=== PATIENT | male | born 1935 | race Caucasian/White ===

== ENCOUNTER → 2016-11-20 | Outpatient (CLI) | payer MEDICARE, BC ==
[2016-11-20 12:11] LABS: ALT 60 U/L (21-72); AST 45 U/L (17-59)
== END | disposition home or self-care (01) ==
LOC: LABWHC1 11:16
PROVIDERS: ATTEND Podiatrist
DX: M10.9 Gout, unspecified (principal)
CPT/HCPCS: 36415; 84450; 84460

== ENCOUNTER → 2017-01-03 | Outpatient (CLI) | payer MEDICARE, BC ==
[2017-01-03 14:43] LABS: ALT 46 U/L (21-72); AST 34 U/L (17-59); Blood Urea Nitrogen 26 mg/dL (9-20); Non-African American GFR(MDRD) >60 (>60 ml/min/1.73 sqM); Uric Acid 3.2 mg/dL (3.5-8.5)
== END | disposition home or self-care (01) ==
LOC: LABWHC1 13:54
PROVIDERS: ATTEND Podiatrist
DX: M10.9 Gout, unspecified (principal)
CPT/HCPCS: 36415; 82565; 84450; 84460; 84520; 84550

== ENCOUNTER → 2017-01-09 | Outpatient (CLI) | payer MEDICARE, BC ==
--- NOTE | 2017-01-09 19:39 | CONS ---
DATE OF CONSULTATION: 01/09/2017 An 81-year-old gentleman, has been evaluated in the sleep center for possible obstructive sleep apnea-hypopnea syndrome. HISTORY OF PRESENT ILLNESS/SLEEP-WAKE EVALUATION: Patient usually goes to bed around 2 a.m. and then he sleeps until around 5:30 or 6:00 a.m. He does have problems with falling asleep, although no TV in the bedroom. He sleeps on back position. According to his , he has loud snoring and witnessed episodes of stopped breathing during sleep. He wakes up from sleep up to 3 times with nocturia. He worries about his sleep, has problems with the memory during the day. [place] Sleepiness Scale is 9. PAST MEDICAL HISTORY: Positive for atrial fibrillation hypertension and gout. PAST SURGICAL HISTORY: Status post defibrillator insertion, status post surgery on artery of the right leg stent insertion. MEDICATIONS: Pacerone, Atorvastatin, warfarin, spironolactone, losartan, allopurinol. SOCIAL HISTORY: Positive for smoking for about 30 pack-years; quit about 35 years ago. Alcohol consumption is occasional. REVIEW OF SYSTEMS: Awakenings from sleep. FAMILY HISTORY: Hypertension, angina, heart problems, arthritis, snoring, pneumonia, cancer in the family. PHYSICAL EXAMINATION: 81-year-old gentleman without distress. VITAL SIGNS: BP 136/78, HR 68, RR 16. Height 59-1/2 inches. Weight 199 pounds. BMI 29.91. Temperature 97.5. Oxygen saturation 92%. HEENT: Normal positon of soft palate. NECK: Supple. No JVD. Thyroid is not palpable. HEART: S1, S2 irregularly irregular 1+ bilateral ankle edema. LUNGS: Clear to percussion and to auscultation. Good air exchange. No wheezing or rhonchi. ABDOMEN: Soft and nontender. Bowel sounds are present. No organomegaly appreciated. EXTREMITIES: No clubbing or cyanosis. HOMICIDE SQUAD CAPTAIN: Awake, alert, and oriented x3. Cranial nerves 2 to 7 intact. There is no fasciculation or atrophy noted. No focal deficits observed. IMPRESSION: 1. Snoring, witnessed episodes of stopped breathing during sleep, low oropharyngeal air space, multiple awakenings from sleep with nocturia, obstructive sleep apnea-hypopnea syndrome. 2. Atrial fibrillation. 3. Hypertension. 4. Gout. 5. Status post defibrillator insertion. 6. Status post stent insertion to the artery of right leg. PLAN: 1. Polysomnography for evaluation of patient's breathing during sleep. 2. CPAP/BiPAP titration if sleep study confirms obstructive sleep apnea-hypopnea syndrome. 3. Preferable position during sleep on the side. 4. No driving if patient feels any sleepiness. Patient is aware of civil and criminal liability for unsafe driving. 5. I will see patient for follow-up visit to explain results of the testing and following plan. Thank you very much for referring this patient for consultation. Sincerely, Celso Buckner MD, PhD, FAASM. Diplomat of [employer] Board of [employer] Medicine, Sleep Medicine Board by [employer] Board of Medical Specialities [employer] Board of Internal Medicine Steel Molder of [facility] [place]
== END | disposition home or self-care (01) ==
LOC: SLEEP 15:29
PROVIDERS: ATTEND Internal Medicine Clinical Cardiac Electrophysiology
DX: G47.33 Obstructive sleep apnea (adult) (pediatric) (principal); I10 Essential (primary) hypertension; I48.91 Unspecified atrial fibrillation; R35.1 Nocturia; M10.9 Gout, unspecified; F17.200 Nicotine dependence, unspecified, uncomplicated; Z95.0 Presence of cardiac pacemaker; Z79.01 Long term (current) use of anticoagulants; Z95.5 Presence of coronary angioplasty implant and graft; Z79.899 Other long term (current) drug therapy
CPT/HCPCS: 99211

== ENCOUNTER → 2017-04-10 | Outpatient (CLI) | payer MEDICARE, BC ==
--- NOTE | 2017-04-10 16:58 | PN ---
DATE OF SERVICE: 04/10/2017 This patient is an 81-year-old gentleman who has been followed in the sleep center for treatment of obstructive sleep apnea-hypopnea syndrome in severe range. Patient recently had a diagnostic sleep study and CPAP titration. I discussed the results of his sleep study with the patient in detail. He is on treatment with CPAP at the pressure 14 cm of water. He is able to use the equipment every night without significant problems. He brought his CPAP unit with him. I checked his machine; usage is 30 out of 30 nights for more than 4 hours. Leak from the mask is 24 L/minute. Apnea-hypopnea index is 18.6; related to central events. 6.6. CPAP pressure is 14. [place] Sleepiness Scale today is 5. MEDICATIONS: 1. ( ) 2. Atorvastatin. 3. Warfarin. 4. Spironolactone. 5. Losartan. 6. Allopurinol. PHYSICAL EXAMINATION: Patient in no distress. VITAL SIGNS: BP 146/74, HR 50, RR 16. Weight 203. Temperature 98.1. Oxygen saturation at room air 94%. HEENT: PERRLA, EOMI. Evaluation of oropharynx showed tongue protrudes midline; low position of soft palate. Patient is able to breathe through his nose. NECK: Supple. No JVD. Thyroid is not palpable. LUNGS: Clear to percussion and to auscultation. Good air exchange. No wheezing or rhonchi. HEART: Regular heart tones. ABDOMEN: Obese. EXTREMITIES: One plus ankle edema. SURGEON CHIEF: Awake, alert, and oriented x3. Cranial nerves 2 to 7 intact. There is no fasciculation or atrophy noted. No focal deficits observed. IMPRESSION: 1. Extremely severe obstructive sleep apnea-hypopnea syndrome; apnea-hypopnea index 49.8 with oxygen desaturation to 71.1%, improved on CPAP at 14 cm of water. Patient demonstrated 100% compliance with treatment, benefiting from treatment. 2. Leak from the mask is acceptable at 24 L/minute, but sometimes it goes to the eye area. 3. Hypertension. 4. History of atrial fibrillation. 5. Gout. 6. Status post defibrillator insertion. 7. Status post stent insertion to the artery of right leg. PLAN: 1. Continue treatment with CPAP every night for the whole night. 2. I will change regimen to auto set mode with the minimal pressure of 4 and maximum pressure of 20 following standard. 3. We will change mask to Onidna View full-face mask at the present time. 4. Patient will continue to use equipment every night. 5. Sleep hygiene with regular time in bed for at least 8 hours. 6. No driving if feeling any sleepiness. 7. I will see the patient for follow-up visit in 2 months. Thank you very much for allowing me to participate in the management of your patient. Sincerely, Celso Buckner MD, PhD, FAASM. Diplomat of [place] Board of Sleep Medicine, Sleep Medicine Board by [employer], [place] Board of Internal Medicine
== END | disposition home or self-care (01) ==
LOC: SLEEP 13:24
PROVIDERS: ATTEND Internal Medicine
DX: G47.33 Obstructive sleep apnea (adult) (pediatric) (principal); I10 Essential (primary) hypertension; M10.9 Gout, unspecified; Z79.899 Other long term (current) drug therapy; Z79.01 Long term (current) use of anticoagulants; Z95.5 Presence of coronary angioplasty implant and graft; Z95.810 Presence of automatic (implantable) cardiac defibrillator

== ENCOUNTER → 2017-07-14 | Outpatient (CLI) | payer MEDICARE, BC ==
[2017-07-14 09:23] LABS: ALT 31 U/L (21-72); AST 26 U/L (17-59); Blood Urea Nitrogen 33 mg/dL (9-20); Non-African American GFR(MDRD) 59 (>60 ml/min/1.73 sqM); Uric Acid 6.7 mg/dL (3.5-8.5)
== END | disposition home or self-care (01) ==
LOC: LABWHC1 07:59
PROVIDERS: ATTEND Podiatrist
DX: M10.9 Gout, unspecified (principal)
CPT/HCPCS: 36415; 82565; 84450; 84460; 84520; 84550

== ENCOUNTER → 2017-07-31 | Outpatient (CLI) | payer MEDICARE, BC ==
--- NOTE | 2017-07-31 21:57 | PN ---
PROGRESS NOTE DATE OF SERVICE: 07/31/2017 This patient is an 82-year-old gentleman who has been followed in the sleep center for treatment of obstructive sleep apnea-hypopnea syndrome. The patient continues to use his CPAP equipment every night. During the previous visit, because apnea-hypopnea index on the machine was 18.6, I changed the pressure in the machine from 14 cm of water to automatic regimen from 4 to 20 cm of water. Today the patient came for follow-up visit. He brought his CPAP machine. I checked the CPAP machine. He is using the equipment 25 out of 30 nights for more than 4 hours. Average usage 5.7 hours. Pressure in the machine is 15.2 cm of water most of the time, but leak is 50 L/minute. Apnea-hypopnea index reading from the machine for the last month is 21.5 with total apnea index 19.9 and central apnea index 4.5. [place] Sleepiness Scale today is 8. MEDICATIONS: 1. Losartan. 2. Amlodipine. 3. Allopurinol. 4. Spironolactone. 5. Atorvastatin. 6. Coumadin. PHYSICAL EXAM: This is a pleasant 82-year-old gentleman without distress. VITAL SIGNS: BP 111/60, HR 58, RR 16, height 5 feet 9 inches, weight 198, BMI 29.2, temperature 98.1, oxygen saturation at room air 93%. HEENT: PERRLA, EOMI. Evaluation of oropharynx showed tongue protrudes midline; moderately low position of soft palate. No restriction of nasal breathing. NECK: Supple. No JVD. Thyroid is not palpable. LUNGS: Clear to percussion and to auscultation. Good air exchange. No wheezing or rhonchi. HEART: S1, S2 irregularly irregular. ABDOMEN: Obese. EXTREMITIES: One plus ankle edema. CURB MACHINE OPERATOR: Awake, alert and oriented x3. Cranial nerves 2 to 7 intact. There is no fasciculation or atrophy noted. No focal deficits observed. IMPRESSION: 1. Severe obstructive sleep apnea-hypopnea syndrome; apnea-hypopnea index during diagnostic sleep study 49.8 with oxygen desaturation to 71%. The patient demonstrated good compliance with treatment, benefitting from treatment, but he still has some abnormalities of respiration while using his CPAP. Significant leak was documented. 2. Hypertension. 3. Atrial fibrillation. 4. Gout. 5. Status post defibrillator insertion. Status post stent insertion to the artery of right leg. PLAN: 1. We will try to try to use nasal pillow mask with chin strap. 2. Patient should continue to use equipment every night for the whole night. 3. Sleep hygiene with regular time in bed for at least 8 hours. 4. No driving if feeling any sleepiness. 5. Follow-up visit in 2 months. Thank you very much for allowing me to participate in the management of your patient. Sincerely, Celso Buckner MD, PhD, FAASM Diplomat of [employer] Specialties [employer] Board of Internal Medicine Contact Lens Lathe Operator of [facility] [place] MMODL / IJN: [id number] /
== END | disposition home or self-care (01) ==
LOC: SLEEP 14:31
PROVIDERS: ATTEND Internal Medicine
DX: G47.33 Obstructive sleep apnea (adult) (pediatric) (principal); I10 Essential (primary) hypertension; I48.91 Unspecified atrial fibrillation; M10.9 Gout, unspecified; Z79.01 Long term (current) use of anticoagulants; Z79.899 Other long term (current) drug therapy

== ENCOUNTER → 2017-11-24 | Outpatient (CLI) | payer MEDICARE, BC ==
--- NOTE | 2017-11-24 11:29 | XR ---
EXAMINATION TYPE: XR chest 2V DATE OF EXAM: 11/24/2017 COMPARISON: Prior chest x-ray 09/08/2017 HISTORY: Lumbar pneumonia TECHNIQUE: Frontal and lateral views of the chest are obtained. FINDINGS: Heart remains enlarged, intracardiac defibrillator lead is present in the right ventricle. No airspace disease, pneumothorax, or pleural effusion evident. Pulmonary vascularity and cuauhtemoc are w ithin normal limits. There is some improvement in aeration. The aorta is dense. IMPRESSION: Improvement in patient's airspace disease. Cardiomegaly.
== END | disposition home or self-care (01) ==
LOC: RADXRMAIN 10:06
PROVIDERS: ATTEND Family Medicine
DX: J18.1 Lobar pneumonia, unspecified organism (principal); I51.7 Cardiomegaly
CPT/HCPCS: 71046

== ENCOUNTER → 2017-12-08 | Outpatient (CLI) | payer MEDICARE, BC ==
[2017-12-08 11:49] LABS: Calcium 9.9 mg/dL (8.4-10.2); Potassium 5.3 mmol/L (3.5-5.1)
== END | disposition home or self-care (01) ==
LOC: LABWHC1 10:58
PROVIDERS: ATTEND Nurse Practitioner Adult Health
DX: I10 Essential (primary) hypertension (principal); R06.02 Shortness of breath
CPT/HCPCS: 36415; 80048; 83880

== ENCOUNTER → 2018-01-01 | Outpatient (CLI) | payer MEDICARE, BC ==
--- NOTE | 2018-01-01 12:09 | PN ---
PROGRESS NOTE FOLLOW-UP VISIT DATE OF SERVICE: 01/01/2018 An 82-year-old gentleman has been followed in the sleep center for treatment of obstructive sleep apnea-hypopnea syndrome. The patient continued to use his equipment, but during the previous visit significant leak was documented and we changed mask to nasal pillows. Presently, patient started to use his Evans FX nasal pillow mask, but sometimes he still opens his mouth while using his CPAP. I checked CPAP unit. It is an automatic regimen. The pressure ranged between 4 and 20. Usage 25/30 nights for more than 4 hours, which is acceptable range. Average pressure is 10.9 cm of water. Ramp is an automatic regimen. Apnea-hypopnea index in high range 20.7 and central apneas 5.3. Leak is again very significant 46 L/minute. [place] Sleepiness Scale today is 6. MEDICATIONS: Amlodipine, losartan, allopurinol, spironolactone, atorvastatin, Coumadin. PHYSICAL EXAM: During physical exam, patient in no distress. VITAL SIGNS: BP 103/63, HR 52, RR 16, height 5 feet 9 inches, weight 197.6, temp 97.6. Oxygen saturation room air 91%-92%. HEENT: PERRLA, EOMI. Oropharynx moderately low position of soft palate. NECK: Supple, no JVD. Thyroid is not palpable. LUNGS: Clear to percussion and to auscultation. Good air exchange. No wheezing or rhonchi. HEART: S1, S2, irregularly irregular. ABDOMEN: Soft and nontender. Bowel sounds are present. No organomegaly appreciated. EXTREMITIES: No clubbing or cyanosis. CHANNEL MARKETING COORDINATOR: Awake, alert, and oriented X3. Cranial nerves 2 to 7 intact. There is no fasciculation or atrophy. noted. No focal deficits observed IMPRESSION: 1. Obstructive sleep apnea-hypopnea syndrome with some central apneas. Patient being demonstrated good compliance with treatment, but has significant leak and still has abnormalities of respiration by reading from the machine. 2. Hypertension. 3. Atrial fibrillation. 4. Gout. 5. Status post defibrillator insertion. 6. Status post stent insertion to the right leg artery. PLAN: 1. Continue to use CPAP equipment every night. 2. The patient will be use chin strap every night. 3. Sleep hygiene with regular time in bed for at least 7-1/2 hours. 4. No driving if feeling any sleepiness. 5. Follow-up visit in one month. Thank you very much for allowing me to participate in management of your patient. Sincerely, Celso Buckner MD, PhD, FAASM Diplomat of [place] Board of Medical Specialties [place] Board of Internal Medicine Data Support Analyst of [facility] [place] MMSILVESTRE / BASHIR: [id number] /
== END | disposition home or self-care (01) ==
LOC: SLEEP 10:14
PROVIDERS: ATTEND Internal Medicine
DX: G47.33 Obstructive sleep apnea (adult) (pediatric) (principal); Z99.89 Dependence on other enabling machines and devices; I10 Essential (primary) hypertension; I48.91 Unspecified atrial fibrillation; Z79.01 Long term (current) use of anticoagulants; M10.9 Gout, unspecified; Z95.810 Presence of automatic (implantable) cardiac defibrillator; Z95.5 Presence of coronary angioplasty implant and graft; Z79.899 Other long term (current) drug therapy

== ENCOUNTER → 2018-03-19 | Outpatient (CLI) | payer MEDICARE, BC ==
--- NOTE | 2018-03-19 16:40 | PN ---
PROGRESS NOTE DATE OF SERVICE: 03/19/2018 This patient is 82-year-old gentleman who has been followed in the sleep center for treatment of obstructive sleep apnea-hypopnea syndrome. The patient continues to use his CPAP equipment every night. At present he is using a nasal pillow mask. He has problems with the usage of chinstrap because the chinstrap has a tendency to move from his chin up to his mouth. I checked the patient's CPAP unit. It is on automatic regimen. The pressure ranges between 4 and 20 cm of water. Most of the time, pressure is 11.3 cm of water, which is not extremely high, but reading from the machine showed a significant leak of around 41 L/minute. Apnea-hypopnea index reading for the last month is in high range of 31.3; for the last night it is 23.1. Again, patient demonstrated great compliance at /30 nights more than 4 hours. Average usage is 5.6 hours. I checked the patient's nasal pillow mask. The mask fits well. There is no leak from the mask, so most probably the leak indicated on the machine is from opening his mouth. MEDICATIONS: 1. Atorvastatin. 2. Warfarin. 3. Spironolactone. 4. Losartan. 5. Allopurinol. 6. Pacerone. PHYSICAL EXAMINATION: GENERAL: A pleasant gentleman in no distress. VITAL SIGNS: BP 99/50, HR 54, RR 16, height 5 feet 9 inches, weight 196, BMI 28.9, temperature 98.1, oxygen saturation at room air 94%. HEENT: PERRLA, EOMI. Evaluation of oropharynx showed tongue protrudes midline; moderately low position of soft palate. Short distance between soft palate and posterior pharyngeal wall. NECK: Supple. No JVD. Thyroid is not palpable. LUNGS: Clear to percussion and to auscultation. Good air exchange. No wheezing or rhonchi. HEART: Tone sounds with slight irregularities. ABDOMEN: Obese. Soft and nontender. Bowel sounds are present. No organomegaly appreciated. EXTREMITIES : No clubbing or cyanosis. FEATHEREDGE MACHINE OPERATOR: Awake, alert, and oriented X3. Cranial nerves 2 to 7 intact. There is no fasciculation or atrophy. noted. No focal deficits observed. IMPRESSION: 1. Obstructive sleep apnea-hypopnea syndrome. Patient demonstrated great compliance with treatment, benefitting from treatment, but he still at present has a leak and high apnea-hypopnea index. 2. History of atrial fibrillation. 3. Hypertension. 4. Gout. 5. Status post defibrillator insertion. 6. Status post stent insertion to the right leg artery. PLAN: 1. Patient will continue to use CPAP equipment every night for the whole night on the same regimen. 2. He will use chinstrap every night to be sure that there is no leak from the equipment. 3. We may get the patient a different style of chinstrap. 4. No driving if feeling any sleepiness. 5. Follow-up visit in one month. Thank you very much for allowing me to participate in the management of your patient. Sincerely, Celso Buckner MD, PhD, FAASM Diplomat of [employer] Board of Medical Specialties Iranian Board of Internal Medicine Contact Clerk of [facility] [place] MMODL / BASHIR: [id number] /
== END | disposition home or self-care (01) ==
LOC: SLEEP 15:32
PROVIDERS: ATTEND Internal Medicine
DX: G47.33 Obstructive sleep apnea (adult) (pediatric) (principal); I48.91 Unspecified atrial fibrillation; I10 Essential (primary) hypertension; M10.9 Gout, unspecified; Z95.810 Presence of automatic (implantable) cardiac defibrillator; Z95.820 Peripheral vascular angioplasty status with implants and grafts; Z99.89 Dependence on other enabling machines and devices; Z79.899 Other long term (current) drug therapy

== ENCOUNTER → 2018-05-28 | Outpatient (CLI) | payer MEDICARE, BC ==
--- NOTE | 2018-05-28 18:48 | PN ---
PROGRESS NOTE DATE OF SERVICE: 05/28/2018. An 83-year-old gentleman has been followed in sleep center for treatment of obstructive and central sleep apnea-hypopnea syndrome. The patient continued to use his CPAP equipment every night for the whole night without significant problems. During previous visit, apnea-hypopnea index was 31.3. I changed the pressure to 11 cm of water and patient was recommended to use chin strap. He is using chinstrap now with a nasal pillow mask. I checked his CPAP unit. Usage is 30/30 nights for more than 4 hours every 6.1 hours. The patient still has significant leak at 38 L/minute. Apnea-hypopnea index improved to 21.3 per hour, but still above normal. Central apneas 9.8. CPAP pressure is 11 cm of water. MEDICATIONS: 1. Warfarin. 2. Atorvastatin. 3. Spironolactone. 4. Losartan. 5. Allopurinol. 6. Pacerone. PHYSICAL EXAMINATION: GENERAL Patient in no distress. VITAL SIGNS BP 107/59, HR 51, RR 18, height 69, weight 195.8, BMI 28.7, temperature 97.2, oxygen saturation at room air 91%. HEENT PERRLA, EOMI, evaluation of oropharynx showed tongue protrudes midline, moderately low position of soft palate, short distance between soft palate and posterior pharyngeal wall. Neck Supple, no JVD. Thyroid is not palpable. LUNGS Clear to percussion and to auscultation. Good air exchange. No wheezing or rhonchi. HEART HEART: S1, S2 with some irregularities. ABDOMEN Soft and nontender. Bowel sounds are present. No organomegaly appreciated. EXTREMITIES No clubbing or cyanosis. BRUSH TRIMMING MACHINE SETTER Awake, alert, and oriented X3. Cranial nerves 2 to 7 intact. There is no fasciculation or atrophy. noted. No focal deficits observed. IMPRESSION: 1. Obstructive and central sleep apnea-hypopnea syndrome. The patient demonstrated good compliance with the treatment, but still has a significant leak while using a chin strap with a nasal pillow mask. 2. History of atrial fibrillation. 3. Hypertension. 4. Gout. 5. Status post defibrillator insertion. 6. Status post stent insertion to the right leg artery. PLAN: 1. I increased pressure in CPAP unit to 14 cm of water. 2. Patient was fitted with Ondina View full face mask. 3. Patient will continue to use his CPAP equipment every night for the whole night. 4. Sleep hygiene with regular time in bed for at least 8 hours. 5. No driving if feeling any sleepiness. 6. Followup visit in 2 to 3 months. Thank you very much for allowing me to participate in management of your patient. Sincerely, Celso Buckner MD, PhD, FAASM Diplomat of [employer] Board [employer] Medical Specialties [employer] Board of Internal Medicine Miller Helper Distillery of [facility] [place] MMODL / KAITLINN: [id number] /
== END | disposition home or self-care (01) ==
LOC: SLEEP 16:38
PROVIDERS: ATTEND Internal Medicine
DX: G47.33 Obstructive sleep apnea (adult) (pediatric) (principal); I10 Essential (primary) hypertension; M10.9 Gout, unspecified; Z86.79 Personal history of other diseases of the circulatory system; Z95.810 Presence of automatic (implantable) cardiac defibrillator; Z95.5 Presence of coronary angioplasty implant and graft; Z79.01 Long term (current) use of anticoagulants; Z79.899 Other long term (current) drug therapy

== ENCOUNTER → 2018-08-13 | Outpatient (CLI) | payer MEDICARE, BC ==
[2018-08-13 15:58] LABS: HCT 42.9 % (39.0-53.0); HGB 13.8 gm/dL (13.0-17.5); MCH 32.2 pg (25.0-35.0); MCHC 32.1 g/dL (31.0-37.0); MCV 100.1 fL (80.0-100.0); Mean Platelet Volume 6.5; Platelet Count 180 k/uL (150-450); RBC 4.29 m/uL (4.30-5.90); RDW 13.4 % (11.5-15.5); WBC 4.6 k/uL (3.8-10.6)
[2018-08-13 16:10] LABS: Albumin 4.2 g/dL (3.5-5.0); Calcium 9.9 mg/dL (8.4-10.2); Potassium 5.2 mmol/L (3.5-5.1); Total Bilirubin 1.1 mg/dL (0.2-1.3); Total Protein 7.5 g/dL (6.3-8.2)
[2018-08-13 16:26] LABS: T4, Free (Free Thyroxine) 1.04 ng/dL (0.78-2.19)
== END | disposition home or self-care (01) ==
LOC: LABWHC1 15:03
PROVIDERS: ATTEND Internal Medicine Cardiovascular Disease
DX: I50.9 Heart failure, unspecified (principal)
CPT/HCPCS: 36415; 80053; 84439; 84443; 85027

== ENCOUNTER → 2018-08-27 | Outpatient (CLI) | payer MEDICARE, BC ==
--- NOTE | 2018-08-27 19:08 | SFUN ---
SLEEP CENTER FOLLOW UP NOTE DATE OF SERVICE: 08/27/2018. HISTORY: An 83-year-old gentleman has been followed in Sleep Center for treatment of obstructive and central sleep apnea-hypopnea syndrome. The patient continued to use his CPAP equipment every night. Last time I changed his CPAP unit to automatic regimen because he still continued to have some central apneas and his apnea-hypopnea index during previous visit was 21.3, and central apnea index was 9.8. That was on CPAP pressure of 11. I changed it to the range of CPAP pressure of 4 to 20 to see what happens with the increasing pressure because a significant amount of abnormal events obviously related to obstructive apneas, not only centrals. The patient continued to use his CPAP equipment. His mask was changed to Ondina View and with this mask he feels better, sleeps longer with this mask than before. I checked his CPAP unit. Usage is 21/30 for more than 30 nights for more than 4 hours. Average usage 4.9 hours, average pressure is 16.4 cm of water. Leak is 36 L/minute, which is borderline for full-face mask. Apnea-hypopnea index 21.1 with a central index of 3.8. [place] Sleepiness Scale is 7. MEDICATIONS: 1. Warfarin. 2. Atorvastatin. 3. Spironolactone. 4. Losartan. 5. Allopurinol. 6. . PHYSICAL EXAMINATION: GENERAL A pleasant patient without any distress. VITAL SIGNS: BP 139/63, HR 49, RR 16, height and 5 foot 9, weight 200.6, body mass index 29.5, oxygen saturation room air 94%. HEENT: PERRLA, EOMI, evaluation of oropharynx showed tongue protrudes midline. Moderately low position of soft palate. NECK: Supple, no JVD. Thyroid is not palpable. LUNGS: Clear to percussion and to auscultation. Good air exchange. No wheezing or rhonchi. HEART: S1, S2 irregular. ABDOMEN: Soft and nontender. Bowel sounds are present. No organomegaly appreciated. EXTREMITIES: No clubbing or cyanosis. JEWELRY BENCH MOLDER: Awake, alert, and oriented X3. Cranial nerves 2 to 7 intact. There is no fasciculation or atrophy. noted. No focal deficits observed. IMPRESSION: 1. Obstructive and central sleep apnea-hypopnea syndrome. The patient demonstrated good compliance with treatment benefitting from treatment, but still has abnormalities of respiration on CPAP. 2. History of atrial fibrillation. 3. Hypertension. 4. Gout. 5. Status post defibrillator insertion. 6. Status post stent insertion to the right leg artery. PLAN: 1. We will repeat CPAP, possibly BiPAP titration, for correction of patient breathing during the sleep. 2. Watching weight. 3. Sleep hygiene with regular time in bed for at least 7-1/2 to 8 hours. 4. No driving if feeling sleepiness. Thank you very much for allowing me to participate in management of your patient. MMODL / IJN: [id number] /
== END ==
LOC: SLEEP 15:18
PROVIDERS: ATTEND Internal Medicine
DX: G47.33 Obstructive sleep apnea (adult) (pediatric) (principal); I10 Essential (primary) hypertension; M10.9 Gout, unspecified; Z95.5 Presence of coronary angioplasty implant and graft; I48.91 Unspecified atrial fibrillation; Z79.899 Other long term (current) drug therapy; Z79.01 Long term (current) use of anticoagulants

== ENCOUNTER → 2020-10-02 | Outpatient (CLI) | payer MEDICARE, BC ==
[2020-10-02 15:55] LABS: African American GFR (CKD) 63.5 (60.0-200.0); Albumin 4.1 g/dL (3.80-4.90); Albumin/Globulin Ratio 1.64 (1.60-3.17); Anion Gap 7.6 mmol/L (4.00-12.00); BUN/Creat Ratio 24.17 Ratio (12.00-20.00); Calcium 9.7 mg/dL (8.7-10.3); Carbon Dioxide 27.4 mmol/L (21.6-31.8); Chol/HDL Ratio 2.8; Globulin 2.5 g/dL (1.6-3.3); LDL Cholesterol,Calculated 61.4 mg/dL (0.0-131.0); Non-African American GFR(CKD) 54.8 (60.0-200.0); Potassium 4.8 mmol/L (3.5-5.5); Total Protein 6.6 g/dL (6.2-8.2); VLDL Calculation 19.6 mg/dL (5.00-40.00)
== END | disposition home or self-care (01) ==
LOC: LABWHC1 08:27
PROVIDERS: ATTEND Physician Assistant
DX: E78.5 Hyperlipidemia, unspecified (principal); I42.9 Cardiomyopathy, unspecified; I48.91 Unspecified atrial fibrillation
CPT/HCPCS: 36415; 80053; 80061; 84443

== ENCOUNTER 2020-10-30 06:07 | Day surgery (SDC) | payer MEDICARE, BC ==
[2020-10-26 11:41] VITALS: BMI 25.5
[~2020-10-30 06:07] MED LIST: ALPRAZolam 0.25 MG TAB PO PRN; SODIUM CHLORIDE 0.9% 1,000 ML in EMPTY BAG 1 BAG IV ONE; ZOLPIDEM 5 MG TAB PO PRN
[2020-10-30 06:58] LABS: Basophils % (A) 0 %; Eosinophils # (A) 0.2 k/uL (0-0.7); Eosinophils % (A) 5 %; HCT 43.5 % (39.0-53.0); HGB 13.9 gm/dL (13.0-17.5); Lymphocytes # (A) 0.9 k/uL (1.0-4.8); Lymphocytes % (A) 19 %; MCH 31.2 pg (25.0-35.0); MCHC 31.8 g/dL (31.0-37.0); MCV 98.1 fL (80.0-100.0); Mean Platelet Volume 7.6; Monocytes # (A) 0.4 k/uL (0-1.0); Monocytes % (A) 8 %; Neutrophils # (A) 3.2 k/uL (1.3-7.7); Neutrophils % (A) 65 %; Platelet Count 180 k/uL (150-450); RBC 4.44 m/uL (4.30-5.90); RDW 13.5 % (11.5-15.5); WBC 4.8 k/uL (3.8-10.6)
[2020-10-30 06:59] VITALS: TEMP 98.3
[2020-10-30] MEDS ORDERED: ASPIRIN 325 MG TAB PO PRN (07:00)
[2020-10-30 07:04] LABS: INR 1.7 (<1.2)
[2020-10-30 07:09] LABS: Calcium 9.6 mg/dL (8.4-10.2); Potassium 4.2 mmol/L (3.5-5.1)
[2020-10-30] MEDS ORDERED: LIDOCAINE 1% INJ 10MG/ML (20 ML MDV) SQ ONE (07:46)
[2020-10-30] MEDS ORDERED: IOPAMIDOL-250 100ML BTL INTRAARTER ONE (08:03)
[2020-10-30] MEDS ORDERED: SODIUM CHLORIDE 0.9% 1,000 ML IV SCH (08:15)
--- NOTE | 2020-10-30 09:06 | IR ---
EXAMINATION TYPE: IR angio abdominal w runoff DATE OF EXAM: 10/30/2020 COMPARISON: NONE HISTORY: Fluoroscopy time. Fluoroscopy was provided to the referring clinician.
--- NOTE | 2020-10-30 11:26 | AN ---
ANGIOGRAPHY REPORT DATE OF SERVICE: 10/30/2020 PERFORMING PHYSICIAN: Joseph Trinidad MD. PROCEDURE PERFORMED: 1. An abdominal aortogram. 2. Bilateral lower extremities runoff. INDICATION: This is an 85-year-old gentleman who is in good physical and mental shape who sees Dr. Swanson in the office as an outpatient with history of peripheral arterial disease and prior angioplasty of the right iliac, was experiencing bilateral lower extremities intermittent claudication and underwent an arterial duplex study and that revealed increased peak systolic velocity across the right iliac artery. Because of that, he was brought today to undergo an angiogram. APPROACH: Right common femoral artery. COMPLICATION: None. LEVEL OF SEDATION: Moderate with sedation length of 18 minutes. PROCEDURE DESCRIPTION: After obtaining an informed consent, the patient was brought to the cardiac laborer gold leaf. The right common femoral artery was cannulated using micropuncture technique and a micropuncture wire passed easily, then I placed a 5-Citizen Of [place] sheath at the right common femoral artery. An abdominal aortogram and bilateral lower extremities runoff were performed using 5- Citizen Of [place] pigtail catheter which was initially placed at the level of the renal arteries, then it was pulled into above the bifurcation of the aorta to right and left common iliac artery. The procedure was completed without any complication. SELECTIVE PERIPHERAL ANGIOGRAM: 1. The aorta appeared to be calcified with mild disease only. 2. Common iliac arteries: The right common iliac artery and left common iliac arteries appeared to have mild disease only. 3. Internal iliac arteries: Both are patent. 4. External iliac artery: The right external iliac artery appeared to have a tight lesion in the range of 80%-90% above the stented segment and the left external iliac artery appeared to have mild disease only. 5. Common femoral arteries: Both appeared to be angiographically normal. 6. Profunda: Both are patent. 7. SFA; The right SFA appeared to have a lesion in the range of 70% and the left SFA appeared to be angiographically normal. Distally, the left SFA appeared to have mild disease only. 8. Popliteal: Both appear to have mild disease only. 9. Below the knee: There are 2 vessel runoff below the knee with peroneal and posterior tibial. CONCLUSION: 1. 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 2. Severe disease involving the right SFA. POSTPROCEDURE MANAGEMENT: INSPECTOR WATER POLLUTION CONTROL of the right iliac and right SFA. MMODL / IJN: [id number] /
[2020-10-30 12:58] VITALS: PULSE 54
[2020-10-30 14:32] VITALS: BP 142/67; RESP 16
== END 2020-10-30 15:00 | disposition home or self-care (01) ==
LOC: CATHCVL 06:07
PROVIDERS: ATTEND Internal Medicine Interventional Cardiology
DX: I73.9 Peripheral vascular disease, unspecified (principal); I70.0 Atherosclerosis of aorta; I10 Essential (primary) hypertension; I48.21 Permanent atrial fibrillation; D86.9 Sarcoidosis, unspecified; I70.8 Atherosclerosis of other arteries; E78.2 Mixed hyperlipidemia; Z95.820 Peripheral vascular angioplasty status with implants and grafts; Z72.0 Tobacco use; Z79.01 Long term (current) use of anticoagulants; Z79.899 Other long term (current) drug therapy; Z79.82 Long term (current) use of aspirin; Z88.6 Allergy status to analgesic agent; Z88.5 Allergy status to narcotic agent; Z86.79 Personal history of other diseases of the circulatory system
CPT/HCPCS: 36200; 75625; 75716; 80048; 85025; 85610; C1769 ×4; C1894; J2001; Q9966

== ENCOUNTER 2021-02-28 18:01 | Emergency (ER) | payer MEDICARE, BC ==
[2021-02-28 18:09] VITALS: BP 155/61; PULSE 63; RESP 20; TEMP 97.8
--- NOTE | 2021-02-28 18:10 | ED ---
General Adult HPI - General Source: patient, family, RN notes reviewed Mode of arrival: ambulatory Limitations: no limitations <Paulie Mendez - Last Filed: 02/28/21 18:08> <Tasha Chow - Last Filed: 02/28/21 20:47> - General Chief complaint: Fall Stated complaint: trip & fall Time Seen by Provider: 02/28/21 18:03 - History of Present Illness Initial comments: This 85-year-old male presents emergency Department with chief complaint of trip and fall. Patient states he tripped and fell yesterday he did strike his head on the sidewalk. Patient did not pass out. Patient does take Coumadin. Patient states he saw his PCP today who gave him an order for CT of his brain. Patient went of mild neck discomfort. Patient states he has soreness to his left knee and hands but states he was wearing gloves. Patient has no chest pain or shortness of breath. (Paulie Mendez) - Related Data Home Medications Medication Instructions Recorded Confirmed Atorvastatin [Lipitor] 10 mg PO HS 01/13/16 10/30/20 Amiodarone HCl [Pacerone] 100 mg PO DAILY 10/26/20 10/30/20 Aspirin [Adult Low Dose Aspirin EC] 81 mg PO DAILY 10/26/20 10/30/20 Furosemide [Lasix] 20 mg PO DAILY 10/26/20 10/30/20 Losartan Potassium [Cozaar] 100 mg PO DAILY 10/26/20 10/30/20 Spironolactone [Aldactone] 25 mg PO DAILY 10/30/20 10/30/20 Previous Rx's Medication Instructions Recorded Magnesium Chloride [Slow-Mag] 64 mg PO DAILY@1200 #30 tablet.er 01/24/16 Cyclobenzaprine [Flexeril] 5 mg PO BID #15 tablet 02/28/21 Allergies Allergy/AdvReac Type Severity Reaction Status Date / Time propoxyphene napsylate Allergy Hallucinati Verified 02/28/21 18:09 [From Priscila] ons adhesive tape AdvReac Rash/Hives Verified 02/28/21 18:09 morphine AdvReac Hallucinati Verified 02/28/21 18:09 ons Review of Systems ROS Other: All systems not noted in ROS Statement are negative. <Paulie Mendez - Last Filed: 02/28/21 18:08> ROS Other: All systems not noted in ROS Statement are negative. <Tasha Chow - Last Filed: 02/28/21 20:47> ROS Statement: Those systems with pertinent positive or pertinent negative responses have been documented in the HPI. Past Medical History Past Medical History: Atrial Fibrillation, Cancer, Chest Pain / Angina, Heart Failure, Hyperlipidemia, Hypertension, Osteoarthritis (OA), Pneumonia, Sleep Apnea/CPAP/BIPAP, Vascular Disorder Additional Past Medical History / Comment(s): HX OF HEART MURMUR, HX OF COLON CA, GOUT, V-TACH, , P.A.D. History of Any Multi-Drug Resistant Organisms: None Reported Past Surgical History: Bowel Resection, Cardiac Ablation, Heart Catheterization, Hernia Repair, Orthopedic Surgery Additional Past Surgical History / Comment(s): HAD BOWEL RESECTION R/T COLON CA, HAD COLOSTOMY NOW REVERSED. HAD SX ON TENDON IN FINGER . STATES LUNG DRAINED OF FLUID.stent rt external iliac artery(per report) Past Anesthesia/Blood Transfusion Reactions: No Reported Reaction Smoking Status: Former smoker - Past Family History Mother Family Medical History: No Reported History <Paulie Mendez M - Last Filed: 02/28/21 18:08> General Exam Limitations: no limitations General appearance: alert, in no apparent distress <Paulie Mendez M - Last Filed: 02/28/21 18:08> <Tasha Chow - Last Filed: 02/28/21 20:47> - General Exam Comments Initial Comments: GENERAL: Patient is well-developed and well-nourished. Patient is nontoxic and in no acute distress. HEAD: Atraumatic, normocephalic. There are no hematomas, no signs of basal skull fracture. EYES: Pupils equal round and reactive to light, extraocular movements intact, sclera anicteric, conjunctiva are normal. Eyelids were unremarkable. ENT: TMs normal, nares patent, oropharynx clear without exudates. Moist mucous membranes. NECK: He should has pain with palpation along the cervical paraspinals, no midline tenderness. He does have decreased active range of motion secondary to pain and stiffness. supple without lymphadenopathy or JVD. LUNGS: Unlabored respirations. Breath sounds clear to auscultation bilaterally and equal. No wheezes rales or rhonchi. HEART: Regular rate and rhythm without murmurs, rubs or gallops. ABDOMEN: Soft, nontender, normoactive bowel sounds. No guarding, no rebound. No masses appreciated. : Deferred MUSCULOSKELETAL: Normal extremities with adequate strength and normal range of motion, no pitting or edema. No clubbing or cyanosis. NEUROLOGICAL: Patient is alert and oriented x 3. Motor and sensory are also intact. Cranial nerves II through XII grossly intact. Symmetrical smile. Normal speech, normal gait. PSYCH: Normal mood, normal affect. SKIN: Warm, Dry, normal turgor, no rashes. She has mild bruising and a mild abrasion noted to the left anterior knee, is Full range of motion. (Tasha Chow) Course Vital Signs 02/28/21 18:05 Temperature 97.8 F Pulse Rate 63 Respiratory 20 Rate Blood Pressure 155/61 O2 Sat by Pulse 92 L Oximetry Medical Decision Making <Tasha Chow - Last Filed: 02/28/21 20:47> - Medical Decision Making Patient is an 85-year-old male presenting after a trip and fall yesterday at approximate 4 PM. Patient denies any loss of consciousness, he does take Cou madin. He was seen by his primary care today and he wanted to get a CT of his head however the daughter brought him into the ER for evaluation. CT of the brain and C-spine today showed no acute abnormalities, no acute fractures. Patient's begins complaint is stiffness of his neck. I will give him a low-dose of a muscle relaxer to try over the next few days. Also recommended heat and/or ice to the area. Patient and patient's daughter are in agreement with this plan of care. She was stable for discharge. He can follow up with his PCP. Return parameters were discussed with them and they verbalized understanding. Case discussed with Dr. Barroso. (Tasha Chow) Disposition <Paulie Mendez - Last Filed: 02/28/21 18:08> Is patient prescribed a controlled substance at d/c from ED?: No Time of Disposition: 20:47 <Tasha Chow - Last Filed: 02/28/21 20:47> Clinical Impression: Fall, Cervical strain, acute Disposition: HOME SELF-CARE Condition: Stable Instructions (If sedation given, give patient instructions): Cervical Strain (ED) Additional Instructions: Please return to the Emergency Department if symptoms worsen or any other concerns. May apply ice and/or heat to the area, gentle range of motion. May use muscle relaxer, be cautious, as it may may you sleepy. Follow-up with your primary care physician. Prescriptions: Cyclobenzaprine [Flexeril] 5 mg PO BID #15 tablet Referrals: Ian España DO [Primary Care Provider] - 1-2 days
--- NOTE | 2021-02-28 18:45 | CT ---
EXAMINATION TYPE: CT brain nnamdi wo con DATE OF EXAM: 02/28/2021 COMPARISON: CT brain 01/04/2014 HISTORY: Fall, head and neck pain. CT DLP: 1571.7 mGycm Automated exposure control for dose reduction was used. There is cerebral cortical atrophy. There is no mass effect nor midline shift. There is no sign of in tracranial hemorrhage. There is mild hypodensity in the periventricular white matter. The calvarium i s intact. Skull base is intact. Cervical vertebra have normal alignment. There is disc space narrowing at C5-6 and C6-7 with spurring of the endplates. Facet joints are intact. There is mild hypertrophic facet arthropathy. IMPRESSION: Spondylotic changes in the lower cervical spine. No fracture. Cerebral atrophy and chronic small vessel ischemia. No acute intracranial abnormality. Brain unchange d compared to old exam.
[2021-02-28] MEDS ORDERED: CYCLOBENZAPRINE 5 MG TAB PO STA (20:54)
== END 2021-02-28 21:27 | disposition home or self-care (01) ==
LOC: EC 18:01
DX: S16.1XXA Strain of muscle, fascia and tendon at neck level, initial encounter (principal); I11.0 Hypertensive heart disease with heart failure; I50.9 Heart failure, unspecified; I48.91 Unspecified atrial fibrillation; G47.30 Sleep apnea, unspecified; E78.5 Hyperlipidemia, unspecified; Z79.82 Long term (current) use of aspirin; Z79.01 Long term (current) use of anticoagulants; Z79.899 Other long term (current) drug therapy; Z87.891 Personal history of nicotine dependence; Z85.038 Personal history of other malignant neoplasm of large intestine; Z88.5 Allergy status to narcotic agent; Z88.8 Allergy status to other drugs, medicaments and biological substances; Z99.89 Dependence on other enabling machines and devices; W01.198A Fall on same level from slipping, tripping and stumbling with subsequent striking against other object, initial encounter; Y92.480 Sidewalk as the place of occurrence of the external cause
CPT/HCPCS: 70450; 72125; 99283

== ENCOUNTER → 2021-05-14 | Outpatient (CLI) | payer MEDICARE, BC ==
[2021-05-15 01:54] LABS: African American GFR (CKD) 78.6 (60.0-200.0); C Reactive Protein 0.7 mg/dL (0.0-0.8); Non-African American GFR(CKD) 67.8 (60.0-200.0); Uric Acid 7.7 mg/dL (3.7-8.7)
== END | disposition home or self-care (01) ==
LOC: LABWHC1 15:27
PROVIDERS: ATTEND Podiatrist
DX: M10.9 Gout, unspecified (principal)
CPT/HCPCS: 36415; 82565; 84450; 84460; 84520; 84550; 85652; 86140

== ENCOUNTER → 2021-07-06 | Outpatient (CLI) | payer MEDICARE, BC ==
[2021-07-06 19:25] LABS: African American GFR (CKD) 63.1 (60.0-200.0); Non-African American GFR(CKD) 54.4 (60.0-200.0); Uric Acid 8.6 mg/dL (3.7-8.7)
== END | disposition home or self-care (01) ==
LOC: LABWHC1 11:00
PROVIDERS: ATTEND Podiatrist
DX: M10.9 Gout, unspecified (principal)
CPT/HCPCS: 36415; 82565; 84450; 84460; 84520; 84550

== ENCOUNTER → 2021-07-26 | Outpatient (CLI) | payer MEDICARE, BC ==
[2021-07-27 04:33] LABS: African American GFR (CKD) 63.1 (60.0-200.0); Non-African American GFR(CKD) 54.4 (60.0-200.0); Uric Acid 5.5 mg/dL (3.7-8.7)
== END | disposition home or self-care (01) ==
LOC: LABWHC1 11:00
PROVIDERS: ATTEND Podiatrist
DX: M10.9 Gout, unspecified (principal)
CPT/HCPCS: 36415; 82565; 84450; 84460; 84520; 84550

== ENCOUNTER → 2021-08-23 | Outpatient (CLI) | payer MEDICARE, BC ==
[2021-08-25 20:13] LABS: African American GFR (CKD) 57.8 (60.0-200.0); Anion Gap 20.2 mmol/L (4.00-12.00); BUN/Creat Ratio 25.97 Ratio (12.00-20.00); Blood Urea Nitrogen 33.5 mg/dL (9.0-27.0); Calcium 9.7 mg/dL (8.7-10.3); Carbon Dioxide 16.4 mmol/L (21.6-31.8); Chol/HDL Ratio 2.6 Ratio; HDL Cholesterol 44.2 mg/dL (40.00-60.00); LDL Cholesterol,Calculated 50.6 mg/dL (0.0-131.0); Non-African American GFR(CKD) 49.9 (60.0-200.0); Potassium 4.9 mmol/L (3.5-5.5); VLDL Calculation 20.2 mg/dL (5.00-40.00)
== END | disposition home or self-care (01) ==
LOC: LABWHC1 07:24
PROVIDERS: ATTEND Nurse Practitioner Adult Health
DX: I10 Essential (primary) hypertension (principal); I48.91 Unspecified atrial fibrillation
CPT/HCPCS: 36415; 80048; 80061; 84443

== ENCOUNTER → 2021-10-20 | Outpatient (CLI) | payer MEDICARE, BC ==
[2021-10-20 11:59] LABS: African American GFR (CKD) 89.3 (60.0-200.0); Blood Urea Nitrogen 22.8 mg/dL (9.0-27.0); Non-African American GFR(CKD) 77.1 (60.0-200.0); Uric Acid 6.8 mg/dL (3.7-8.7)
== END | disposition home or self-care (01) ==
LOC: LABWHC1 08:05
PROVIDERS: ATTEND Podiatrist
DX: M10.9 Gout, unspecified (principal)
CPT/HCPCS: 36415; 82565; 84450; 84460; 84520; 84550

== ENCOUNTER → 2022-01-23 | Outpatient (CLI) | payer MEDICARE, BC ==
[2022-01-23 14:51] LABS: African American GFR (CKD) 63.1 (60.0-200.0); Blood Urea Nitrogen 23.8 mg/dL (9.0-27.0); Non-African American GFR(CKD) 54.4 (60.0-200.0); Uric Acid 7.4 mg/dL (3.7-8.7)
== END | disposition home or self-care (01) ==
LOC: LABWHC1 07:34
PROVIDERS: ATTEND Podiatrist
DX: M10.9 Gout, unspecified (principal)
CPT/HCPCS: 36415; 82565; 84450; 84460; 84520; 84550

== ENCOUNTER → 2022-04-23 | Outpatient (CLI) | payer MEDICARE, BC ==
[2022-04-23 18:36] LABS: African American GFR (CKD) 69.6 (60.0-200.0); Uric Acid 4.9 mg/dL (3.7-8.7)
== END | disposition home or self-care (01) ==
LOC: LABWHC1 10:10
PROVIDERS: ATTEND Podiatrist
DX: M10.9 Gout, unspecified (principal)
CPT/HCPCS: 36415; 82565; 84450; 84460; 84520; 84550

== ENCOUNTER 2022-09-28 21:29 | Emergency (ER) | payer MEDICARE, BC ==
[2022-09-28 21:34] VITALS: RESP 18; TEMP 97.3
[2022-09-28 21:52] LABS: Basophils % (A) 0 %; Eosinophils # (A) 0.1 k/uL (0-0.7); Eosinophils % (A) 2 %; HCT 43.5 % (39.0-53.0); HGB 14.5 gm/dL (13.0-17.5); Lymphocytes # (A) 0.7 k/uL (1.0-4.8); Lymphocytes % (A) 11 %; MCH 32.6 pg (25.0-35.0); MCHC 33.3 g/dL (31.0-37.0); MCV 97.9 fL (80.0-100.0); Mean Platelet Volume 7.7; Monocytes # (A) 0.4 k/uL (0-1.0); Monocytes % (A) 6 %; Neutrophils # (A) 4.8 k/uL (1.3-7.7); Neutrophils % (A) 79 %; Platelet Count 183 k/uL (150-450); RBC 4.45 m/uL (4.30-5.90); RDW 13.3 % (11.5-15.5); WBC 6.1 k/uL (3.8-10.6)
[2022-09-28] MEDS ORDERED: KETOROLAC 15 MG/ML 1 ML VIAL IVP STA (22:10)
[2022-09-28 22:17] LABS: Potassium 4.5 mmol/L (3.5-5.1)
[2022-09-28 22:20] LABS: ALT 18 U/L (4-49); AST 29 U/L (17-59); African American GFR (CKD) 76 (>60 ml/min/1.73 sqM); Albumin 4.3 g/dL (3.5-5.0); Alkaline Phosphatase 134 U/L (38-126); Amylase 51 U/L (30-110); Anion Gap 7 mmol/L; Blood Urea Nitrogen 29 mg/dL (9-20); C Reactive Protein <0.5 mg/dL (<1.0); Calcium 9.7 mg/dL (8.4-10.2); Carbon Dioxide 27 mmol/L (22-30); Chloride 107 mmol/L (98-107); Glucose 106 mg/dL (74-99); Lipase 125 U/L (23-300); Non-African American GFR(CKD) 65 (>60 ml/min/1.73 sqM); Sodium 141 mmol/L (137-145); Total Bilirubin 0.9 mg/dL (0.2-1.3); Total Protein 7.2 g/dL (6.3-8.2)
[2022-09-28 23:59] LABS: Appearance,Urine Clear (Clear); Bilirubin,Urine 1+ (Negative); Blood,Urine Negative (Negative); Color,Urine Yellow; Glucose,Urine (UA) Negative (Negative); Hyaline Casts,Urine 4 /lpf (0-2); Ketones,Urine Trace (Negative); Leukocyte Esterase,Urine Trace (Negative); Mucus,Urine Moderate /hpf; Nitrite,Urine Negative (Negative); PH, Urine 5.5 (5.0-8.0); Protein,Urine 1+ (Negative); RBC,Urine 2 /hpf (0-5); Specific Gravity,Urine 1.037 (1.001-1.035); Squamous Epithelial Cell,Urine 1 /hpf (0-4); WBC,Urine 1 /hpf (0-5)
--- NOTE | 2022-09-29 00:20 | ED ---
Abdominal Pain HPI - General Chief Complaint: Abdominal Pain Stated Complaint: Right kidney pain Time Seen by Provider: 09/28/22 21:37 Source: patient Mode of arrival: ambulatory Limitations: no limitations - History of Present Illness Initial Comments: This patient is an 87-year-old man who presents with low back pain going on for nearly 2 weeks. He indicates the bilateral low back, approximately level KHADRA to L5. Patient denied having any injury. He states that it is a little worse with moving around. Some days it limits his movement. He has not noted fever or chills. No change in urination or bowel movements. There is no abdominal component of the pain. No radiation to the legs. No weakness of the legs. No saddle anesthesia. The pain does not radiate to the groin or testicles Complaint: other Onset/Timin -: week(s) Radiation: none Migration to: no migration Severity: moderate Quality: aching Consistency: intermittent Improves With: nothing Worsens With: movement Associated Symptoms: denies other symptoms - Related Data Home Medications Medication Instructions Recorded Confirmed Atorvastatin [Lipitor] 10 mg PO HS 01/13/16 10/30/20 Amiodarone HCl [Pacerone] 100 mg PO DAILY 10/26/20 10/30/20 Aspirin [Adult Low Dose Aspirin EC] 81 mg PO DAILY 10/26/20 10/30/20 Furosemide [Lasix] 20 mg PO DAILY 10/26/20 10/30/20 Losartan Potassium [Cozaar] 100 mg PO DAILY 10/26/20 10/30/20 Spironolactone [Aldactone] 25 mg PO DAILY 10/30/20 10/30/20 Previous Rx's Medication Instructions Recorded Magnesium Chloride [Slow-Mag] 64 mg PO DAILY@1200 #30 tablet.er 01/24/16 Cyclobenzaprine [Flexeril] 5 mg PO BID #15 tablet 02/28/21 Ketorolac [Toradol] 10 mg PO Q6HR #15 tab 09/29/22 methocarbamoL [Robaxin-750] 750 mg PO QID #15 tab 09/29/22 Allergies Allergy/AdvReac Type Severity Reaction Status Date / Time propoxyphene napsylate Allergy Hallucinati Verified 09/28/22 21:31 [From Edmar-Bear] ons adhesive tape AdvReac Rash/Hives Verified 09/28/22 21:31 morphine AdvReac Hallucinati Verified 09/28/22 21:31 ons Review of Systems ROS Statement: Those systems with pertinent positive or pertinent negative responses have been documented in the HPI. ROS Other: All systems not noted in ROS Statement are negative. Constitutional: Denies: fever, chills, weakness Respiratory: Denies: cough, dyspnea Cardiovascular: Denies: chest pain, edema Gastrointestinal: Denies: abdominal pain, nausea, vomiting, diarrhea, constipation Genitourinary: Denies: dysuria, hematuria, testicular pain, testicular mass Musculoskeletal: Reports: as per HPI, back pain Skin: Denies: rash Neurological: Denies: weakness, numbness Past Medical History Past Medical History: Atrial Fibrillation, Cancer, Chest Pain / Angina, Heart Failure, Hyperlipidemia, Hypertension, Osteoarthritis (OA), Pneumonia, Sleep Apnea/CPAP/BIPAP, Vascular Disorder Additional Past Medical History / Comment(s): HX OF HEART MURMUR, HX OF COLON CA, GOUT, V-TACH, , P.A.D. History of Any Multi-Drug Resistant Organisms: None Reported Past Surgical History: Bowel Resection, Cardiac Ablation, Heart Catheterization, Hernia Repair, Orthopedic Surgery Additional Past Surgical History / Comment(s): HAD BOWEL RESECTION R/T COLON CA, HAD COLOSTOMY NOW REVERSED. HAD SX ON TENDON IN FINGER . STATES LUNG DRAINED OF FLUID.stent rt external iliac artery(per report), skin cancer removal Past Anesthesia/Blood Transfusion Reactions: No Reported Reaction Past Psychological History: No Psychological Hx Reported Smoking Status: Former smoker Past Alcohol Use History: None Reported Past Drug Use History: None Reported - Past Family History Mother Family Medical History: No Reported History General Exam Limitations: no limitations General appearance: alert, in no apparent distress Neck exam: Present: normal inspection, full ROM. Absent: tenderness Respiratory exam: Present: normal lung sounds bilaterally. Absent: respiratory distress, wheezes, rales, rhonchi, stridor Cardiovascular Exam: Present: regular rate, normal rhythm, normal heart sounds. Absent: systolic murmur, diastolic murmur, rubs, gallop GI/Abdominal exam: Present: soft. Absent: distended, tenderness, guarding, rebound, rigid, mass, pulsatile mass, hernia Extremities exam: Present: normal inspection, full ROM, normal capillary refill. Absent: pedal edema, calf tenderness Back exam: Present: normal inspection, paraspinal tenderness (Right-sided). Absent: CVA tenderness (R), CVA tenderness (L), muscle spasm, vertebral tenderness, rash noted Neurological exam: Present: alert, reflexes normal. Absent: motor sensory deficit Skin exam: Present: warm, dry, intact, normal color. Absent: rash Course Vital Signs 09/28/22 09/28/22 09/29/22 21:31 22:48 00:36 Temperature 97.3 F L Pulse Rate 62 54 L 58 L Respiratory 18 18 18 Rate Blood Pressure 199/88 155/78 142/87 O2 Sat by Pulse 93 L 92 L 93 L Oximetry Medical Decision Making - Medical Decision Making This patient is an 87-year-old man presenting with bilateral low back pain which is slightly worse on the right. The physical exam shows tenderness of the paraspinal muscles on the right. There is no bony tenderness or deformity. There is normal alignment. There are no neurologic signs to the legs. Patient has had improvement with medication here. Will have patient follow-up to have further evaluation and ensure that the symptoms do resolve. They will follow for consultation with the back specialist if there is no improvement or if there is any worsening. Discussed return parameters. - Lab Data Result diagrams: 09/28/22 21:48 09/28/22 21:48 Lab Results 09/28/22 09/28/22 09/28/22 Range/Units 21:48 21:48 21:48 WBC 6.1 (3.8-10.6) k/uL RBC 4.45 (4.30-5.90) m/uL Hgb 14.5 (13.0-17.5) gm/dL Hct 43.5 (39.0-53.0) % MCV 97.9 (80.0-100.0) fL MCH 32.6 (25.0-35.0) pg MCHC 33.3 (31.0-37.0) g/dL RDW 13.3 (11.5-15.5) % Plt Count 183 (150-450) k/uL MPV 7.7 Neutrophils % 79 % Lymphocytes % 11 % Monocytes % 6 % Eosinophils % 2 % Basophils % 0 % Neutrophils # 4.8 (1.3-7.7) k/uL Lymphocytes # 0.7 L (1.0-4.8) k/uL Monocytes # 0.4 (0-1.0) k/uL Eosinophils # 0.1 (0-0.7) k/uL Basophils # 0.0 (0-0.2) k/uL Sodium 141 (137-145) mmol/L Potassium 4.5 (3.5-5.1) mmol/L Chloride 107 (98-107) mmol/L Carbon Dioxide 27 (22-30) mmol/L Anion Gap 7 mmol/L BUN 29 H (9-20) mg/dL Creatinine 1.03 (0.66-1.25) mg/dL Est GFR (CKD-EPI)AfAm 76 (>60 ml/min/1.73 sqM) Est GFR (CKD-EPI)NonAf 65 (>60 ml/min/1.73 sqM) Glucose 106 H (74-99) mg/dL Plasma Lactic Acid Ed 1.1 (0.7-2.0) mmol/L Calcium 9.7 (8.4-10.2) mg/dL Total Bilirubin 0.9 (0.2-1.3) mg/dL AST 29 (17-59) U/L ALT 18 (4-49) U/L Alkaline Phosphatase 134 H (38-126) U/L C-Reactive Protein <0.5 (<1.0) mg/dL Total Protein 7.2 (6.3-8.2) g/dL Albumin 4.3 (3.5-5.0) g/dL Amylase 51 (30-110) U/L Lipase 125 (23-300) U/L Urine Color Urine Appearance (Clear) Urine pH (5.0-8.0) Ur Specific [place] (1.001-1.035) Urine Protein (Negative) Urine Glucose (UA) (Negative) Urine Ketones (Negative) Urine Blood (Negative) Urine Nitrite (Negative) Urine Bilirubin (Negative) Urine Urobilinogen (<2.0) mg/dL Ur Leukocyte Esterase (Negative) Urine RBC (0-5) /hpf Urine WBC (0-5) /hpf Ur Squamous Epith Cells (0-4) /hpf Hyaline Casts (0-2) /lpf Urine Mucus (None) /hpf 09/28/22 Range/Units 22:48 WBC (3.8-10.6) k/uL RBC (4.30-5.90) m/uL Hgb (13.0-17.5) gm/dL Hct (39.0-53.0) % MCV (80.0-100.0) fL MCH (25.0-35.0) pg MCHC (31.0-37.0) g/dL RDW (11.5-15.5) % Plt Count (150-450) k/uL MPV Neutrophils % % Lymphocytes % % Monocytes % % Eosinophils % % Basophils % % Neutrophils # (1.3-7.7) k/uL Lymphocytes # (1.0-4.8) k/uL Monocytes # (0-1.0) k/uL Eosinophils # (0-0.7) k/uL Basophils # (0-0.2) k/uL Sodium (137-145) mmol/L Potassium (3.5-5.1) mmol/L Chloride (98-107) mmol/L Carbon Dioxide (22-30) mmol/L Anion Gap mmol/L BUN (9-20) mg/dL Creatinine (0.66-1.25) mg/dL Est GFR (CKD-EPI)AfAm (>60 ml/min/1.73 sqM) Est GFR (CKD-EPI)NonAf (>60 ml/min/1.73 sqM) Glucose (74-99) mg/dL Plasma Lactic Acid Ed (0.7-2.0) mmol/L Calcium (8.4-10.2) mg/dL Total Bilirubin (0.2-1.3) mg/dL AST (17-59) U/L ALT (4-49) U/L Alkaline Phosphatase (38-126) U/L C-Reactive Protein (<1.0) mg/dL Total Protein (6.3-8.2) g/dL Albumin (3.5-5.0) g/dL Amylase (30-110) U/L Lipase (23-300) U/L Urine Color Yellow Urine Appearance Clear (Clear) Urine pH 5.5 (5.0-8.0) Ur Specific [place] 1.037 H (1.001-1.035) Urine Protein 1+ H (Negative) Urine Glucose (UA) Negative (Negative) Urine Ketones Trace H (Negative) Urine Blood Negative (Negative) Urine Nitrite Negative (Negative) Urine Bilirubin 1+ H (Negative) Urine Urobilinogen 3.0 (<2.0) mg/dL Ur Leukocyte Esterase Trace H (Negative) Urine RBC 2 (0-5) /hpf Urine WBC 1 (0-5) /hpf Ur Squamous Epith Cells 1 (0-4) /hpf Hyaline Casts 4 H (0-2) /lpf Urine Mucus Moderate H (None) /hpf Disposition Clinical Impression: Back pain Disposition: HOME SELF-CARE Condition: Good Prescriptions: methocarbamoL [Robaxin-750] 750 mg PO QID #15 tab Ketorolac [Toradol] 10 mg PO Q6HR #15 tab Is patient prescribed a controlled substance at d/c from ED?: No Referrals: Ian España DO [Primary Care Provider] - 1-2 days
[2022-09-29 00:37] VITALS: BP 142/87; PULSE 58
== END 2022-09-29 00:46 | disposition home or self-care (01) ==
LOC: EC 21:29
DX: M54.50 Low back pain, unspecified (principal); I48.91 Unspecified atrial fibrillation; I11.0 Hypertensive heart disease with heart failure; M19.90 Unspecified osteoarthritis, unspecified site; I50.9 Heart failure, unspecified; E78.5 Hyperlipidemia, unspecified; Z87.891 Personal history of nicotine dependence; Z91.048 Other nonmedicinal substance allergy status; Z88.8 Allergy status to other drugs, medicaments and biological substances; Z79.82 Long term (current) use of aspirin; Z79.899 Other long term (current) drug therapy
CPT/HCPCS: 36415; 80053; 82150; 83605; 83690; 85025; 86140; 81001; 99284; 96374; 96375; J3360; J1885

== ENCOUNTER → 2022-09-30 | Outpatient (CLI) | payer MEDICARE, BC ==
--- NOTE | 2022-09-30 13:40 | XR ---
EXAM TYPE: LUMBAR SPINE X RAY SERIES COMPARISON: NONE HISTORY: Back TECHNIQUE: 3 views are submitted. FINDINGS: Alignment is anatomic. The pedicles are intact. The transverse processes are intact. There is mult ilevel hypertrophic and degenerative change of the spine. There is multilevel facet arthropathy. Vasc ular calcifications are noted. Diffuse osteopenia. IMPRESSION: 1. Multilevel degenerative disc disease and facet arthropathy. Suspect multilevel foraminal encroachm ent.
== END | disposition home or self-care (01) ==
LOC: RADXRMAIN 12:41
PROVIDERS: ATTEND Family Medicine
DX: M51.36 Other intervertebral disc degeneration, lumbar region (principal); M47.816 Spondylosis without myelopathy or radiculopathy, lumbar region
CPT/HCPCS: 72100

== ENCOUNTER → 2022-10-11 | Outpatient (CLI) | payer MEDICARE, BC ==
--- NOTE | 2022-10-13 22:48 | XR ---
EXAMINATION TYPE: XR chest 2V DATE OF EXAM: 10/11/2022 COMPARISON: Chest x-ray 2018 HISTORY: Cough. TECHNIQUE: Frontal and lateral views of the chest are obtained. FINDINGS: There is persistent cardiomegaly with single lead pacemaker. Chronic change aortic knob. New central vascular congestion. New small to tiny right pleural effusion. Suspicion for new 1.5 cm r ight upper lung pulmonary nodule projecting over the anterior second rib. Osseous structures are inta ct. IMPRESSION: Correlate for CHF exacerbation. Possible new right upper lobe pulmonary nodule. CT follo w-up advised.
== END | disposition home or self-care (01) ==
LOC: RADXRMAIN 15:45
PROVIDERS: ATTEND Nurse Practitioner Family
DX: R05.9 Cough, unspecified (principal)
CPT/HCPCS: 71046

== ENCOUNTER 2022-11-09 08:30 | Emergency (ER) | payer MEDICARE, BC ==
[2022-11-09 08:37] VITALS: RESP 18; TEMP 98.3
[2022-11-09] MEDS ORDERED: KETOROLAC 15 MG/ML 1 ML VIAL IVP STA (08:47)
[2022-11-09] MEDS ORDERED: HYDROmorphone 1 MG/ML 1 ML SYRINGE IVP STA (08:47)
--- NOTE | 2022-11-09 08:51 | ED ---
General Adult HPI - General Chief complaint: Back Pain/Injury Stated complaint: back spasms Time Seen by Provider: 11/09/22 08:30 Source: patient, EMS, RN notes reviewed Mode of arrival: EMS Limitations: no limitations - History of Present Illness Initial comments: Patient is a pleasant 87-year-old male presenting to the emergency department with concerns for lower back pain. Onset of symptoms was around a month ago. Patient did see a chiropractor once. Symptoms have somewhat worsened. Discomfort is greatly increased with movement and is not quite as bad with rest. No incontinence or retention of bowel or bladder products. No history of chronic back pain. No weakness. Patient did see his regular doctor and did have x-rays done. Discomfort is lower back. - Related Data Home Medications Medication Instructions Recorded Confirmed Atorvastatin [Lipitor] 10 mg PO HS 01/13/16 10/30/20 Amiodarone HCl [Pacerone] 100 mg PO DAILY 10/26/20 10/30/20 Aspirin [Adult Low Dose Aspirin EC] 81 mg PO DAILY 10/26/20 10/30/20 Furosemide [Lasix] 20 mg PO DAILY 10/26/20 10/30/20 Losartan Potassium [Cozaar] 100 mg PO DAILY 10/26/20 10/30/20 Spironolactone [Aldactone] 25 mg PO DAILY 10/30/20 10/30/20 Previous Rx's Medication Instructions Recorded Magnesium Chloride [Slow-Mag] 64 mg PO DAILY@1200 #30 tablet.er 01/24/16 Cyclobenzaprine [Flexeril] 5 mg PO BID #15 tablet 02/28/21 Ketorolac [Toradol] 10 mg PO Q6HR #15 tab 09/29/22 methocarbamoL [Robaxin-750] 750 mg PO QID #15 tab 09/29/22 methylPREDNISolone Dose Pack 4 mg PO DIRECTED #21 tab 11/09/22 [Medrol Dose Pack] Allergies Allergy/AdvReac Type Severity Reaction Status Date / Time propoxyphene napsylate Allergy Hallucinati Verified 09/28/22 21:31 [From Priscila] ons adhesive tape AdvReac Rash/Hives Verified 09/28/22 21:31 morphine AdvReac Hallucinati Verified 09/28/22 21:31 ons Review of Systems ROS Statement: Those systems with pertinent positive or pertinent negative responses have been documented in the HPI. ROS Other: All systems not noted in ROS Statement are negative. Constitutional: Denies: fever Eyes: Denies: eye pain ENT: Denies: ear pain Respiratory: Denies: cough Cardiovascular: Denies: chest pain Endocrine: Denies: fatigue Gastrointestinal: Denies: abdominal pain Genitourinary: Denies: dysuria Musculoskeletal: Reports: as per HPI, back pain (Lumbar region) Skin: Denies: rash Neurological: Denies: weakness Past Medical History Past Medical History: Atrial Fibrillation, Cancer, Chest Pain / Angina, Heart Failure, Hyperlipidemia, Hypertension, Osteoarthritis (OA), Pneumonia, Sleep Apnea/CPAP/BIPAP, Vascular Disorder Additional Past Medical History / Comment(s): HX OF HEART MURMUR, HX OF COLON CA, GOUT, V-TACH, , P.A.D. History of Any Multi-Drug Resistant Organisms: None Reported Past Surgical History: Bowel Resection, Cardiac Ablation, Heart Catheterization, Hernia Repair, Orthopedic Surgery Additional Past Surgical History / Comment(s): HAD BOWEL RESECTION R/T COLON CA, HAD COLOSTOMY NOW REVERSED. HAD SX ON TENDON IN FINGER . STATES LUNG DRAINED OF FLUID.stent rt external iliac artery(per report), skin cancer removal Past Anesthesia/Blood Transfusion Reactions: No Reported Reaction Past Psychological History: No Psychological Hx Reported Smoking Status: Former smoker Past Alcohol Use History: None Reported Past Drug Use History: None Reported - Past Family History Mother Family Medical History: No Reported History General Exam Limitations: no limitations General appearance: alert Head exam: Present: atraumatic Eye exam: Present: normal appearance Neck exam: Present: normal inspection Respiratory exam: Present: normal lung sounds bilaterally Cardiovascular Exam: Present: regular rate, normal rhythm Expanded Peripheral pulses: 2+: Posterior Tibialis (R), Posterior Tibialis (L), Dorsalis Pedis (R), Dorsalis Pedis (L) GI/Abdominal exam: Present: soft. Absent: tenderness, pulsatile mass Extremities exam: Present: normal inspection Back exam: Present: normal inspection. Absent: tenderness Neurological exam: Present: alert. Absent: motor sensory deficit Expanded Sensory exam: Lower Extremity Light Touch: Normal Motor strength exam: RUE: 5, LUE: 5, RLE: 5, LLE: 5 Psychiatric exam: Present: normal affect, normal mood Skin exam: Present: normal color Course Vital Signs 11/09/22 11/09/22 11/09/22 08:32 09:42 10:26 Temperature 98.3 F Pulse Rate 65 61 55 L Respiratory 18 18 18 Rate Blood Pressure 180/99 151/95 152/82 O2 Sat by Pulse 95 96 95 Oximetry Medical Decision Making - Medical Decision Making Patient reevaluated and is feeling much better. Patient family updated on need for follow-up. They're both comfortable with discharge. Disposition Clinical Impression: Low back pain Disposition: HOME SELF-CARE Condition: Stable Instructions (If sedation given, give patient instructions): Acute Low Back Pain (ED) Additional Instructions: Prescription sent to pharmacy. Please do follow-up with primary care physician in the next day or 2 for recheck. Return for weakness, loss of control of bowel or bladder, uncontrolled pain, fever, worsening symptoms or other concerns. Prescriptions: methylPREDNISolone Dose Pack [Medrol Dose Pack] 4 mg PO DIRECTED #21 tab Is patient prescribed a controlled substance at d/c from ED?: No Referrals: Ian España DO [Primary Care Provider] - 1-2 days Time of Disposition: 10:30
[2022-11-09 10:27] VITALS: BP 152/82; PULSE 55
[2022-11-09] MEDS ORDERED: ACET/COD 300 MG/30 MG STARTER PACK 6 TAB BTL PO STA (10:30)
== END 2022-11-09 10:56 | disposition home or self-care (01) ==
LOC: EC 08:30
DX: M54.50 Low back pain, unspecified (principal); I11.0 Hypertensive heart disease with heart failure; I50.9 Heart failure, unspecified; I48.91 Unspecified atrial fibrillation; E78.5 Hyperlipidemia, unspecified; G47.30 Sleep apnea, unspecified; Z87.891 Personal history of nicotine dependence; Z88.5 Allergy status to narcotic agent; Z91.048 Other nonmedicinal substance allergy status; Z79.899 Other long term (current) drug therapy; Z79.82 Long term (current) use of aspirin
CPT/HCPCS: 99284; 96374; 96375; J1170; J1885

== ENCOUNTER → 2022-11-13 | Outpatient (CLI) | payer MEDICARE, BC ==
[2022-11-13 10:43] VITALS: BP 148/65; PULSE 81; RESP 16; TEMP 97.6
--- NOTE | 2022-11-13 11:12 | P.PAINCN ---
History of Present Illness - Reason for Consult Consult date: 11/13/22 - History of Present Illness This is a 87 years old male with a 4 weeks history of low back pain, patient was seen at the emergency room at [facility], and currently patient on Tylenol 3 when necessary and Medrol Dosepak, and Robaxin 750 3 times a day when necessary, and he reported that the current medication helping him to control his pain but he has difficulty ambulating, and he feels lower extremity weakness, he was accompanied by his daughter, and she is reported that a few weeks ago he was totally independent and he was able to ambulate freely without any difficulty, he denies any fever or night sweats he denies any change in the bowel movements or urination Past Medical History Past Medical History: Atrial Fibrillation, Cancer, Chest Pain / Angina, Heart Failure, Hyperlipidemia, Hypertension, Osteoarthritis (OA), Pneumonia, Sleep Apnea/CPAP/BIPAP, Vascular Disorder Additional Past Medical History / Comment(s): HX OF HEART MURMUR, HX OF COLON CA, GOUT, V-TACH, , P.A.D. History of Any Multi-Drug Resistant Organisms: None Reported Past Surgical History: Bowel Resection, Cardiac Ablation, Heart Catheterization, Hernia Repair, Orthopedic Surgery Additional Past Surgical History / Comment(s): HAD BOWEL RESECTION R/T COLON CA, HAD COLOSTOMY NOW REVERSED. HAD SX ON TENDON IN FINGER . STATES LUNG DRAINED OF FLUID.stent rt external iliac artery(per report), skin cancer removal Past Anesthesia/Blood Transfusion Reactions: No Reported Reaction Smoking Status: Former smoker - Past Family History Mother Family Medical History: No Reported History Medications and Allergies Home Medications Medication Instructions Recorded Confirmed Type Atorvastatin [Lipitor] 10 mg PO HS 01/13/16 11/13/22 History Magnesium Chloride [Slow-Mag] 64 mg PO DAILY@1200 #30 tablet.er 01/24/16 11/13/22 Rx Amiodarone HCl [Pacerone] 100 mg PO DAILY 10/26/20 11/13/22 History Aspirin [Adult Low Dose Aspirin EC] 81 mg PO DAILY 10/26/20 11/13/22 History Furosemide [Lasix] 20 mg PO DAILY 10/26/20 11/13/22 History Losartan Potassium [Cozaar] 100 mg PO DAILY 10/26/20 11/13/22 History Spironolactone [Aldactone] 25 mg PO DAILY 10/30/20 11/13/22 History Cyclobenzaprine [Flexeril] 5 mg PO BID #15 tablet 02/28/21 11/13/22 Rx Ketorolac [Toradol] 10 mg PO Q6HR #15 tab 09/29/22 11/13/22 Rx methocarbamoL [Robaxin-750] 750 mg PO QID #15 tab 09/29/22 11/13/22 Rx methylPREDNISolone Dose Pack 4 mg PO DIRECTED #21 tab 11/09/22 11/13/22 Rx [Medrol Dose Pack] Acetaminophen-Codeine 300-30mg 1 - 2 tab PO Q4-6H PRN 11/13/22 11/13/22 History [Tylenol w/codeine #3] Warfarin [Coumadin] 2.5 mg PO DAILY 11/13/22 11/13/22 History Allergies Allergy/AdvReac Type Severity Reaction Status Date / Time propoxyphene napsylate Allergy Hallucinati Verified 11/13/22 10:36 [From Priscila] ons adhesive tape AdvReac Rash/Hives Verified 11/13/22 10:36 morphine AdvReac Hallucinati Verified 11/13/22 10:36 ons Physical Exam Vitals: Vital Signs Temp Pulse Resp BP Pulse Ox 11/13/22 10:36 97.6 F 81 16 148/65 96 Intake and Output 11/12/22 11/13/22 11/13/22 22:59 06:59 14:59 Other: Weight 84.822 kg Physical Examinations : -Constitutiona : Cooperative , not in acute distress . -HEENT : nech : supple , no Lymphadenopathy , normal thyroid size . : eyes : no ptosis , no icterus, no photophobia . - neurologic : Cranial nerve II to XII intact , no focal neurological deffecit . -psychatric : alert , oriented X 3 , appropriate affect , intact judgment and insight . -Lymphatic : no Lymphadenopathy . - musculoskeltal : Lumber spine moter stegnth lower extremities ,thigh and legs 5/5 Right side , 5/5 Left side deep tendon reflexes : normal Knee Jerk , normal ankle Jerk lumber facet Loading Test = negative bilaterally Range of motion of the lumbar spine Flexion 30 degrees, extension 10 degrees strait leg raising test = negative bilaterally Fabere test= negative bilaterally no tenderness over the Sacroiliac joint on the Right , and Left sides Results Comments: X-ray of the lumbar spine=lumbar degenerative disc disease and lumbar spondylosis Assessment and Plan Plan: Assessment and plan=1- lumbar degenerative disc disease. 2- lumbar spondylosis with facet arthropathy. Pain is well controlled with the current me dication Tylenol 3, PRN, Patients ,and his daughter report that the main problem is in the ability to ambulate freely, patient feels and balance when he tried to ambulate, patient had full motor strength in his lower extremity, had no motor or sensory deficit, I recommend to refer patient to neurologist for evaluation darning his balance problem, I recommended to continue the pain medication Tylenol 3, and currently ,there is no need for interventional pain management Time with Patient: Greater than 30 PQRS Measure Charge Sheet Mode of Arrival: Wheelchair - Pain Location Lower Back Non-Pharmacological Interventions: Chiropractic Treatment, Heat, Inactivity, Position/Reposition Pharmacological Interventions: PRN Medication PQRS Narrative: Smoking Status Former smoker Blood Pressure 148/65 Pain Intensity [Lower Back] 8 Scale Used Numeric (1 - 10) Hx Alcohol Use (MH) No Home Medications: Ambulatory Orders Atorvastatin [Lipitor] 10 mg PO HS 01/13/16 Magnesium Chloride [Slow-Mag] 64 mg PO DAILY@1200 #30 tablet.er 01/24/16 Amiodarone HCl [Pacerone] 100 mg PO DAILY 10/26/20 Aspirin [Adult Low Dose Aspirin EC] 81 mg PO DAILY 10/26/20 Furosemide [Lasix] 20 mg PO DAILY 10/26/20 Losartan Potassium [Cozaar] 100 mg PO DAILY 10/26/20 Spironolactone [Aldactone] 25 mg PO DAILY 10/30/20 Cyclobenzaprine [Flexeril] 5 mg PO BID #15 tablet 02/28/21 Ketorolac [Toradol] 10 mg PO Q6HR #15 tab 09/29/22 methocarbamoL [Robaxin-750] 750 mg PO QID #15 tab 09/29/22 methylPREDNISolone Dose Pack [Medrol Dose Pack] 4 mg PO DIRECTED #21 tab 11/09/22 Acetaminophen-Codeine 300-30mg [Tylenol w/codeine #3] 1 - 2 tab PO Q4-6H PRN 11/13/22 Warfarin [Coumadin] 2.5 mg PO DAILY 11/13/22
== END ==
LOC: PNWHC3 08:03
PROVIDERS: ATTEND Specialist
DX: M47.816 Spondylosis without myelopathy or radiculopathy, lumbar region (principal); M51.36 Other intervertebral disc degeneration, lumbar region; I48.91 Unspecified atrial fibrillation; I11.0 Hypertensive heart disease with heart failure; I50.9 Heart failure, unspecified; E78.5 Hyperlipidemia, unspecified; M19.90 Unspecified osteoarthritis, unspecified site; I73.9 Peripheral vascular disease, unspecified; Z79.82 Long term (current) use of aspirin; Z79.01 Long term (current) use of anticoagulants; Z91.048 Other nonmedicinal substance allergy status; Z88.5 Allergy status to narcotic agent; Z87.891 Personal history of nicotine dependence
CPT/HCPCS: 99211

== ENCOUNTER 2022-11-16 08:10 | Inpatient (IN) | payer MEDICARE, BC ==
[2022-11-16 09:42] LABS: Basophils % (A) 1 %; Eosinophils # (A) 0.1 k/uL (0-0.7); Eosinophils % (A) 1 %; HCT 40.4 % (39.0-53.0); Lymphocytes # (A) 0.4 k/uL (1.0-4.8); Lymphocytes % (A) 5 %; MCHC 34.5 g/dL (31.0-37.0); MCV 95.6 fL (80.0-100.0); Mean Platelet Volume 7.3; Monocytes # (A) 0.4 k/uL (0-1.0); Monocytes % (A) 6 %; Neutrophils # (A) 6.8 k/uL (1.3-7.7); Neutrophils % (A) 87 %; Platelet Count 239 k/uL (150-450); RBC 4.23 m/uL (4.30-5.90); RDW 12.9 % (11.5-15.5); WBC 7.8 k/uL (3.8-10.6)
--- NOTE | 2022-11-16 09:56 | XR ---
EXAMINATION TYPE: XR chest 2V DATE OF EXAM: 11/16/2022 9:42 AM COMPARISON: Chest radiographs from TECHNIQUE: XR chest 2V Frontal and lateral views of the chest. CLINICAL INDICATION:Male, 87 years old with history of Weakness; FINDINGS: Lungs/Pleura: No evidence of focal consolidation or pneumothorax. Blunting of the costophrenic angles is present. Pulmonary vascularity: Pulmonary vascular congestion. Heart/mediastinum: Cardiomediastinal silhouette is enlarged and stable. Single-lead cardiac conductio n device overlying the left hemithorax with lead projecting over the right ventricle. Musculoskeletal: No acute osseous pathology. IMPRESSION: Cardiomegaly, pulmonary vascular congestion and bilateral pleural effusions. Correlate with BNP for c ongestive heart failure.
[2022-11-16 10:01] LABS: ALT 19 U/L (4-49); AST 34 U/L (17-59); African American GFR (CKD) >90 (>60 ml/min/1.73 sqM); Albumin 3.1 g/dL (3.5-5.0); Alkaline Phosphatase 82 U/L (38-126); Anion Gap 4 mmol/L; Blood Urea Nitrogen 19 mg/dL (9-20); Calcium 8.5 mg/dL (8.4-10.2); Carbon Dioxide 32 mmol/L (22-30); Chloride 98 mmol/L (98-107); Glucose 125 mg/dL (74-99); Magnesium 1.9 mg/dL (1.6-2.3); Non-African American GFR(CKD) 85 (>60 ml/min/1.73 sqM); Potassium 4.4 mmol/L (3.5-5.1); Sodium 134 mmol/L (137-145); Total Bilirubin 1.5 mg/dL (0.2-1.3); Total Protein 5.6 g/dL (6.3-8.2)
[2022-11-16 10:16] LABS: Prothrombin Time 85.7 sec (9.0-12.0)
[2022-11-16 10:19] LABS: INR 8.5 (<1.2)
--- NOTE | 2022-11-16 12:42 | CT ---
EXAMINATION TYPE: CT ChestAbdPelvis w con CT DLP: 1014.5 mGycm, Automated exposure control for dose reduction was used. DATE OF EXAM: 11/16/2022 12:03 PM COMPARISON: CT lumbar spine same day. CLINICAL INDICATION:Male, 87 years old with history of lung mass, constipation, lung mass found on eddi mbar study, constipation Technique: Multiple axial images of the chest, abdomen, and pelvis were obtained. Two-dimensional cor onal and sagittal reconstructions were obtained. Contrast used:100 mL of Isovue 300 with IV Contrast, Oral contrast used: without Oral Contrast Findings: CHEST: LUNGS/ PLEURA: Scattered pulmonary nodules are seen throughout the lungs consistent metastatic diseas e the largest in the right upper lobe measuring 1.6 cm anteriorly, in the right lower lobe measuring 3.9 cm, left upper lobe measuring 2.1 cm and left lower lobe measuring 2.3 cm. There is bilateral ple ural effusions with associated atelectasis. AIRWAY: Patent and unremarkable. HEART: Heart is mildly enlarged for size with coronary artery atherosclerosis. Cardiac conduction pk ds seen in the left ventricle. MEDIASTINUM: Diffuse adenopathy throughout the mediastinum r. Example includes right low paratracheal lymph node measuring up to 2.5 cm with another more inferiorly measuring up to 3.5 cm which narrows the superior vena cava. Additional left AP window lymph node measuring up to 2.4 cm. Left pulmonary hilum lymphadenopathy measuring up to 2.5 cm in short axis and right hilar adenopathy measuring up to 3.0 cm. Subcarinal lymph node measuring up to 3.3 x 5.0 cm. VASCULATURE: No aortic aneurysm. Slitlike appearance of the superior vena cava secondary to mediasti nal lymphadenopathy. No evidence of pulmonary embolism. MUSCULOSKELETAL: There is a T10 compression deformity with underlying lucent lesion likely representi ng metastatic disease measuring up to 18.4 x 17.7 mm. There is at least 25% height loss posteriorly. The fracture lines extend into the pedicles bilaterally. Additional lucent lesion in T7 measuring 4 m m. SOFT TISSUES/LYMPH NODES: Bilateral gynecomastia changes. Supraclavicular lymph nodes on the right wh ich are suspicious measuring up to 9 mm. LOWER NECK: No significant findings. ABDOMEN: ABDOMEN LIVER: Unremarkable GALLBLADDER AND BILE DUCTS: Unremarkable. PANCREAS: Unremarkable. SPLEEN: Unremarkable. ADRENAL GLANDS: Unremarkable. KIDNEYS AND URETERS: No evidence of hydronephrosis or renal calculus. The ureters are unremarkable. PELVIS BLADDER: Unremarkable REPRODUCTIVE: Unremarkable. ABDOMEN & PELVIS STOMACH AND BOWEL: No evidence of bowel obstruction. Large stool burden throughout the colon. PERITONEUM: No evidence of pneumoperitoneum or free fluid. VASCULATURE: No evidence of aortic aneurysm. MUSCULOSKELETAL: No acute osseous abnormalities L1 vertebral body lucent lesion measuring 7 mm. LYMPH NODES: No gross evidence for lymphadenopathy. SOFT TISSUE/ABDOMINAL WALL: Bilateral inguinal hernias containing some fluid and fat. IMPRESSION: 1. Diffuse pulmonary nodules and mediastinal lymphadenopathy concerning for primary lung malignancy with metastatic disease. 2. 3. Pathologic fracture of T10 vertebral body with extension into the bilateral pedicles. Neurosu rgery consultation recommended. There is approximately 25% height loss. No significant retropulsion. Additional lucent lesion within the T7 and L1 vertebral bodies which could also represent metastatic foci. 3. Slitlike appearance of the superior vena cava secondary to large mediastinal lymphadenopathy conc erning for future SVC syndrome. 4. No evidence for lymphadenopathy or mass within the abdomen or pelvis. 5. No evidence of pulmonary embolism. 6. Cardiomegaly with bilateral pleural effusions and pulmonary vascular congestion concerning for co ngestive heart failure.
--- NOTE | 2022-11-16 13:19 | ED ---
Weakness HPI - General Chief complaint: Weakness Stated complaint: Coughing up blood, constipation Time Seen by Provider: 11/16/22 08:15 Source: patient Mode of arrival: ambulatory Limitations: no limitations - History of Present Illness Initial comments: 87-year-old male with past medical history of melanoma, colon cancer, A. fib on Coumadin who presents to the emergency department with worsening pain in his low back and weakness in his extremities. Patient presented to the emergency department on [facility] for back pain. He was placed on narcotic pain medications which did alleviate his pain. He followed up with a chiropractor. Chiropractor thought that the patient need further imaging of his back. His primary care doctor sent him in today for a CT of his lumbar spine. Study was performed in the outpatient setting however the patient's daughters were so concerned about him because he couldn't stand on his own 2 feet. He states that his legs Giving out on him. He also reports 2 sensory changes with decreased sensation in his bilateral lower extremities. Patient has been constipated with lack of bowel movement for 2 weeks. He has progressively become more short of breath. Does have a history of congestive heart failure however only takes Lasix when needed. He has not been on any Lasix recently. He denies any chest pain. No fevers, chills or cough. He also states that he has had some hesitancy with urination. No falls. No other alleviating, precipitating or modifying factors - Related Data Home Medications Medication Instructions Recorded Confirmed Atorvastatin [Lipitor] 10 mg PO HS 01/13/16 11/16/22 Amiodarone HCl [Pacerone] 100 mg PO DAILY 10/26/20 11/16/22 Aspirin [Adult Low Dose Aspirin EC] 81 mg PO DAILY 10/26/20 11/16/22 Furosemide [Lasix] 20 mg PO DAILY 10/26/20 11/16/22 Losartan Potassium [Cozaar] 100 mg PO HS 10/26/20 11/16/22 Acetaminophen-Codeine 300-30mg 1 tab PO Q6H PRN 11/13/22 11/16/22 [Tylenol w/codeine #3] Warfarin [Coumadin] 1.25 mg PO [id number]@199911/13/22 11/16/22 Magnesium Chloride [Slow-Mag] 64 mg PO HS 11/16/22 11/16/22 Vit C/E/Zn/Coppr/Lutein/Zeaxan 1 tab PO HS 11/16/22 11/16/22 [Preservision Areds 2 Chew Tab] Warfarin [Coumadin] 2.5 mg PO TH@199911/16/22 11/16/22 allopurinoL 300 mg PO HS 11/16/22 11/16/22 Previous Rx's Medication Instructions Recorded Apixaban [Eliquis] 2.5 mg PO BID #60 tab 11/19/22 Allergies Allergy/AdvReac Type Severity Reaction Status Date / Time propoxyphene napsylate Allergy Hallucinati Verified 11/16/22 11:12 [From Priscila] ons adhesive tape AdvReac Rash/Hives Verified 11/16/22 11:12 morphine AdvReac Hallucinati Verified 11/16/22 11:12 ons Review of Systems ROS Statement: Those systems with pertinent positive or pertinent negative responses have been documented in the HPI. ROS Other: All systems not noted in ROS Statement are negative. Past Medical History Past Medical History: Atrial Fibrillation, Cancer, Chest Pain / Angina, Heart Failure, Hyperlipidemia, Hypertension, Osteoarthritis (OA), Pneumonia, Sleep Apnea/CPAP/BIPAP, Vascular Disorder Additional Past Medical History / Comment(s): HX OF HEART MURMUR, HX OF COLON CA, GOUT, V-TACH, , P.A.D. History of Any Multi-Drug Resistant Organisms: None Reported Past Surgical History: Bowel Resection, Cardiac Ablation, Heart Catheterization, Hernia Repair, Orthopedic Surgery Additional Past Surgical History / Comment(s): HAD BOWEL RESECTION R/T COLON CA, HAD COLOSTOMY NOW REVERSED. HAD SX ON TENDON IN FINGER . STATES LUNG DRAINED OF FLUID.stent rt external iliac artery(per report), skin cancer removal Past Anesthesia/Blood Transfusion Reactions: No Reported Reaction Past Psychological History: No Psychological Hx Reported Smoking Status: Former smoker Past Alcohol Use History: None Reported Past Drug Use History: None Reported - Past Family History Mother Family Medical History: No Reported History General Exam Limitations: no limitations General appearance: alert, in no apparent distress Head exam: Present: atraumatic, normocephalic, normal inspection Eye exam: Present: normal appearance, PERRL, EOMI. Absent: scleral icterus, conjunctival injection, periorbital swelling ENT exam: Present: normal exam, mucous membranes dry Neck exam: Present: normal inspection. Absent: tenderness, meningismus, lymphadenopathy Respiratory exam: Present: rales. Absent: respiratory distress, wheezes, rhonchi, stridor Cardiovascular Exam: Present: normal rhythm, irregular rhythm, normal heart sounds. Absent: systolic murmur, diastolic murmur, rubs, gallop, clicks GI/Abdominal exam: Present: soft, normal bowel sounds. Absent: distended, tenderness, guarding, rebound, rigid Extremities exam: Present: full ROM, normal capillary refill, other (4/5 strength bilateral lower extremities. decreased sensation over both bilateral lower extremities). Absent: tenderness, pedal edema, joint swelling, calf tenderness Back exam: Present: normal inspection Neurological exam: Present: alert, oriented X3, CN II-XII intact Psychiatric exam: Present: normal affect, normal mood Skin exam: Present: warm, dry, intact, normal color. Absent: rash Course Vital Signs 11/16/22 11/16/22 11/16/22 08:12 08:15 09:00 Temperature 98.4 F 98.5 F Pulse Rate 65 63 Respiratory 22 22 18 Rate Blood Pressure 156/73 156/73 O2 Sat by Pulse 91 L 97 Oximetry 11/16/22 11/16/22 11/16/22 10:00 12:00 14:00 Temperature Pulse Rate 59 L 61 57 L Respiratory 17 16 12 Rate Blood Pressure 139/76 137/64 142/74 O2 Sat by Pulse 97 97 94 L Oximetry 11/16/22 15:00 Temperature Pulse Rate 52 L Respiratory 18 Rate Blood Pressure 164/74 O2 Sat by Pulse 95 Oximetry - Reevaluation(s) Reevaluation #1: Spoke with family regarding new cancer diagnosis. Family will discuss treatment options at this time. 11/16/22 13:18 EKG Findings - EKG Comments: EKG Findings:: EKG demonstrates A. fib with a rate of 64. QRS 124. QTC of 422. No acute ST segment elevations or depressions. EKG interpreted by myself Medical Decision Making - Medical Decision Making Upon arrival patient is placed into room 3. A thorough history and physical exam was performed. IV access was established laboratory studies were conducted . I did review the patient's outpatient CT of his lumbar spine. It does demonstrate multiple lung nodules concerning for carcinoma. Patient placed on continuous pulse ox and cardiac monitoring. Additionally placed on oxygen for comfort. Labs are conducted which demonstrated a markedly elevated INR of 8.5. Patient not actively bleeding at this time so we will hold his Coumadin. Covid and influenza are not detected. Due to the nodules seen on the patient's outpatient CT I did recommend full CAT scan of the patient's chest abdomen and pelvis. CT is performed with significant findings. Demonstrates diffuse pulmonary nodules and mediastinal lymphadenopathy concerning for primary lung ma lignancy with metastatic disease. Pathologic fracture of T10 vertebral body with extension into the bilateral pedicles. Approximately 25% height loss. No significant retropulsion. Additional lucent lesion within T7 and L1 vertebral bodies. 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 I did discuss these results with the patient. I discussed the poor prognosis of the findings. Patient understood. States that he would not want spinal surgery. Patient may not even consider radiation if offered. I did discuss the case with Scarlet Dodge. States that Dr. Mckeon's and would be available for consultation. Informed them that the patient really doesn't want to the aggressively treated. I did offer transfer to the patient's however patient states that he does not want any aggressive care. He is agreeable to biopsy and hearing treatment options. Because the patient would prefer not aggressive treatment he will be admitted for facility. Spoke with Dr. andrade who agreed to admit the patient. I will place oncology, radiation oncology, cardiology, pulmonology on consult. Patient remained in stable condition awaiting a bed on the floor - Lab Data Result diagrams: 11/20/22 09:08 11/20/22 09:08 Lab Results 11/16/22 11/16/22 11/16/22 Range/Units 09:25 09:25 09:25 WBC 7.8 (3.8-10.6) k/uL RBC 4.23 L (4.30-5.90) m/uL Hgb 14.0 (13.0-17.5) gm/dL Hct 40.4 (39.0-53.0) % MCV 95.6 (80.0-100.0) fL MCH 33.0 (25.0-35.0) pg MCHC 34.5 (31.0-37.0) g/dL RDW 12.9 (11.5-15.5) % Plt Count 239 (150-450) k/uL MPV 7.3 Neutrophils % 87 % Lymphocytes % 5 % Monocytes % 6 % Eosinophils % 1 % Basophils % 1 % Neutrophils # 6.8 (1.3-7.7) k/uL Lymphocytes # 0.4 L (1.0-4.8) k/uL Monocytes # 0.4 (0-1.0) k/uL Eosinophils # 0.1 (0-0.7) k/uL Basophils # 0.0 (0-0.2) k/uL PT 85.7 H (9.0-12.0) sec INR 8.5 H* (<1.2) APTT 64.0 H (22.0-30.0) sec Sodium 134 L (137-145) mmol/L Potassium 4.4 (3.5-5.1) mmol/L Chloride 98 (98-107) mmol/L Carbon Dioxide 32 H (22-30) mmol/L Anion Gap 4 mmol/L BUN 19 (9-20) mg/dL Creatinine 0.71 (0.66-1.25) mg/dL Est GFR (CKD-EPI)AfAm >90 (>60 ml/min/1.73 sqM) Est GFR (CKD-EPI)NonAf 85 (>60 ml/min/1.73 sqM) Glucose 125 H (74-99) mg/dL Plasma Lactic Acid Ed (0.7-2.0) mmol/L Calcium 8.5 (8.4-10.2) mg/dL Magnesium 1.9 (1.6-2.3) mg/dL Total Bilirubin 1.5 H (0.2-1.3) mg/dL AST 34 (17-59) U/L ALT 19 (4-49) U/L Alkaline Phosphatase 82 (38-126) U/L Troponin I (0.000-0.034) ng/mL NT-Pro-B Natriuret Pep pg/mL Total Protein 5.6 L (6.3-8.2) g/dL Albumin 3.1 L (3.5-5.0) g/dL TSH 2.850 (0.465-4.680) mIU/L Coronavirus (PCR) (Not Detectd) Influenza Type A RNA (Not Detectd) Influenza Type B (PCR) (Not Detectd) 11/16/22 11/16/22 11/16/22 Range/Units 09:25 09:25 09:25 WBC (3.8-10.6) k/uL RBC (4.30-5.90) m/uL Hgb (13.0-17.5) gm/dL Hct (39.0-53.0) % MCV (80.0-100.0) fL MCH (25.0-35.0) pg MCHC (31.0-37.0) g/dL RDW (11.5-15.5) % Plt Count (150-450) k/uL MPV Neutrophils % % Lymphocytes % % Monocytes % % Eosinophils % % Basophils % % Neutrophils # (1.3-7.7) k/uL Lymphocytes # (1.0-4.8) k/uL Monocytes # (0-1.0) k/uL Eosinophils # (0-0.7) k/uL Basophils # (0-0.2) k/uL PT (9.0-12.0) sec INR (<1.2) APTT (22.0-30.0) sec Sodium (137-145) mmol/L Potassium (3.5-5.1) mmol/L Chloride (98-107) mmol/L Carbon Dioxide (22-30) mmol/L Anion Gap mmol/L BUN (9-20) mg/dL Creatinine (0.66-1.25) mg/dL Est GFR (CKD-EPI)AfAm (>60 ml/min/1.73 sqM) Est GFR (CKD-EPI)NonAf (>60 ml/min/1.73 sqM) Glucose (74-99) mg/dL Plasma Lactic Acid Ed 1.5 (0.7-2.0) mmol/L Calcium (8.4-10.2) mg/dL Magnesium (1.6-2.3) mg/dL Total Bilirubin (0.2-1.3) mg/dL AST (17-59) U/L ALT (4-49) U/L Alkaline Phosphatase (38-126) U/L Troponin I 0.048 H* (0.000-0.034) ng/mL NT-Pro-B Natriuret Pep 2150 pg/mL Total Protein (6.3-8.2) g/dL Albumin (3.5-5.0) g/dL TSH (0.465-4.680) mIU/L Coronavirus (PCR) (Not Detectd) Influenza Type A RNA (Not Detectd) Influenza Type B (PCR) (Not Detectd) 11/16/22 11/16/22 Range/Units 09:25 09:25 WBC (3.8-10.6) k/uL RBC (4.30-5.90) m/uL Hgb (13.0-17.5) gm/dL Hct (39.0-53.0) % MCV (80.0-100.0) fL MCH (25.0-35.0) pg MCHC (31.0-37.0) g/dL RDW (11.5-15.5) % Plt Count (150-450) k/uL MPV Neutrophils % % Lymphocytes % % Monocytes % % Eosinophils % % Basophils % % Neutrophils # (1.3-7.7) k/uL Lymphocytes # (1.0-4.8) k/uL Monocytes # (0-1.0) k/uL Eosinophils # (0-0.7) k/uL Basophils # (0-0.2) k/uL PT (9.0-12.0) sec INR (<1.2) APTT (22.0-30.0) sec Sodium (137-145) mmol/L Potassium (3.5-5.1) mmol/L Chloride (98-107) mmol/L Carbon Dioxide (22-30) mmol/L Anion Gap mmol/L BUN (9-20) mg/dL Creatinine (0.66-1.25) mg/dL Est GFR (CKD-EPI)AfAm (>60 ml/min/1.73 sqM) Est GFR (CKD-EPI)NonAf (>60 ml/min/1.73 sqM) Glucose (74-99) mg/dL Plasma Lactic Acid Ed (0.7-2.0) mmol/L Calcium (8.4-10.2) mg/dL Magnesium (1.6-2.3) mg/dL Total Bilirubin (0.2-1.3) mg/dL AST (17-59) U/L ALT (4-49) U/L Alkaline Phosphatase (38-126) U/L Troponin I (0.000-0.034) ng/mL NT-Pro-B Natriuret Pep pg/mL Total Protein (6.3-8.2) g/dL Albumin (3.5-5.0) g/dL TSH (0.465-4.680) mIU/L Coronavirus (PCR) Not Detected (Not Detectd) Influenza Type A RNA Not Detected (Not Detectd) Influenza Type B (PCR) Not Detected (Not Detectd) Critical Care Time Critical Care Time: Yes Critical Care Time: 35 minutes for consultation with orthopedics, hospitalist and multiple discussion with family regarding grim diagnosis Disposition Clinical Impression: Pulmonary edema, Lung mass, Compression of superior vena cava, Metastatic cancer, T10 vertebral fracture, Pathologic fracture Disposition: ADMITTED IP TO THIS [facility] Condition: Stable Is patient prescribed a controlled substance at d/c from ED?: No Time of Disposition: 15:15 Decision to Admit Reason: Admit from EC Decision Date: 11/16/22 Decision Time: 15:16
[2022-11-16] MEDS ORDERED: HYDROmorphone 0.5 MG/0.5 ML SYRINGE IVP STA (13:26)
[2022-11-16] MEDS ORDERED: Acetaminophen-Codeine 300-30mg TAB PO PRN (15:01)
[2022-11-16] MEDS ORDERED: ALPRAZolam 0.25 MG TAB PO PRN ×2 (15:02→15:16)
[2022-11-16] MEDS ORDERED: ALPRAZolam 0.5 MG TAB PO STA (15:06)
[2022-11-16] MEDS ORDERED: HYDROcodone/APAP 10-325MG 1 EACH TAB PO ONE (15:06)
[2022-11-16] MEDS ORDERED: NALOXONE 0.4 MG/ML 1 ML VIAL IV PRN (15:16)
[2022-11-16] MEDS ORDERED: HYDROmorphone 1 MG/ML 1 ML SYRINGE IVP PRN (15:16)
[2022-11-16] MEDS ORDERED: DEXAMETHASONE SOD PHOSPHATE 10 MG/ML 1 ML VIAL IVP STA (16:52)
[2022-11-16] MEDS: SODIUM CHLORIDE 0.9% 1,000 ML IV SCH (17:22)
[2022-11-16] MEDS ORDERED: DEXTROSE 50% SYRINGE 50 ML IVP PRN ×2 (17:53)
[2022-11-16] MEDS: DEXAMETHASONE SOD PHOSPHATE 4 MG/ML 1 ML VIAL IVP SCH ×2 (17:59→23:28)
--- NOTE | 2022-11-16 18:04 | P.HPIM ---
History of Present Illness This is a pleasant 87 years old male with multiple medical problems as below. Patient PCP is Dr. España and his assistant credit manager is Dr. Rojas. Family were at bedside including the daughter and 2 sons. patient presents because feeling stuffiness in his abdomen as he is telling me, he says he cannot move by himself slight before, if he tries to stand up he feels unsteady. And associated with dizziness He says he has abdominal pain like 7/10 in severity he described it like a broad band across his upper half of the abdomen, starting from the back and radiating across the abdomen. He started having these symptoms since September 28. Patient states also he cannot feel when he pees, He denies chest pain, has little dyspnea, with total occasional cough with clear phlegm but also a coughing some of blood. He has some vomiting yesterday but he has low appetite and has been constipated. he has no perineal numbness. Most of the symptoms started on 09/28. Patient is afebrile, slightly bradycardic, blood pressure 164/74, saturating 94% on 5 L oxygen via nasal cannula CBC is unremarkable, hemoglobin within the reference range 14.0. INR elevated to 8.5, PTT 64. Sodium 134 Creatinine normal, liver enzymes not elevated. Bilirubin 1.5. Troponin 0.04. Which is a slightly elevated Viruses and detected including coronavirus and influenza virus EKG showed atrial fibrillation's with occasional ventricular paced complex CT of the chest abdomen and pelvis with contrast: Diffuse pulmonary nodules and mediastinal lymphadenopathy concerning for primary lung malignancies with metastatic disease. 3 pathologic fractures of T10 vertebral body with extension into bilateral pedicles. Surgical sensation AND recommended there is approximately 25% height loss.Significant retropulsion. Additional lucent lesions within the T7 and L1 vertebral bodies with and also represent metastatic foci As per my discussions with Dr. Cerna from the emergency room neurosurgery consultation is recommended given his pathological lesion of the spine. However after Dr. Cerna discussed with the family they are not interested in any neurosurgical intervention as per Dr. Cerna. This is confirmed when I saw the patient and family at bedside they confirmed to me that they are not interested in any surgery. Case also was discussed with orthopedic Dr. Fischer from ER team, no surgical is intended at this time per Sign out. Dexamethasone was started and emergency room Patient was admitted with consultation for Dr. Calix, from a pulmonary team and hematology oncology team Review of Systems Review of systems CONSTITUTIONAL: No fever, no malaise, no fatigue. HEENT: No recent visual problems or hearing problems. Denied any sore throat. CARDIOVASCULAR: No orthopnea, PND, no palpitations, no syncope. PULMONARY: No shortness of breath, no cough, GASTROINTESTINAL: No diarrhea, no nausea, no vomiting, no abdominal pain. Normoactive bowel sounds. -NEUROLOGICAL: No headaches, rest as above HEMATOLOGICAL: Denies any bleeding or petechiae. -GENITOURINARY: Denies any burning micturition, frequency, or urgency. See above MUSCULOSKELETAL/RHEUMATOLOGICAL: Denies any joint pain, swelling, or any muscle pain. ENDOCRINE: Denies any polyuria or polydipsia. Past Medical History Past Medical History: Atrial Fibrillation, Cancer, Chest Pain / Angina, Heart Failure, Hyperlipidemia, Hypertension, Osteoarthritis (OA), Pneumonia, Sleep Apnea/CPAP/BIPAP, Vascular Disorder Additional Past Medical History / Comment(s): HX OF HEART MURMUR, HX OF COLON CA, GOUT, V-TACH, , P.A.D. History of Any Multi-Drug Resistant Organisms: None Reported Past Surgical History: Bowel Resection, Cardiac Ablation, Heart Catheterization, Hernia Repair, Orthopedic Surgery Additional Past Surgical History / Comment(s): HAD BOWEL RESECTION R/T COLON CA, HAD COLOSTOMY NOW REVERSED. HAD SX ON TENDON IN FINGER . STATES LUNG DRAINED OF FLUID.stent rt external iliac artery(per report), skin cancer removal Past Anesthesia/Blood Transfusion Reactions: No Reported Reaction Past Psychological History: No Psychological Hx Reported Smoking Status: Former smoker Past Alcohol Use History: None Reported Past Drug Use History: None Reported - Past Family History Mother Family Medical History: No Reported History Medications and Allergies Home Medications Medication Instructions Recorded Confirmed Type Atorvastatin [Lipitor] 10 mg PO HS 01/13/16 11/16/22 History Amiodarone HCl [Pacerone] 100 mg PO DAILY 10/26/20 11/16/22 History Aspirin [Adult Low Dose Aspirin EC] 81 mg PO DAILY 10/26/20 11/16/22 History Furosemide [Lasix] 20 mg PO DAILY 10/26/20 11/16/22 History Losartan Potassium [Cozaar] 100 mg PO HS 10/26/20 11/16/22 History Acetaminophen-Codeine 300-30mg 1 tab PO Q6H PRN 11/13/22 11/16/22 History [Tylenol w/codeine #3] Warfarin [Coumadin] 1.25 mg PO SUMOTUWEFRSA@199911/13/22 11/16/22 History Magnesium Chloride [Slow-Mag] 64 mg PO HS 11/16/22 11/16/22 History Vit C/E/Zn/Coppr/Lutein/Zeaxan 1 tab PO HS 11/16/22 11/16/22 History [Preservision Areds 2 Chew Tab] Warfarin [Coumadin] 2.5 mg PO TH@199911/16/22 11/16/22 History allopurinoL 300 mg PO HS 11/16/22 11/16/22 History Allergies Allergy/AdvReac Type Severity Reaction Status Date / Time propoxyphene napsylate Allergy Hallucinati Verified 11/16/22 11:12 [From Priscila] ons adhesive tape AdvReac Rash/Hives Verified 11/16/22 11:12 morphine AdvReac Hallucinati Verified 11/16/22 11:12 ons Physical Exam Vitals: Vital Signs Temp Pulse Resp BP Pulse Ox 11/16/22 15:00 52 L 18 164/74 95 11/16/22 14:00 57 L 12 142/74 94 L 11/16/22 12:00 61 16 137/64 97 11/16/22 10:00 59 L 17 139/76 97 11/16/22 09:00 63 18 97 11/16/22 08:15 98.5 F 65 22 156/73 91 L 11/16/22 08:12 98.4 F 22 156/73 Intake and Output 11/16/22 11/16/22 11/16/22 06:59 14:59 22:59 Other: Weight 84.822 kg GENERAL: The patient is alert and oriented x3, not in any acute distress. Well developed, well nourished. HEENT: Pupils are round and equally reacting to light. EOMI. No scleral icterus. No conjunctival pallor. Normocephalic, atraumatic. No pharyngeal erythema. No thyromegaly. CARDIOVASCULAR: S1 and S2 present. No murmurs, rubs, or gallops. PULMONARY: Chest is clear to auscultation, no wheezing or crackles. ABDOMEN: Soft, nontender, nondistended, normoactive bowel sounds. No palpable organomegaly. -MUSCULOSKELETAL: No joint swelling or deformity. Back tenderness EXTREMITIES: No cyanosis, clubbing, or pedal edema. -NEUROLOGICAL: Fully awake and oriented, cranial nerves are grossly intact, upper extremity strength is at baseline,. Bilateral lower extremity weakness, There is more weakness on the right leg. SKIN: No rashes. no petechiae. Results CBC & Chem 7: 11/16/22 09:25 11/16/22 09:25 Labs: Abnormal Lab Results - Last 24 Hours (Table) 11/16/22 11/16/22 11/16/22 Range/Units 09:25 09: 09:25 RBC 4.23 L (4.30-5.90) m/uL Lymphocytes # 0.4 L (1.0-4.8) k/uL PT 85.7 H (9.0-12.0) sec INR 8.5 H* (<1.2) APTT 64.0 H (22.0-30.0) sec Sodium 134 L (137-145) mmol/L Carbon Dioxide 32 H (22-30) mmol/L Glucose 125 H (74-99) mg/dL Total Bilirubin 1.5 H (0.2-1.3) mg/dL Troponin I (0.000-0.034) ng/mL Total Protein 5.6 L (6.3-8.2) g/dL Albumin 3.1 L (3.5-5.0) g/dL 11/16/22 Range/Units 09:25 RBC (4.30-5.90) m/uL Lymphocytes # (1.0-4.8) k/uL PT (9.0-12.0) sec INR (<1.2) APTT (22.0-30.0) sec Sodium (137-145) mmol/L Carbon Dioxide (22-30) mmol/L Glucose (74-99) mg/dL Total Bilirubin (0.2-1.3) mg/dL Troponin I 0.048 H* (0.000-0.034) ng/mL Total Protein (6.3-8.2) g/dL Albumin (3.5-5.0) g/dL Assessment and Plan Assessment: Multiple pulmonary nodules suspicious for primary lung cancer with mediastinal lymphadenopathy and metastatic to the bone. Pathological fractures of T10, with vertebral height loss. Right lower extremity weakness Multiple lucent lesions within T7 and L1 suspicious for metastatic disease Acute hypoxemic respiratory failure Chronic atrial fibrillation on Coumadin Coagulopathy secondary to Coumadin Hemoptysis Chronic heart failure Hyperlipidemia Hypertension History of osteoarthritis History of sleep apnea on CPAP at home. History of colon cancer status post radiotherapy History of melanoma Plan: hold Coumadin, monitor hemoglobin and vitals, monitor INR. Follow-up consultation from a orthopedic team, pulmonary team and hematology oncology team, Continue gentle hydration Continue with dexamethasone, monitor sugar Pain management discussed with patient and family at bedside, they requested Tylenol No. 3 as it is was working for him at home, also IV pain medication with Dilaudid as needed. Xanax when necessary for anxiety. Hold aspirin for patient's risk of bleeding and follow-up with cardiology's recommendation Labs and medication were reviewed.. Continue same treatment. Continue with symptomatic treatment. Resume home medication. Monitor lytes and vitals. DVT and GI prophylaxis. Further recommendations as per clinical course of the patient DVT prophylaxis: Patient already coagulopathic GI Prophylaxis: Pepcid Prognosis is guarded, CODE STATUS: Deferred, patient and family emotional supports is provided
[2022-11-16] MEDS ORDERED: PHYTONADIONE ORAL 5 MG/5 ML ORAL.SYRG PO STA (18:21)
[2022-11-16 20:17] LABS: Glucose,Whole Blood 134 mg/dL (70-110)
[2022-11-16] MEDS ORDERED: LOSARTAN 50 MG TAB PO SCH (21:00)
[2022-11-16] MEDS: ATORVASTATIN 10 MG TAB PO SCH (21:20)
[2022-11-16] MEDS: allopurinoL 300 MG TAB PO SCH (21:20)
[2022-11-16] MEDS: FAMOTIDINE 20 MG/2 ML VIAL IV SCH (21:20)
[2022-11-16] MEDS: INSULIN ASPART (NovoLOG) 100 UNIT/ML VIAL SQ SCH (21:21)
[2022-11-17] MEDS: SODIUM CHLORIDE 0.9% 1,000 ML IV SCH ×2 (05:00→09:25)
[2022-11-17 06:15] LABS: Glucose,Whole Blood 141 mg/dL (70-110)
[2022-11-17] MEDS: INSULIN ASPART (NovoLOG) 100 UNIT/ML VIAL SQ SCH ×4 (06:24→21:08)
[2022-11-17] MEDS: DEXAMETHASONE SOD PHOSPHATE 4 MG/ML 1 ML VIAL IVP SCH ×4 (06:27→23:27)
--- NOTE | 2022-11-17 08:14 | P.CRDCN ---
History of Present Illness Consult date: 11/17/22 Chief complaint: Abdominal discomfort/Shortness of breath History of present illness: Patient is a pleasant 87-year-old gentleman with a past medical history significant for permanent atrial fibrillation currently he is on anticoagulation with Coumadin as well as history of cardiac sarcoidosis and history of ventricular tachycardia status post AICD as well as history of lower extremities PAD with prior angioplasty as well as hypertension and dyslipidemia and multiple comorbid conditions. The patient presented to the hospital complaining of abdominal discomfort for the last few days associated was no bowel movement for the last few days as well. No fever and no chills. No nausea nor vomiting. No symptoms of chest pain or chest discomfort but lately he has been experiencing mild increase in the shortness of breath mainly with exertion and mainly once he is laying flat in bed. Beside that he has been experiencing cough not produc tive of any sputum. As a mentioned no symptoms of chest pain or chest discomfort. No change in the weight. He underwent a workup including EKG showing atrial fibrillation with diffuse nonspecific ST and T wave abnormalities and also a chest x-ray showed evidence of heart failure with pulmonary vascular congestions as well as NT proBNP was checked and came in to be abnormal around 1999. Subsequently the patient was started on Lasix IV. He was admitted. He is in process of having workup regarding abdominal discomfort. Please note that the patient currently is hypoxic and he is requiring 5 L of oxygen to maintain the saturation above 90%. Past Medical History Past Medical History: Atrial Fibrillation, Cancer, Chest Pain / Angina, Heart Failure, Hyperlipidemia, Hypertension, Osteoarthritis (OA), Pneumonia, Sleep Apnea/CPAP/BIPAP, Vascular Disorder Additional Past Medical History / Comment(s): HX OF HEART MURMUR, HX OF COLON CA, GOUT, V-TACH, , P.A.D. History of Any Multi-Drug Resistant Organisms: None Reported Past Surgical History: Bowel Resection, Cardiac Ablation, Heart Catheterization, Hernia Repair, Orthopedic Surgery Additional Past Surgical History / Comment(s): HAD BOWEL RESECTION R/T COLON CA, HAD COLOSTOMY NOW REVERSED. HAD SX ON TENDON IN FINGER . STATES LUNG DRAINED OF FLUID.stent rt external iliac artery(per report), skin cancer removal Past Anesthesia/Blood Transfusion Reactions: No Reported Reaction Past Psychological History: No Psychological Hx Reported Smoking Status: Former smoker Past Alcohol Use History: None Reported Additional Past Alcohol Use History / Comment(s): quit smoking 40 yrs. ago, smoked for >30 yrs. SMOKED 1PPD. Past Drug Use History: None Reported - Past Family History Mother Family Medical History: No Reported History Medications and Allergies Home Medications Medication Instructions Recorded Confirmed Type Atorvastatin [Lipitor] 10 mg PO HS 01/13/16 11/16/22 History Amiodarone HCl [Pacerone] 100 mg PO DAILY 10/26/20 11/16/22 History Aspirin [Adult Low Dose Aspirin EC] 81 mg PO DAILY 10/26/20 11/16/22 History Furosemide [Lasix] 20 mg PO DAILY 10/26/20 11/16/22 History Losartan Potassium [Cozaar] 100 mg PO HS 10/26/20 11/16/22 History Acetaminophen-Codeine 300-30mg 1 tab PO Q6H PRN 11/13/22 11/16/22 History [Tylenol w/codeine #3] Warfarin [Coumadin] 1.25 mg PO SUMOTUWEFRSA@199911/13/22 11/16/22 History Magnesium Chloride [Slow-Mag] 64 mg PO HS 11/16/22 11/16/22 History Vit C/E/Zn/Coppr/Lutein/Zeaxan 1 tab PO HS 11/16/22 11/16/22 History [Preservision Areds 2 Chew Tab] Warfarin [Coumadin] 2.5 mg PO TH@199911/16/22 11/16/22 History allopurinoL 300 mg PO HS 11/16/22 11/16/22 History Allergies Allergy/AdvReac Type Severity Reaction Status Date / Time propoxyphene napsylate Allergy Hallucinati Verified 11/16/22 11:12 [From Priscila] ons adhesive tape AdvReac Rash/Hives Verified 11/16/22 11:12 morphine AdvReac Hallucinati Verified 11/16/22 11:12 ons Physical Exam Vitals: Vital Signs Temp Pulse Pulse Resp BP BP Pulse Ox 11/17/22 04:00 98.1 F 71 22 140/79 92 L 11/17/22 02:00 22 11/16/22 23:47 97.9 F 76 24 116/66 92 L 11/16/22 21:56 64 22 11/16/22 20:00 98.8 F 64 20 182/69 93 L 11/16/22 19:00 61 15 148/68 95 11/16/22 15:00 52 L 18 164/74 95 11/16/22 14:00 57 L 12 142/74 94 L 11/16/22 12:00 61 16 137/64 97 11/16/22 10:00 59 L 17 139/76 97 11/16/22 09:00 63 18 97 11/16/22 08:15 98.5 F 65 22 156/73 91 L 11/16/22 08:12 98.4 F 22 156/73 Intake and Output 11/16/22 11/17/22 11/17/22 22:59 06:59 14:59 Intake Total 5 Output Total 200 200 Balance -200 -200 5 Intake: IV 5 Invasive Line 1 5 Output: Urine 200 200 Other: Voiding Method Urinal Urinal Weight 84.822 kg - Constitutional General appearance: no acute distress - Respiratory Respiratory: bilateral: diminished - Cardiovascular Rhythm: irregularly irregular Abnormal Heart Sounds: systolic murmur Results 11/16/22 09:25 11/16/22 09:25 Cardiac Enzymes 11/16/22 11/16/22 Range/Units 09:25 09:25 AST 34 (17-59) U/L Troponin I 0.048 H* (0.000-0.034) ng/mL Coagulation 11/16/22 Range/Units 09:25 PT 85.7 H (9.0-12.0) sec APTT 64.0 H (22.0-30.0) sec CBC 11/16/22 Range/Units 09:25 WBC 7.8 (3.8-10.6) k/uL RBC 4.23 L (4.30-5.90) m/uL Hgb 14.0 (13.0-17.5) gm/dL Hct 40.4 (39.0-53.0) % Plt Count 239 (150-450) k/uL Comprehensive Metabolic Panel 11/16/22 Range/Units 09:25 Sodium 134 L (137-145) mmol/L Potassium 4.4 (3.5-5.1) mmol/L Chloride 98 (98-107) mmol/L Carbon Dioxide 32 H (22-30) mmol/L BUN 19 (9-20) mg/dL Creatinine 0.71 (0.66-1.25) mg/dL Glucose 125 H (74-99) mg/dL Calcium 8.5 (8.4-10.2) mg/dL AST 34 (17-59) U/L ALT 19 (4-49) U/L Alkaline Phosphatase 82 (38-126) U/L Total Protein 5.6 L (6.3-8.2) g/dL Albumin 3.1 L (3.5-5.0) g/dL Current Medications Generic Name Dose Route Start Last Admin Trade Name Freq PRN Reason Stop Dose Admin Acetaminophen/Codeine Phosphate 1 each 11/16/22 15:01 Acetaminophen-Codeine 300-30mg Tab PO Q6HR PRN Pain Allopurinol 300 mg 11/16/22 21:00 11/16/22 21:20 Allopurinol 300 Mg Tab PO 300 mg HS SOBEIDA Administration Alprazolam 0.25 mg 11/16/22 15:02 Alprazolam 0.25 Mg Tab PO BID PRN Anxiety Amiodarone HCl 100 mg 11/17/22 09:00 Amiodarone 100 Mg Tab PO DAILY SOBEIDA Aspirin 81 mg 11/17/22 09:00 Aspirin 81 Mg PO DAILY SOBEIDA Atorvastatin Calcium 10 mg 11/16/22 21:00 11/16/22 21:20 Atorvastatin 10 Mg Tab PO 10 mg HS SOBEIDA Administration Dexamethasone Sodium Phosphate 4 mg 11/16/22 18:00 11/17/22 06:27 Dexamethasone Sod Phosphate 4 Mg/Ml 1 Ml Vial IVP 4 mg Q6HR SOBEIDA Administration Dextrose/Water 25 ml 11/16/22 17:53 Dextrose 50% Syringe 50 Ml IVP PER PROTOCOL PRN Hypoglycemia Protocol Dextrose/Water 50 ml 11/16/22 17:53 Dextrose 50% Syringe 50 Ml IVP PER PROTOCOL PRN Hypoglycemia Protocol Famotidine 20 mg 11/16/22 21:00 11/16/22 21:20 Famotidine 20 Mg/2 Ml Vial IV 20 mg Q12HR SOBEIDA Administration Furosemide 20 mg 11/17/22 09:00 Furosemide 20 Mg Tab PO DAILY SOBEIDA Hydralazine HCl 25 mg 11/16/22 17:54 Hydralazine Hcl 25 Mg Tab PO QID PRN Blood Pressure - High Hydromorphone HCl 0.5 mg 11/16/22 15:01 Hydromorphone 0.5 Mg/0.5 Ml Syringe IVP Q4HR PRN Pain Sodium Chloride 1,000 mls @ 75 mls/hr 11/16/22 15:30 11/17/22 05:00 Saline 0.9% IV 75 mls/hr .[id number] SOBEIDA Administration Insulin Aspart 0 unit 11/16/22 21:00 11/17/22 06:24 Insulin Aspart (Novolog) 100 Unit/Ml Vial SQ Not Given ACHS SOBEIDA Protocol Losartan Potassium 100 mg 11/16/22 21:00 11/16/22 21:20 Losartan 50 Mg Tab PO 100 mg HS SOBEIDA Administration Magnesium Hydroxide 2,400 mg 11/16/22 17:01 Magnesium Hydroxide 2,400 Mg/10 Ml Cup PO BID PRN Constipation Naloxone HCl 0.2 mg 11/16/22 15:16 Naloxone 0.4 Mg/Ml 1 Ml Vial IV Q2M PRN Opioid Reversal Intake and Output 11/16/22 11/17/22 11/17/22 22:59 06:59 14:59 Intake Total 5 Output Total 200 200 Balance -200 -200 5 Intake: IV 5 Invasive Line 1 5 Output: Urine 200 200 Other: Voiding Method Urinal Urinal Weight 84.822 kg 11/16/22 09:25 11/16/22 09:25 Assessment and Plan Assessment: Assessment Abdominal discomfort associated with no bowel movement Congestive heart failure exacerbation, etiology unknown at this point Permanent atrial fibrillation with controlled heart rate History of cardiac sarcoidosis History of ventricular tachycardia status post AICD Lower extremities PAD History of colon cancer Plan Keep the patient on the current dose of Lasix IV Monitor the kidney function and electrolytes Obtain an echocardiogram was Doppler Continue anticoagulation with Coumadin Continue the workup regarding the abdominal discomfort Follow-up with the patient
[2022-11-17] MEDS: FUROSEMIDE 20 MG TAB PO SCH (08:44)
[2022-11-17] MEDS: FAMOTIDINE 20 MG/2 ML VIAL IV SCH ×2 (08:44→19:47)
[2022-11-17] MEDS: AMIODARONE 100 MG TAB PO SCH (08:44)
[2022-11-17] MEDS: ASPIRIN 81 MG PO SCH (08:44)
[2022-11-17] MEDS: HYDROmorphone 0.5 MG/0.5 ML SYRINGE IVP PRN ×3 (08:44→23:33)
--- NOTE | 2022-11-17 09:00 | P.CNOR ---
History of Present Illness - [facility] Consult date: 11/17/22 Consult reason: back pain, other (T10 pathologic fracture with bilateral lower extremity weakness) History of present illness: History of Presenting Illness Patient is a pleasant 87-year-old male who has a significant history of colon cancer and has had chemo treatment and a bowel resection. He presented to ER for increasing back pain and bilateral lower extremity weakness. Patient states he was here on [facility] for back pain and he was provided narcotics for pain management. Patient was finding relief with medication and also sought out chiropractic therapy. Patient reports that his chiropractor thought the patient needed further work up of his back and referred him to his PCP. His PCP sent him in yesterday for an Out-patient CT scan of the spine. Patients states hsi family was worried due to his increase of weakness in bilateral lower extremities and that he reports constipation of 2 weeks. Patient seen and examined this morning. Patient is resting in bed tolerating his breakfast. He does report his pain level across his abdomen a 7/10 on pain scale. Medication is being reviewed and modified by Dr. andrade. Discussed T10 pathological fracture with patient and possible treatment options. Patient does not want to proceed with any surgical intervention at this time. Recommendation for TLSO brace was provided, patient agrees to trial. Prescription for brace will be left in chart. Patient was able to perform flexion and extension of bilateral lower extremities. Patient reports his legs feeling like "straw". He states he just feels stiff and weak when standing. He does have complaint of a "rubber band" feeling around his abdomen. Patient has been afebrile, denies any nausea/vomiting, or chest pain. Review of Systems Pertinent positives and negatives as discussed in HPI, a complete review of systems was performed and all other systems are negative. Physical Examination General: The patient is awake and alert, in no acute distress Skin: Skin is warm and dry with no obvious rashes or lesions. Hairy patches absent, no dorsal skin dimples, no cafe au lait spots, and no surgical incisions. Eye: Pupils are equal, round and reactive to light, extra-ocular movements are intact; there is normal conjunctiva bilaterally. Neck: The neck is supple, there is no tenderness and ROM intact. Cardiovascular: There is a regular rate and rhythm. No murmur, rub or gallop is appreciated. Respiratory: Lungs are clear to auscultation, respirations are non-labored, breath sounds are equal. Gastrointestinal: Soft, non-distended, non-tender abdomen. Back: There is no tenderness to palpation in the midline, paralumbar, parathoracic or buttocks region. There is no obvious deformity. Musculoskeletal: ROM limited secondary to pain and stiffness in bilateral lower extremities. Muscle strength in all major muscle groups of the bilateral upper extremities 5/5, left lower extremity 4/5, right lower extremity 3+/5. Neurological: CN 2-12 intact. There are no obvious motor or sensory deficits. Movement and coordination equal and intact. Sensory exam to light touch intact C5-T1 and intact from L2-S1. Reflexes 2/4 in bilateral upper and lower extremities. Negative Hoffmans, babinski, and clonus signs. Psychiatric: Cooperative, appropriate mood & affect, normal judgment. Assessment and Plan Multiple pulmonary nodules suspicious for primary lung cancer with mediastinal lymphadenopathy and metastatic to the bone. Pathological fractures of T10, with vertebral height loss. Right lower extremity weakness Multiple lucent lesions within T7 and L1 suspicious for metastatic disease -Continue with pain management -Recommend to continue with IV steroids -Prescription provided in chart for TLSO brace -PT/OT We will continue to follow I reviewed and discussed this case with my attending Dr. Fischer, whom has reviewed this chart and films and is in agreement with assessment and plan of care as outlined above. I have personally seen and examined the patient, performed the documentation and the assessment and plan as written. Number of minutes spent on the visit: 20m. Past Medical History Past Medical History: Atrial Fibrillation, Cancer, Chest Pain / Angina, Heart Failure, Hyperlipidemia, Hypertension, Osteoarthritis (OA), Pneumonia, Sleep Apnea/CPAP/BIPAP, Vascular Disorder Additional Past Medical History / Comment(s): HX OF HEART MURMUR, HX OF COLON CA, GOUT, V-TACH, , P.A.D. History of Any Multi-Drug Resistant Organisms: None Reported Past Surgical History: Bowel Resection, Cardiac Ablation, Heart Catheterization, Hernia Repair, Orthopedic Surgery Additional Past Surgical History / Comment(s): HAD BOWEL RESECTION R/T COLON CA, HAD COLOSTOMY NOW REVERSED. HAD SX ON TENDON IN FINGER . STATES LUNG DRAINED OF FLUID.stent rt external iliac artery(per report), skin cancer removal Past Anesthesia/Blood Transfusion Reactions: No Reported Reaction Past Psychological History: No Psychological Hx Reported Smoking Status: Former smoker Past Alcohol Use History: None Reported Additional Past Alcohol Use History / Comment(s): quit smoking 40 yrs. ago, smoked for >30 yrs. SMOKED 1PPD. Past Drug Use History: None Reported - Past Family History Mother Family Medical History: No Reported History Medications and Allergies Home Medications Medication Instructions Recorded Confirmed Type Atorvastatin [Lipitor] 10 mg PO HS 01/13/16 11/16/22 History Amiodarone HCl [Pacerone] 100 mg PO DAILY 10/26/20 11/16/22 History Aspirin [Adult Low Dose Aspirin EC] 81 mg PO DAILY 10/26/20 11/16/22 History Furosemide [Lasix] 20 mg PO DAILY 10/26/20 11/16/22 History Losartan Potassium [Cozaar] 100 mg PO HS 10/26/20 11/16/22 History Acetaminophen-Codeine 300-30mg 1 tab PO Q6H PRN 11/13/22 11/16/22 History [Tylenol w/codeine #3] Warfarin [Coumadin] 1.25 mg PO SUMOTUWEFRSA@199911/13/22 11/16/22 History Magnesium Chloride [Slow-Mag] 64 mg PO HS 11/16/22 11/16/22 History Vit C/E/Zn/Coppr/Lutein/Zeaxan 1 tab PO HS 11/16/22 11/16/22 History [Preservision Areds 2 Chew Tab] Warfarin [Coumadin] 2.5 mg PO TH@199911/16/22 11/16/22 History allopurinoL 300 mg PO HS 11/16/22 11/16/22 History Allergies Allergy/AdvReac Type Severity Reaction Status Date / Time propoxyphene napsylate Allergy Hallucinati Verified 11/16/22 11:12 [From Priscila] ons adhesive tape AdvReac Rash/Hives Verified 11/16/22 11:12 morphine AdvReac Hallucinati Verified 11/16/22 11:12 ons Results - Labs Labs: Abnormal Lab Results - Last 24 Hours (Table) 11/16/22 11/16/22 11/16/22 Range/Units 09:25 09:25 09:25 RBC 4.23 L (4.30-5.90) m/uL Lymphocytes # 0.4 L (1.0-4.8) k/uL PT 85.7 H (9.0-12.0) sec INR 8.5 H* (<1.2) APTT 64.0 H (22.0-30.0) sec Sodium 134 L (137-145) mmol/L Carbon Dioxide 32 H (22-30) mmol/L Glucose 125 H (74-99) mg/dL POC Glucose (mg/dL) (70-110) mg/dL Total Bilirubin 1.5 H (0.2-1.3) mg/dL Troponin I (0.000-0.034) ng/mL Total Protein 5.6 L (6.3-8.2) g/dL Albumin 3.1 L (3.5-5.0) g/dL 11/16/22 11/16/22 11/17/22 Range/Units 09:25 20:15 06:11 RBC (4.30-5.90) m/uL Lymphocytes # (1.0-4.8) k/uL PT (9.0-12.0) sec INR (<1.2) APTT (22.0-30.0) sec Sodium (137-145) mmol/L Carbon Dioxide (22-30) mmol/L Glucose (74-99) mg/dL POC Glucose (mg/dL) 134 H 141 H (70-110) mg/dL Total Bilirubin (0.2-1.3) mg/dL Troponin I 0.048 H* (0.000-0.034) ng/mL Total Protein (6.3-8.2) g/dL Albumin (3.5-5.0) g/dL H & H 11/16/22 Range/Units 09:25 Hgb 14.0 (13.0-17.5) gm/dL Hct 40.4 (39.0-53.0) % Coagulation 11/16/22 Range/Units 09:25 INR 8.5 H* (<1.2) Result Diagrams: 11/16/22 09:25 11/16/22 09:25
[2022-11-17 10:20] LABS: Prothrombin Time 75.5 sec (9.0-12.0)
[2022-11-17 10:25] LABS: ALT 20 U/L (4-49); AST 30 U/L (17-59); African American GFR (CKD) >90 (>60 ml/min/1.73 sqM); Albumin 3.2 g/dL (3.5-5.0); Alkaline Phosphatase 97 U/L (38-126); Anion Gap 2 mmol/L; Bilirubin, Delta 0.5 mg/dL (0.0-0.2); Bilirubin,Unconjugated 0.9 mg/dL (0.0-1.1); Blood Urea Nitrogen 22 mg/dL (9-20); Carbon Dioxide 35 mmol/L (22-30); Chloride 98 mmol/L (98-107); Glucose 209 mg/dL (74-99); Non-African American GFR(CKD) 81 (>60 ml/min/1.73 sqM); Potassium 5.8 mmol/L (3.5-5.1); Sodium 135 mmol/L (137-145); Total Bilirubin 1.4 mg/dL (0.2-1.3); Total Protein 5.7 g/dL (6.3-8.2)
[2022-11-17 10:30] LABS: Basophils % (A) 0 %; Eosinophils % (A) 0 %; HCT 43.2 % (39.0-53.0); HGB 14.4 gm/dL (13.0-17.5); Lymphocytes # (A) 0.3 k/uL (1.0-4.8); Lymphocytes % (A) 4 %; MCH 32.6 pg (25.0-35.0); MCHC 33.3 g/dL (31.0-37.0); MCV 97.8 fL (80.0-100.0); Mean Platelet Volume 7.8; Monocytes # (A) 0.1 k/uL (0-1.0); Monocytes % (A) 1 %; Neutrophils # (A) 5.9 k/uL (1.3-7.7); Neutrophils % (A) 95 %; Platelet Count 253 k/uL (150-450); RBC 4.42 m/uL (4.30-5.90); RDW 13.3 % (11.5-15.5); WBC 6.2 k/uL (3.8-10.6)
[2022-11-17 10:43] LABS: INR 7.5 (<1.2)
--- NOTE | 2022-11-17 11:18 | P.CNPUL ---
History of Present Illness Consult date: 11/17/22 Requesting physician: Darian Heath Reason for consult: abnormal CXR/CT Chief complaint: Lower extremity weakness History of present illness: This is a very pleasant 87-year-old male patient who has a history of colon cancer status post colectomy, melanoma, status post resection at the [facility], atrial fibrillation anticoagulated with warfarin, hyperlipidemia, hypertension, obstructive sleep apnea, gout, peripheral vascular disease with previous stent placement, cardiac sarcoidosis with previous VT ablations and subsequent AICD placement. He had been having issues with low back pain and progressive weakness of the lower extremities. He presented here to the emergency room yesterday for the same. Computed tomography scan of the spine revealed multilevel disc degeneration changes with severe L3-L4 and moderate to severe L4-L5 spinal canal stenosis. There is new partially visualized lower lung masses/nodule and enlarged upper abdominal lymph node concerning for meta static disease. ET scan of the chest abdomen and pelvis revealed diffuse pulmonary nodules and mediastinal lymphadenopathy with metastatic disease. There is pathologic fracture of T10 vertebral body with extension into the bilateral pedicles. There is approximately 25% height loss. Additional lucent lesion within T7 and L1 vertebral bodies which could also represent metastatic foci. There is slight leg appearance in the superior vena cava secondary to large mediastinal lymphadenopathy concerning for future SVC syndrome. No evidence of pulmonary embolism. No evidence of lymphadenopathy or mass in the abdomen or pelvis. White count 6.2. Hemoglobin 14.4. Initial INR 8.5 currently 7.5. Sodium 135. Potassium 5.8. BUN 22. Creatinine 0.78. Glucose 209. Calcium 9.0. Esparza virus and influenza screens negative. He is seen today in consultation on the selective care unit. He admits to having some shortness of breath cough and congestion. He has been coughing up blood-tinged sputum. He is a smoker of 53 years. He has no home oxygen. He has no pulmonary medications. He is currently requiring 5 L nasal cannula to maintain O2 saturations in the low 90s. He is afebrile. Hemodynamically stable. Chest x-ray reveals cardiomegaly, pulmonary vascular congestion and bilateral pleural effusions. ProBNP 2150. He's been initiated on Decadron 4 mg IV every 6 hours. Oral diuretics. Dilaudid for pain control. Review of Systems REVIEW OF SYSTEMS: CONSTITUTIONAL: Denies any recent significant weight loss or weight gain. EYES: Denies change in vision. EARS, NOSE, MOUTH, THROAT: Denies headaches, denies sore throat. CARDIOVASCULAR: Denies chest pain, palpitations or syncopal episodes. RESPIRATORY: Is that of 4 shortness of breath, cough, congestion and hemoptysis. GASTROINTESTINAL: Denies change in appetite, denies abdominal pain GENITOURINARY: Denies hematuria, denies infections. MUSKULOSKELETAL: Positive for pain and weakness of the lower extremities. INTEGUMENTARY: Denies rash, denies eczema. NEUROLOGICAL: Denies recent memory loss, no recent seizure activity. PSYCHIATRIC: Denies anxiety, denies depression. HEMATOLOGIC/LYMPHATIC: Denies anemia, denies enlarged lymph nodes. Past Medical History Past Medical History: Atrial Fibrillation, Cancer, Chest Pain / Angina, Heart Failure, Hyperlipidemia, Hypertension, Osteoarthritis (OA), Pneumonia, Sleep Apnea/CPAP/BIPAP, Vascular Disorder Additional Past Medical History / Comment(s): HX OF HEART MURMUR, HX OF COLON CA, GOUT, V-TACH, , P.A.D. History of Any Multi-Drug Resistant Organisms: None Reported Past Surgical History: Bowel Resection, Cardiac Ablation, Heart Catheterization, Hernia Repair, Orthopedic Surgery Additional Past Surgical History / Comment(s): HAD BOWEL RESECTION R/T COLON CA, HAD COLOSTOMY NOW REVERSED. HAD SX ON TENDON IN FINGER . STATES LUNG DRAINED OF FLUID.stent rt external iliac artery(per report), skin cancer removal Past Anesthesia/Blood Transfusion Reactions: No Reported Reaction Past Psychological History: No Psychological Hx Reported Smoking Status: Former smoker Past Alcohol Use History: None Reported Additional Past Alcohol Use History / Comment(s): quit smoking 40 yrs. ago, smoked for >30 yrs. SMOKED 1PPD. Past Drug Use History: None Reported - Past Family History Mother Family Medical History: No Reported History Medications and Allergies Home Medications Medication Instructions Recorded Confirmed Type Atorvastatin [Lipitor] 10 mg PO HS 01/13/16 11/16/22 History Amiodarone HCl [Pacerone] 100 mg PO DAILY 10/26/20 11/16/22 History Aspirin [Adult Low Dose Aspirin EC] 81 mg PO DAILY 10/26/20 11/16/22 History Furosemide [Lasix] 20 mg PO DAILY 10/26/20 11/16/22 History Losartan Potassium [Cozaar] 100 mg PO HS 10/26/20 11/16/22 History Acetaminophen-Codeine 300-30mg 1 tab PO Q6H PRN 11/13/22 11/16/22 History [Tylenol w/codeine #3] Warfarin [Coumadin] 1.25 mg PO SUMOTUWEFRSA@199911/13/22 11/16/22 History Magnesium Chloride [Slow-Mag] 64 mg PO HS 11/16/22 11/16/22 History Vit C/E/Zn/Coppr/Lutein/Zeaxan 1 tab PO HS 11/16/22 11/16/22 History [Preservision Areds 2 Chew Tab] Warfarin [Coumadin] 2.5 mg PO TH@199911/16/22 11/16/22 History allopurinoL 300 mg PO HS 11/16/22 11/16/22 History Allergies Allergy/AdvReac Type Severity Reaction Status Date / Time propoxyphene napsylate Allergy Hallucinati Verified 11/16/22 11:12 [From Priscila] ons adhesive tape AdvReac Rash/Hives Verified 11/16/22 11:12 morphine AdvReac Hallucinati Verified 11/16/22 11:12 ons Physical Exam Vitals: Vital Signs Temp Pulse Pulse Resp BP BP Pulse Ox 11/17/22 08:48 98.2 F 63 18 154/69 93 L 11/17/22 04:00 98.1 F 71 22 140/79 92 L 11/17/22 02:00 22 11/16/22 23:47 97.9 F 76 24 116/66 92 L 11/16/22 21:56 64 22 11/16/22 20:00 98.8 F 64 20 182/69 93 L 11/16/22 19:00 61 15 148/68 95 11/16/22 15:00 52 L 18 164/74 95 11/16/22 14:00 57 L 12 142/74 94 L 11/16/22 12:00 61 16 137/64 97 Intake and Output 11/16/22 11/17/22 11/17/22 22:59 06:59 14:59 Intake Total 5 Output Total 200 200 Balance -200 -200 5 Intake: IV 5 Invasive Line 1 5 Output: Urine 200 200 Other: Voiding Method Urinal Urinal Urinal Weight 84.822 kg GENERAL EXAM: Alert, very pleasant 87-year-old male patient, on 5 L nasal cannula, fairly comfortable in no apparent distress. HEAD: Normocephalic. EYES: Normal reaction of pupils, equal size. NOSE: Clear with pink turbinates. THROAT: No erythema or exudates. NECK: No masses, no JVD. CHEST: No chest wall deformity. LUNGS: Equal air entry with bibasilar crackles. CVS: S1 and S2 normal with no audible murmur, regular rhythm. ABDOMEN: No hepatosplenomegaly, normal bowel sounds, no guarding or rigidity. SPINE: No scoliosis or deformity SKIN: No rashes CENTRAL NERVOUS SYSTEM: No focal deficits, tone is normal in all 4 extremities. EXTREMITIES: Generalized weakness of the bilateral lower extremities. There is no peripheral edema. No clubbing, no cyanosis. Peripheral pulses are intact. Results - Laboratory Findings CBC and BMP: 11/17/22 08:29 11/17/22 08:29 PT/INR, D-dimer PT 75.5 sec (9.0-12.0) H 11/17/22 08:29 INR 7.5 (<1.2) H* 11/17/22 08:29 Abnormal lab findings: Abnormal Labs 11/16/22 11/16/22 11/16/22 09:25 09:25 09:25 RBC 4.23 L Lymphocytes # 0.4 L PT 85.7 H INR 8.5 H* APTT 64.0 H Sodium 134 L Potassium Carbon Dioxide 32 H BUN Glucose 125 H POC Glucose (mg/dL) Total Bilirubin 1.5 H Delta Bilirubin Troponin I Total Protein 5.6 L Albumin 3.1 L 11/16/22 11/16/22 11/17/22 09:25 20:15 06:11 RBC Lymphocytes # PT INR APTT Sodium Potassium Carbon Dioxide BUN Glucose POC Glucose (mg/dL) 134 H 141 H Total Bilirubin Delta Bilirubin Troponin I 0.048 H* Total Protein Albumin 11/17/22 11/17/22 11/17/22 08:29 08:29 08:29 RBC Lymphocytes # 0.3 L PT 75.5 H INR 7.5 H* APTT Sodium 135 L Potassium 5.8 H Carbon Dioxide 35 H BUN 22 H Glucose 209 H POC Glucose (mg/dL) Total Bilirubin 1.4 H Delta Bilirubin 0.5 H Troponin I Total Protein 5.7 L Albumin 3.2 L - Diagnostic Findings Chest x-ray: image reviewed CT scan - chest: image reviewed Assessment and Plan Assessment: Acute hypoxemic respiratory failure secondary to an acute exacerbation of her suspected diastolic versus systolic congestive heart failure Hemoptysis secondary to supratherapeutic INR Diffuse pulmonary nodules and mediastinal lymphadenopathy concerning for metastatic disease, doubt primary lung cancer, suspect metastatic disease from unknown primary to the lungs Pathologic fracture of T10 vertebral body with extension of the bilateral pedicles in a patient with lower extremity weakness. 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, status post AICD placement History of colon cancer status post colectomy with colostomy and subsequent reversal History of melanoma of the face and neck on the right, status post resection at the [facility] Atrial fibrillation anticoagulated with warfarin, supra therapeutic with initial INR of 8.5 currently 7.5 Obstructive sleep apnea History of 53 years chronic tobacco dependence Suspect some underlying COPD Hypertension Hyperlipidemia Peripheral vascular disease with previous stent placement Plan: The patient was seen and evaluated Chest x-ray, CAT scans, labs and medications reviewed Doubt lung cancer as a primary Suspect metastatic disease to the lungs from other source Continue oncology workup Titrate down the FiO2 as tolerated Continue diuretics Echocardiogram pending Continue to monitor the INR We will continue to follow and make further recommendations based on his clinical status I have personally seen and examined the patient, performed the documentation and the assessment and plan as written. Number of minutes spent on the visit: 20.
[2022-11-17 11:50] LABS: Glucose,Whole Blood 175 mg/dL (70-110)
[2022-11-17] MEDS ORDERED: CALCIUM GLUCONATE IN NACL 1 GM in SALINE 1 100ML.BAG IVPB ONE (11:53)
[2022-11-17] MEDS ORDERED: INSULIN REGULAR 100 UNIT/ML VIAL (IV) IV ONE (11:55)
[2022-11-17] MEDS ORDERED: DEXTROSE 50% SYRINGE 50 ML IVP STA (11:55)
[2022-11-17] MEDS ORDERED: SODIUM ZIRCONIUM CYCLOSILICATE 10 GM PACKET PO ONE (11:56)
--- NOTE | 2022-11-17 12:13 | P.PN ---
Subjective This is a pleasant 87 years old male with multiple medical problems as below. Patient PCP is Dr. España and his smash piecer is Dr. Rojas. Family were at bedside including the daughter and 2 sons. patient presents because feeling stuffiness in his abdomen as he is telling me, he says he cannot move by himself slight before, if he tries to stand up he feels unsteady. And associated with dizziness He says he has abdominal pain like 7/10 in severity he described it like a broad band across his upper half of the abdomen, starting from the back and radiating across the abdomen. He started having these symptoms since September 28. Patient states also he cannot feel when he pees, He denies chest pain, has little dyspnea, with total occasional cough with clear phlegm but also a coughing some of blood. He has some vomiting yesterday but he has low appetite and has been constipated. he has no perineal numbness. Most of the symptoms started on 09/28. Patient is afebrile, slightly bradycardic, blood pressure 164/74, saturating 94% on 5 L oxygen via nasal cannula CBC is unremarkable, hemoglobin within the reference range 14.0. INR elevated to 8.5, PTT 64. Sodium 134 Creatinine normal, liver enzymes not elevated. Bilirubin 1.5. Troponin 0.04. Which is a slightly elevated Viruses and detected including coronavirus and influenza virus EKG showed atrial fibrillation's with occasional ventricular paced complex CT of the chest abdomen and pelvis with contrast: Diffuse pulmonary nodules and mediastinal lymphadenopathy concerning for primary lung malignancies with metastatic disease. 3 pathologic fractures of T10 vertebral body with extension into bilateral pedicles. Surgical sensation AND recommended there is approximately 25% height loss.Significant retropulsion. Additional lucent lesions within the T7 and L1 vertebral bodies with and also represent metastatic foci As per my discussions with Dr. Cerna from the emergency room neurosurgery consultation is recommended given his pathological lesion of the spine. However after Dr. Cerna discussed with the family they are not interested in any neurosurgical intervention as per Dr. Cerna. This is confirmed when I saw the patient and family at bedside they confirmed to me that they are not interested in any surgery. Case also was discussed with orthopedic Dr. Fischer from ER team, no surgical is intended at this time per Sign out. Dexamethasone was started and emergency room Patient was admitted with consultation for Dr. Calix, from a pulmonary team and hematology oncology team 11/17/2022 A sitting up in bed not in distress, he is breathing quietly, not in severe pain. He denies any new complaint. He is saturating 96 on 5 L oxygen via nasal cannula, less tachypneic than yesterday. Labs reviewed today his INR came down to 7.5, hemoglobin remains normal at 14.4 with no signs of evidence of bleeding. No more hemoptysis. His potassium was elevated 5.8 today, we are going to give insulin/dextrose, calcium gluconate and glaucoma small dose and lowered losartan 100 down to 50 mg and start Norvasc 5 mg for better blood pressure control Patient remains on dexamethasone at 4 mg every 6 hours as needed. We will discontinue normal saline because of evidence of fluid overload Several consultants on the case including cardiology, pulmonary, hematology/onc ology and orthopedic team. This morning I discussed the case with orthopedic team, no surgical intervention and the recommended TSLO Brace and continue with IV dexamethasone Discussed with staff Active Medications Generic Name Dose Route Start Last Admin Trade Name Freq PRN Reason Stop Dose Admin Acetaminophen/Codeine Phosphate 1 each 11/17/22 12:02 Acetaminophen-Codeine 300-30mg Tab PO Q4HR PRN Pain Allopurinol 300 mg 11/16/22 21:00 11/16/22 21:20 Allopurinol 300 Mg Tab PO 300 mg HS SOBEIDA Administration Alprazolam 0.25 mg 11/16/22 15:02 Alprazolam 0.25 Mg Tab PO BID PRN Anxiety Amiodarone HCl 100 mg 11/17/22 09:00 11/17/22 08:44 Amiodarone 100 Mg Tab PO 100 mg DAILY SOBEIDA Administration Amlodipine Besylate 5 mg 11/18/22 09:00 Amlodipine 5 Mg Tab PO DAILY SOBEIDA Aspirin 81 mg 11/17/22 09:00 11/17/22 08:44 Aspirin 81 Mg PO 81 mg DAILY SOBEIDA Administration Atorvastatin Calcium 10 mg 11/16/22 21:00 11/16/22 21:20 Atorvastatin 10 Mg Tab PO 10 mg HS SOBEIDA Administration Dexamethasone Sodium Phosphate 4 mg 11/16/22 18:00 11/17/22 06:27 Dexamethasone Sod Phosphate 4 Mg/Ml 1 Ml Vial IVP 4 mg Q6HR SOBEIDA Administration Dextrose/Water 25 ml 11/16/22 17:53 Dextrose 50% Syringe 50 Ml IVP PER PROTOCOL PRN Hypoglycemia Protocol Dextrose/Water 50 ml 11/16/22 17:53 Dextrose 50% Syringe 50 Ml IVP PER PROTOCOL PRN Hypoglycemia Protocol Famotidine 20 mg 11/16/22 21:00 11/17/22 08:44 Famotidine 20 Mg/2 Ml Vial IV 20 mg Q12HR SOBEIDA Administration Furosemide 20 mg 11/17/22 09:00 11/17/22 08:44 Furosemide 20 Mg Tab PO 20 mg DAILY SOBEIDA Administration Hydralazine HCl 25 mg 11/16/22 17:54 Hydralazine Hcl 25 Mg Tab PO QID PRN Blood Pressure - High Hydromorphone HCl 0.5 mg 11/16/22 15:01 11/17/22 08:44 Hydromorphone 0.5 Mg/0.5 Ml Syringe IVP 0.5 mg Q4HR PRN Administration Pain Sodium Chloride 1,000 mls @ 75 mls/hr 11/16/22 15:30 11/17/22 09:25 Saline 0.9% IV Not Given .[id number] [facility] Calcium Gluconate/Sodium 100 mls @ 171.429 mls/hr 11/17/22 11:53 Chloride 1 gm/ IV Solution IVPB 11/17/22 12:27 ONCE ONE Insulin Aspart 0 unit 11/16/22 21:00 11/17/22 06:24 Insulin Aspart (Novolog) 100 Unit/Ml Vial SQ Not Given ACHS [facility] Protocol Losartan Potassium 50 mg 11/17/22 21:00 Losartan 50 Mg Tab PO HS SOBEIDA Magnesium Hydroxide 2,400 mg 11/16/22 17:01 Magnesium Hydroxide 2,400 Mg/10 Ml Cup PO BID PRN Constipation Naloxone HCl 0.2 mg 11/16/22 15:16 Naloxone 0.4 Mg/Ml 1 Ml Vial IV Q2M PRN Opioid Reversal Objective - Vital Signs Vital signs: Vital Signs Temp 98.2 F 11/17/22 08:48 Pulse 63 11/17/22 08:48 Resp 18 11/17/22 08:48 BP 154/69 11/17/22 08:48 Pulse Ox 93 L 11/17/22 08:48 FiO2 Intake & Output 11/16/22 11/17/22 11/17/22 18:59 06:59 18:59 Intake Total 5 Output Total 400 Balance -400 5 Weight 84.822 kg 84.822 kg Intake: IV 5 Invasive Line 1 5 Output: Urine 400 Other: Voiding Method Urinal Urinal - Exam GENERAL: The patient is alert and oriented x3, not in any acute distress. Well developed, well nourished. HEENT: Pupils are round and equally reacting to light. EOMI. No scleral icterus. No conjunctival pallor. Normocephalic, atraumatic. No pharyngeal erythema. No thyromegaly. CARDIOVASCULAR: S1 and S2 present. No murmurs, rubs, or gallops. PULMONARY: Chest is clear to auscultation, no wheezing or crackles. ABDOMEN: Soft, nontender, nondistended, normoactive bowel sounds. No palpable organomegaly. -MUSCULOSKELETAL: No joint swelling or deformity. Back tenderness EXTREMITIES: No cyanosis, clubbing, or pedal edema. -NEUROLOGICAL: Fully awake and oriented, cranial nerves are grossly intact, upper extremity strength is at baseline,. Bilateral lower extremity weakness, There is more weakness on the right leg. SKIN: No rashes. no petechiae. - Labs CBC & Chem 7: 11/17/22 08:29 11/17/22 08:29 Labs: Abnormal Lab Results - Last 24 Hours (Table) 11/16/22 11/16/22 11/16/22 Range/Units 09:25 09:25 09:25 RBC 4.23 L (4.30-5.90) m/uL Lymphocytes # 0.4 L (1.0-4.8) k/uL PT 85.7 H (9.0-12.0) sec INR 8.5 H* (<1.2) APTT 64.0 H (22.0-30.0) sec Sodium 134 L (137-145) mmol/L Carbon Dioxide 32 H (22-30) mmol/L Glucose 125 H (74-99) mg/dL POC Glucose (mg/dL) (70-110) mg/dL Total Bilirubin 1.5 H (0.2-1.3) mg/dL Troponin I (0.000-0.034) ng/mL Total Protein 5.6 L (6.3-8.2) g/dL Albumin 3.1 L (3.5-5.0) g/dL 12/11/16/22 11/17/22 Range/Units 09:25 20:15 06:11 RBC (4.30-5.90) m/uL Lymphocytes # (1.0-4.8) k/uL PT (9.0-12.0) sec INR (<1.2) APTT (22.0-30.0) sec Sodium (137-145) mmol/L Carbon Dioxide (22-30) mmol/L Glucose (74-99) mg/dL POC Glucose (mg/dL) 134 H 141 H (70-110) mg/dL Total Bilirubin (0.2-1.3) mg/dL Troponin I 0.048 H* (0.000-0.034) ng/mL Total Protein (6.3-8.2) g/dL Albumin (3.5-5.0) g/dL Assessment and Plan Assessment: Multiple pulmonary nodules suspicious for primary lung cancer with mediastinal lymphadenopathy and metastatic to the bone. Pathological fractures of T10, with vertebral height loss. Right lower extremity weakness Multiple lucent lesions within T7 and L1 suspicious for metastatic disease Acute hypoxemic respiratory failure Hyperkalemia, could be secondary to medication while on losartan Chronic atrial fibrillation on Coumadin Coagulopathy secondary to Coumadin Hemoptysis Chronic heart failure Hyperlipidemia Hypertension History of osteoarthritis History of sleep apnea on CPAP at home. History of colon cancer status post radiotherapy History of melanoma Plan: hold Coumadin, monitor hemoglobin and vitals, monitor INR. If the patient insulin/dextrose and glaucoma for hyperkalemia, monitor potassium level. Also we will lower the dose of losartan 100 mg and 50 mg and add Norvasc for better blood pressure control with holding parameters Follow-up consultation from a orthopedic team, pulmonary team and hematology oncology team, Discontinue IV fluids Continue with dexamethasone, monitor sugar obtained TSLO Brace. Orthopedic team, Pain management discussed with patient and family at bedside, they requested Tylenol No. 3 as it is was working for him at home, also IV pain medication with Dilaudid as needed. Xanax when necessary for anxiety. Hold aspirin for patient's risk of bleeding and follow-up with cardiology's recommendation Labs and medication were reviewed.. Continue same treatment. Continue with symptomatic treatment. Resume home medication. Monitor lytes and vitals. DVT and GI prophylaxis. Further recommendations as per clinical course of the p atient DVT prophylaxis: Patient already coagulopathic GI Prophylaxis: Pepcid Prognosis is guarded, CODE STATUS: Deferred, patient and family emotional supports is provided
--- NOTE | 2022-11-17 14:13 | P.CONS ---
History of Present Illness - Reason for Consult Consult date: 11/17/22 Concern for metastatic cancer - Chief Complaint Back pain - History of Present Illness Mr. Grant is a 87-year-old gentleman with a past medical history significant for documented cardiac sarcoidosis, atrial fibrillation, ventricular tachycardia status post AICD placement, lower extremity peripheral arterial disease, obstructive sleep apnea, history of colon cancer status post partial colectomy and chemotherapy, and recent diagnosis of melanoma who presented to the ED following imaging findings of the lumbar spine that were concerning for metastatic malignancy. He notes originally having low back pain since the end of September 2022. The pain was persistent and was exacerbated by any kind of weightbearing activity. He was initially prescribed narcotics, which did not relieve the pain. He had seen a chiropractor for a 2 to 3-week period, which provided only modest relief. The back pain became progressive to the point where he can no longer sleep lying down and was only sleeping about 1 to 2 hours per night. He was seen in the [facility] ED on 11/09/2022 for this back pain and was recommended to follow-up with his primary care physician Dr. España regarding this issue. CT of the lumbar spine on 11/16/2022 noted multidisc degenerative changes with severe L3-L4 and moderate to severe L4-L5 spinal canal stenosis. There was a finding however, of bilateral lower lung n odules that was incidentally found. Because of these findings, he was advised to present to the ED for additional management monitoring. In the ED, he was hemodynamically stable and afebrile. CBC revealed no acute abnormalities in his cell counts. Coags were remarkable for INR 8.5, PT 85.7, PTT 64. CMP noted mildly elevated total bilirubin at 1.5, but no significant metabolic abnormalities with normal calcium and creatinine at baseline. COVID and flu A/B PCR's were negative. CT of the chest/abdomen/pelvis with contrast performed on 11/16/2022 was notable for bilateral pulmonary nodules along with mediastinal lymphadenopathy along with left hilar lymphadenopathy concerning for malignancy. There was a pathologic fracture of the T10 vertebral body with extension to the bilateral pedicles. There was an approximate 25% height loss in the T10 vertebral body. Lucent lesions were also noted at T7 and L1 vertebral bodies. 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 No metastatic disease was noted in the abdomen or pelvis. He was given a dose of vitamin K 2.5 mg p.o. x1 along with Dilaudid 0.5 mg IV x1 and dexamethasone 10 mg IV x1 and admitted to medicine for additional management recommendations. On further discussion with Mr. Grant, he notes being diagnosed with colon cancer back in 2000. At that time, he reportedly had neoadjuvant chemotherapy followed by partial right colectomy, and then followed by adjuvant chemotherapy. His treatment at that time had been managed by Dr. Rodriguez. He had not had any recurrence of his colon cancer. More recently, he was diagnosed with melanoma in the summer 2021. Per his and son at bedside, he appears to have undergone a wide local excision with a sentinel lymph node biopsy in April 2022. They noted there were 2 sentinel lymph nodes that were either biopsied or removed, but both were negative for disease. He was set to have a follow-up at the [facility] for the melanoma in October 2022, but this was put on hold due to his increased back pain. Prior to admission, he did have increased anorexia and constipation, but denied any fevers, chills, night sweats, or lymphadenopathy. He also noted to having episodes of intermittent hemoptysis for about 3 weeks, but denies any dyspnea on exertion or at rest. His last bowel movement was approximately 10 to 14 days ago. He notes smoking about 1 pack/day of cigarettes for approximately 20 years, but quit smoking around 1974. Review of Systems 14 point review of systems was conducted with pertinent positive negatives as noted per HPI Past Medical History Past Medical History: Atrial Fibrillation, Cancer, Chest Pain / Angina, Heart Failure, Hyperlipidemia, Hypertension, Osteoarthritis (OA), Pneumonia, Sleep Apnea/CPAP/BIPAP, Vascular Disorder Additional Past Medical History / Comment(s): HX OF HEART MURMUR, HX OF COLON CA, GOUT, V-TACH, , P.A.D. History of Any Multi-Drug Resistant Organisms: None Reported Past Surgical History: Bowel Resection, Cardiac Ablation, Heart Catheterization, Hernia Repair, Orthopedic Surgery Additional Past Surgical History / Comment(s): HAD BOWEL RESECTION R/T COLON CA, HAD COLOSTOMY NOW REVERSED. HAD SX ON TENDON IN FINGER . STATES LUNG DRAINED OF FLUID.stent rt external iliac artery(per report), skin cancer removal Past Anesthesia/Blood Transfusion Reactions: No Reported Reaction Past Psychological History: No Psychological Hx Reported Smoking Status: Former smoker Past Alcohol Use History: None Reported Additional Past Alcohol Use History / Comment(s): quit smoking 40 yrs. ago, smoked for >30 yrs. SMOKED 1PPD. Past Drug Use History: None Reported - Past Family History Mother Family Medical History: No Reported History Medications and Allergies Home Medications Medication Instructions Recorded Confirmed Type Atorvastatin [Lipitor] 10 mg PO HS 01/13/16 11/16/22 History Amiodarone HCl [Pacerone] 100 mg PO DAILY 10/26/20 11/16/22 History Aspirin [Adult Low Dose Aspirin EC] 81 mg PO DAILY 10/26/20 11/16/22 History Furosemide [Lasix] 20 mg PO DAILY 10/26/20 11/16/22 History Losartan Potassium [Cozaar] 100 mg PO HS 10/26/20 11/16/22 History Acetaminophen-Codeine 300-30mg 1 tab PO Q6H PRN 11/13/22 11/16/22 History [Tylenol w/codeine #3] Warfarin [Coumadin] 1.25 mg PO SUMOTUWEFRSA@199911/13/22 11/16/22 History Magnesium Chloride [Slow-Mag] 64 mg PO HS 11/16/22 11/16/22 History Vit C/E/Zn/Coppr/Lutein/Zeaxan 1 tab PO HS 11/16/22 11/16/22 History [Preservision Areds 2 Chew Tab] Warfarin [Coumadin] 2.5 mg PO TH@199911/16/22 11/16/22 History allopurinoL 300 mg PO HS 11/16/22 11/16/22 History Allergies Allergy/AdvReac Type Severity Reaction Status Date / Time propoxyphene napsylate Allergy Hallucinati Verified 11/16/22 11:12 [From Priscila] ons adhesive tape AdvReac Rash/Hives Verified 11/16/22 11:12 morphine AdvReac Hallucinati Verified 11/16/22 11:12 ons Physical Exam Vitals: Vital Signs Temp Pulse Pulse Resp BP BP Pulse Ox 11/17/22 11:53 97.9 F 62 18 132/71 90 L 11/17/22 08:48 98.2 F 63 18 154/69 93 L 11/17/22 04:00 98.1 F 71 22 140/79 92 L 11/17/22 02:00 22 11/16/22 23:47 97.9 F 76 24 116/66 92 L 11/16/22 21:56 64 22 11/16/22 20:00 98.8 F 64 20 182/69 93 L 11/16/22 19:00 61 15 148/68 95 11/16/22 15:00 52 L 18 164/74 95 11/16/22 14:00 57 L 12 142/74 94 L Intake and Output 11/16/22 11/17/22 11/17/22 22:59 06:59 14:59 Intake Total 205 Output Total 200 200 Balance -200 -200 205 Intake: IV 5 Invasive Line 1 5 Intake, IV Titration 100 Amount Calcium Gluconate in NaCl 100 1 gm In Saline 1 100ml. bag @ 171.429 mls/hr IVPB ONCE ONE Rx#:[id number] Oral 100 Output: Urine 200 200 Other: Voiding Method Urinal Urinal Urinal Weight 84.822 kg - Constitutional lying in bed, pleasant General appearance: average body habitus, no acute distress - EENT Eyes: EOMI - Neck Neck: no lymphadenopathy - Respiratory Respiratory: bilateral: CTA - Cardiovascular Rhythm: regular - Gastrointestinal General gastrointestinal: decreased bowel sounds, distended, tenderness Localized gastrointestinal: tender: RLQ, LLQ - Integumentary Area of wide local excision scar on the right face Integumentary: no rash - Neurologic Increased weakness of the lower extremities bilaterally - Psychiatric Psychiatric: A&O x's 3, intact judgment & insight Results CBC & Chem 7: 11/17/22 08:29 11/17/22 08:29 Labs: Abnormal Lab Results - Last 24 Hours (Table) 11/16/22 11/17/22 11/17/22 Range/Units 20:15 06:11 08:29 Lymphocytes # 0.3 L (1.0-4.8) k/uL PT (9.0-12.0) sec INR (<1.2) Sodium (137-145) mmol/L Potassium (3.5-5.1) mmol/L Carbon Dioxide (22-30) mmol/L BUN (9-20) mg/dL Glucose (74-99) mg/dL POC Glucose (mg/dL) 134 H 141 H (70-110) mg/dL Total Bilirubin (0.2-1.3) mg/dL Delta Bilirubin (0.0-0.2) mg/dL Total Protein (6.3-8.2) g/dL Albumin (3.5-5.0) g/dL 11/17/22 11/17/22 11/17/22 Range/Units 08:29 08:29 11:49 Lymphocytes # (1.0-4.8) k/uL PT 75.5 H (9.0-12.0) sec INR 7.5 H* (<1.2) Sodium 135 L (137-145) mmol/L Potassium 5.8 H (3.5-5.1) mmol/L Carbon Dioxide 35 H (22-30) mmol/L BUN 22 H (9-20) mg/dL Glucose 209 H (74-99) mg/dL POC Glucose (mg/dL) 175 H (70-110) mg/dL Total Bilirubin 1.4 H (0.2-1.3) mg/dL Delta Bilirubin 0.5 H (0.0-0.2) mg/dL Total Protein 5.7 L (6.3-8.2) g/dL Albumin 3.2 L (3.5-5.0) g/dL Assessment and Plan Assessment: Mr. Grant is a 87-year-old gentleman with a past medical history significant for documented cardiac sarcoidosis, atrial fibrillation, ventricular tachycardia status post AICD placement, lower extremity peripheral arterial disease, obstructive sleep apnea, history of colon cancer status post partial colectomy and chemotherapy, and recent diagnosis of melanoma with progressive low back pain over the past month with incidental finding of the lower lobes of the lungs. Staging imaging with CT chest/abdomen/pelvis noted multiple lung nodules bilaterally with mediastinal and left hilar lymphadenopathy. Additional bone lesions were noted and T7 and L1 with pathologic fracture of T10 vertebral body. These findings are concerning for metastatic malignancy. (1) Medication induced coagulopathy Current Visit: Yes Status: Acute Code(s): D68.9 - COAGULATION DEFECT, UNSPECIFIED; T50.905A - ADVERSE EFFECT OF UNSP DRUG/MEDS/BIOL SUBST, INIT SNOMED Code(s): 094555216 (2) Metastatic cancer Current Visit: Yes Status: Acute Code(s): C79.9 - SECONDARY MALIGNANT NEOPLASM OF UNSPECIFIED SITE SNOMED Code(s): 828785588 Plan: #Metastatic malignancy -Noted to have progressive back pain over the past month along with anorexia, hemoptysis, and lower extremity weakness -CT of the lumbar spine on 11/16/2022 noted degenerative changes with spinal canal stenosis, but noted incidental finding of lesions in the bilateral lower lungs -CT chest/abdomen/pelvis on 11/16/2022 noted multiple bilateral lung nodules, mediastinal lymphadenopathy, left hilar lymphadenopathy, and metastases to the vertebral bodies of T7, L1, and compression fracture of T10 -Given his clinical and radiologic findings, there is a concern for metastatic malignancy -I discussed these findings with Mr. Grant, his , and his son. we discussed that at this time, we do not have a definitive diagnosis to discuss things such as prognosis or treatment options -We discussed that a biopsy of one of the lung lesions either through bronchoscopy or CT-guided biopsy with interventional radiology would be needed to establish a definitive diagnosis -Depending on the histology, additional studies for molecular profiling and PD- L1 testing could be sent from this biopsy to determine treatment options -Mr. Grant was in favor of obtaining additional work-up to establish a diagnosis. He stated that he would not want to have systemic chemotherapy like he did for his prior diagnosis of colon cancer -With regard to the differential diagnosis, this is currently broad and includes metastatic melanoma or potentially primary lung malignancy. The lung lesions do not appear consistent with a typical presentation of primary lung cancer, but this cannot be definitively excluded. It is less likely to be metastatic colon cancer given the length of time that has elapsed since his diagnosis and treatment -Once his INR becomes therapeutic, biopsy of one of the most accessible lung lesion should be pursued #Supratherapeutic INR -Prior to admission, he was on Coumadin for atrial fibrillation -He was likely supratherapeutic due to poor oral intake -He received vitamin K 2.5 mg p.o. on admission with repeat INR of 7.5 from 8.5 on admission -Continue to hold Coumadin at this time -We can continue to allow INR to come down to the therapeutic range without additional vitamin K at this time given there is no active bleeding -If this does not reversed to the therapeutic range spontaneously, FFP could be considered to help obtain biopsy -In addition, alternative anticoagulation could be considered such as Eliquis or Xarelto as long as he does not have any prosthetic or mechanical valves, which I did not appreciate on his exam or review of his medical history
[2022-11-17] MEDS: MAGNESIUM HYDROXIDE 2,400 MG/10 ML CUP PO PRN (16:29)
[2022-11-17 16:48] LABS: Glucose,Whole Blood 195 mg/dL (70-110)
[2022-11-17] MEDS: LOSARTAN 50 MG TAB PO SCH (19:47)
[2022-11-17] MEDS: allopurinoL 300 MG TAB PO SCH (19:47)
[2022-11-17] MEDS: ATORVASTATIN 10 MG TAB PO SCH (19:47)
[2022-11-17 20:14] LABS: Glucose,Whole Blood 177 mg/dL (70-110)
[2022-11-18 06:12] LABS: Glucose,Whole Blood 189 mg/dL (70-110)
[2022-11-18] MEDS: HYDROmorphone 0.5 MG/0.5 ML SYRINGE IVP PRN ×2 (06:28→15:24)
[2022-11-18] MEDS: DEXAMETHASONE SOD PHOSPHATE 4 MG/ML 1 ML VIAL IVP SCH ×4 (06:28→23:56)
[2022-11-18] MEDS: INSULIN ASPART (NovoLOG) 100 UNIT/ML VIAL SQ SCH ×4 (06:29→20:40)
--- NOTE | 2022-11-18 06:41 | P.PN ---
Subjective Progress Note Date: 11/18/22 Principal diagnosis: Back pain other T10 pathologic fracture Bilateral lower extremity weakness Patient seen and examined this morning. He is resting in bed. Patient reports mid to low back pain, states current medications seem to manage it. Informed patient that TLSO brace should be delivered today. He verbalizes understanding. Patient has been afebrile, denies nausea/vomiting, or chest pain. Objective - Vital Signs Vital signs: Vital Signs Temp 98.2 F 11/18/22 04:00 Pulse 56 L 11/18/22 04:00 Resp 17 11/18/22 04:00 BP 142/67 11/18/22 04:00 Pulse Ox 94 L 11/18/22 04:00 FiO2 Intake & Output 11/17/22 11/17/22 11/18/22 06:59 18:59 06:59 Intake Total 205 Output Total 400 100 175 Balance -400 105 -175 Weight 84.822 kg Intake: IV 5 Invasive Line 1 5 Intake, IV Titration 100 Amount Calcium Gluconate in NaCl 100 1 gm In Saline 1 100ml. bag @ 171.429 mls/hr IVPB ONCE ONE Rx#:[id number] Oral 100 Output: Urine 400 100 175 Other: Voiding Method Urinal Urinal Urinal # Bowel Movements 1 4 - Exam General: The patient is awake and alert, in no acute distress Skin: Skin is warm and dry with no obvious rashes or lesions. Hairy patches absent, no dorsal skin dimples, no cafe au lait spots, and no surgical in cisions. Eye: Pupils are equal, round and reactive to light, extra-ocular movements are intact; there is normal conjunctiva bilaterally. Neck: The neck is supple, there is no tenderness and ROM intact. Cardiovascular: There is a regular rate and rhythm. No murmur, rub or gallop is appreciated. Respiratory: Lungs are clear to auscultation, respirations are non-labored, breath sounds are equal. Gastrointestinal: Soft, non-distended, non-tender abdomen. Back: There is no tenderness to palpation in the midline, paralumbar, parathoracic or buttocks region. There is no obvious deformity. Musculoskeletal: ROM limited secondary to pain and stiffness in bilateral lower extremities. Muscle strength in all major muscle groups of the bilateral upper extremities 5/5, left lower extremity 4/5, right lower extremity 3+/5. Neurological: CN 2-12 intact. There are no obvious motor or sensory deficits. Movement and coordination equal and intact. Sensory exam to light touch intact C5-T1 and intact from L2-S1. Reflexes 2/4 in bilateral upper and lower extremities. Negative Hoffmans, babinski, and clonus signs. Psychiatric: Cooperative, appropriate mood & affect, normal judgment. - Labs CBC & Chem 7: 11/17/22 08:29 11/17/22 08:29 Labs: Abnormal Lab Results - Last 24 Hours (Table) 11/17/22 11/17/22 11/17/22 Range/Units 08:29 08:29 08:29 Lymphocytes # 0.3 L (1.0-4.8) k/uL PT 75.5 H (9.0-12.0) sec INR 7.5 H* (<1.2) Sodium 135 L (137-145) mmol/L Potassium 5.8 H (3.5-5.1) mmol/L Carbon Dioxide 35 H (22-30) mmol/L BUN 22 H (9-20) mg/dL Glucose 209 H (74-99) mg/dL POC Glucose (mg/dL) (70-110) mg/dL Total Bilirubin 1.4 H (0.2-1.3) mg/dL Delta Bilirubin 0.5 H (0.0-0.2) mg/dL Troponin I (0.000-0.034) ng/mL Total Protein 5.7 L (6.3-8.2) g/dL Albumin 3.2 L (3.5-5.0) g/dL 11/17/22 11/17/22 11/17/22 Range/Units 11:49 15:34 16:46 Lymphocytes # (1.0-4.8) k/uL PT (9.0-12.0) sec INR (<1.2) Sodium (137-145) mmol/L Potassium (3.5-5.1) mmol/L Carbon Dioxide (22-30) mmol/L BUN (9-20) mg/dL Glucose (74-99) mg/dL POC Glucose (mg/dL) 175 H 195 H (70-110) mg/dL Total Bilirubin (0.2-1.3) mg/dL Delta Bilirubin (0.0-0.2) mg/dL Troponin I 0.043 H* (0.000-0.034) ng/mL Total Protein (6.3-8.2) g/dL Albumin (3.5-5.0) g/dL 11/17/22 11/18/22 Range/Units 20:12 06:09 Lymphocytes # (1.0-4.8) k/uL PT (9.0-12.0) sec INR (<1.2) Sodium (137-145) mmol/L Potassium (3.5-5.1) mmol/L Carbon Dioxide (22-30) mmol/L BUN (9-20) mg/dL Glucose (74-99) mg/dL POC Glucose (mg/dL) 177 H 189 H (70-110) mg/dL Total Bilirubin (0.2-1.3) mg/dL Delta Bilirubin (0.0-0.2) mg/dL Troponin I (0.000-0.034) ng/mL Total Protein (6.3-8.2) g/dL Albumin (3.5-5.0) g/dL Assessment and Plan Assessment: Multiple pulmonary nodules suspicious for primary lung cancer with mediastinal lymphadenopathy and metastatic to the bone. Pathological fractures of T10, with vertebral height loss. Right lower extremity weakness Multiple lucent lesions within T7 and L1 suspicious for metastatic disease Multiple comorbidities Plan: -Continue with pain management -Recommend to continue with IV steroids -Prescription provided in chart for TLSO brace -PT/OT We will continue to follow I reviewed and discussed this case with my attending Dr. Fischer, whom has reviewed this chart and films and is in agreement with assessment and plan of care as outlined above. I have personally seen and examined the patient, performed the documentation and the assessment and plan as written. Number of minutes spent on the visit: 20m.
--- NOTE | 2022-11-18 06:49 | P.PN ---
Subjective Progress Note Date: 11/18/22 Principal diagnosis: Permanent atrial fibrillation Patient is a pleasant 87-year-old gentleman with a past medical history significant for permanent atrial fibrillation currently he is on anticoagulation with Coumadin as well as history of cardiac sarcoidosis and history of vent ricular tachycardia status post AICD as well as history of lower extremities PAD with prior angioplasty as well as hypertension and dyslipidemia and multiple comorbid conditions. The patient presented to the hospital complaining of abdominal discomfort for the last few days associated was no bowel movement for the last few days as well. No fever and no chills. No nausea nor vomiting. No symptoms of chest pain or chest discomfort but lately he has been experiencing mild increase in the shortness of breath mainly with exertion and mainly once he is laying flat in bed. Beside that he has been experiencing cough not productive of any sputum. As a mentioned no symptoms of chest pain or chest discomfort. No change in the weight. He underwent a workup including EKG showing atrial fibrillation with diffuse nonspecific ST and T wave abnormalities and also a chest x-ray showed evidence of heart failure with pulmonary vascular congestions as well as NT proBNP was checked and came in to be abnormal around 1999. Subsequently the patient was started on Lasix IV. He was admitted. He is in process of having workup regarding abdominal discomfort. Please note that the patient currently is hypoxic and he is requiring 5 L of oxygen to maintain the saturation above 90%. 11/19/2022 The patient was seen and evaluated this morning. He is asymptomatic in terms of chest pain or chest discomfort or shortness of breath this morning. He is hemodynamically stable. He underwent a computed tomography scan and that revealed possible lung malignancy with metastasis. Currently pulmonary services on the case. He remains in atrial fibrillation which is permanent with controlled heart rates. He is on Coumadin for that. The echocardiogram is still pending. Objective - Vital Signs Vital signs: Vital Signs Temp 98.2 F 11/18/22 04:00 Pulse 56 L 11/18/22 04:00 Resp 17 11/18/22 04:00 BP 142/67 11/18/22 04:00 Pulse Ox 94 L 11/18/22 04:00 FiO2 Intake & Output 11/17/22 11/17/22 11/18/22 06:59 18:59 06:59 Intake Total 205 Output Total 400 100 175 Balance -400 105 -175 Weight 84.822 kg Intake: IV 5 Invasive Line 1 5 Intake, IV Titration 100 Amount Calcium Gluconate in NaCl 100 1 gm In Saline 1 100ml. bag @ 171.429 mls/hr IVPB ONCE ONE Rx#:[id number] Oral 100 Output: Urine 400 100 175 Other: Voiding Method Urinal Urinal Urinal # Bowel Movements 1 4 - Constitutional General appearance: Present: no acute distress - Respiratory Respiratory: bilateral: diminished - Cardiovascular Rhythm: irregularly irregular Heart sounds: normal: S1, S2 - Labs CBC & Chem 7: 11/17/22 08:29 11/17/22 08:29 Labs: Abnormal Lab Results - Last 24 Hours (Table) 11/17/22 11/17/22 11/17/22 Range/Units 08:29 08:29 08:29 Lymphocytes # 0.3 L (1.0-4.8) k/uL PT 75.5 H (9.0-12.0) sec INR 7.5 H* (<1.2) Sodium 135 L (137-145) mmol/L Potassium 5.8 H (3.5-5.1) mmol/L Carbon Dioxide 35 H (22-30) mmol/L BUN 22 H (9-20) mg/dL Glucose 209 H (74-99) mg/dL POC Glucose (mg/dL) (70-110) mg/dL Total Bilirubin 1.4 H (0.2-1.3) mg/dL Delta Bilirubin 0.5 H (0.0-0.2) mg/dL Troponin I (0.000-0.034) ng/mL Total Protein 5.7 L (6.3-8.2) g/dL Albumin 3.2 L (3.5-5.0) g/dL 11/17/22 11/17/22 11/17/22 Range/Units 11:49 15:34 16:46 Lymphocytes # (1.0-4.8) k/uL PT (9.0-12.0) sec INR (<1.2) Sodium (137-145) mmol/L Potassium (3.5-5.1) mmol/L Carbon Dioxide (22-30) mmol/L BUN (9-20) mg/dL Glucose (74-99) mg/dL POC Glucose (mg/dL) 175 H 195 H (70-110) mg/dL Total Bilirubin (0.2-1.3) mg/dL Delta Bilirubin (0.0-0.2) mg/dL Troponin I 0.043 H* (0.000-0.034) ng/mL Total Protein (6.3-8.2) g/dL Albumin (3.5-5.0) g/dL 11/17/22 11/18/22 Range/Units 20:12 06:09 Lymphocytes # (1.0-4.8) k/uL PT (9.0-12.0) sec INR (<1.2) Sodium (137-145) mmol/L Potassium (3.5-5.1) mmol/L Carbon Dioxide (22-30) mmol/L BUN (9-20) mg/dL Glucose (74-99) mg/dL POC Glucose (mg/dL) 177 H 189 H (70-110) mg/dL Total Bilirubin (0.2-1.3) mg/dL Delta Bilirubin (0.0-0.2) mg/dL Troponin I (0.000-0.034) ng/mL Total Protein (6.3-8.2) g/dL Albumin (3.5-5.0) g/dL Assessment and Plan Assessment: Assessment Abdominal discomfort associated with no bowel movement Heart failure with preserved ejection fraction, chronic Permanent atrial fibrillation with controlled heart rate History of cardiac sarcoidosis History of ventricular tachycardia status post AICD Lower extremities PAD Possible lung malignancy with metastasis Plan Continue the current medical regimen Obtain an echocardiogram was Doppler Continue anticoagulation with Coumadin Follow-up with the patient
[2022-11-18 07:52] LABS: Basophils % (A) 0 %; Eosinophils % (A) 0 %; HCT 38.4 % (39.0-53.0); HGB 12.6 gm/dL (13.0-17.5); Lymphocytes # (A) 0.3 k/uL (1.0-4.8); Lymphocytes % (A) 3 %; MCH 31.9 pg (25.0-35.0); MCV 96.8 fL (80.0-100.0); Mean Platelet Volume 7.4; Monocytes # (A) 0.4 k/uL (0-1.0); Monocytes % (A) 3 %; Neutrophils % (A) 94 %; Platelet Count 266 k/uL (150-450); RBC 3.96 m/uL (4.30-5.90); RDW 12.9 % (11.5-15.5); WBC 11.7 k/uL (3.8-10.6)
[2022-11-18 08:05] LABS: Prothrombin Time 84.5 sec (9.0-12.0)
[2022-11-18] MEDS: ASPIRIN 81 MG PO SCH (08:05)
[2022-11-18] MEDS: AMIODARONE 100 MG TAB PO SCH (08:06)
[2022-11-18] MEDS: FUROSEMIDE 20 MG TAB PO SCH (08:06)
[2022-11-18] MEDS: FAMOTIDINE 20 MG/2 ML VIAL IV SCH ×2 (08:06→08:16)
[2022-11-18] MEDS: amLODIPine 5 MG TAB PO SCH (08:06)
[2022-11-18 08:09] LABS: INR 8.3 (<1.2)
[2022-11-18 08:19] LABS: African American GFR (CKD) >90 (>60 ml/min/1.73 sqM); Anion Gap 2 mmol/L; Blood Urea Nitrogen 27 mg/dL (9-20); Calcium 8.9 mg/dL (8.4-10.2); Carbon Dioxide 34 mmol/L (22-30); Chloride 98 mmol/L (98-107); Glucose 165 mg/dL (74-99); Non-African American GFR(CKD) 85 (>60 ml/min/1.73 sqM); Potassium 4.5 mmol/L (3.5-5.1); Sodium 134 mmol/L (137-145)
[2022-11-18] MEDS ORDERED: PHYTONADIONE ORAL 5 MG/5 ML ORAL.SYRG PO STA (09:55)
[2022-11-18 11:43] LABS: Glucose,Whole Blood 215 mg/dL (70-110)
--- NOTE | 2022-11-18 12:56 | P.PN ---
Subjective Progress Note Date: 11/18/22 Principal diagnosis: Lung lesions concerning for metastatic malignancy - no acute events overnight - notes having increased bilateral lower quadrant abdominal pain this morning - he notes having had a small bowel movement, but has not had a large bowel movement today - he denies any bleeding diathesis or dyspnea currently Objective - Vital Signs Vital signs: Vital Signs Temp 98.1 F 11/18/22 12:00 Pulse 60 11/18/22 12:00 Resp 18 11/18/22 12:00 BP 161/68 11/18/22 12:00 Pulse Ox 95 11/18/22 12:00 FiO2 Intake & Output 11/17/22 11/18/22 11/18/22 18:59 06:59 18:59 Intake Total 205 Output Total 100 175 250 Balance 105 -175 -250 Intake: IV 5 Invasive Line 1 5 Intake, IV Titration 100 Amount Calcium Gluconate in NaCl 100 1 gm In Saline 1 100ml. bag @ 171.429 mls/hr IVPB ONCE ONE Rx#:[id number] Oral 100 Output: Urine 100 175 250 Other: Voiding Method Urinal Urinal # Bowel Movements 1 4 1 - Constitutional General appearance: Present: average body habitus, cooperative, no acute distress - EENT Eyes: Present: EOMI ENT: Present: hard of hearing - Respiratory Respiratory: bilateral: CTA - Cardiovascular Rhythm: regular - Gastrointestinal Gastrointestinal Comment(s): increased bowel sounds on today's exam. No rebound or guarding General gastrointestinal: Present: distended, normal bowel sounds, soft, tenderness Localized gastrointestinal: tender: RLQ, LLQ - Neurologic Neurologic: Absent: focal deficits - Labs CBC & Chem 7: 11/18/22 07:13 11/18/22 07:13 Labs: Abnormal Lab Results - Last 24 Hours (Table) 11/17/22 11/17/22 11/17/22 Range/Units 15:34 16:46 20:12 WBC (3.8-10.6) k/uL RBC (4.30-5.90) m/uL Hgb (13.0-17.5) gm/dL Hct (39.0-53.0) % Neutrophils # (1.3-7.7) k/uL Lymphocytes # (1.0-4.8) k/uL PT (9.0-12.0) sec INR (<1.2) Sodium (137-145) mmol/L Carbon Dioxide (22-30) mmol/L BUN (9-20) mg/dL Glucose (74-99) mg/dL POC Glucose (mg/dL) 195 H 177 H (70-110) mg/dL Troponin I 0.043 H* (0.000-0.034) ng/mL 11/18/22 11/18/22 11/18/22 Range/Units 06:09 07:13 07:13 WBC 11.7 H (3.8-10.6) k/uL RBC 3.96 L (4.30-5.90) m/uL Hgb 12.6 L (13.0-17.5) gm/dL Hct 38.4 L (39.0-53.0) % Neutrophils # 11.0 H (1.3-7.7) k/uL Lymphocytes # 0.3 L (1.0-4.8) k/uL PT 84.5 H (9.0-12.0) sec INR 8.3 H* (<1.2) Sodium (137-145) mmol/L Carbon Dioxide (22-30) mmol/L BUN (9-20) mg/dL Glucose (74-99) mg/dL POC Glucose (mg/dL) 189 H (70-110) mg/dL Troponin I (0.000-0.034) ng/mL 11/18/22 11/18/22 Range/Units 07:13 11:38 WBC (3.8-10.6) k/uL RBC (4.30-5.90) m/uL Hgb (13.0-17.5) gm/dL Hct (39.0-53.0) % Neutrophils # (1.3-7.7) k/uL Lymphocytes # (1.0-4.8) k/uL PT (9.0-12.0) sec INR (<1.2) Sodium 134 L (137-145) mmol/L Carbon Dioxide 34 H (22-30) mmol/L BUN 27 H (9-20) mg/dL Glucose 165 H (74-99) mg/dL POC Glucose (mg/dL) 215 H (70-110) mg/dL Troponin I (0.000-0.034) ng/mL Assessment and Plan Assessment: Mr. Grant is a 87-year-old gentleman with a past medical history significant for documented cardiac sarcoidosis, atrial fibrillation, ventricular tachycardia status post AICD placement, lower extremity peripheral arterial disease, obst ructive sleep apnea, history of colon cancer status post partial colectomy and chemotherapy, and recent diagnosis of melanoma with progressive low back pain over the past month with incidental finding of the lower lobes of the lungs. Staging imaging with CT chest/abdomen/pelvis noted multiple lung nodules bilaterally with mediastinal and left hilar lymphadenopathy. Additional bone lesions were noted and T7 and L1 with pathologic fracture of T10 vertebral body. These findings are concerning for metastatic malignancy. (1) Medication induced coagulopathy Current Visit: Yes Status: Acute Code(s): D68.9 - COAGULATION DEFECT, UNSPECIFIED; T50.905A - ADVERSE EFFECT OF UNSP DRUG/MEDS/BIOL SUBST, INIT SNOMED Code(s): 158048581 (2) Metastatic cancer Current Visit: Yes Status: Acute Code(s): C79.9 - SECONDARY MALIGNANT NEOPLASM OF UNSPECIFIED SITE SNOMED Code(s): 640812285 (3) Constipation Current Visit: Yes Status: Acute Code(s): K59.00 - CONSTIPATION, UNSPECIFIED SNOMED Code(s): 28375394 Plan: #Metastatic malignancy -Noted to have progressive back pain over the past month along with anorexia, hemoptysis, and lower extremity weakness -CT of the lumbar spine on 11/16/2022 noted degenerative changes with spinal canal stenosis, but noted incidental finding of lesions in the bilateral lower lungs -CT chest/abdomen/pelvis on 11/16/2022 noted multiple bilateral lung nodules, mediastinal lymphadenopathy, left hilar lymphadenopathy, and metastases to the vertebral bodies of T7, L1, and compression fracture of T10 -Given his clinical and radiologic findings, there is a concern for metastatic malignancy -I discussed these findings with Mr. Grant, his , and his son. we discussed that at this time, we do not have a definitive diagnosis to discuss things such as prognosis or treatment options -We discussed that a biopsy of one of the lung lesions either through bronchoscopy or CT-guided biopsy with interventional radiology would be needed to establish a definitive diagnosis -Depending on the histology, additional studies for molecular profiling and PD- L1 testing could be sent from this biopsy to determine treatment options -Mr. Grant was in favor of obtaining additional work-up to establish a diagnosis. He stated that he would not want to have systemic chemotherapy like he did for his prior diagnosis of colon cancer -With regard to the differential diagnosis, this is currently broad and includes metastatic melanoma or potentially primary lung malignancy. The lung lesions do not appear consistent with a typical presentation of primary lung cancer, but this cannot be definitively excluded. It is less likely to be metastatic colon cancer given the length of time that has elapsed since his diagnosis and treatment -Once his INR becomes therapeutic, biopsy of one of the most accessible lung lesion should be pursued #Supratherapeutic INR -Prior to admission, he was on Coumadin for atrial fibrillation -He was likely supratherapeutic due to poor oral intake -He received vitamin K 2.5 mg p.o. on admission with repeat INR of 7.5 from 8.5 on admission -Repeat INR this morning revealed increased INR to 8.3 -Continue to hold Coumadin at this time -Additional dose of vitamin K 2.5 mg p.o. has been ordered today -Given his poor oral intake, consideration should be given to changing Coumadin to a DOAC such as Eliquis or Xarelto as long as this is appropriate from an cardiology perspective #Abdominal pain -Noted in the lower quadrants bilaterally with no rebound or guarding on today's exam -This is likely secondary to large stool burden seen on CT imaging on admission with no evidence of obstruction -Aggressive bowel regimen per primary team
--- NOTE | 2022-11-18 13:28 | P.PN ---
Subjective Progress Note Date: 11/18/22 This is a very pleasant 87-year-old male patient who has a history of colon cancer status post colectomy, melanoma, status post resection at the [facility], atrial fibrillation anticoagulated with warfarin, hyperlipidemia, hypertension, obstructive sleep apnea, gout, peripheral vascular disease with previous stent placement, cardiac sarcoidosis with previous VT ablations and subsequent AICD placement. He had been having issues with low back pain and progressive weakness of the lower extremities. He presented here to the emergency room yesterday for the same. Computed tomography scan of the spine revealed multilevel disc degeneration changes with severe L3-L4 and moderate to severe L4-L5 spinal canal stenosis. There is new partially visualized lower lung masses/nodule and enlarged upper abdominal lymph node concerning for metastatic disease. ET scan of the chest abdomen and pelvis revealed diffuse pulmonary nodules and mediastinal lymphadenopathy with metastatic disease. The re is pathologic fracture of T10 vertebral body with extension into the bilateral pedicles. There is approximately 25% height loss. Additional lucent lesion within T7 and L1 vertebral bodies which could also represent metastatic foci. There is slight leg appearance in the superior vena cava secondary to large mediastinal lymphadenopathy concerning for future SVC syndrome. No evidence of pulmonary embolism. No evidence of lymphadenopathy or mass in the abdomen or pelvis. White count 6.2. Hemoglobin 14.4. Initial INR 8.5 currently 7.5. Sodium 135. Potassium 5.8. BUN 22. Creatinine 0.78. Glucose 209. Calcium 9.0. Esparza virus and influenza screens negative. He is seen today in consultation on the selective care unit. He admits to having some shortness of breath cough and congestion. He has been coughing up blood-tinged sputum. He is a smoker of 53 years. He has no home oxygen. He has no pulmonary medications. He is currently requiring 5 L nasal cannula to maintain O2 saturations in the low 90s. He is afebrile. Hemodynamically stable. Chest x-ray reveals cardiomegaly, pulmonary vascular congestion and bilateral pleural effusions. ProBNP 2150. He's been initiated on Decadron 4 mg IV every 6 hours. Oral diuretics. Dilaudid for pain control. The patient is seen today 11/18/2022 in follow-up on the selective care unit. He is currently resting comfortably in bed. Awake and alert in no acute distress. Currently on 5 L high flow nasal cannula with O2 saturations in the mid 90s. Afebrile. Hemodynamically stable. White count 11.7. Hemoglobin 12.6. Platelets 266. INR 8.3. Sodium 134. Potassium 4.5. Bicarb 34. BUN 27. Creatinine 0.70. Glucose 165. He remains on Decadron 4 mg IVP every 6 hours. He was given vitamin K 2.5 mg by mouth today. Objective - Vital Signs Vital signs: Vital Signs Temp 98.1 F 11/18/22 12:00 Pulse 60 11/18/22 12:00 Resp 18 11/18/22 12:00 BP 161/68 11/18/22 12:00 Pulse Ox 95 11/18/22 12:00 FiO2 Intake & Output 11/17/22 11/18/22 11/18/22 18:59 06:59 18:59 Intake Total 205 Output Total 100 175 250 Balance 105 -175 -250 Intake: IV 5 Invasive Line 1 5 Intake, IV Titration 100 Amount Calcium Gluconate in NaCl 100 1 gm In Saline 1 100ml. bag @ 171.429 mls/hr IVPB ONCE ONE Rx#:[id number] Oral 100 Output: Urine 100 175 250 Other: Voiding Method Urinal Urinal # Bowel Movements 1 4 1 - Exam GENERAL EXAM: Alert, 87-year-old male patient, on 5 L nasal cannula, fairly comfortable in no apparent distress. HEAD: Normocephalic. EYES: Normal reaction of pupils, equal size. NOSE: Clear with pink turbinates. THROAT: No erythema or exudates. NECK: No masses, no JVD. CHEST: No chest wall deformity. LUNGS: Equal air entry with bibasilar crackles. CVS: S1 and S2 normal with no audible murmur, regular rhythm. ABDOMEN: No hepatosplenomegaly, normal bowel sounds, no guarding or rigidity. SPINE: No scoliosis or deformity SKIN: No rashes CENTRAL NERVOUS SYSTEM: No focal deficits, tone is normal in all 4 extremities. EXTREMITIES: Generalized weakness of the bilateral lower extremities. There is no peripheral edema. No clubbing, no cyanosis. Peripheral pulses are intact. - Labs CBC & Chem 7: 11/18/22 07:13 11/18/22 07:13 Labs: Abnormal Lab Results - Last 24 Hours (Table) 11/17/22 11/17/22 11/17/22 Range/Units 15:34 16:46 20:12 WBC (3.8-10.6) k/uL RBC (4.30-5.90) m/uL Hgb (13.0-17.5) gm/dL Hct (39.0-53.0) % Neutrophils # (1.3-7.7) k/uL Lymphocytes # (1.0-4.8) k/uL PT (9.0-12.0) sec INR (<1.2) Sodium (137-145) mmol/L Carbon Dioxide (22-30) mmol/L BUN (9-20) mg/dL Glucose (74-99) mg/dL POC Glucose (mg/dL) 195 H 177 H (70-110) mg/dL Troponin I 0.043 H* (0.000-0.034) ng/mL 11/18/22 11/18/22 11/18/22 Range/Units 06:09 07:13 07:13 WBC 11.7 H (3.8-10.6) k/uL RBC 3.96 L (4.30-5.90) m/uL Hgb 12.6 L (13.0-17.5) gm/dL Hct 38.4 L (39.0-53.0) % Neutrophils # 11.0 H (1.3-7.7) k/uL Lymphocytes # 0.3 L (1.0-4.8) k/uL PT 84.5 H (9.0-12.0) sec INR 8.3 H* (<1.2) Sodium (137-145) mmol/L Carbon Dioxide (22-30) mmol/L BUN (9-20) mg/dL Glucose (74-99) mg/dL POC Glucose (mg/dL) 189 H (70-110) mg/dL Troponin I (0.000-0.034) ng/mL 11/18/22 11/18/22 Range/Units 07:13 11:38 WBC (3.8-10.6) k/uL RBC (4.30-5.90) m/uL Hgb (13.0-17.5) gm/dL Hct (39.0-53.0) % Neutrophils # (1.3-7.7) k/uL Lymphocytes # (1.0-4.8) k/uL PT (9.0-12.0) sec INR (<1.2) Sodium 134 L (137-145) mmol/L Carbon Dioxide 34 H (22-30) mmol/L BUN 27 H (9-20) mg/dL Glucose 165 H (74-99) mg/dL POC Glucose (mg/dL) 215 H (70-110) mg/dL Troponin I (0.000-0.034) ng/mL Assessment and Plan Assessment: Acute hypoxemic respiratory failure secondary to an acute exacerbation of suspected diastolic versus systolic congestive heart failure Hemoptysis secondary to supratherapeutic INR Diffuse pulmonary nodules and mediastinal lymphadenopathy concerning for metastatic disease, doubt primary lung cancer, suspect metastatic disease from unknown primary to the lungs Pathologic fracture of T10 vertebral body with extension of the bilateral pedicles in a patient with lower extremity weakness. 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, status post AICD placement History of colon cancer status post colectomy with colostomy and subsequent reversal History of melanoma of the face and neck on the right, status post resection at the [facility] Atrial fibrillation anticoagulated with warfarin, supra therapeutic with initial INR of 8.5 currently 7.5 Obstructive sleep apnea History of 53 years chronic tobacco dependence Suspect some underlying COPD Hypertension Hyperlipidemia Peripheral vascular disease with previous stent placement Plan: The patient was seen and evaluated Labs and medications reviewed Titrate down the FiO2 as tolerated Continue to monitor the INR He received vitamin K today Patient/oncology requesting diagnosis, may perform lung biopsy once INR less than 2.0 The patient is DO NOT RESUSCITATE/DO NOT INTUBATE CODE STATUS We will continue to follow I have personally seen and examined the patient, performed the documentation and the assessment and plan as written. Number of minutes spent on the visit: 10.
--- NOTE | 2022-11-18 14:11 | CA ---
Transthoracic Echo Report Name: Earl Grant Age: 87 Gender: M : 1935 Exam Date: 11/18/2022 09:39 Exam Location: [facility] Ht (in): 62 Wt (lb): 187 Ordering Physician: Joseph Trinidad MD ([id number]) Attending/Referring Phys: Metalizer Barbara Ornelas RDCS Procedure CPT: Indications: Heart failure Cardiac Hx: Technical Quality: Contrast 1: Total Dose (mL): Contrast 2: Total Dose (mL): MEASUREMENTS (Male / Female) Normal Values 2D ECHO LV Diastolic Diameter PLAX 4.4 cm 4.2 - 5.9 / 3.9 - 5.3 cm LV Systolic Diameter PLAX 3.0 cm IVS Diastolic Thickness 1.2 cm 0.6 - 1.0 / 0.6 - 0.9 cm LVPW Diastolic Thickness 1.6 cm 0.6 - 1.0 / 0.6 - 0.9 cm LV Relative Wall Thickness 0.6 RV Internal Dim ED PLAX 2.9 cm LA Systolic Diameter LX 5.6 cm 3.0 - 4.0 / 2.7 - 3.8 cm LV Diastolic Volume MOD BP 104.0 cm??? 67 - 155 / 56 - 104 cm??? LV Systolic Volume MOD BP 51.4 cm??? 22 - 58 / 19 - 49 cm??? LV Ejection Fraction MOD BP 50.6 % >= 55 % LV Diastolic Volume MOD 4C 96.7 cm??? LV Systolic Volume MOD 4C 47.1 cm??? LV Ejection Fraction MOD 4C 51.3 % LV Diastolic Length 4C 8.4 cm LV Systolic Length 4C 7.3 cm LV Diastolic Volume MOD 2C 112.6 cm??? LV Systolic Volume MOD 2C 49.9 cm??? LV Ejection Fraction MOD 2C 55.7 % LV Diastolic Length 2C 8.3 cm LV Systolic Length 2C 8.2 cm LA Volume 102.6 cm??? 18 - 58 / 22 - 52 cm??? M-MODE Aortic Root Diameter MM 3.0 cm LA Systolic Diameter MM 5.9 cm LA Ao Ratio MM 2.0 MV E Point Septal Separation 0.5 cm AV Cusp Separation MM 1.0 cm DOPPLER AV Peak Velocity 348.2 cm/s AV Peak Gradient 48.5 mmHg AV Mean Velocity 234.4 cm/s AV Mean Gradient 25.0 mmHg AV Velocity Time Integral 63.8 cm AI Peak Velocity 451.2 cm/s AI Peak Gradient 81.4 mmHg AI Pressure Half Time 601.9 ms LVOT Peak Velocity 89.9 cm/s LVOT Peak Gradient 3.2 mmHg MV Area PHT 2.8 cm??? Mitral E Point Velocity 115.8 cm/s Mitral A Point Velocity 32.4 cm/s Mitral E to A Ratio 3.6 MV Deceleration Time 266.4 ms TR Peak Velocity 339.5 cm/s TR Peak Gradient 46.1 mmHg Right Ventricular Systolic Press 48.9 mmHg FINDINGS Left Ventricle Mildly increased septal wall thickness. Mildly decreased left ventricular ejection fraction. Left ventricular cavity size normal. Left ventricular ejection fraction is estimated at 50%. Right Ventricle Normal right ventricular size and function. Moderate pulmonary hypertension.right ventricular systolic pressure estimated at 49 mm hg. Right Atrium Normal right atrial size. Left Atrium Severely increased left atrial diameter. Severely increased left atrial volume. Moderately increased left atrial area. Mitral Valve Structurally normal mitral valve. Moderate mitral regurgitation. Aortic Valve Moderate aortic stenosis with a peak gradient of 55mmHg and a mean gradient of 25mmHg. Mild aortic regurgitation. Tricuspid Valve Structurally normal tricuspid valve. Mild tricuspid regurgitation. Pulmonic Valve Structurally normal pulmonic valve. Pericardium Small pericardial effusion. Aorta Normal size aortic root and proximal ascending aorta. CONCLUSIONS Low-normal left ventricular systolic function was EF of around 50% Moderate aortic stenosis. Mean gradient of 25 mmHg. Mild aortic regurgitation Moderate mitral regurgitation Previewed by: Dr. Joseph Trinidad MD (Electronically Signed) Final Date: 18 November 2022 14:10
[2022-11-18 16:40] LABS: Glucose,Whole Blood 177 mg/dL (70-110)
--- NOTE | 2022-11-18 17:09 | P.PN ---
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 He had been having issues with low back pain and progressive weakness of the lower extremities. He presented here to the emergency room yesterday for the same. Computed tomography scan of the spine revealed mu ltilevel disc degeneration changes with severe L3-L4 and moderate to severe L4- L5 spinal canal stenosis. There is new partially visualized lower lung masses/nodule and enlarged upper abdominal lymph node concerning for metastatic disease. ET scan of the chest abdomen and pelvis revealed diffuse pulmonary nodules and mediastinal lymphadenopathy with metastatic disease. There is pathologic fracture of T10 vertebral body with extension into the bilateral pedicles. There is approximately 25% height loss. Additional lucent lesion within T7 and L1 vertebral bodies which could also represent metastatic foci. There is slight leg appearance in the superior vena cava secondary to large mediastinal lymphadenopathy concerning for future SVC syndrome. No evidence of pulmonary embolism. No evidence of lymphadenopathy or mass in the abdomen or pelvis. White count 6.2. Hemoglobin 14.4. Initial INR 8.5 currently 7.5. Sodium 135. Potassium 5.8. BUN 22. Creatinine 0.78. Glucose 209. Calcium 9.0. Esparza virus and influenza screens negative. He is seen today in consultation on the selective care unit. He admits to having some shortness of breath cough and congestion. He has been coughing up blood-tinged sputum. He is a smoker of 53 years. He has no home oxygen. He has no pulmonary medications. He is currently requiring 5 L nasal cannula to maintain O2 saturations in the low 90s. He is afebrile. Hemodynamically stable. Chest x- ray reveals cardiomegaly, pulmonary vascular congestion and bilateral pleural effusions. ProBNP 2150. Objective - Vital Signs Vital signs: Vital Signs Temp 98.1 F 11/17/22 19:53 Pulse 65 11/17/22 19:53 Resp 18 11/17/22 19:53 BP 149/58 11/17/22 19:53 Pulse Ox 93 L 11/17/22 19:53 FiO2 Intake & Output 0111/17/22 11/18/22 06:59 18:59 06:59 Intake Total 205 Output Total 400 100 Balance -400 105 Weight 84.822 kg Intake: IV 5 Invasive Line 1 5 Intake, IV Titration 100 Amount Calcium Gluconate in NaCl 100 1 gm In Saline 1 100ml. bag @ 171.429 mls/hr IVPB ONCE ONE Rx#:[id number] Oral 100 Output: Urine 400 100 Other: Voiding Method Urinal Urinal Urinal # Bowel Movements 1 - Exam GENERAL: The patient is alert and oriented x3, not in any acute distress. Well developed, well nourished. HEENT: Pupils are round and equally reacting to light. EOMI. No scleral icterus. No conjunctival pallor. Normocephalic, atraumatic. No pharyngeal erythema. No thyromegaly. CARDIOVASCULAR: S1 and S2 present. No murmurs, rubs, or gallops. PULMONARY: Chest is clear to auscultation, no wheezing or crackles. ABDOMEN: Soft, nontender, nondistended, normoactive bowel sounds. No palpable organomegaly. -MUSCULOSKELETAL: No joint swelling or deformity. Back tenderness EXTREMITIES: No cyanosis, clubbing, or pedal edema. -NEUROLOGICAL: Fully awake and oriented, cranial nerves are grossly intact, uppe r extremity strength is at baseline,. Bilateral lower extremity weakness, There is more weakness on the right leg. SKIN: No rashes. no petechiae. - Labs CBC & Chem 7: 11/18/22 07:13 11/18/22 07:13 Labs: Abnormal Lab Results - Last 24 Hours (Table) 11/17/22 11/17/22 11/17/22 Range/Units 06:11 08:29 08:29 Lymphocytes # 0.3 L (1.0-4.8) k/uL PT 75.5 H (9.0-12.0) sec INR 7.5 H* (<1.2) Sodium (137-145) mmol/L Potassium (3.5-5.1) mmol/L Carbon Dioxide (22-30) mmol/L BUN (9-20) mg/dL Glucose (74-99) mg/dL POC Glucose (mg/dL) 141 H (70-110) mg/dL Total Bilirubin (0.2-1.3) mg/dL Delta Bilirubin (0.0-0.2) mg/dL Troponin I (0.000-0.034) ng/mL Total Protein (6.3-8.2) g/dL Albumin (3.5-5.0) g/dL 11/17/22 11/17/22 11/17/22 Range/Units 08:29 11:49 15:34 Lymphocytes # (1.0-4.8) k/uL PT (9.0-12.0) sec INR (<1.2) Sodium 135 L (137-145) mmol/L Potassium 5.8 H (3.5-5.1) mmol/L Carbon Dioxide 35 H (22-30) mmol/L BUN 22 H (9-20) mg/dL Glucose 209 H (74-99) mg/dL POC Glucose (mg/dL) 175 H (70-110) mg/dL Total Bilirubin 1.4 H (0.2-1.3) mg/dL Delta Bilirubin 0.5 H (0.0-0.2) mg/dL Troponin I 0.043 H* (0.000-0.034) ng/mL Total Protein 5.7 L (6.3-8.2) g/dL Albumin 3.2 L (3.5-5.0) g/dL 11/17/22 11/17/22 Range/Units 16:46 20:12 Lymphocytes # (1.0-4.8) k/uL PT (9.0-12.0) sec INR (<1.2) Sodium (137-145) mmol/L Potassium (3.5-5.1) mmol/L Carbon Dioxide (22-30) mmol/L BUN (9-20) mg/dL Glucose (74-99) mg/dL POC Glucose (mg/dL) 195 H 177 H (70-110) mg/dL Total Bilirubin (0.2-1.3) mg/dL Delta Bilirubin (0.0-0.2) mg/dL Troponin I (0.000-0.034) ng/mL Total Protein (6.3-8.2) g/dL Albumin (3.5-5.0) g/dL Assessment and Plan Assessment: Multiple pulmonary nodules suspicious for primary lung cancer with mediastinal lymphadenopathy and metastatic to the bone. Pathological fractures of T10, with vertebral height loss. Right lower extremity weakness Multiple lucent lesions within T7 and L1 suspicious for metastatic disease Acute hypoxemic respiratory failure Hyperkalemia, could be secondary to medication while on losartan Chronic atrial fibrillation on Coumadin Coagulopathy secondary to Coumadin Hemoptysis Chronic heart failure Hyperlipidemia Hypertension History of osteoarthritis History of sleep apnea on CPAP at home. History of colon cancer status post radiotherapy History of melanoma Plan: hold Coumadin, monitor hemoglobin and vitals, monitor INR. If the patient insulin/dextrose and glaucoma for hyperkalemia, monitor potassium level. Also we will lower the dose of losartan 100 mg and 50 mg and add Norvasc for better blood pressure control with holding parameters Follow-up consultation from a orthopedic team, pulmonary team and hematology oncology team, Discontinue IV fluids Continue with dexamethasone, monitor sugar obtained TSLO Brace. Orthopedic team, Pain management discussed with patient and family at bedside, they requested Tylenol No. 3 as it is was working for him at home, also IV pain medication with Dilaudid as needed. Xanax when necessary for anxiety. Hold aspirin for patient's risk of bleeding and follow-up with cardiology's recommendation Labs and medication were reviewed.. Continue same treatment. Continue with symptomatic treatment. Resume home medication. Monitor lytes and vitals. DVT and GI prophylaxis. Further recommendations as per clinical course of the patient DVT prophylaxis: Patient already coagulopathic GI Prophylaxis: Pepcid Prognosis is guarded,
[2022-11-18] MEDS: ATORVASTATIN 10 MG TAB PO SCH (20:35)
[2022-11-18] MEDS: allopurinoL 300 MG TAB PO SCH (20:36)
[2022-11-18] MEDS: Acetaminophen-Codeine 300-30mg TAB PO PRN (20:36)
[2022-11-18] MEDS: LOSARTAN 50 MG TAB PO SCH (20:36)
[2022-11-18] MEDS: FAMOTIDINE 20 MG TAB PO SCH (20:36)
[2022-11-18 20:38] LABS: Glucose,Whole Blood 159 mg/dL (70-110)
[2022-11-19] MEDS: HYDROmorphone 0.5 MG/0.5 ML SYRINGE IVP PRN (01:54)
[2022-11-19] MEDS: hydrALAZINE HCL 25 MG TAB PO PRN (04:31)
[2022-11-19 06:05] LABS: Glucose,Whole Blood 139 mg/dL (70-110)
[2022-11-19] MEDS: INSULIN ASPART (NovoLOG) 100 UNIT/ML VIAL SQ SCH ×4 (06:10→21:05)
[2022-11-19] MEDS: DEXAMETHASONE SOD PHOSPHATE 4 MG/ML 1 ML VIAL IVP SCH ×3 (06:23→16:59)
[2022-11-19] MEDS: Acetaminophen-Codeine 300-30mg TAB PO PRN ×3 (06:24→21:04)
--- NOTE | 2022-11-19 07:28 | P.PN ---
Progress Note - Text Progress Note Date: 11/19/22 Our services will be signing off at this time. TLSO brace has been ordered for patient. He is to wear brace for comfort and stability. He is not to wear in bed, only when up and about. He may follow up in office as outpatient. Appreciate consult, if you have any further questions or concerns, feel free to reach out.
[2022-11-19] MEDS: ASPIRIN 81 MG PO SCH (09:37)
[2022-11-19] MEDS: AMIODARONE 100 MG TAB PO SCH (09:38)
[2022-11-19] MEDS: amLODIPine 5 MG TAB PO SCH (09:38)
[2022-11-19] MEDS: FUROSEMIDE 20 MG TAB PO SCH (09:38)
[2022-11-19] MEDS: FAMOTIDINE 20 MG TAB PO SCH ×2 (09:38→21:04)
[2022-11-19 09:48] LABS: Basophils % (A) 0 %; Eosinophils # (A) 0.1 k/uL (0-0.7); Eosinophils % (A) 0 %; HCT 43.9 % (39.0-53.0); HGB 14.6 gm/dL (13.0-17.5); Lymphocytes # (A) 0.3 k/uL (1.0-4.8); Lymphocytes % (A) 2 %; MCH 32.4 pg (25.0-35.0); MCHC 33.3 g/dL (31.0-37.0); MCV 97.1 fL (80.0-100.0); Mean Platelet Volume 7.1; Monocytes # (A) 0.4 k/uL (0-1.0); Monocytes % (A) 3 %; Neutrophils # (A) 12.1 k/uL (1.3-7.7); Neutrophils % (A) 94 %; Platelet Count 285 k/uL (150-450); RBC 4.53 m/uL (4.30-5.90); RDW 12.9 % (11.5-15.5); WBC 12.8 k/uL (3.8-10.6)
[2022-11-19 09:59] LABS: African American GFR (CKD) >90 (>60 ml/min/1.73 sqM); Anion Gap 1 mmol/L; Blood Urea Nitrogen 27 mg/dL (9-20); Calcium 8.9 mg/dL (8.4-10.2); Carbon Dioxide 36 mmol/L (22-30); Chloride 95 mmol/L (98-107); Glucose 143 mg/dL (74-99); Non-African American GFR(CKD) 88 (>60 ml/min/1.73 sqM); Potassium 4.5 mmol/L (3.5-5.1); Sodium 132 mmol/L (137-145)
[2022-11-19 10:01] LABS: INR 1.7 (<1.2)
[2022-11-19 11:38] LABS: Glucose,Whole Blood 154 mg/dL (70-110)
--- NOTE | 2022-11-19 12:59 | US ---
EXAMINATION TYPE: US chest DATE OF EXAM: 11/19/2022 COMPARISON: CT CLINICAL HISTORY: Bilateral pleural effusions. TECHNIQUE: Targeted ultrasound of the posterior lower bilateral hemithoraces EXAM MEASUREMENTS: Right Pleural Effusion pocket size: 10.1 cm Right skin surface to fluid distance: 2.4 cm Lung tissue seen at 4.4 cm, fluid appears complex. Left Pleural Effusion pocket size: 7.9 cm Left skin surface to fluid distance: 1.9 cm Lung tissue seen at 2.1 cm, fluid appears complex. Right side Not marked for possible thoracentesis outside the dept. Left side Not marked for possible thoracentesis outside the dept. Pulmonologists are able to review the images in the patient?s EMR. IMPRESSIONS: Complex bilateral pleural effusions which in the setting of diffuse metastatic disease likely represe nts malignant pleural effusions.
--- NOTE | 2022-11-19 13:52 | P.PN ---
Subjective Progress Note Date: 11/19/22 History of present illness: Patient is a pleasant 87-year-old gentleman with a past medical history signi ficant for permanent atrial fibrillation currently he is on anticoagulation with Coumadin as well as history of cardiac sarcoidosis and history of ventricular tachycardia status post AICD as well as history of lower extremities PAD with prior angioplasty as well as hypertension and dyslipidemia and multiple comorbid conditions. The patient presented to the hospital complaining of abdominal discomfort for the last few days associated was no bowel movement for the last few days as well. No fever and no chills. No nausea nor vomiting. No symptoms of chest pain or chest discomfort but lately he has been experiencing mild increase in the shortness of breath mainly with exertion and mainly once he is laying flat in bed. Beside that he has been experiencing cough not productive of any sputum. As a mentioned no symptoms of chest pain or chest discomfort. No change in the weight. He underwent a workup including EKG showing atrial fibrillation with diffuse nonspecific ST and T wave abnormalities and also a chest x-ray showed evidence of heart failure with pulmonary vascular congestions as well as NT proBNP was checked and came in to be abnormal around 1999. Subsequently the patient was started on Lasix IV. He was admitted. He is in process of having workup regarding abdominal discomfort. Please note that the patient currently is hypoxic and he is requiring 5 L of oxygen to maintain the saturation above 90%. 11/18/2022 The patient was seen and evaluated this morning. He is asymptomatic in terms of chest pain or chest discomfort or shortness of breath this morning. He is hemodynamically stable. He underwent a computed tomography scan and that revealed possible lung malignancy with metastasis. Currently pulmonary services on the case. He remains in atrial fibrillation which is permanent with controlled heart rates. He is on Coumadin for that. The echocardiogram is still pending. / Patient's blood pressure and heart rate are well controlled. He is followed by pulmonary medicine and oncology with plan for lung biopsy once INR is less than 2. Repeat blood work reveals WBC 12.8, hemoglobin 14.6. Sodium 132, potassium 4.5, CO2 36, BUN 27 creatinine 0.64. INR 1.7. Echocardiogram reveals EF of 50%. Moderate aortic stenosis with mean gradient of 25 mmHg. Mild aortic regurgitation. Moderate mitral regurgitation. Physical examination: Gen: This is an 87-year-old male. He is resting in bed and appears to be comfortable at rest. VS: reviewed HEENT: Head is atraumatic, normocephalic. Pupils equal, round. Sclerae is anicteric. NECK: Supple. No JVD. No lymphadenopathy. No thyromegaly. LUNGS: Diminished bilaterally. No intercostal retractions. HEART: Irregularly irregular rate and rhythm. No murmur. ABDOMEN: Soft. Bowel sounds are present. No masses. No tenderness. EXTREMITIES: No pedal edema. No calf tenderness. NEUROLOGICAL: Patient is awake, alert and oriented. Assessment: Assessment Abdominal discomfort associated with no bowel movement Heart failure with preserved ejection fraction, chronic Permanent atrial fibrillation with controlled heart rate History of cardiac sarcoidosis History of ventricular tachycardia status post AICD Lower extremities PAD Possible lung malignancy with metastasis Pathologic thoracic spine compression fracture Plan Continue the current medical regimen Plan to discontinue Coumadin following biopsy and start patient on eliquis 2.5 mg twice daily. Prescription will be sent to the pharmacy to check insurance coverage. Follow-up with the patient Nurse practitioner note has been reviewed, I agree with documented findings and plan of care. Patient was seen and examined. Objective - Vital Signs Vital signs: Vital Signs Temp 97.3 F L 11/19/22 04:00 Pulse 56 L 11/19/22 04:00 Resp 14 11/19/22 04:00 BP 182/84 11/19/22 04:00 Pulse Ox 92 L 11/19/22 04:00 FiO2 Intake & Output 11/18/22 11/19/22 11/19/22 18:59 06:59 18:59 Output Total 350 350 Balance -350 -350 Output: Urine 350 350 Other: Voiding Method Urinal # Bowel Movements 1 - Labs CBC & Chem 7: 11/19/22 09:24 11/19/22 09:24 Labs: Abnormal Lab Results - Last 24 Hours (Table) 11/18/22 11/18/22 11/18/22 Range/Units 11:38 16:39 20:36 POC Glucose (mg/dL) 215 H 177 H 159 H (70-110) mg/dL 11/19/22 Range/Units 06:02 POC Glucose (mg/dL) 139 H (70-110) mg/dL
--- NOTE | 2022-11-19 14:16 | P.PN ---
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 He had been having issues with low back pain and progressive weakness of the lower extremities. He presented here to the emergency room yesterday for the same. Computed tomography scan of the spine revealed multilevel disc degeneration changes with severe L3-L4 and moderate to severe L4-L5 spinal canal stenosis. There is new partially visualized lower lung masses/nodule and enlarged upper abdominal lymph node concerning for metastatic disease. ET scan of the chest abdomen and pelvis revealed diffuse pulmonary nodules and mediastinal lymphadenopathy with metastatic disease. The re is pathologic fracture of T10 vertebral body with extension into the bilateral pedicles. There is approximately 25% height loss. Additional lucent lesion within T7 and L1 vertebral bodies which could also represent metastatic foci. There is slight leg appearance in the superior vena cava secondary to large mediastinal lymphadenopathy concerning for future SVC syndrome. No evidence of pulmonary embolism. No evidence of lymphadenopathy or mass in the abdomen or pelvis. White count 6.2. Hemoglobin 14.4. Initial INR 8.5 currently 7.5. Sodium 135. Potassium 5.8. BUN 22. Creatinine 0.78. Glucose 209. Calcium 9.0. Esparza virus and influenza screens negative. He is seen today in consultation on the selective care unit. He admits to having some shortness of breath cough and congestion. He has been coughing up blood-tinged sputum. He is a smoker of 53 years. He has no home oxygen. He has no pulmonary medications. He is currently requiring 5 L nasal cannula to maintain O2 saturations in the low 90s. He is afebrile. Hemodynamically stable. Chest x-ray reveals cardiomegaly, pulmonary vascular congestion and bilateral pleural effusions. ProBNP 2150. He's been initiated on Decadron 4 mg IV every 6 hours. Oral diuretics. Dilaudid for pain control. The patient is seen today 11/18/2022 in follow-up on the selective care unit. He is currently resting comfortably in bed. Awake and alert in no acute distress. Currently on 5 L high flow nasal cannula with O2 saturations in the mid 90s. Afebrile. Hemodynamically stable. White count 11.7. Hemoglobin 12.6. Platelets 266. INR 8.3. Sodium 134. Potassium 4.5. Bicarb 34. BUN 27. Creatinine 0.70. Glucose 165. He remains on Decadron 4 mg IVP every 6 hours. He was given vitamin K 2.5 mg by mouth today. The patient is seen today 11/19/2022 in follow-up on the selective care unit. He is currently laying flat in bed. Awake and alert distress. O2 saturations in the 90s on 5 L/m per nasal cannula. He's been afebrile. Hemodynamically stable. White count 12.8. Hemoglobin 14.6. Platelets 285. INR 1.7. Sodium 132. Potassium 4.5. Bicarb 36. BUN 27. Creatinine 0.64. Glucose 143. He remains on Decadron 4 mg IVP every 6 hours. Utilizing Tylenol No. 3 and Dilaudid for pain control. Objective - Vital Signs Vital signs: Vital Signs Temp 98.2 F 11/19/22 09:35 Pulse 62 11/19/22 11:25 Resp 18 11/19/22 11:25 BP 156/70 11/19/22 11:25 Pulse Ox 90 L 11/19/22 11:25 FiO2 Intake & Output 11/18/22 11/19/22 11/19/22 18:59 06:59 18:59 Output Total 350 350 100 Balance -350 -350 -100 Output: Urine 350 350 100 Other: Voiding Method Urinal Urinal # Voids 1 # Bowel Movements 1 - Exam GENERAL EXAM: Alert, 87-year-old male patient, on 5 L nasal cannula, fairly comfortable in no apparent distress. HEAD: Normocephalic. EYES: Normal reaction of pupils, equal size. NOSE: Clear with pink turbinates. THROAT: No erythema or exudates. NECK: No masses, no JVD. CHEST: No chest wall deformity. LUNGS: Equal air entry with bibasilar crackles. CVS: S1 and S2 normal with no audible murmur, regular rhythm. ABDOMEN: No hepatosplenomegaly, normal bowel sounds, no guarding or rigidity. SPINE: No scoliosis or deformity SKIN: No rashes CENTRAL NERVOUS SYSTEM: No focal deficits, tone is normal in all 4 extremities. EXTREMITIES: Generalized weakness of the bilateral lower extremities. There is no peripheral edema. No clubbing, no cyanosis. Peripheral pulses are intact. - Labs CBC & Chem 7: 11/19/22 09:24 11/19/22 09:24 Labs: Abnormal Lab Results - Last 24 Hours (Table) 11/18/22 11/18/22 11/19/22 Range/Units 16:39 20:36 06:02 WBC (3.8-10.6) k/uL Neutrophils # (1.3-7.7) k/uL Lymphocytes # (1.0-4.8) k/uL PT (9.0-12.0) sec INR (<1.2) Sodium (137-145) mmol/L Chloride (98-107) mmol/L Carbon Dioxide (22-30) mmol/L BUN (9-20) mg/dL Creatinine (0.66-1.25) mg/dL Glucose (74-99) mg/dL POC Glucose (mg/dL) 177 H 159 H 139 H (70-110) mg/dL 11/19/22 11/19/22 11/19/22 Range/Units 09:24 09:24 09:24 WBC 12.8 H (3.8-10.6) k/uL Neutrophils # 12.1 H (1.3-7.7) k/uL Lymphocytes # 0.3 L (1.0-4.8) k/uL PT 17.0 H (9.0-12.0) sec INR 1.7 H (<1.2) Sodium 132 L (137-145) mmol/L Chloride 95 L (98-107) mmol/L Carbon Dioxide 36 H (22-30) mmol/L BUN 27 H (9-20) mg/dL Creatinine 0.64 L (0.66-1.25) mg/dL Glucose 143 H (74-99) mg/dL POC Glucose (mg/dL) (70-110) mg/dL 11/19/22 Range/Units 11:37 WBC (3.8-10.6) k/uL Neutrophils # (1.3-7.7) k/uL Lymphocytes # (1.0-4.8) k/uL PT (9.0-12.0) sec INR (<1.2) Sodium (137-145) mmol/L Chloride (98-107) mmol/L Carbon Dioxide (22-30) mmol/L BUN (9-20) mg/dL Creatinine (0.66-1.25) mg/dL Glucose (74-99) mg/dL POC Glucose (mg/dL) 154 H (70-110) mg/dL Assessment and Plan Assessment: Diffuse pulmonary nodules, pleural effusions and mediastinal lymphadenopathy concerning for metastatic disease, doubt primary lung cancer, suspect metastatic disease from unknown primary to the lungs, suspect metastatic melanoma Acute hypoxemic respiratory failure secondary to an acute exacerbation of suspected diastolic versus systolic congestive heart failure Hemoptysis secondary to supratherapeutic INR Pathologic fracture of T10 vertebral body with extension of the bilateral pedicles in a patient with lower extremity weakness. 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, status post AICD placement History of colon cancer status post colectomy with colostomy and subsequent reversal History of melanoma of the face and neck on the right, status post resection at the [facility] Atrial fibrillation anticoagulated with warfarin, supra therapeutic with initial INR of 8.5 currently down to 1.7 Obstructive sleep apnea History of 53 years chronic tobacco dependence Suspect some underlying COPD Hypertension Hyperlipidemia Peripheral vascular disease with previous stent placement Plan: The patient was seen and evaluated Labs and medications reviewed Titrate down the FiO2 as tolerated Ultrasound of the bilateral chest reveals significant effusions however complex with lung tissue present We'll request interventional radiology to perform ultrasound-guided diagnostic thoracentesis Consult radiation oncology for possible treatment to the pathologic fracture of T10 vertebral body The patient's case was discussed in detail with his [address] Burch We'll attempt the least invasive way of obtaining a diagnosis The patient is DO NOT RESUSCITATE/DO NOT INTUBATE CODE STATUS We will continue to follow I have personally seen and examined the patient, performed the documentation and the assessment and plan as written. Number of minutes spent on the visit: 10.
--- NOTE | 2022-11-19 15:43 | P.PN ---
Progress Note - Text Progress Note Date: 11/19/22 Mr. Grant is an 87-year-old with previous histories of colon cancer and melanoma who presents with a T10 pathologic fracture in the setting of pulmonary and mediastinal masses. The patient was undergoing thoracentesis during my attempted visit. His case was discussed in detail with his daughter. Following acquisition of a tissue diagnosis confirming malignancy, he would be a good candidate for palliative radiation to T10 due to intractable back pain. Full consultation to follow once I am able to discuss with and evaluate the patient. Anthony Carrasco MD Radiation Oncology
--- NOTE | 2022-11-19 15:57 | XR ---
EXAMINATION TYPE: XR chest 1V portable DATE OF EXAM: 11/19/2022 COMPARISON: 11/16/2022 HISTORY: Post right thoracentesis TECHNIQUE: Single frontal view of the chest is obtained. FINDINGS: There numerous bilateral pulmonary masses compatible with metastases. There is a compressi on fracture approximately level T10. Scoliosis noted. No sizable pneumothorax. Bilateral infiltrate a nd small effusion. Interval reduction in amount of fluid on the right. IMPRESSION: 1. No pneumothorax post thoracentesis. 2. Numerous bilateral pulmonary masses suspicious for metastases.
--- NOTE | 2022-11-19 16:28 | US ---
Ultrasound-guided therapeutic and diagnostic thoracentesis DATE OF EXAM: 11/19/2022 CLINICAL HISTORY: Large right pleural effusion The procedure was discussed with the patient. The risks, complications, benefits, and alternatives we re discussed and any questions were answered. Informed consent was obtained. The patient was placed supine on the ultrasound table and prepped and draped in the usual sterile fas hion. All elements of maximal barrier and sterile technique were utilized. Under ultrasound guidance, access into the pleural space was obtained, via the thoracentesis catheter system and direct ultrasound guidance. Ap proximately 0.875 liters of serous fluid was removed. Sample sent to pathology for analysis. The patient was stable throughout the procedure and remained stable upon discharge from Department of Radiology. IMPRESSION: 1. Successful therapeutic and diagnostic thoracentesis under ultrasound guidance.
[2022-11-19] MEDS: MAGNESIUM HYDROXIDE 2,400 MG/10 ML CUP PO PRN (16:41)
[2022-11-19 16:55] LABS: Glucose,Whole Blood 181 mg/dL (70-110)
--- NOTE | 2022-11-19 20:14 | P.PN ---
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 He had been having issues with low back pain and progressive weakness of the lower extremities. He presented here to the emergency room yesterday for the same. Computed tomography scan of the spine revealed mu ltilevel disc degeneration changes with severe L3-L4 and moderate to severe L4- L5 spinal canal stenosis. There is new partially visualized lower lung masses/nodule and enlarged upper abdominal lymph node concerning for metastatic disease. ET scan of the chest abdomen and pelvis revealed diffuse pulmonary nodules and mediastinal lymphadenopathy with metastatic disease. There is pathologic fracture of T10 vertebral body with extension into the bilateral pedicles. There is approximately 25% height loss. Additional lucent lesion within T7 and L1 vertebral bodies which could also represent metastatic foci. There is slight leg appearance in the superior vena cava secondary to large mediastinal lymphadenopathy concerning for future SVC syndrome. No evidence of pulmonary embolism. No evidence of lymphadenopathy or mass in the abdomen or pelvis. White count 6.2. Hemoglobin 14.4. Initial INR 8.5 currently 7.5. Sodium 135. Potassium 5.8. BUN 22. Creatinine 0.78. Glucose 209. Calcium 9.0. Esparza virus and influenza screens negative. He is seen today in consultation on the selective care unit. He admits to having some shortness of breath cough and congestion. He has been coughing up blood-tinged sputum. He is a smoker of 53 years. He has no home oxygen. He has no pulmonary medications. He is currently requiring 5 L nasal cannula to maintain O2 saturations in the low 90s. He is afebrile. Hemodynamically stable. Chest x- ray reveals cardiomegaly, pulmonary vascular congestion and bilateral pleural effusions. ProBNP 2150. 24-hour interval change 11/19/2022 Patient is seen and evaluated in follow-up on the selective care unit. He is currently laying flat in bed. Awake and alert distress. O2 saturations in the 90s on 5 L/m per nasal cannula. He's been afebrile. Hemodynamically stable. -- Blood work review reveals White count 12.8. Hemoglobin 14.6. Platelets 285. INR 1.7. Sodium 132. Potassium 4.5. Bicarb 36. BUN 27. Creatinine 0.64. Glucose 143. He remains on Decadron 4 mg IVP every 6 hours. Utilizing Tylenol No. 3 and Dilaudid for pain control. We will plan to continue to titrate FiO2 as tolerated Ultrasound completed of bilateral chest which reveals significant effusions; prominent referring patient to interventional radiology to perform ultrasound- guided diagnostic thoracentesis with consultation with radiation oncology for treatment for the pathological fractures of T10 vertebral body Objective - Vital Signs Vital signs: Vital Signs Temp 98.2 F 11/19/22 09:35 Pulse 62 11/19/22 11:25 Resp 18 11/19/22 11:25 BP 156/70 11/19/22 11:25 Pulse Ox 90 L 11/19/22 11:25 FiO2 Intake & Output 11/18/22 11/19/22 11/19/22 18:59 06:59 18:59 Output Total 350 350 100 Balance -350 -350 -100 Output: Urine 350 350 100 Other: Voiding Method Urinal Urinal # Voids 1 # Bowel Movements 1 - Exam GENERAL: The patient is alert and oriented x3, not in any acute distress. Well developed, well nourished. HEENT: Pupils are round and equally reacting to light. EOMI. No scleral icterus. No conjunctival pallor. Normocephalic, atraumatic. No pharyngeal erythema. No thyromegaly. CARDIOVASCULAR: S1 and S2 present. No murmurs, rubs, or gallops. PULMONARY: Chest is clear to auscultation, no wheezing or crackles. ABDOMEN: Soft, nontender, nondistended, normoactive bowel sounds. No palpable organomegaly. -MUSCULOSKELETAL: No joint swelling or deformity. Back tenderness EXTREMITIES: No cyanosis, clubbing, or pedal edema. -NEUROLOGICAL: Fully awake and oriented, cranial nerves are grossly intact, upper extremity strength is at baseline,. Bilateral lower extremity weakness, There is more weakness on the right leg. SKIN: No rashes. no petechiae. - Labs CBC & Chem 7: 11/19/22 09:24 11/19/22 09:24 Labs: Abnormal Lab Results - Last 24 Hours (Table) 11/18/22 11/18/22 11/19/22 Range/Units 16:39 20:36 06:02 WBC (3.8-10.6) k/uL Neutrophils # (1.3-7.7) k/uL Lymphocytes # (1.0-4.8) k/uL PT (9.0-12.0) sec INR (<1.2) Sodium (137-145) mmol/L Chloride (98-107) mmol/L Carbon Dioxide (22-30) mmol/L BUN (9-20) mg/dL Creatinine (0.66-1.25) mg/dL Glucose (74-99) mg/dL POC Glucose (mg/dL) 177 H 159 H 139 H (70-110) mg/dL 11/19/22 11/19/22 11/19/22 Range/Units 09:24 09:24 09:24 WBC 12.8 H (3.8-10.6) k/uL Neutrophils # 12.1 H (1.3-7.7) k/uL Lymphocytes # 0.3 L (1.0-4.8) k/uL PT 17.0 H (9.0-12.0) sec INR 1.7 H (<1.2) Sodium 132 L (137-145) mmol/L Chloride 95 L (98-107) mmol/L Carbon Dioxide 36 H (22-30) mmol/L BUN 27 H (9-20) mg/dL Creatinine 0.64 L (0.66-1.25) mg/dL Glucose 143 H (74-99) mg/dL POC Glucose (mg/dL) (70-110) mg/dL 11/19/22 Range/Units 11:37 WBC (3.8-10.6) k/uL Neutrophils # (1.3-7.7) k/uL Lymphocytes # (1.0-4.8) k/uL PT (9.0-12.0) sec INR (<1.2) Sodium (137-145) mmol/L Chloride (98-107) mmol/L Carbon Dioxide (22-30) mmol/L BUN (9-20) mg/dL Creatinine (0.66-1.25) mg/dL Glucose (74-99) mg/dL POC Glucose (mg/dL) 154 H (70-110) mg/dL Assessment and Plan Assessment: Multiple pulmonary nodules suspicious for primary lung cancer with mediastinal lymphadenopathy and metastatic to the bone. Pathological fractures of T10, with vertebral height loss. Right lower extremity weakness Multiple lucent lesions within T7 and L1 suspicious for metastatic disease Acute hypoxemic respiratory failure Hyperkalemia, could be secondary to medication while on losartan Chronic atrial fibrillation on Coumadin Coagulopathy secondary to Coumadin Hemoptysis Chronic heart failure Hyperlipidemia Hypertension History of osteoarthritis History of sleep apnea on CPAP at home. History of colon cancer status post radiotherapy History of melanoma Plan: hold Coumadin, monitor hemoglobin and vitals, monitor INR. If the patient insulin/dextrose and glaucoma for hyperkalemia, monitor potassium level. Also we will lower the dose of losartan 100 mg and 50 mg and add Norvasc for better blood pressure control with holding parameters Follow-up consultation from a orthopedic team, pulmonary team and hematology oncology team, Discontinue IV fluids Continue with dexamethasone, monitor sugar obtained TSLO Brace. Orthopedic team, Pain management discussed with patient and family at bedside, they requested Tylenol No. 3 as it is was working for him at home, also IV pain medication with Dilaudid as needed. Xanax when necessary for anxiety. Hold aspirin for patient's risk of bleeding and follow-up with cardiology's recommendation Labs and medication were reviewed.. Continue same treatment. Continue with symptomatic treatment. Resume home medication. Monitor lytes and vitals. DVT and GI prophylaxis. Further recommendations as per clinical course of the patient DVT prophylaxis: Patient already coagulopathic GI Prophylaxis: Pepcid Prognosis is guarded,
[2022-11-19 20:17] LABS: Glucose,Whole Blood 169 mg/dL (70-110)
[2022-11-19] MEDS: allopurinoL 300 MG TAB PO SCH (21:04)
[2022-11-19] MEDS: ATORVASTATIN 10 MG TAB PO SCH (21:04)
[2022-11-19] MEDS: LOSARTAN 50 MG TAB PO SCH (21:04)
[2022-11-20] MEDS: DEXAMETHASONE SOD PHOSPHATE 4 MG/ML 1 ML VIAL IVP SCH ×5 (00:15→23:10)
[2022-11-20 02:04] LABS: Amylase, Fluid Source Pleural Fluid; Amylase,Body Fluid 11 U/L; Cholesterol,BF Source Pleural Fluid; Cholesterol,Body Fluid 25 mg/dL; Glucose, BF Source Pleural Fluid; Glucose, Body Fluid 170 mg/dL; LDH, Body Fluid Source Pleural Fluid; T. Protein, Body Fluid Source Pleural Fluid; Total Protein, Body Fluid 1950 mg/dL
[2022-11-20] MEDS: Acetaminophen-Codeine 300-30mg TAB PO PRN ×2 (04:05→18:36)
[2022-11-20 04:33] LABS: Color,BF Yellow
[2022-11-20 04:34] LABS: Appearance,BF Hazy; Nucleated Cells, Body Fluid 71 /uL; RBC, Body Fluid 4314 /uL
[2022-11-20 04:36] LABS: Mononuclear WBC,Body Fluid 70 %; Polynuclear WBC,Body Fluid 30 %; Total Cells Counted,Body Fluid 100
[2022-11-20 06:04] LABS: Glucose,Whole Blood 149 mg/dL (70-110)
[2022-11-20] MEDS: INSULIN ASPART (NovoLOG) 100 UNIT/ML VIAL SQ SCH ×4 (06:10→20:27)
[2022-11-20] MEDS: hydrALAZINE HCL 25 MG TAB PO PRN (06:29)
[2022-11-20] MEDS: FAMOTIDINE 20 MG TAB PO SCH ×2 (09:20→20:27)
[2022-11-20] MEDS: AMIODARONE 100 MG TAB PO SCH (09:20)
[2022-11-20] MEDS: FUROSEMIDE 20 MG TAB PO SCH (09:20)
[2022-11-20] MEDS: ASPIRIN 81 MG PO SCH (09:20)
[2022-11-20] MEDS: amLODIPine 5 MG TAB PO SCH (09:20)
[2022-11-20 09:44] LABS: Basophils % (A) 0 %; Eosinophils % (A) 0 %; HCT 44.6 % (39.0-53.0); HGB 14.8 gm/dL (13.0-17.5); Lymphocytes # (A) 0.2 k/uL (1.0-4.8); Lymphocytes % (A) 2 %; MCH 32.2 pg (25.0-35.0); MCHC 33.2 g/dL (31.0-37.0); MCV 97.1 fL (80.0-100.0); Mean Platelet Volume 7.3; Monocytes # (A) 0.5 k/uL (0-1.0); Monocytes % (A) 3 %; Neutrophils # (A) 12.7 k/uL (1.3-7.7); Neutrophils % (A) 95 %; Platelet Count 282 k/uL (150-450); RBC 4.59 m/uL (4.30-5.90); RDW 12.8 % (11.5-15.5); WBC 13.4 k/uL (3.8-10.6)
[2022-11-20 09:51] LABS: INR 1.4 (<1.2); Prothrombin Time 14.4 sec (9.0-12.0)
[2022-11-20 10:04] LABS: African American GFR (CKD) >90 (>60 ml/min/1.73 sqM); Anion Gap 2 mmol/L; Blood Urea Nitrogen 29 mg/dL (9-20); Calcium 8.9 mg/dL (8.4-10.2); Carbon Dioxide 36 mmol/L (22-30); Chloride 95 mmol/L (98-107); Glucose 191 mg/dL (74-99); Non-African American GFR(CKD) 82 (>60 ml/min/1.73 sqM); Potassium 4.8 mmol/L (3.5-5.1); Sodium 133 mmol/L (137-145)
--- NOTE | 2022-11-20 10:05 | P.PN ---
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 He had been having issues with low back pain and progressive weakness of the lower extremities. He presented here to the emergency room yesterday for the same. Computed tomography scan of the spine revealed multilevel disc degeneration changes with severe L3-L4 and moderate to severe L4-L5 spinal canal stenosis. There is new partially visualized lower lung masses/nodule and enlarged upper abdominal lymph node concerning for metastatic disease. ET scan of the chest abdomen and pelvis revealed diffuse pulmonary nodules and mediastinal lymphadenopathy with metastatic disease. Th ere is pathologic fracture of T10 vertebral body with extension into the bilateral pedicles. There is approximately 25% height loss. Additional lucent lesion within T7 and L1 vertebral bodies which could also represent metastatic foci. There is slight leg appearance in the superior vena cava secondary to large mediastinal lymphadenopathy concerning for future SVC syndrome. No evidence of pulmonary embolism. No evidence of lymphadenopathy or mass in the abdomen or pelvis. White count 6.2. Hemoglobin 14.4. Initial INR 8.5 currently 7.5. Sodium 135. Potassium 5.8. BUN 22. Creatinine 0.78. Glucose 209. Calcium 9.0. Esparza virus and influenza screens negative. He is seen today in consultation on the selective care unit. He admits to having some shortness of breath cough and congestion. He has been coughing up blood-tinged sputum. He is a smoker of 53 years. He has no home oxygen. He has no pulmonary medications. He is currently requiring 5 L nasal cannula to maintain O2 saturations in the low 90s. He is afebrile. Hemodynamically stable. Chest x-ray reveals cardiomegaly, pulmonary vascular congestion and bilateral pleural effusions. ProBNP 2150. He's been initiated on Decadron 4 mg IV every 6 hours. Oral diuretics. Dilaudid for pain control. The patient is seen today 11/18/2022 in follow-up on the selective care unit. He is currently resting comfortably in bed. Awake and alert in no acute distress. Currently on 5 L high flow nasal cannula with O2 saturations in the mid 90s. Afebrile. Hemodynamically stable. White count 11.7. Hemoglobin 12.6. Platelets 266. INR 8.3. Sodium 134. Potassium 4.5. Bicarb 34. BUN 27. Creatinine 0.70. Glucose 165. He remains on Decadron 4 mg IVP every 6 hours. He was given vitamin K 2.5 mg by mouth today. The patient is seen today 11/19/2022 in follow-up on the selective care unit. He is currently laying flat in bed. Awake and alert distress. O2 saturations in the 90s on 5 L/m per nasal cannula. He's been afebrile. Hemodynamically stable. White count 12.8. Hemoglobin 14.6. Platelets 285. INR 1.7. Sodium 132. Potassium 4.5. Bicarb 36. BUN 27. Creatinine 0.64. Glucose 143. He remains on Decadron 4 mg IVP every 6 hours. Utilizing Tylenol No. 3 and Dilaudid for pain control. On 11/20/2022, the patient is being seen for a follow-up. Is a concern of metastatic carcinoma this patient. The patient has multiple comorbidities including previous history of cardiac sarcoidosis, previous CT ablations, AICD placement, his colon cancer with a previous colectomy, previous history of melanoma resected, chronic into fibrillation maternity cognition with warfarin, hyperlipidemia and hypertension and obstructive sleep apnea along with peripheral vascular disease and previous vascular stent insertion. Patient also has gout. Patient was having some shortness of breath and back pain. He does have an area of severe L3-L4 and moderate L4-L5 canal stenosis. As far as the the CAT scan of the chest, this is consistent with metastatic disease with extensive B cell lymphadenopathy, multiple bilateral pulmonary nodules and bilateral pleural effusion. The patient underwent a thoracentesis yesterday and the fluid LDH is low at 112 and fluid protein is at 1.9. This is more consist ent of a chance areli. Blood work shows an INR of 1.4 with a PT of 14.4. WBC count of 15.4. The CAT scan findings are highly suspicious for malignancy. CEA level is at 1.0. ProBNP level was 2150. Patient's calcium level is at 8.9. LFTs are normal. Objective - Vital Signs Vital signs: Vital Signs Temp 97.4 F L 11/20/22 06:30 Pulse 65 01/04/23 09:17 Resp 17 11/20/22 09:17 BP 138/63 11/20/22 09:17 Pulse Ox 92 L 11/20/22 09:17 FiO2 Intake & Output 11/19/22 11/20/22 11/20/22 18:59 06:59 18:59 Intake Total 236 360 0 Output Total 400 700 Balance -164 -340 0 Intake: Oral 236 360 0 Output: Urine 400 700 Other: Voiding Method Urinal External Catheter External Catheter # Voids 1 # Bowel Movements 1 - Exam GENERAL EXAM: Alert, 87-year-old male patient, on 5 L nasal cannula, fairly comfortable in no apparent distress. HEAD: Normocephalic. EYES: Normal reaction of pupils, equal size. NOSE: Clear with pink turbinates. THROAT: No erythema or exudates. NECK: No masses, no JVD. CHEST: No chest wall deformity. LUNGS: Equal air entry with bibasilar crackles. CVS: S1 and S2 normal with no audible murmur, regular rhythm. ABDOMEN: No hepatosplenomegaly, normal bowel sounds, no guarding or rigidity. SPINE: No scoliosis or deformity SKIN: No rashes CENTRAL NERVOUS SYSTEM: No focal deficits, tone is normal in all 4 extremities. EXTREMITIES: Generalized weakness of the bilateral lower extremities. There is no peripheral edema. No clubbing, no cyanosis. Peripheral pulses are intact. - Labs CBC & Chem 7: 11/20/22 09:08 11/19/22 09:24 Labs: Abnormal Lab Results - Last 24 Hours (Table) 11/19/22 11/19/22 11/19/22 Range/Units 09:24 09:24 11:37 WBC (3.8-10.6) k/uL Neutrophils # (1.3-7.7) k/uL Lymphocytes # (1.0-4.8) k/uL PT 17.0 H (9.0-12.0) sec INR 1.7 H (<1.2) Sodium 132 L (137-145) mmol/L Chloride 95 L (98-107) mmol/L Carbon Dioxide 36 H (22-30) mmol/L BUN 27 H (9-20) mg/dL Creatinine 0.64 L (0.66-1.25) mg/dL Glucose 143 H (74-99) mg/dL POC Glucose (mg/dL) 154 H (70-110) mg/dL 11/19/22 11/19/22 11/20/22 Range/Units 16:54 20:15 06:02 WBC (3.8-10.6) k/uL Neutrophils # (1.3-7.7) k/uL Lymphocytes # (1.0-4.8) k/uL PT (9.0-12.0) sec INR (<1.2) Sodium (137-145) mmol/L Chloride (98-107) mmol/L Carbon Dioxide (22-30) mmol/L BUN (9-20) mg/dL Creatinine (0.66-1.25) mg/dL Glucose (74-99) mg/dL POC Glucose (mg/dL) 181 H 169 H 149 H (70-110) mg/dL 11/20/22 11/20/22 Range/Units 09:08 09:08 WBC 13.4 H (3.8-10.6) k/uL Neutrophils # 12.7 H (1.3-7.7) k/uL Lymphocytes # 0.2 L (1.0-4.8) k/uL PT 14.4 H (9.0-12.0) sec INR 1.4 H (<1.2) Sodium (137-145) mmol/L Chloride (98-107) mmol/L Carbon Dioxide (22-30) mmol/L BUN (9-20) mg/dL Creatinine (0.66-1.25) mg/dL Glucose (74-99) mg/dL POC Glucose (mg/dL) (70-110) mg/dL Microbiology - Last 24 Hours (Table) 11/19/22 15:40 Gram Stain - Preliminary Pleural Fluid Body Fluid Culture - Preliminary 11/19/22 15:40 Anaerobic Culture - Preliminary Pleural Fluid 11/19/22 15:40 Fungal Culture - Preliminary Pleural Fluid Assessment and Plan Plan: Diffuse pulmonary nodules, pleural effusions and mediastinal lymphadenopathy concerning for metastatic disease, doubt primary lung cancer, suspect metastatic disease from unknown primary to the lungs, suspect metastatic melanoma Acute hypoxemic respiratory failure secondary to an acute exacerbation of suspected diastolic versus systolic congestive heart failure Hemoptysis secondary to supratherapeutic INR Pathologic fracture of T10 vertebral body with extension of the bilateral pedicles in a patient with lower extremity weakness. 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, status post AICD placement History of colon cancer status post colectomy with colostomy and subsequent reversal History of melanoma of the face and neck on the right, status post resection at the [facility] Atrial fibrillation anticoagulated with warfarin, supra therapeutic with initial INR of 8.5 currently down to 1.7 Obstructive sleep apnea History of 53 years chronic tobacco dependence Suspect some underlying COPD Hypertension Hyperlipidemia Peripheral vascular disease with previous stent placement Plan: Awaiting the results of the fluid cytology, the chemistry shows a transudate There is a fluid cytology is negative for malignancy, the patient will need a bronchoscopy with endobronchial ultrasound guided biopsy of the lymph node. I believe a discussion was done with the family yesterday and the family is not interested in pursuing any form of endoscopic procedures. I'm going to revisit this will situation after day results of the fluid cytology is available.
[2022-11-20 11:11] LABS: Glucose,Whole Blood 258 mg/dL (70-110)
--- NOTE | 2022-11-20 13:08 | P.PN ---
Subjective Progress Note Date: 11/20/22 History of present illness: Patient is a pleasant 87-year-old gentleman with a past medical history signi ficant for permanent atrial fibrillation currently he is on anticoagulation with Coumadin as well as history of cardiac sarcoidosis and history of ventricular tachycardia status post AICD as well as history of lower extremities PAD with prior angioplasty as well as hypertension and dyslipidemia and multiple comorbid conditions. The patient presented to the hospital complaining of abdominal discomfort for the last few days associated was no bowel movement for the last few days as well. No fever and no chills. No nausea nor vomiting. No symptoms of chest pain or chest discomfort but lately he has been experiencing mild increase in the shortness of breath mainly with exertion and mainly once he is laying flat in bed. Beside that he has been experiencing cough not productive of any sputum. As a mentioned no symptoms of chest pain or chest discomfort. No change in the weight. He underwent a workup including EKG showing atrial fibrillation with diffuse nonspecific ST and T wave abnormalities and also a chest x-ray showed evidence of heart failure with pulmonary vascular congestions as well as NT proBNP was checked and came in to be abnormal around 1999. Subsequently the patient was started on Lasix IV. He was admitted. He is in process of having workup regarding abdominal discomfort. Please note that the patient currently is hypoxic and he is requiring 5 L of oxygen to maintain the saturation above 90%. 11/18/2022 The patient was seen and evaluated this morning. He is asymptomatic in terms of chest pain or chest discomfort or shortness of breath this morning. He is hemodynamically stable. He underwent a computed tomography scan and that revealed possible lung malignancy with metastasis. Currently pulmonary services on the case. He remains in atrial fibrillation which is permanent with controlled heart rates. He is on Coumadin for that. The echocardiogram is still pending. 11/19 Patient's blood pressure and heart rate are well controlled. He is followed by pulmonary medicine and oncology with plan for lung biopsy once INR is less than 2. Repeat blood work reveals WBC 12.8, hemoglobin 14.6. Sodium 132, potassium 4.5, CO2 36, BUN 27 creatinine 0.64. INR 1.7. Echocardiogram reveals EF of 50%. Moderate aortic stenosis with mean gradient of 25 mmHg. Mild aortic regurgitation. Moderate mitral regurgitation. 11/20 Patient underwent thoracentesis yesterday by interventional radiology and pathology is pending. Repeat chest x-ray reveals no pneumothorax. Numerous bilateral pulmonary masses suspicious for metastases. Heart rate is in the 60s, blood pressure 138/63, pulse ox 92% on 5 L. Telemetry is atrial fibrillation. WBC 13.4, hemoglobin 14.8. Sodium 133, potassium 4.8, BUN 29 creatinine 0.77. Physical examination: Gen: This is an 87-year-old male. He is resting in bed and appears to be comfortable at rest. VS: reviewed HEENT: Head is atraumatic, normocephalic. Pupils equal, round. Sclerae is anicteric. NECK: Supple. No JVD. No lymphadenopathy. No thyromegaly. LUNGS: Diminished bilaterally. No intercostal retractions. HEART: Irregularly irregular rate and rhythm. No murmur. ABDOMEN: Soft. Bowel sounds are present. No masses. No tenderness. EXTREMITIES: No pedal edema. No calf tenderness. NEUROLOGICAL: Patient is awake, alert and oriented. Assessment Abdominal discomfort associated with no bowel movement Heart failure with preserved ejection fraction, chronic Permanent atrial fibrillation with controlled heart rate History of cardiac sarcoidosis History of ventricular tachycardia status post AICD Lower extremities PAD Possible lung malignancy with metastasis status post diagnostic thoracentesis Pathologic thoracic spine compression fracture Plan Continue the current medical regimen Plan to resume either Coumadin or eliquis. Eliquis insurance coverage checked, $539 per month Patient may require bronchoscopy with biopsy Follow-up with the patient Nurse practitioner note has been reviewed, I agree with documented findings and plan of care. Patient was seen and examined. Objective - Vital Signs Vital signs: Vital Signs Temp 97.4 F L 11/20/22 06:30 Pulse 65 11/20/22 09:17 Resp 17 11/20/22 09:17 BP 138/63 11/20/22 09:17 Pulse Ox 92 L 11/20/22 09:17 FiO2 Intake & Output 11/19/22 11/20/22 11/20/22 18:59 06:59 18:59 Intake Total 236 360 0 Output Total 400 700 Balance -164 -340 0 Intake: Oral 236 360 0 Output: Urine 400 700 Other: Voiding Method Urinal External Catheter External Catheter # Voids 1 # Bowel Movements 1 - Labs CBC & Chem 7: 11/20/22 09:08 11/20/22 09:08 Labs: Abnormal Lab Results - Last 24 Hours (Table) 11/19/22 11/19/22 11/19/22 Range/Units 09:24 09:24 09:24 WBC 12.8 H (3.8-10.6) k/uL Neutrophils # 12.1 H (1.3-7.7) k/uL Lymphocytes # 0.3 L (1.0-4.8) k/uL PT 17.0 H (9.0-12.0) sec INR 1.7 H (<1.2) Sodium 132 L (137-145) mmol/L Chloride 95 L (98-107) mmol/L Carbon Dioxide 36 H (22-30) mmol/L BUN 27 H (9-20) mg/dL Creatinine 0.64 L (0.66-1.25) mg/dL Glucose 143 H (74-99) mg/dL POC Glucose (mg/dL) (70-110) mg/dL 11/19/22 11/19/22 11/19/22 Range/Units 11:37 16:54 20:15 WBC (3.8-10.6) k/uL Neutrophils # (1.3-7.7) k/uL Lymphocytes # (1.0-4.8) k/uL PT (9.0-12.0) sec INR (<1.2) Sodium (137-145) mmol/L Chloride (98-107) mmol/L Carbon Dioxide (22-30) mmol/L BUN (9-20) mg/dL Creatinine (0.66-1.25) mg/dL Glucose (74-99) mg/dL POC Glucose (mg/dL) 154 H 181 H 169 H (70-110) mg/dL 11/20/22 Range/Units 06:02 WBC (3.8-10.6) k/uL Neutrophils # (1.3-7.7) k/uL Lymphocytes # (1.0-4.8) k/uL PT (9.0-12.0) sec INR (<1.2) Sodium (137-145) mmol/L Chloride (98-107) mmol/L Carbon Dioxide (22-30) mmol/L BUN (9-20) mg/dL Creatinine (0.66-1.25) mg/dL Glucose (74-99) mg/dL POC Glucose (mg/dL) 149 H (70-110) mg/dL Microbiology - Last 24 Hours (Table) 11/19/22 15:40 Gram Stain - Preliminary Pleural Fluid Body Fluid Culture - Preliminary 11/19/22 15:40 Anaerobic Culture - Preliminary Pleural Fluid 11/19/22 15:40 Fungal Culture - Preliminary Pleural Fluid
--- NOTE | 2022-11-20 16:12 | P.PN ---
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 He had been having issues with low back pain and progressive weakness of the lower extremities. He presented here to the emergency room yesterday for the same. Computed tomography scan of the spine revealed multilevel disc degeneration changes with severe L3-L4 and moderate to severe L4-L5 spinal canal stenosis. There is new partially visualized lower lung masses/nodule and enlarged upper abdominal lymph node concerning for metastatic disease. ET scan of the chest abdomen and pelvis revealed diffuse pulmonary nodules and mediastinal lymphadenopathy with metastatic disease. There is pathologic fracture of T10 vertebral body with extension into the bilateral pedicles. There is approximately 25% height loss. Additional lucent lesion within T7 and L1 vertebral bodies which could also represent metastatic foci. There is slight leg appearance in the superior vena cava secondary to large mediastinal lymphadenopathy concerning for future SVC syndrome. No evidence of pulmonary embolism. No evidence of lymphadenopathy or mass in the abdomen or pelvis. White count 6.2. Hemoglobin 14.4. Initial INR 8.5 currently 7.5. Sodium 135. Potassium 5.8. BUN 22. Creatinine 0.78. Glucose 209. Calcium 9.0. Esparza virus and influenza screens negative. He is seen today in consultation on the selective care unit. He admits to having some shortness of breath cough and congestion. He has been coughing up blood-tinged sputum. He is a smoker of 53 years. He has no home oxygen. He has no pulmonary medications. He is currently requiring 5 L nasal cannula to maintain O2 saturations in the low 90s. He is afebrile. Hemodynamically stable. Chest x- ray reveals cardiomegaly, pulmonary vascular congestion and bilateral pleural effusions. ProBNP 2150. 24-hour interval change 11/19/2022 Patient is seen and evaluated in follow-up on the selective care unit. He is currently laying flat in bed. Awake and alert distress. O2 saturations in the 90s on 5 L/m per nasal cannula. He's been afebrile. Hemodynamically stable. -- Blood work review reveals White count 12.8. Hemoglobin 14.6. Platelets 285. INR 1.7. Sodium 132. Potassium 4.5. Bicarb 36. BUN 27. Creatinine 0.64. Glucose 143. He remains on Decadron 4 mg IVP every 6 hours. Utilizing Tylenol No. 3 and Dilaudid for pain control. We will plan to continue to titrate FiO2 as tolerated Ultrasound completed of bilateral chest which reveals significant effusions; prominent referring patient to interventional radiology to perform ultrasound- guided diagnostic thoracentesis with consultation with radiation oncology for treatment for the pathological fractures of T10 vertebral body 24-hour interval change 11/20/2022 Patient was having some shortness of breath and back pain. He does have an area of severe L3-L4 and moderate L4-L5 canal stenosis. As far as the the CAT scan of the chest, this is consistent with metastatic disease with extensive B cell lymphadenopathy, multiple bilateral pulmonary nodules and bilateral pleural effusion. The patient underwent a thoracentesis yesterday and the fluid LDH is low at 112 and fluid protein is at 1.9. This is more consistent of a chance ab ate. Blood work shows an INR of 1.4 with a PT of 14.4. WBC count of 15.4. The CAT scan findings are highly suspicious for malignancy. CEA level is at 1.0. ProBNP level was 2150. Patient's calcium level is at 8.9. LFTs are normal. -- Fluid cytology is still pending; if cytology fails to yield any results, pulmonary's recommending bronchoscopy with endobronchial ultrasound guided biopsy of the lymph nodes - So far family is not very keen on pursuing biopsy with want to wait for cytology results and make up a definite decision Objective - Vital Signs Vital signs: Vital Signs Temp 97.4 F L 11/20/22 06:30 Pulse 65 11/20/22 09:17 Resp 17 11/20/22 09:17 BP 138/63 11/20/22 09:17 Pulse Ox 92 L 11/20/22 09:17 FiO2 Intake & Output 11/19/22 11/20/22 11/20/22 18:59 06:59 18:59 Intake Total 236 360 0 Output Total 400 700 Balance -164 -340 0 Intake: Oral 236 360 0 Output: Urine 400 700 Other: Voiding Method Urinal External Catheter External Catheter # Voids 1 # Bowel Movements 1 - Exam GENERAL: The patient is alert and oriented x3, not in any acute distress. Well developed, well nourished. HEENT: Pupils are round and equally reacting to light. EOMI. No scleral icterus. No conjunctival pallor. Normocephalic, atraumatic. No pharyngeal erythema. No thyromegaly. CARDIOVASCULAR: S1 and S2 present. No murmurs, rubs, or gallops. PULMONARY: Chest is clear to auscultation, no wheezing or crackles. ABDOMEN: Soft, nontender, nondistended, normoactive bowel sounds. No palpable organomegaly. -MUSCULOSKELETAL: No joint swelling or deformity. Back tenderness EXTREMITIES: No cyanosis, clubbing, or pedal edema. -NEUROLOGICAL: Fully awake and oriented, cranial nerves are grossly intact, upper extremity strength is at baseline,. Bilateral lower extremity weakness, There is more weakness on the right leg. SKIN: No rashes. no petechiae. - Labs CBC & Chem 7: 11/20/22 09:08 11/20/22 09:08 Labs: Abnormal Lab Results - Last 24 Hours (Table) 11/19/22 11/19/22 11/19/22 Range/Units 11:37 16:54 20:15 WBC (3.8-10.6) k/uL Neutrophils # (1.3-7.7) k/uL Lymphocytes # (1.0-4.8) k/uL PT (9.0-12.0) sec INR (<1.2) Sodium (137-145) mmol/L Chloride (98-107) mmol/L Carbon Dioxide (22-30) mmol/L BUN (9-20) mg/dL Glucose (74-99) mg/dL POC Glucose (mg/dL) 154 H 181 H 169 H (70-110) mg/dL 11/20/22 11/20/22 11/20/22 Range/Units 06:02 09:08 09:08 WBC 13.4 H (3.8-10.6) k/uL Neutrophils # 12.7 H (1.3-7.7) k/uL Lymphocytes # 0.2 L (1.0-4.8) k/uL PT 14.4 H (9.0-12.0) sec INR 1.4 H (<1.2) Sodium (137-145) mmol/L Chloride (98-107) mmol/L Carbon Dioxide (22-30) mmol/L BUN (9-20) mg/dL Glucose (74-99) mg/dL POC Glucose (mg/dL) 149 H (70-110) mg/dL 11/20/22 Range/Units 09:08 WBC (3.8-10.6) k/uL Neutrophils # (1.3-7.7) k/uL Lymphocytes # (1.0-4.8) k/uL PT (9.0-12.0) sec INR (<1.2) Sodium 133 L (137-145) mmol/L Chloride 95 L (98-107) mmol/L Carbon Dioxide 36 H (22-30) mmol/L BUN 29 H (9-20) mg/dL Glucose 191 H (74-99) mg/dL POC Glucose (mg/dL) (70-110) mg/dL Microbiology - Last 24 Hours (Table) 11/19/22 15:40 Gram Stain - Preliminary Pleural Fluid Body Fluid Culture - Preliminary 11/19/22 15:40 Anaerobic Culture - Preliminary Pleural Fluid 11/19/22 15:40 Fungal Culture - Preliminary Pleural Fluid Assessment and Plan Assessment: Multiple pulmonary nodules suspicious for primary lung cancer with mediastinal lymphadenopathy and metastatic to the bone. Pathological fractures of T10, with vertebral height loss. Right lower extremity weakness Multiple lucent lesions within T7 and L1 suspicious for metastatic disease Acute hypoxemic respiratory failure Hyperkalemia, could be secondary to medication while on losartan Chronic atrial fibrillation on Coumadin Coagulopathy secondary to Coumadin Hemoptysis Chronic heart failure Hyperlipidemia Hypertension History of osteoarthritis History of sleep apnea on CPAP at home. History of colon cancer status post radiotherapy History of melanoma Plan: hold Coumadin, monitor hemoglobin and vitals, monitor INR. If the patient insulin/dextrose and glaucoma for hyperkalemia, monitor potassium level. Also we will lower the dose of losartan 100 mg and 50 mg and add Norvasc for better blood pressure control with holding parameters Follow-up consultation from a orthopedic team, pulmonary team and hematology oncology team, Discontinue IV fluids Continue with dexamethasone, monitor sugar obtained TSJENNIFER Braadriana. Orthopedic team, Pain management discussed with patient and family at bedside, they requested Tylenol No. 3 as it is was working for him at home, also IV pain medication with Dilaudid as needed. Xanax when necessary for anxiety. Hold aspirin for patient's risk of bleeding and follow-up with cardiology's recommendation Labs and medication were reviewed.. Continue same treatment. Continue with symptomatic treatment. Resume home medication. Monitor lytes and vitals. DVT and GI prophylaxis. Further recommendations as per clinical course of the patient DVT prophylaxis: Patient already coagulopathic GI Prophylaxis: Pepcid Prognosis is guarded,
[2022-11-20 16:40] LABS: Glucose,Whole Blood 182 mg/dL (70-110)
--- NOTE | 2022-11-20 17:09 | P.PN ---
Subjective Progress Note Date: 11/20/22 Principal diagnosis: Lung lesions concerning for metastatic malignancy No acute events overnight. Reports persisting right lower back pain, but states pain is being managed with Tylenol 3. Reports BM this AM. but, still having issues with constipation. Denies any bleeding or dyspnea currently. Still having weakness and is not currently ambulating. Objective - Vital Signs Vital signs: Vital Signs Temp 97.4 F L 11/20/22 06:30 Pulse 63 11/20/22 06:30 Resp 12 11/20/22 06:30 BP 172/79 11/20/22 06:30 Pulse Ox 91 L 11/20/22 06:30 FiO2 Intake & Output 11/19/22 11/20/22 11/20/22 18:59 06:59 18:59 Intake Total 236 360 0 Output Total 400 700 Balance -164 -340 0 Intake: Oral 236 360 0 Output: Urine 400 700 Other: Voiding Method Urinal External Catheter # Voids 1 # Bowel Movements 1 - Constitutional General appearance: Present: average body habitus, no acute distress - EENT Eyes: Present: anicteric sclerae, EOMI ENT: Present: hearing grossly normal - Respiratory Respiratory: bilateral: CTA - Cardiovascular Rhythm: regular Heart sounds: normal: S1, S2 Abnormal Heart Sounds: Present: systolic murmur - Peripheral edema leg Peripheral Edema: bilateral: None - Gastrointestinal General gastrointestinal: Present: soft. Absent: tenderness - Integumentary Integumentary: Present: normal - Neurologic Neurologic Comment(s): grossly Neurologic: Present: CNII-XII intact - Musculoskeletal Musculoskeletal Comment(s): RLE weakness present, difficulty with elevation of RLE r/t lower back pain, dorsiflexion of bilateral feet WNL Musculoskeletal: Present: generalized weakness - Psychiatric Psychiatric: Present: A&O x's 3, appropriate affect, intact judgment & insight - Labs CBC & Chem 7: 11/20/22 09:08 11/20/22 09:08 Labs: Abnormal Lab Results - Last 24 Hours (Table) 11/19/22 11/19/22 11/19/22 Range/Units 09:24 09:24 09:24 WBC 12.8 H (3.8-10.6) k/uL Neutrophils # 12.1 H (1.3-7.7) k/uL Lymphocytes # 0.3 L (1.0-4.8) k/uL PT 17.0 H (9.0-12.0) sec INR 1.7 H (<1.2) Sodium 132 L (137-145) mmol/L Chloride 95 L (98-107) mmol/L Carbon Dioxide 36 H (22-30) mmol/L BUN 27 H (9-20) mg/dL Creatinine 0.64 L (0.66-1.25) mg/dL Glucose 143 H (74-99) mg/dL POC Glucose (mg/dL) (70-110) mg/dL 11/19/22 11/19/22 11/19/22 Range/Units 11:37 16:54 20:15 WBC (3.8-10.6) k/uL Neutrophils # (1.3-7.7) k/uL Lymphocytes # (1.0-4.8) k/uL PT (9.0-12.0) sec INR (<1.2) Sodium (137-145) mmol/L Chloride (98-107) mmol/L Carbon Dioxide (22-30) mmol/L BUN (9-20) mg/dL Creatinine (0.66-1.25) mg/dL Glucose (74-99) mg/dL POC Glucose (mg/dL) 154 H 181 H 169 H (70-110) mg/dL 11/20/22 Range/Units 06:02 WBC (3.8-10.6) k/uL Neutrophils # (1.3-7.7) k/uL Lymphocytes # (1.0-4.8) k/uL PT (9.0-12.0) sec INR (<1.2) Sodium (137-145) mmol/L Chloride (98-107) mmol/L Carbon Dioxide (22-30) mmol/L BUN (9-20) mg/dL Creatinine (0.66-1.25) mg/dL Glucose (74-99) mg/dL POC Glucose (mg/dL) 149 H (70-110) mg/dL Microbiology - Last 24 Hours (Table) 11/19/22 15:40 Gram Stain - Preliminary Pleural Fluid Body Fluid Culture - Preliminary 11/19/22 15:40 Anaerobic Culture - Preliminary Pleural Fluid 11/19/22 15:40 Fungal Culture - Preliminary Pleural Fluid - Imaging and Cardiology Chest x-ray: report reviewed US guided thoracentesis Assessment and Plan (1) Lung mass Current Visit: Yes Status: Acute Priority: High Code(s): R91.8 - OTHER NONSPECIFIC ABNORMAL FINDING OF LUNG FIELD SNOMED Code(s): 263637852 (2) Metastatic cancer Current Visit: Yes Status: Acute Priority: High Code(s): C79.9 - SECONDARY MALIGNANT NEOPLASM OF UNSPECIFIED SITE SNOMED Code(s): 048599800 (3) Low back pain Current Visit: Yes Status: Acute Priority: High Code(s): M54.50 - LOW BACK PAIN, UNSPECIFIED SNOMED Code(s): 485144231 Plan: #Metastatic malignancy -Noted to have progressive back pain over the past month along with anorexia, hemoptysis, and lower extremity weakness -CT of the lumbar spine on 11/16/2022 noted degenerative changes with spinal canal stenosis, but noted incidental finding of lesions in the bilateral lower lungs -CT CAP 11/16/2022 noted multiple bilateral lung nodules, mediastinal lymphadenopathy, left hilar lymphadenopathy, and metastases to the vertebral bodies of T7, L1, and compression fracture of T10. Given his clinical and radiologic findings, there is a concern for metastatic malignancy -Discussed findings with Mr. Grant, his , and his son. Discussed that at this time, we do not have a definitive diagnosis to discuss things such as prognosis or treatment options -Mr. Grant is in favor of obtaining additional work-up to establish a diagnosis. However, he stated that he would not want to have systemic chemotherapy like he did for his prior diagnosis of colon cancer. -With regard to the differential diagnosis, this is currently broad and includes metastatic melanoma or potentially primary lung malignancy. The lung lesions do not appear consistent with a typical presentation of primary lung cancer, but this cannot be definitively excluded. It is less likely to be metastatic colon cancer given the length of time that has elapsed since his diagnosis and treatment. Thoracentesis was performed yesterday, with 875cc drained. Cytology is pending. Biopsy held at this time. Primary lung carcinoma vs metastatic melanoma. In order to fully asses treatment options, including IO or targeted therapy, tissue diagnosis is necessary for molecular profiling and PD-L1 testing. Cytology pending. #Supratherapeutic INR -Coumadin for atrial fibrillation. Likely supratherapeutic due to poor oral intake prior to admit. -He received vitamin K 2.5 mg p.o. Repeat INR on 11/18/21 revealed increased INR to 8.3, second dose of vitamin K 2.5mg was ordered. INR yesterday 1.7, 1.4 to day. Ok to resume anticoagulation but recommend, given his poor oral intake, consideration should be given to changing Coumadin to a DOAC such as Eliquis or Xarelto as long as this is appropriate from a Cardiology standpoint. #Back pain: -Patient reports pain being managed by Tylenol 3 -Surgery ordered TSLO brace and will f/u with patient regarding T10 pathological fracture
[2022-11-20 20:04] LABS: Glucose,Whole Blood 170 mg/dL (70-110)
[2022-11-20] MEDS: HYDROmorphone 0.5 MG/0.5 ML SYRINGE IVP PRN (20:27)
[2022-11-20] MEDS: ATORVASTATIN 10 MG TAB PO SCH (20:27)
[2022-11-20] MEDS: LOSARTAN 50 MG TAB PO SCH (20:27)
[2022-11-20] MEDS: allopurinoL 300 MG TAB PO SCH (20:27)
[2022-11-21] MEDS: HYDROmorphone 0.5 MG/0.5 ML SYRINGE IVP PRN ×5 (02:31→23:39)
[2022-11-21] MEDS ORDERED: FUROSEMIDE 10 MG/ML 4 ML VIAL IV STA (05:19)
[2022-11-21] MEDS: DEXAMETHASONE SOD PHOSPHATE 4 MG/ML 1 ML VIAL IVP SCH ×4 (05:28→23:38)
--- NOTE | 2022-11-21 06:12 | XR ---
EXAMINATION TYPE: XR chest 1V portable DATE OF EXAM: 11/21/2022 COMPARISON: 11/19/2022 HISTORY: Hypoxemia TECHNIQUE: Single view FINDINGS: Heart is enlarged. There is pulmonary airspace consolidation in the left mid and lower lung field. There is consolidation right lower lobe. There are multiple nodular densities throughout both lungs measuring up to 2 cm. There is left axillary pacemaker. IMPRESSION: Cardiomegaly and bilateral airspace consolidation consistent with pneumonia. Pulmonary infiltrates significantly increased compared to exam 2 days ago. Multiple pulmonary nodules also present on recent exam and consistent with metastatic disease.
[2022-11-21 06:22] LABS: Glucose,Whole Blood 176 mg/dL (70-110)
[2022-11-21] MEDS: INSULIN ASPART (NovoLOG) 100 UNIT/ML VIAL SQ SCH ×4 (06:33→21:03)
[2022-11-21] MEDS: ASPIRIN 81 MG PO SCH (08:14)
[2022-11-21] MEDS: amLODIPine 5 MG TAB PO SCH (08:14)
[2022-11-21] MEDS: FAMOTIDINE 20 MG TAB PO SCH ×2 (08:14→21:04)
[2022-11-21] MEDS: AMIODARONE 100 MG TAB PO SCH (08:14)
[2022-11-21] MEDS: FUROSEMIDE 20 MG TAB PO SCH (08:14)
--- NOTE | 2022-11-21 09:39 | P.PN ---
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 He had been having issues with low back pain and progressive weakness of the lower extremities. He presented here to the emergency room yesterday for the same. Computed tomography scan of the spine revealed multilevel disc degeneration changes with severe L3-L4 and moderate to severe L4-L5 spinal canal stenosis. There is new partially visualized lower lung masses/nodule and enlarged upper abdominal lymph node concerning for metastatic disease. ET scan of the chest abdomen and pelvis revealed diffuse pulmonary nodules and mediastinal lymphadenopathy with metastatic disease. Th ere is pathologic fracture of T10 vertebral body with extension into the bilateral pedicles. There is approximately 25% height loss. Additional lucent lesion within T7 and L1 vertebral bodies which could also represent metastatic foci. There is slight leg appearance in the superior vena cava secondary to large mediastinal lymphadenopathy concerning for future SVC syndrome. No evidence of pulmonary embolism. No evidence of lymphadenopathy or mass in the abdomen or pelvis. White count 6.2. Hemoglobin 14.4. Initial INR 8.5 currently 7.5. Sodium 135. Potassium 5.8. BUN 22. Creatinine 0.78. Glucose 209. Calcium 9.0. Esparza virus and influenza screens negative. He is seen today in consultation on the selective care unit. He admits to having some shortness of breath cough and congestion. He has been coughing up blood-tinged sputum. He is a smoker of 53 years. He has no home oxygen. He has no pulmonary medications. He is currently requiring 5 L nasal cannula to maintain O2 saturations in the low 90s. He is afebrile. Hemodynamically stable. Chest x-ray reveals cardiomegaly, pulmonary vascular congestion and bilateral pleural effusions. ProBNP 2150. He's been initiated on Decadron 4 mg IV every 6 hours. Oral diuretics. Dilaudid for pain control. The patient is seen today 11/18/2022 in follow-up on the selective care unit. He is currently resting comfortably in bed. Awake and alert in no acute distress. Currently on 5 L high flow nasal cannula with O2 saturations in the mid 90s. Afebrile. Hemodynamically stable. White count 11.7. Hemoglobin 12.6. Platelets 266. INR 8.3. Sodium 134. Potassium 4.5. Bicarb 34. BUN 27. Creatinine 0.70. Glucose 165. He remains on Decadron 4 mg IVP every 6 hours. He was given vitamin K 2.5 mg by mouth today. The patient is seen today 11/19/2022 in follow-up on the selective care unit. He is currently laying flat in bed. Awake and alert distress. O2 saturations in the 90s on 5 L/m per nasal cannula. He's been afebrile. Hemodynamically stable. White count 12.8. Hemoglobin 14.6. Platelets 285. INR 1.7. Sodium 132. Potassium 4.5. Bicarb 36. BUN 27. Creatinine 0.64. Glucose 143. He remains on Decadron 4 mg IVP every 6 hours. Utilizing Tylenol No. 3 and Dilaudid for pain control. On 11/20/2022, the patient is being seen for a follow-up. Is a concern of metastatic carcinoma this patient. The patient has multiple comorbidities including previous history of cardiac sarcoidosis, previous CT ablations, AICD placement, his colon cancer with a previous colectomy, previous history of melanoma resected, chronic atrial fibrillation maintained on anticoagulation with warfarin, hyperlipidemia and hypertension and obstructive sleep apnea along with peripheral vascular disease and previous vascular stent insertion. Patient also has gout. Patient was having some shortness of breath and back pain. He does have an area of severe L3-L4 and moderate L4-L5 canal stenosis. As far as the the CAT scan of the chest, this is consistent with metastatic disease with extensive B cell lymphadenopathy, multiple bilateral pulmonary nodules and bilateral pleural effusion. The patient underwent a thoracentesis yesterday and the fluid LDH is low at 112 and fluid protein is at 1.9. This is more consistent of a chance areli. Blood work shows an INR of 1.4 with a PT of 14.4. WBC count of 15.4. The CAT scan findings are highly suspicious for malignancy. CEA level is at 1.0. ProBNP level was 2150. Patient's calcium level is at 8.9. LFTs are normal. On 11/21/2022, the patient's condition is worse. His occupation is obviously worse and the patient was on 5 L O2 nasal cannula and overnight and earlier this morning the patient became more short of breath and currently is on 15 L nonrebreather fullface mask. He has a congested cough. Unable to bring up much sputum. Afebrile. Hemodynamically stable. Based on my review of the CAT scan of the chest, there is evidence of diffuse metastatic disease. The family was quite hesitant to undergo further investigation and they are considering hospice care. Meanwhile, the patient has undergone thoracentesis for diagnostic purpo ses. The fluid came back a transudate and the fluid cytology is still pending. Noted based on the CAT scan of the chest, the patient has extensive mediastinal lymphadenopathy and extensive bilateral pulmonary nodules and bilateral pleural effusions. He is quite debilitated 87-year-old male patient. He is known to have previous colectomy for colon cancer, previous melanoma, history of AICD placement, history of cardiac Sarcoidosis. He Also Has Chronic Atrial Fibrillation Maintained on Anticoagulation with Warfarin, Hypertension Hyperlipidemia and Obstructive Sleep Apnea and Peripheral Vascular Disease. Objective - Vital Signs Vital signs: Vital Signs Temp 96.6 F L 11/21/22 08:00 Pulse 68 11/21/22 08:00 Resp 20 11/21/22 08:00 BP 115/61 11/21/22 08:00 Pulse Ox 92 L 11/21/22 08:00 FiO2 Intake & Output 11/20/22 11/21/22 11/21/22 18:59 06:59 18:59 Intake Total 180 Output Total 600 400 300 Balance -420 -400 -300 Intake: Oral 180 Output: Urine 600 400 300 Other: Voiding Method External Catheter External Catheter # Bowel Movements 1 - Exam GENERAL EXAM: Alert, 87-year-old male patient, on 100 NRB, fairly comfortable in no apparent distress. HEAD: Normocephalic. EYES: Normal reaction of pupils, equal size. NOSE: Clear with pink turbinates. THROAT: No erythema or exudates. NECK: No masses, no JVD. CHEST: No chest wall deformity. LUNGS: Equal air entry with bibasilar crackles. CVS: S1 and S2 normal with no audible murmur, regular rhythm. ABDOMEN: No hepatosplenomegaly, normal bowel sounds, no guarding or rigidity. SPINE: No scoliosis or deformity SKIN: No rashes CENTRAL NERVOUS SYSTEM: No focal deficits, tone is normal in all 4 extremities. EXTREMITIES: Generalized weakness of the bilateral lower extremities. There is no peripheral edema. No clubbing, no cyanosis. Peripheral pulses are intact. - Labs CBC & Chem 7: 11/20/22 09:08 11/20/22 09:08 Labs: Abnormal Lab Results - Last 24 Hours (Table) 11/20/22 11/20/22 11/20/22 Range/Units 09:08 09:08 09:08 WBC 13.4 H (3.8-10.6) k/uL Neutrophils # 12.7 H (1.3-7.7) k/uL Lymphocytes # 0.2 L (1.0-4.8) k/uL PT 14.4 H (9.0-12.0) sec INR 1.4 H (<1.2) Sodium 133 L (137-145) mmol/L Chloride 95 L (98-107) mmol/L Carbon Dioxide 36 H (22-30) mmol/L BUN 29 H (9-20) mg/dL Glucose 191 H (74-99) mg/dL POC Glucose (mg/dL) (70-110) mg/dL 11/20/22 11/20/22 11/20/22 Range/Units 11:09 16:39 20:03 WBC (3.8-10.6) k/uL Neutrophils # (1.3-7.7) k/uL Lymphocytes # (1.0-4.8) k/uL PT (9.0-12.0) sec INR (<1.2) Sodium (137-145) mmol/L Chloride (98-107) mmol/L Carbon Dioxide (22-30) mmol/L BUN (9-20) mg/dL Glucose (74-99) mg/dL POC Glucose (mg/dL) 258 H 182 H 170 H (70-110) mg/dL 11/21/22 Range/Units 06:20 WBC (3.8-10.6) k/uL Neutrophils # (1.3-7.7) k/uL Lymphocytes # (1.0-4.8) k/uL PT (9.0-12.0) sec INR (<1.2) Sodium (137-145) mmol/L Chloride (98-107) mmol/L Carbon Dioxide (22-30) mmol/L BUN (9-20) mg/dL Glucose (74-99) mg/dL POC Glucose (mg/dL) 176 H (70-110) mg/dL Microbiology - Last 24 Hours (Table) 11/19/22 15:40 Gram Stain - Preliminary Pleural Fluid Body Fluid Culture - Preliminary Assessment and Plan Plan: Diffuse pulmonary nodules, pleural effusions and mediastinal lymphadenopathy concerning for metastatic disease, possibilities may include metastasis to the lungs from melanoma or GI source of malignancy. Other possibilities could be lung cancer. Acute hypoxemic respiratory failure secondary to an acute exacerbation of suspected diastolic versus systolic congestive heart failure, and the patient's oxygenation is got worse and patient is currently on 100% nonrebreather facemask. Earlier, he was on 5 L. Based on my review, the patient has suspected metastatic carcinoma. This could be melanoma. This could be me tastatic GI source of cancer. Lung cancer cannot be completely ruled out. Hemoptysis secondary to supratherapeutic INR Pathologic fracture of T10 vertebral body with extension of the bilateral pedi cles in a patient with lower extremity weakness. 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, status post AICD placement History of colon cancer status post colectomy with colostomy and subsequent reversal History of melanoma of the face and neck on the right, status post resection at the [facility] Atrial fibrillation anticoagulated with warfarin, supra therapeutic with initial INR of 8.5 currently down to 1.4 Obstructive sleep apnea History of 53 years chronic tobacco dependence Suspect some underlying COPD Hypertension Hyperlipidemia Peripheral vascular disease with previous stent placement Plan: Put the patient on Lasix 40 mg IV every 12 hours Start the patient IV Zosyn as the patient's chest x-ray from today shows perihilar opacities and cardiomegaly and pneumonia is obviously a concern. Noted the pulmonary infiltrates have increased significantly over the past 2 days. There are also multiple areas of pulmonary nodularity. Echocardiogram showed a preserved LV function, moderate aortic stenosis and moderate mitral regurgitation Awaiting the results of the fluid cytology, the chemistry shows a transudate There is a fluid cytology is negative for malignancy, the patient will need a bronchoscopy with endobronchial ultrasound guided biopsy of the lymph node. I believe a discussion was done with the family yesterday and the family is not interested in pursuing any form of endoscopic procedures. I'm going to revisit this will situation after day results of the fluid cytology is available. In view of the recent oxygenation worsening, no procedures are recommended
--- NOTE | 2022-11-21 10:10 | P.PN ---
Subjective This is a pleasant 87 years old male with multiple medical problems as below. Patient PCP is Dr. 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 Family were at bedside including the daughter and 2 sons. patient presents because feeling stuffiness in his abdomen as he is telling me, he says he cannot move by himself slight before, if he tries to stand up he feels unsteady. And associated with dizziness He says he has abdominal pain like 7/10 in severity he described it like a broad band across his upper half of the abdomen, starting from the back and radiating across the abdomen. He started having these symptoms since September 28. Patient states also he cannot feel when he pees, He denies chest pain, has little dyspnea, with total occasional cough with clear phlegm but also a coughing some of blood. He has some vomiting yesterday but he has low appetite and has been constipated. he has no perineal numbness. Most of the symptoms started on 09/28. Patient is afebrile, slightly bradycardic, blood pressure 164/74, saturating 94% on 5 L oxygen via nasal cannula CBC is unremarkable, hemoglobin within the reference range 14.0. INR elevated to 8.5, PTT 64. Sodium 134 Creatinine normal, liver enzymes not elevated. Bilirubin 1.5. Troponin 0.04. Which is a slightly elevated Viruses and detected including coronavirus and influenza virus EKG showed atrial fibrillation's with occasional ventricular paced complex CT of the chest abdomen and pelvis with contrast: Diffuse pulmonary nodules and mediastinal lymphadenopathy concerning for primary lung malignancies with metastatic disease. 3 pathologic fractures of T10 vertebral body with extension into bilateral pedicles. Surgical sensation AND recommended there is approximately 25% height loss.Significant retropulsion. Additional lucent lesions within the T7 and L1 vertebral bodies with and also represent metastatic foci As per my discussions with Dr. Cerna from the emergency room neurosurgery consultation is recommended given his pathological lesion of the spine. However after Dr. Cerna discussed with the family they are not interested in any neurosurgical intervention as per Dr. Cerna. This is confirmed when I saw the patient and family at bedside they confirmed to me that they are not interested in any surgery. Case also was discussed with orthopedic Dr. Fischer from ER team, no surgical is intended at this time per Sign out. Dexamethasone was started and emergency room Patient was admitted with consultation for Dr. Calix, from a pulmonary team and hematology oncology team 11/17/2022 A sitting up in bed not in distress, he is breathing quietly, not in severe pain. He denies any new complaint. He is saturating 96 on 5 L oxygen via nasal cannula, less tachypneic than yesterday. Labs reviewed today his INR came down to 7.5, hemoglobin remains normal at 14.4 with no signs of evidence of bleeding. No more hemoptysis. His potassium was elevated 5.8 today, we are going to give insulin/dextrose, calcium gluconate and glaucoma small dose and lowered losartan 100 down to 50 mg and start Norvasc 5 mg for better blood pressure control Patient remains on dexamethasone at 4 mg every 6 hours as needed. We will discontinue normal saline because of evidence of fluid overload Several consultants on the case including cardiology, pulmonary, hematology/onc ology and orthopedic team. This morning I discussed the case with orthopedic team, no surgical intervention and the recommended TSLO Brace and continue with IV dexamethasone I'm resuming the care of the patient on 11/21/2022 patient is lying in bed in mild to moderate respiratory distress, his oxygen requirement increased to 15 L/m overnight. He is able to talk and he denies chest pain or dyspnea. He was looking for his artificial teeth which dropped off the bed. He denies any other new complaints. Blood pressure is stable. No labs from today, we ordered a repeat hemoglobin and check labs tomorrow. Displaced on stronger antibiotic Zosyn today as well as IV Lasix 40 mg twice daily Fluid cytology results still pending Cardiology on the case and helped management of his A. fib including anticoagulation Objective - Vital Signs Vital signs: Vital Signs Temp 96.6 F L 11/21/22 08:00 Pulse 68 11/21/22 08:00 Resp 20 11/21/22 08:00 BP 115/61 11/21/22 08:00 Pulse Ox 92 L 11/21/22 08:00 FiO2 Intake & Output 11/20/22 11/21/22 11/21/22 18:59 06:59 18:59 Intake Total 180 Output Total 600 400 300 Balance -420 -400 -300 Intake: Oral 180 Output: Urine 600 400 300 Other: Voiding Method External Catheter External Catheter # Bowel Movements 1 - Exam GENERAL: The patient is alert and oriented x3, not in any acute distress. Well developed, well nourished. HEENT: Pupils are round and equally reacting to light. EOMI. No scleral icterus. No conjunctival pallor. Normocephalic, atraumatic. No pharyngeal erythema. No thyromegaly. CARDIOVASCULAR: S1 and S2 present. No murmurs, rubs, or gallops. PULMONARY: Chest is clear to auscultation, no wheezing or crackles. ABDOMEN: Soft, nontender, nondistended, normoactive bowel sounds. No palpable organomegaly. -MUSCULOSKELETAL: No joint swelling or deformity. Back tenderness EXTREMITIES: No cyanosis, clubbing, or pedal edema. -NEUROLOGICAL: Fully awake and oriented, cranial nerves are grossly intact, upper extremity strength is at baseline,. Bilateral lower extremity weakness, There is more weakness on the right leg. SKIN: No rashes. no petechiae. - Labs CBC & Chem 7: 11/20/22 09:08 11/20/22 09:08 Labs: Abnormal Lab Results - Last 24 Hours (Table) 11/20/22 11/20/22 11/20/22 Range/Units 11:09 16:39 20:03 POC Glucose (mg/dL) 258 H 182 H 170 H (70-110) mg/dL 11/21/22 Range/Units 06:20 POC Glucose (mg/dL) 176 H (70-110) mg/dL Microbiology - Last 24 Hours (Table) 11/19/22 15:40 Gram Stain - Preliminary Pleural Fluid Body Fluid Culture - Preliminary Assessment and Plan Assessment: Multiple pulmonary nodules suspicious for primary lung cancer with mediastinal lymphadenopathy and metastatic to the bone. Pathological fractures of T10, with vertebral height loss. Right lower extremity weakness Multiple lucent lesions within T7 and L1 suspicious for metastatic disease Acute hypoxemic respiratory failure Hyperkalemia, could be secondary to medication while on losartan Chronic atrial fibrillation on Coumadin Coagulopathy secondary to Coumadin Hemoptysis Chronic heart failure Hyperlipidemia Hypertension History of osteoarthritis History of sleep apnea on CPAP at home. History of colon cancer status post radiotherapy History of melanoma Plan: hold Coumadin, monitor hemoglobin and vitals, deferred to cardiology about management of A. fib and anticoagulation management Continue with IV Lasix Continue with IV Zosyn Continue with dexamethasone, monitor sugar obtained TSJENNIFER Smallce per Orthopedic team Pain management discussed with patient and family at bedside, they requested Tylenol No. 3 as it is was working for him at home, also IV pain medication with Dilaudid as needed. Xanax when necessary for anxiety. Continue with aspirin Resume home medication. Monitor lytes and vitals. DVT and GI prophylaxis. Further recommendations as per clinical course of the patient DVT prophylaxis: on hold GI Prophylaxis: Pepcid Prognosis is guarded CODE STATUS: No code Discussed with staff Also discussed with the bedside nurse to contact cardiology for when to resume anticoagulation, repeat hemoglobin from today's ordered
[2022-11-21] MEDS: PIPERACILLIN-TAZOBACTAM 3.375 GM in SODIUM CHLORIDE 0.9% 100 ML IVPB SCH ×3 (11:13→23:38)
[2022-11-21] MEDS: FUROSEMIDE 10 MG/ML 4 ML VIAL IV SCH ×2 (11:13→21:04)
[2022-11-21 11:23] LABS: Basophils # (A) 0.1 k/uL (0-0.2); Basophils % (A) 0 %; Eosinophils # (A) 0.1 k/uL (0-0.7); Eosinophils % (A) 1 %; HCT 44.7 % (39.0-53.0); HGB 14.8 gm/dL (13.0-17.5); Lymphocytes # (A) 0.1 k/uL (1.0-4.8); Lymphocytes % (A) 1 %; MCH 32.4 pg (25.0-35.0); MCHC 33.1 g/dL (31.0-37.0); MCV 97.9 fL (80.0-100.0); Mean Platelet Volume 7.6; Monocytes # (A) 0.5 k/uL (0-1.0); Monocytes % (A) 3 %; Neutrophils # (A) 17.4 k/uL (1.3-7.7); Neutrophils % (A) 95 %; Platelet Count 292 k/uL (150-450); RBC 4.56 m/uL (4.30-5.90); RDW 12.7 % (11.5-15.5); WBC 18.2 k/uL (3.8-10.6)
[2022-11-21 11:50] VITALS: BMI 26.0
[2022-11-21 12:09] LABS: Glucose,Whole Blood 189 mg/dL (70-110)
[2022-11-21] MEDS: IPRATROPIUM-ALBUTEROL 3 ML NEB INHALATION SCH ×2 (15:18→20:33)
--- NOTE | 2022-11-21 16:12 | P.CONS ---
History of Present Illness - Reason for Consult Consult date: 11/21/22 - Chief Complaint "I have back pain" - History of Present Illness Mr. 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 His history is notable for a remote history of colon cancer, apparently treated with partial right colectomy followed by adjuvant chemotherapy. He developed a melanoma on the left cheek last year and underwent wide local excision with sentinel lymph node biopsy. More recently, he presents with progressive lower back pain since September, prompting presentation to the . CT lumbar spine on 11/16/2022 demonstrated partially visualized lower lung masses and an upper abdominal lymph node. CT chest/abdomen/pelvis on 11/16/2022 demonstrated diffuse pulmonary nodules and medistinal lymphadenopathy as well as T10 pathologic fracture. There were also lesionsin T7 and L1. There was also narrowing of the SVC due to lymphadenopathy. The patient was also noted to have supratherapeutic INR on presentation which has prohibited biopsy. He did have thoracentesis performed with cytology pending. He does not want surgery or chemotherapy, and even notes today he does not want to have a biopsy performed, instead leaning towards palliative care. He notes he has 6/10 back pain which is partially relieved with Tylenol with codeine. He has an AICD that his daughter believes is MRI compatible. He has not received radiation therapy. He is a former smoker having quit in 1974. He denies bowel or bladder difficulties and does not have saddle anesthesia. He is on Decadron with GI prophylaxis. Past Medical History Past Medical History: Atrial Fibrillation, Cancer, Chest Pain / Angina, Heart Failure, Hyperlipidemia, Hypertension, Osteoarthritis (OA), Pneumonia, Sleep Apnea/CPAP/BIPAP, Vascular Disorder Additional Past Medical History / Comment(s): HX OF HEART MURMUR, HX OF COLON CA, GOUT, V-TACH, , P.A.D. History of Any Multi-Drug Resistant Organisms: None Reported Past Surgical History: Bowel Resection, Cardiac Ablation, Heart Catheterization, Hernia Repair, Orthopedic Surgery Additional Past Surgical History / Comment(s): HAD BOWEL RESECTION R/T COLON CA, HAD COLOSTOMY NOW REVERSED. HAD SX ON TENDON IN FINGER . STATES LUNG DRAINED OF FLUID.stent rt external iliac artery(per report), skin cancer removal Past Anesthesia/Blood Transfusion Reactions: No Reported Reaction Past Psychological History: No Psychological Hx Reported Smoking Status: Former smoker Past Alcohol Use History: None Reported Past Drug Use History: None Reported - Past Family History Mother Family Medical History: No Reported History Medications and Allergies Home Medications Medication Instructions Recorded Confirmed Type Atorvastatin [Lipitor] 10 mg PO HS 01/13/16 11/16/22 History Amiodarone HCl [Pacerone] 100 mg PO DAILY 10/26/20 11/16/22 History Aspirin [Adult Low Dose Aspirin EC] 81 mg PO DAILY 10/26/20 11/16/22 History Furosemide [Lasix] 20 mg PO DAILY 10/26/20 11/16/22 History Losartan Potassium [Cozaar] 100 mg PO HS 10/26/20 11/16/22 History Acetaminophen-Codeine 300-30mg 1 tab PO Q6H PRN 11/13/22 11/16/22 History [Tylenol w/codeine #3] Warfarin [Coumadin] 1.25 mg PO SUMOTUWEFRSA@199911/13/22 11/16/22 History Magnesium Chloride [Slow-Mag] 64 mg PO HS 11/16/22 11/16/22 History Vit C/E/Zn/Coppr/Lutein/Zeaxan 1 tab PO HS 11/16/22 11/16/22 History [Preservision Areds 2 Chew Tab] Warfarin [Coumadin] 2.5 mg PO TH@199911/16/22 11/16/22 History allopurinoL 300 mg PO HS 11/16/22 11/16/22 History Apixaban [Eliquis] 2.5 mg PO BID #60 tab 11/19/22 Rx Allergies Allergy/AdvReac Type Severity Reaction Status Date / Time propoxyphene napsylate Allergy Hallucinati Verified 11/16/22 11:12 [From Priscila] ons adhesive tape AdvReac Rash/Hives Verified 11/16/22 11:12 morphine AdvReac Hallucinati Verified 11/16/22 11:12 ons Physical Exam Vitals: Vital Signs Temp Pulse Pulse Resp BP Pulse Ox 11/21/22 15:27 71 16 11/21/22 15:18 69 18 11/21/22 12:00 98.1 F 67 18 120/66 90 L 11/21/22 08:00 96.6 F L 68 20 115/61 92 L 11/21/22 06:58 91 L 11/21/22 06:32 98.4 F 73 18 91 L 11/21/22 04:29 98.4 F 67 18 119/66 90 L 11/20/22 23:07 61 16 161/69 91 L 11/20/22 19:47 97.8 F 60 16 131/66 91 L 11/20/22 16:21 61 134/72 93 L Intake and Output 11/21/22 11/21/22 11/21/22 06:59 14:59 22:59 Output Total 400 500 Balance -400 -500 Output: Urine 400 500 Other: Voiding Method External Catheter Weight 84.822 kg - Constitutional General appearance: average body habitus - Neck Neck: normal ROM - Respiratory requiring supplemental oxygen - Musculoskeletal no spinal tenderness to palpation - Psychiatric Psychiatric: A&O x's 3, appropriate affect Results CBC & Chem 7: 11/21/22 10:45 11/20/22 09:08 Labs: Abnormal Lab Results - Last 24 Hours (Table) 11/20/22 11/20/22 11/21/22 Range/Units 16:39 20:03 06:20 WBC (3.8-10.6) k/uL Neutrophils # (1.3-7.7) k/uL Lymphocytes # (1.0-4.8) k/uL POC Glucose (mg/dL) 182 H 170 H 176 H (70-110) mg/dL 11/21/22 11/21/22 Range/Units 10:45 11:57 WBC 18.2 H (3.8-10.6) k/uL Neutrophils # 17.4 H (1.3-7.7) k/uL Lymphocytes # 0.1 L (1.0-4.8) k/uL POC Glucose (mg/dL) 189 H (70-110) mg/dL Microbiology - Last 24 Hours (Table) 11/19/22 15:40 Gram Stain - Preliminary Pleural Fluid Body Fluid Culture - Preliminary Assessment and Plan Assessment: Mr. 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 Plan: I explained to the patient and his daughters he has imaging characteristics consistent with metastatic malignancy. They are not interested in surgery, chemotherapy, or biopsies at this juncture. They are leaning towards palliative care. I explained that under normal circumstances I would like tissue confirmation of malignancy prior to offering radiation. However, given the circumstances I think it would be reasonable to treat empirically as the index of suspicion is high and the morbidity of treatment will be low. They are going to discuss it amongst themselves and reach a decision. If they would like to proceed with radiation I would offer a 5-fraction course of palliative treatment to T10. Please contact me with any questions or concerns. Anthony Carrasco MD Radiation Oncology Time with Patient: Greater than 30
[2022-11-21 17:07] LABS: Glucose,Whole Blood 287 mg/dL (70-110)
[2022-11-21 20:33] LABS: Glucose,Whole Blood 248 mg/dL (70-110)
--- NOTE | 2022-11-21 20:55 | P.PN ---
Subjective Progress Note Date: 11/21/22 Principal diagnosis: Lung lesions concerning for metastatic malignancy Pt lying in bed comfortable. Oxygen was increased to 15L high flow NC early this morning, after O2 sat dropped to 84% Pt denies dyspnea or chest pain, has persisting right lower back pain, no bleeding, still weak and is not currently ambulating. Objective - Vital Signs Vital signs: Vital Signs Temp 98.1 F 11/21/22 12:00 Pulse 67 11/21/22 12:00 Resp 18 11/21/22 12:00 BP 120/66 11/21/22 12:00 Pulse Ox 90 L 11/21/22 12:00 FiO2 Intake & Output 11/20/22 11/21/22 11/21/22 18:59 06:59 18:59 Intake Total 180 Output Total 600 400 300 Balance -420 -400 -300 Weight 84.822 kg Intake: Oral 180 Output: Urine 600 400 300 Other: Voiding Method External Catheter External Catheter # Bowel Movements 1 - Constitutional General appearance: Present: average body habitus - EENT Eyes: Present: anicteric sclerae, EOMI ENT: Present: hearing grossly normal - Respiratory Details: mild respiratory distress Respiratory: bilateral: rales, rhonchi - Cardiovascular Rhythm: regular Heart sounds: normal: S1, S2 Abnormal Heart Sounds: Present: systolic murmur - Integumentary Integumentary: Present: normal - Neurologic Neurologic Comment(s): grossly Neurologic: Present: CNII-XII intact - Musculoskeletal Musculoskeletal: Present: generalized weakness - Psychiatric Psychiatric: Present: A&O x's 3, appropriate affect, intact judgment & insight - Labs CBC & Chem 7: 11/21/22 10:45 11/20/22 09:08 Labs: Abnormal Lab Results - Last 24 Hours (Table) 11/20/22 11/20/22 11/21/22 Range/Units 16:39 20:03 06:20 WBC (3.8-10.6) k/uL POC Glucose (mg/dL) 182 H 170 H 176 H (70-110) mg/dL 11/21/22 11/21/22 Range/Units 10:45 11:57 WBC 18.2 H (3.8-10.6) k/uL POC Glucose (mg/dL) 189 H (70-110) mg/dL Microbiology - Last 24 Hours (Table) 11/19/22 15:40 Gram Stain - Preliminary Pleural Fluid Body Fluid Culture - Preliminary - Imaging and Cardiology Chest x-ray: report reviewed Assessment and Plan (1) Lung mass Current Visit: Yes Status: Acute Priority: High Code(s): R91.8 - OTHER NONSPECIFIC ABNORMAL FINDING OF LUNG FIELD SNOMED Code(s): 773131537 (2) Metastatic cancer Current Visit: Yes Status: Acute Priority: High Code(s): C79.9 - SECONDARY MALIGNANT NEOPLASM OF UNSPECIFIED SITE SNOMED Code(s): 944433091 (3) Low back pain Current Visit: Yes Status: Acute Priority: High Code(s): M54.50 - LOW BACK PAIN, UNSPECIFIED SNOMED Code(s): 798108632 Plan: Metastatic malignancy -Noted to have progressive back pain over the past month along with anorexia, hemoptysis, and lower extremity weakness -CT lumbar spine 11/16/2022 noted degenerative changes with stenosis, incidental finding of lesions in the bilateral lower lungs -CT CAP 11/16/2022 multiple bilateral lung nodules, mediastinal lymphadenopathy, left hilar lymphadenopathy, and metastases to the vertebral bodies of T7, L1, and compression fracture of T10. Given his clinical and radiographic findings, there is a concern for metastatic malignancy -Discussed findings with Mr. Grant, his , and his son. Discussed that at this time, we do not have a definitive diagnosis to discuss things such as prognosis or treatment options -Mr. Grant is in favor of obtaining additional work-up to establish a diagnosis. However, he stated that he would not want to have systemic chemotherapy like he did for his prior diagnosis of colon cancer. -With regard to the differential diagnosis, this is currently broad and includes metastatic melanoma or potentially primary lung malignancy. The lung lesions do not appear consistent with a typical presentation of primary lung cancer, but this cannot be definitively excluded. It is less likely to be metastatic colon cancer given the length of time that has elapsed since his diagnosis and treatment. Thoracentesis was performed 11/19/21, with 875cc drained. Cytology is pending. Biopsy held at this time. To fully asses treatment options, including IO or targeted therapy, tissue diagnosis is necessary for molecular profiling and PD-L1 testing. -Spoke with patient and family regarding cytology vs biopsy and informed them that we will f/u with results to discuss options. Family and patient in agreement with plan Supratherapeutic INR -Coumadin for atrial fibrillation. Likely supratherapeutic due to poor oral intake prior to admit. -He received vitamin K 2.5 mg p.o. Repeat INR on 11/18/21 revealed increased INR to 8.3, second dose of vitamin K 2.5mg was ordered. INR 1.7 on 11/19, 1.4 yesterday. Ok to resume anticoagulation but recommend, given his poor oral intake, consideration should be given to changing Coumadin to a DOAC such as Eliquis or Xarelto as long as this is appropriate from a Cardiology standpoint. -Cardiology is on consult Pneumonia: -CXR showed worsening bilateral infiltrates. Pt on Zosyn and decadron. Pulm following -O2 is at 15 L high flow currently Dr johnests: I have seen and examined pt, performed H&P, developed impression and plan of care. Discussed with dictator. Agree with documentation, dictated as a scribe
[2022-11-21] MEDS: allopurinoL 300 MG TAB PO SCH (21:04)
[2022-11-21] MEDS: LOSARTAN 50 MG TAB PO SCH (21:04)
[2022-11-21] MEDS: ATORVASTATIN 10 MG TAB PO SCH (21:04)
[2022-11-22 06:21] LABS: Glucose,Whole Blood 228 mg/dL (70-110)
[2022-11-22] MEDS: HYDROmorphone 0.5 MG/0.5 ML SYRINGE IVP PRN ×4 (06:25→22:00)
[2022-11-22] MEDS: DEXAMETHASONE SOD PHOSPHATE 4 MG/ML 1 ML VIAL IVP SCH ×4 (06:25→23:55)
[2022-11-22] MEDS: INSULIN ASPART (NovoLOG) 100 UNIT/ML VIAL SQ SCH ×4 (06:25→20:08)
[2022-11-22 08:30] LABS: Calcium 8.8 mg/dL (8.4-10.2); Potassium 4.2 mmol/L (3.5-5.1)
[2022-11-22] MEDS: Acetaminophen-Codeine 300-30mg TAB PO PRN (08:40)
[2022-11-22] MEDS: amLODIPine 5 MG TAB PO SCH (08:40)
[2022-11-22] MEDS: FAMOTIDINE 20 MG TAB PO SCH ×2 (08:40→20:07)
[2022-11-22] MEDS: AMIODARONE 100 MG TAB PO SCH (08:40)
[2022-11-22] MEDS: FUROSEMIDE 10 MG/ML 4 ML VIAL IV SCH ×2 (08:40→20:07)
[2022-11-22] MEDS: ASPIRIN 81 MG PO SCH (08:41)
[2022-11-22] MEDS: PIPERACILLIN-TAZOBACTAM 3.375 GM in SODIUM CHLORIDE 0.9% 100 ML IVPB SCH ×3 (08:41→23:55)
[2022-11-22 08:58] LABS: Basophils % (A) 0 %; Eosinophils % (A) 0 %; HCT 41.7 % (39.0-53.0); HGB 13.9 gm/dL (13.0-17.5); Lymphocytes # (A) 0.2 k/uL (1.0-4.8); Lymphocytes % (A) 1 %; MCH 32.7 pg (25.0-35.0); MCHC 33.4 g/dL (31.0-37.0); MCV 98.1 fL (80.0-100.0); Monocytes # (A) 0.3 k/uL (0-1.0); Monocytes % (A) 2 %; Neutrophils # (A) 13.7 k/uL (1.3-7.7); Neutrophils % (A) 96 %; Platelet Count 257 k/uL (150-450); RBC 4.25 m/uL (4.30-5.90); RDW 12.7 % (11.5-15.5); WBC 14.3 k/uL (3.8-10.6)
[2022-11-22] MEDS: IPRATROPIUM-ALBUTEROL 3 ML NEB INHALATION SCH ×4 (09:04→21:17)
--- NOTE | 2022-11-22 09:37 | P.PN ---
Subjective Progress Note Date: 11/22/22 This is a very pleasant 87-year-old male patient who has a history of colon cancer status post colectomy, melanoma, status post resection at the [facility], atrial fibrillation anticoagulated with warfarin, hyperlipidemia, hypertension, obstructive sleep apnea, gout, peripheral vascular disease with previous stent placement, cardiac sarcoidosis with previous VT ablations and subsequent AICD placement. He had been having issues with low back pain and progressive weakness of the lower extremities. He presented here to the emergency room yesterday for the same. Computed tomography scan of the spine revealed multilevel disc degeneration changes with severe L3-L4 and moderate to severe L4-L5 spinal canal stenosis. There is new partially visualized lower lung masses/nodule and enlarged upper abdominal lymph node concerning for metastatic disease. ET scan of the chest abdomen and pelvis revealed diffuse pulmonary nodules and mediastinal lymphadenopathy with metastatic disease. Th ere is pathologic fracture of T10 vertebral body with extension into the bilateral pedicles. There is approximately 25% height loss. Additional lucent lesion within T7 and L1 vertebral bodies which could also represent metastatic foci. There is slight leg appearance in the superior vena cava secondary to large mediastinal lymphadenopathy concerning for future SVC syndrome. No evidence of pulmonary embolism. No evidence of lymphadenopathy or mass in the abdomen or pelvis. White count 6.2. Hemoglobin 14.4. Initial INR 8.5 currently 7.5. Sodium 135. Potassium 5.8. BUN 22. Creatinine 0.78. Glucose 209. Calcium 9.0. Esparza virus and influenza screens negative. He is seen today in consultation on the selective care unit. He admits to having some shortness of breath cough and congestion. He has been coughing up blood-tinged sputum. He is a smoker of 53 years. He has no home oxygen. He has no pulmonary medications. He is currently requiring 5 L nasal cannula to maintain O2 saturations in the low 90s. He is afebrile. Hemodynamically stable. Chest x-ray reveals cardiomegaly, pulmonary vascular congestion and bilateral pleural effusions. ProBNP 2150. He's been initiated on Decadron 4 mg IV every 6 hours. Oral diuretics. Dilaudid for pain control. The patient is seen today 11/18/2022 in follow-up on the selective care unit. He is currently resting comfortably in bed. Awake and alert in no acute distress. Currently on 5 L high flow nasal cannula with O2 saturations in the mid 90s. Afebrile. Hemodynamically stable. White count 11.7. Hemoglobin 12.6. Platelets 266. INR 8.3. Sodium 134. Potassium 4.5. Bicarb 34. BUN 27. Creatinine 0.70. Glucose 165. He remains on Decadron 4 mg IVP every 6 hours. He was given vitamin K 2.5 mg by mouth today. The patient is seen today 11/19/2022 in follow-up on the selective care unit. He is currently laying flat in bed. Awake and alert distress. O2 saturations in the 90s on 5 L/m per nasal cannula. He's been afebrile. Hemodynamically stable. White count 12.8. Hemoglobin 14.6. Platelets 285. INR 1.7. Sodium 132. Potassium 4.5. Bicarb 36. BUN 27. Creatinine 0.64. Glucose 143. He remains on Decadron 4 mg IVP every 6 hours. Utilizing Tylenol No. 3 and Dilaudid for pain control. On 11/20/2022, the patient is being seen for a follow-up. Is a concern of metastatic carcinoma this patient. The patient has multiple comorbidities including previous history of cardiac sarcoidosis, previous CT ablations, AICD placement, his colon cancer with a previous colectomy, previous history of melanoma resected, chronic atrial fibrillation maintained on anticoagulation with warfarin, hyperlipidemia and hypertension and obstructive sleep apnea along with peripheral vascular disease and previous vascular stent insertion. Patient also has gout. Patient was having some shortness of breath and back pain. He does have an area of severe L3-L4 and moderate L4-L5 canal stenosis. As far as the the CAT scan of the chest, this is consistent with metastatic disease with extensive B cell lymphadenopathy, multiple bilateral pulmonary nodules and bilateral pleural effusion. The patient underwent a thoracentesis yesterday and the fluid LDH is low at 112 and fluid protein is at 1.9. This is more consistent of a chance areli. Blood work shows an INR of 1.4 with a PT of 14.4. WBC count of 15.4. The CAT scan findings are highly suspicious for malignancy. CEA level is at 1.0. ProBNP level was 2150. Patient's calcium level is at 8.9. LFTs are normal. On 11/21/2022, the patient's condition is worse. His occupation is obviously worse and the patient was on 5 L O2 nasal cannula and overnight and earlier this morning the patient became more short of breath and currently is on 15 L nonrebreather fullface mask. He has a congested cough. Unable to bring up much sputum. Afebrile. Hemodynamically stable. Based on my review of the CAT scan of the chest, there is evidence of diffuse metastatic disease. The family was quite hesitant to undergo further investigation and they are considering hospice care. Meanwhile, the patient has undergone thoracentesis for diagnostic purpo ses. The fluid came back a transudate and the fluid cytology is still pending. Noted based on the CAT scan of the chest, the patient has extensive mediastinal lymphadenopathy and extensive bilateral pulmonary nodules and bilateral pleural effusions. He is quite debilitated 87-year-old male patient. He is known to have previous colectomy for colon cancer, previous melanoma, history of AICD placement, history of cardiac Sarcoidosis. He Also Has Chronic Atrial Fibrillation Maintained on Anticoagulation with Warfarin, Hypertension Hyperlipidemia and Obstructive Sleep Apnea and Peripheral Vascular Disease. 11/22/2022, the patient is less short of breath. After being on 100% on rebreather facemask, the patient was transitioned to high flow oxygen at 15 L and current pulse ox is around 95%. He is subjected to diuresis yesterday and the patient is on Lasix 40 mg every 12 hours. Overall fluid balance has been negative over the past 24 hours and the patient is feeling less short of breath. Was still awaiting the final pathology from the lower fluid was aspirated. Fluid balance is -1.6 L over the past 24 hours. Note that the pleural fluid analysis based on the chemistry was a transudate and the pathology may not give us a final diagnosis. I do suspect malignancy and the patient and assess the patient and his family is willing, and endobronchial ultrasound with biopsy of the mediastinal lymph nodes were confirmed the diagnosis. In any rates, he is quite debilitated. Is 87 years of age. No final decision regarding any biopsies at this point in time. Oncology is on the case. Objective - Vital Signs Vital signs: Vital Signs Temp 98.1 F 11/22/22 07:58 Pulse 74 11/22/22 09:13 Resp 20 11/22/22 07:58 BP 133/52 11/22/22 07:58 Pulse Ox 92 L 11/22/22 09:04 FiO2 Intake & Output 11/21/22 11/22/22 11/22/22 18:59 06:59 18:59 Intake Total 240 5 Output Total 500 1350 Balance -500 -1110 5 Weight 84.822 kg 80 kg Intake: IV 5 Invasive Line 2 5 Oral 240 Output: Urine 500 1350 Other: Voiding Method External Catheter - Exam GENERAL EXAM: Alert, 87-year-old male patient, on 15 L, fairly comfortable in no apparent distress. HEAD: Normocephalic. EYES: Normal reaction of pupils, equal size. NOSE: Clear with pink turbinates. THROAT: No erythema or exudates. NECK: No masses, no JVD. CHEST: No chest wall deformity. LUNGS: Equal air entry with bibasilar crackles. CVS: S1 and S2 normal with no audible murmur, regular rhythm. ABDOMEN: No hepatosplenomegaly, normal bowel sounds, no guarding or rigidity. SPINE: No scoliosis or deformity SKIN: No rashes CENTRAL NERVOUS SYSTEM: No focal deficits, tone is normal in all 4 extremities. EXTREMITIES: Generalized weakness of the bilateral lower extremities. There is no peripheral edema. No clubbing, no cyanosis. Peripheral pulses are intact. - Labs CBC & Chem 7: 11/22/22 07:18 11/22/22 07:18 Labs: Abnormal Lab Results - Last 24 Hours (Table) 11/21/22 11/21/22 11/21/22 Range/Units 10:45 11:57 17:06 WBC 18.2 H (3.8-10.6) k/uL RBC (4.30-5.90) m/uL Neutrophils # 17.4 H (1.3-7.7) k/uL Lymphocytes # 0.1 L (1.0-4.8) k/uL Sodium (137-145) mmol/L Chloride (98-107) mmol/L Carbon Dioxide (22-30) mmol/L BUN (9-20) mg/dL Glucose (74-99) mg/dL POC Glucose (mg/dL) 189 H 287 H (70-110) mg/dL 11/21/22 11/22/22 11/22/22 Range/Units 20:31 06:20 07:18 WBC 14.3 H (3.8-10.6) k/uL RBC 4.25 L (4.30-5.90) m/uL Neutrophils # 13.7 H (1.3-7.7) k/uL Lymphocytes # 0.2 L (1.0-4.8) k/uL Sodium (137-145) mmol/L Chloride (98-107) mmol/L Carbon Dioxide (22-30) mmol/L BUN (9-20) mg/dL Glucose (74-99) mg/dL POC Glucose (mg/dL) 248 H 228 H (70-110) mg/dL 11/22/22 Range/Units 07:18 WBC (3.8-10.6) k/uL RBC (4.30-5.90) m/uL Neutrophils # (1.3-7.7) k/uL Lymphocytes # (1.0-4.8) k/uL Sodium 132 L (137-145) mmol/L Chloride 90 L (98-107) mmol/L Carbon Dioxide 38 H (22-30) mmol/L BUN 45 H (9-20) mg/dL Glucose 181 H (74-99) mg/dL POC Glucose (mg/dL) (70-110) mg/dL Microbiology - Last 24 Hours (Table) 11/19/22 15:40 Anaerobic Culture - Preliminary Pleural Fluid 11/19/22 15:40 Gram Stain - Preliminary Pleural Fluid Body Fluid Culture - Preliminary Assessment and Plan Plan: Diffuse pulmonary nodules, pleural effusions and mediastinal lymphadenopathy concerning for metastatic disease, possibilities may include metastasis to the lungs from melanoma or GI source of malignancy. Other possibilities could be lung cancer. Acute hypoxemic respiratory failure secondary to an acute exacerbation of suspected diastolic versus systolic congestive heart failure, and the patient's oxygenation was worse yesterday and he was placed on 100% nonrebreather facemask and currently is responding to diuretics and he is weaned down to 15 L nasal cannula. We will continue to diuretics as the patient is negative fluid balance for now. The pleural fluid that was aspirated with a transudate awaiting final cytology. Hemoptysis secondary to supratherapeutic INR Pathologic fracture of T10 vertebral body with extension of the bilateral pedicles in a patient with lower extremity weakness. 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, status post AICD placement History of colon cancer status post colectomy with colostomy and subsequent reversal History of melanoma of the face and neck on the right, status post resection at the [facility] Atrial fibrillation anticoagulated with warfarin, supra therapeutic with initial INR of 8.5 currently down to 1.4 Obstructive sleep apnea History of 53 years chronic tobacco dependence Suspect some underlying COPD Hypertension Hyperlipidemia Peripheral vascular disease with previous stent placement Plan: Continue the patient on Lasix 40 mg IV every 12 hours Continue IV Zosyn as the patient's chest x-ray from today shows perihilar opacities and cardiomegaly and pneumonia is obviously a concern. Noted the pulmonary infiltrates have increased significantly over the past 2 days. There are also multiple areas of pulmonary nodularity. Echocardiogram showed a preserved LV function, moderate aortic stenosis and moderate mitral regurgitation Awaiting the results of the fluid cytology, the chemistry shows a transudate There is a fluid cytology is negative for malignancy, the patient will need a bronchoscopy with endobronchial ultrasound guided biopsy of the lymph node. I believe a discussion was done with the family yesterday and the family is not interested in pursuing any form of endoscopic procedures. I'm going to revisit this will situation after day results of the fluid cytology is available. In view of the recent oxygenation worsening, no procedures are recommended
[2022-11-22 11:44] LABS: Glucose,Whole Blood 269 mg/dL (70-110)
[2022-11-22 16:33] LABS: Glucose,Whole Blood 279 mg/dL (70-110)
--- NOTE | 2022-11-22 18:24 | P.PN ---
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 He had been having issues with low back pain and progressive weakness of the lower extremities. He presented here to the emergency room yesterday for the same. Computed tomography scan of the spine revealed multilevel disc degeneration changes with severe L3-L4 and moderate to severe L4-L5 spinal canal stenosis. There is new partially visualized lower lung masses/nodule and enlarged upper abdominal lymph node concerning for metastatic disease. ET scan of the chest abdomen and pelvis revealed diffuse pulmonary nodules and mediastinal lymphadenopathy with metastatic disease. There is pathologic fracture of T10 vertebral body with extension into the bilateral pedicles. There is approximately 25% height loss. Additional lucent lesion within T7 and L1 vertebral bodies which could also represent metastatic foci. There is slight leg appearance in the superior vena cava secondary to large mediastinal lymphadenopathy concerning for future SVC syndrome. No evidence of pulmonary embolism. No evidence of lymphadenopathy or mass in the abdomen or pelvis. White count 6.2. Hemoglobin 14.4. Initial INR 8.5 currently 7.5. Sodium 135. Potassium 5.8. BUN 22. Creatinine 0.78. Glucose 209. Calcium 9.0. Esparza virus and influenza screens negative. He is seen today in consultation on the selective care unit. He admits to having some shortness of breath cough and congestion. He has been coughing up blood-tinged sputum. He is a smoker of 53 years. He has no home oxygen. He has no pulmonary medications. He is currently requiring 5 L nasal cannula to maintain O2 saturations in the low 90s. He is afebrile. Hemodynamically stable. Chest x- ray reveals cardiomegaly, pulmonary vascular congestion and bilateral pleural effusions. ProBNP 2150. 24-hour interval change 11/19/2022 Patient is seen and evaluated in follow-up on the selective care unit. He is currently laying flat in bed. Awake and alert distress. O2 saturations in the 90s on 5 L/m per nasal cannula. He's been afebrile. Hemodynamically stable. -- Blood work review reveals White count 12.8. Hemoglobin 14.6. Platelets 285. INR 1.7. Sodium 132. Potassium 4.5. Bicarb 36. BUN 27. Creatinine 0.64. Glucose 143. He remains on Decadron 4 mg IVP every 6 hours. Utilizing Tylenol No. 3 and Dilaudid for pain control. We will plan to continue to titrate FiO2 as tolerated Ultrasound completed of bilateral chest which reveals significant effusions; prominent referring patient to interventional radiology to perform ultrasound- guided diagnostic thoracentesis with consultation with radiation oncology for treatment for the pathological fractures of T10 vertebral body 24-hour interval change 11/20/2022 Patient was having some shortness of breath and back pain. He does have an area of severe L3-L4 and moderate L4-L5 canal stenosis. As far as the the CAT scan of the chest, this is consistent with metastatic disease with extensive B cell lymphadenopathy, multiple bilateral pulmonary nodules and bilateral pleural effusion. The patient underwent a thoracentesis yesterday and the fluid LDH is low at 112 and fluid protein is at 1.9. This is more consistent of a chance ab ate. Blood work shows an INR of 1.4 with a PT of 14.4. WBC count of 15.4. The CAT scan findings are highly suspicious for malignancy. CEA level is at 1.0. ProBNP level was 2150. Patient's calcium level is at 8.9. LFTs are normal. -- Fluid cytology is still pending; if cytology fails to yield any results, pulmonary's recommending bronchoscopy with endobronchial ultrasound guided biopsy of the lymph nodes - So far family is not very keen on pursuing biopsy with want to wait for cytology results and make up a definite decision 24-hour interval change 11/22/2022 11/22/2022, the patient is less short of breath. After being on 100% on rebreather facemask, the patient was transitioned to high flow oxygen at 15 L and current pulse ox is around 95%. He is subjected to diuresis yesterday and the patient is on Lasix 40 mg every 12 hours. Overall fluid balance has been negative over the past 24 hours and the patient is feeling less short of breath. Was still awaiting the final pathology from the lower fluid was aspirated. Fluid balance is -1.6 L over the past 24 hours. Note that the pleural fluid analysis based on the chemistry was a transudate and the pathology may not give us a final diagnosis. I do suspect malignancy and the patient and assess the p atient and his family is willing, and endobronchial ultrasound with biopsy of the mediastinal lymph nodes were confirmed the diagnosis. In any rates, he is quite debilitated. Is 87 years of age. No final decision regarding any biopsies at this point in time. Awaiting the results of the fluid cytology, the chemistry shows a transudate There is a fluid cytology is negative for malignancy, the patient will need a bronchoscopy with endobronchial ultrasound guided biopsy of the lymph node. Alena tejada a discussion was done with the family yesterday and the family is not interested in pursuing any form of endoscopic procedures. I'm going to revisit this will situation after day results of the fluid cytology is available. In view of the recent oxygenation worsening, no procedures are recommended Objective - Vital Signs Vital signs: Vital Signs Temp 98.5 F 11/22/22 12:00 Pulse 76 11/22/22 12:04 Resp 18 11/22/22 12:00 BP 131/58 11/22/22 12:00 Pulse Ox 92 L 11/22/22 12:00 FiO2 Intake & Output 11/21/22 11/22/22 11/22/22 18:59 06:59 18:59 Intake Total 240 5 Output Total 500 1350 Balance -500 -1110 5 Weight 84.822 kg 80 kg Intake: IV 5 Invasive Line 2 5 Oral 240 Output: Urine 500 1350 Other: Voiding Method External Catheter - Exam GENERAL: The patient is alert and oriented x3, not in any acute distress. Well developed, well nourished. HEENT: Pupils are round and equally reacting to light. EOMI. No scleral icterus. No conjunctival pallor. Normocephalic, atraumatic. No pharyngeal erythema. No thyromegaly. CARDIOVASCULAR: S1 and S2 present. No murmurs, rubs, or gallops. PULMONARY: Chest is clear to auscultation, no wheezing or crackles. ABDOMEN: Soft, nontender, nondistended, normoactive bowel sounds. No palpable organomegaly. -MUSCULOSKELETAL: No joint swelling or deformity. Back tenderness EXTREMITIES: No cyanosis, clubbing, or pedal edema. -NEUROLOGICAL: Fully awake and oriented, cranial nerves are grossly intact, upper extremity strength is at baseline,. Bilateral lower extremity weakness, There is more weakness on the right leg. SKIN: No rashes. no petechiae. - Labs CBC & Chem 7: 11/22/22 07:18 11/22/22 07:18 Labs: Abnormal Lab Results - Last 24 Hours (Table) 11/21/22 11/21/22 11/21/22 Range/Units 10:45 17:06 20:31 WBC (3.8-10.6) k/uL RBC (4.30-5.90) m/uL Neutrophils # 17.4 H (1.3-7.7) k/uL Lymphocytes # 0.1 L (1.0-4.8) k/uL Sodium (137-145) mmol/L Chloride (98-107) mmol/L Carbon Dioxide (22-30) mmol/L BUN (9-20) mg/dL Glucose (74-99) mg/dL POC Glucose (mg/dL) 287 H 248 H (70-110) mg/dL 11/22/22 11/22/22 11/22/22 Range/Units 06:20 07:18 07:18 WBC 14.3 H (3.8-10.6) k/uL RBC 4.25 L (4.30-5.90) m/uL Neutrophils # 13.7 H (1.3-7.7) k/uL Lymphocytes # 0.2 L (1.0-4.8) k/uL Sodium 132 L (137-145) mmol/L Chloride 90 L (98-107) mmol/L Carbon Dioxide 38 H (22-30) mmol/L BUN 45 H (9-20) mg/dL Glucose 181 H (74-99) mg/dL POC Glucose (mg/dL) 228 H (70-110) mg/dL 11/22/22 Range/Units 11:42 WBC (3.8-10.6) k/uL RBC (4.30-5.90) m/uL Neutrophils # (1.3-7.7) k/uL Lymphocytes # (1.0-4.8) k/uL Sodium (137-145) mmol/L Chloride (98-107) mmol/L Carbon Dioxide (22-30) mmol/L BUN (9-20) mg/dL Glucose (74-99) mg/dL POC Glucose (mg/dL) 269 H (70-110) mg/dL Microbiology - Last 24 Hours (Table) 11/19/22 15:40 Anaerobic Culture - Preliminary Pleural Fluid 11/19/22 15:40 Gram Stain - Preliminary Pleural Fluid Body Fluid Culture - Preliminary Assessment and Plan Assessment: Multiple pulmonary nodules suspicious for primary lung cancer with mediastinal lymphadenopathy and metastatic to the bone. Pathological fractures of T10, with vertebral height loss. Right lower extremity weakness Multiple lucent lesions within T7 and L1 suspicious for metastatic disease Acute hypoxemic respiratory failure Hyperkalemia, could be secondary to medication while on losartan Chronic atrial fibrillation on Coumadin Coagulopathy secondary to Coumadin Hemoptysis Chronic heart failure Hyperlipidemia Hypertension History of osteoarthritis History of sleep apnea on CPAP at home. History of colon cancer status post radiotherapy History of melanoma Plan: hold Coumadin, monitor hemoglobin and vitals, monitor INR. If the patient insulin/dextrose and glaucoma for hyperkalemia, monitor potassium level. Also we will lower the dose of losartan 100 mg and 50 mg and add Norvasc for better blood pressure control with holding parameters Follow-up consultation from a orthopedic team, pulmonary team and hematology oncology team, Discontinue IV fluids Continue with dexamethasone, monitor sugar obtained TSLO Brace. Orthopedic team, Pain management discussed with patient and family at bedside, they requested Tylenol No. 3 as it is was working for him at home, also IV pain medication with Dilaudid as needed. Xanax when necessary for anxiety. Hold aspirin for patient's risk of bleeding and follow-up with cardiology's recommendation Labs and medication were reviewed.. Continue same treatment. Continue with symptomatic treatment. Resume home medication. Monitor lytes and vitals. DVT and GI prophylaxis. Further recommendations as per clinical course of the patie nt DVT prophylaxis: Patient already coagulopathic GI Prophylaxis: Pepcid Prognosis is guarded,
[2022-11-22 19:58] LABS: Glucose,Whole Blood 249 mg/dL (70-110)
[2022-11-22] MEDS: ATORVASTATIN 10 MG TAB PO SCH (20:07)
[2022-11-22] MEDS: LOSARTAN 50 MG TAB PO SCH (20:08)
[2022-11-22] MEDS: allopurinoL 300 MG TAB PO SCH (20:08)
[2022-11-23] MEDS: HYDROmorphone 0.5 MG/0.5 ML SYRINGE IVP PRN ×4 (02:26→23:33)
[2022-11-23 06:04] LABS: Glucose,Whole Blood 204 mg/dL (70-110)
[2022-11-23] MEDS: DEXAMETHASONE SOD PHOSPHATE 4 MG/ML 1 ML VIAL IVP SCH ×4 (06:19→23:33)
[2022-11-23] MEDS: Acetaminophen-Codeine 300-30mg TAB PO PRN ×2 (06:19→12:09)
[2022-11-23] MEDS: INSULIN ASPART (NovoLOG) 100 UNIT/ML VIAL SQ SCH ×4 (06:19→20:30)
[2022-11-23] MEDS: IPRATROPIUM-ALBUTEROL 3 ML NEB INHALATION SCH ×4 (07:32→19:07)
[2022-11-23] MEDS: FUROSEMIDE 10 MG/ML 4 ML VIAL IV SCH ×2 (10:24→20:30)
[2022-11-23] MEDS: amLODIPine 5 MG TAB PO SCH (10:24)
[2022-11-23] MEDS: FAMOTIDINE 20 MG TAB PO SCH ×2 (10:24→20:29)
[2022-11-23] MEDS: PIPERACILLIN-TAZOBACTAM 3.375 GM in SODIUM CHLORIDE 0.9% 100 ML IVPB SCH ×3 (10:24→23:33)
[2022-11-23] MEDS: ASPIRIN 81 MG PO SCH (10:24)
[2022-11-23] MEDS: AMIODARONE 100 MG TAB PO SCH (10:28)
--- NOTE | 2022-11-23 11:41 | P.PN ---
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 He had been having issues with low back pain and progressive weakness of the lower extremities. He presented here to the emergency room yesterday for the same. Computed tomography scan of the spine revealed multilevel disc degeneration changes with severe L3-L4 and moderate to severe L4-L5 spinal canal stenosis. There is new partially visualized lower lung masses/nodule and enlarged upper abdominal lymph node concerning for metastatic disease. ET scan of the chest abdomen and pelvis revealed diffuse pulmonary nodules and mediastinal lymphadenopathy with metastatic disease. Th ere is pathologic fracture of T10 vertebral body with extension into the bilateral pedicles. There is approximately 25% height loss. Additional lucent lesion within T7 and L1 vertebral bodies which could also represent metastatic foci. There is slight leg appearance in the superior vena cava secondary to large mediastinal lymphadenopathy concerning for future SVC syndrome. No evidence of pulmonary embolism. No evidence of lymphadenopathy or mass in the abdomen or pelvis. White count 6.2. Hemoglobin 14.4. Initial INR 8.5 currently 7.5. Sodium 135. Potassium 5.8. BUN 22. Creatinine 0.78. Glucose 209. Calcium 9.0. Esparza virus and influenza screens negative. He is seen today in consultation on the selective care unit. He admits to having some shortness of breath cough and congestion. He has been coughing up blood-tinged sputum. He is a smoker of 53 years. He has no home oxygen. He has no pulmonary medications. He is currently requiring 5 L nasal cannula to maintain O2 saturations in the low 90s. He is afebrile. Hemodynamically stable. Chest x-ray reveals cardiomegaly, pulmonary vascular congestion and bilateral pleural effusions. ProBNP 2150. He's been initiated on Decadron 4 mg IV every 6 hours. Oral diuretics. Dilaudid for pain control. The patient is seen today 11/18/2022 in follow-up on the selective care unit. He is currently resting comfortably in bed. Awake and alert in no acute distress. Currently on 5 L high flow nasal cannula with O2 saturations in the mid 90s. Afebrile. Hemodynamically stable. White count 11.7. Hemoglobin 12.6. Platelets 266. INR 8.3. Sodium 134. Potassium 4.5. Bicarb 34. BUN 27. Creatinine 0.70. Glucose 165. He remains on Decadron 4 mg IVP every 6 hours. He was given vitamin K 2.5 mg by mouth today. The patient is seen today 11/19/2022 in follow-up on the selective care unit. He is currently laying flat in bed. Awake and alert distress. O2 saturations in the 90s on 5 L/m per nasal cannula. He's been afebrile. Hemodynamically stable. White count 12.8. Hemoglobin 14.6. Platelets 285. INR 1.7. Sodium 132. Potassium 4.5. Bicarb 36. BUN 27. Creatinine 0.64. Glucose 143. He remains on Decadron 4 mg IVP every 6 hours. Utilizing Tylenol No. 3 and Dilaudid for pain control. On 11/20/2022, the patient is being seen for a follow-up. Is a concern of metastatic carcinoma this patient. The patient has multiple comorbidities including previous history of cardiac sarcoidosis, previous CT ablations, AICD placement, his colon cancer with a previous colectomy, previous history of melanoma resected, chronic atrial fibrillation maintained on anticoagulation with warfarin, hyperlipidemia and hypertension and obstructive sleep apnea along with peripheral vascular disease and previous vascular stent insertion. Patient also has gout. Patient was having some shortness of breath and back pain. He does have an area of severe L3-L4 and moderate L4-L5 canal stenosis. As far as the the CAT scan of the chest, this is consistent with metastatic disease with extensive B cell lymphadenopathy, multiple bilateral pulmonary nodules and bilateral pleural effusion. The patient underwent a thoracentesis yesterday and the fluid LDH is low at 112 and fluid protein is at 1.9. This is more consistent of a chance areli. Blood work shows an INR of 1.4 with a PT of 14.4. WBC count of 15.4. The CAT scan findings are highly suspicious for malignancy. CEA level is at 1.0. ProBNP level was 2150. Patient's calcium level is at 8.9. LFTs are normal. On 11/21/2022, the patient's condition is worse. His occupation is obviously worse and the patient was on 5 L O2 nasal cannula and overnight and earlier this morning the patient became more short of breath and currently is on 15 L nonrebreather fullface mask. He has a congested cough. Unable to bring up much sputum. Afebrile. Hemodynamically stable. Based on my review of the CAT scan of the chest, there is evidence of diffuse metastatic disease. The family was quite hesitant to undergo further investigation and they are considering hospice care. Meanwhile, the patient has undergone thoracentesis for diagnostic purpo ses. The fluid came back a transudate and the fluid cytology is still pending. Noted based on the CAT scan of the chest, the patient has extensive mediastinal lymphadenopathy and extensive bilateral pulmonary nodules and bilateral pleural effusions. He is quite debilitated 87-year-old male patient. He is known to have previous colectomy for colon cancer, previous melanoma, history of AICD placement, history of cardiac Sarcoidosis. He Also Has Chronic Atrial Fibrillation Maintained on Anticoagulation with Warfarin, Hypertension Hyperlipidemia and Obstructive Sleep Apnea and Peripheral Vascular Disease. 11/22/2022, the patient is less short of breath. After being on 100% on rebreather facemask, the patient was transitioned to high flow oxygen at 15 L and current pulse ox is around 95%. He is subjected to diuresis yesterday and the patient is on Lasix 40 mg every 12 hours. Overall fluid balance has been negative over the past 24 hours and the patient is feeling less short of breath. Was still awaiting the final pathology from the lower fluid was aspirated. Fluid balance is -1.6 L over the past 24 hours. Note that the pleural fluid analysis based on the chemistry was a transudate and the pathology may not give us a final diagnosis. I do suspect malignancy and the patient and assess the patient and his family is willing, and endobronchial ultrasound with biopsy of the mediastinal lymph nodes were confirmed the diagnosis. In any rates, he is quite debilitated. Is 87 years of age. No final decision regarding any biopsies at this point in time. Oncology is on the case. On 11/23/2022, the patient remains on 15 L of oxygen by nasal cannula. On 15 L O2, his pulse ox is 94%. Essentially the same as yesterday without any major improvement. He is in a negative fluid balance of 1.6 L for yesterday. Labs from today are still pending. He is still not interested in bronchoscopy and biopsies of the mediastinal lymph nodes. Meanwhile, the pro fluid cytology came back negative for malignancy. Objective - Vital Signs Vital signs: Vital Signs Temp 97.9 F 11/23/22 04:00 Pulse 62 11/23/22 11:16 Resp 18 11/23/22 04:00 BP 117/61 11/23/22 04:00 Pulse Ox 93 L 11/23/22 07:34 FiO2 Intake & Output 11/22/22 11/23/22 11/23/22 18:59 06:59 18:59 Intake Total 5 Output Total 800 1700 Balance -795 -1700 Weight 79.5 kg Intake: IV 5 Invasive Line 2 5 Output: Urine 800 1700 Other: Voiding Method External Catheter - Exam GENERAL EXAM: Alert, 87-year-old male patient, on 15 L, fairly comfortable in no apparent distress. HEAD: Normocephalic. EYES: Normal reaction of pupils, equal size. NOSE: Clear with pink turbinates. THROAT: No erythema or exudates. NECK: No masses, no JVD. CHEST: No chest wall deformity. LUNGS: Equal air entry with bibasilar crackles. CVS: S1 and S2 normal with no audible murmur, regular rhythm. ABDOMEN: No hepatosplenomegaly, normal bowel sounds, no guarding or rigidity. SPINE: No scoliosis or deformity SKIN: No rashes CENTRAL NERVOUS SYSTEM: No focal deficits, tone is normal in all 4 extremities. EXTREMITIES: Generalized weakness of the bilateral lower extremities. There is no peripheral edema. No clubbing, no cyanosis. Peripheral pulses are intact. - Labs CBC & Chem 7: 11/22/22 07:18 11/22/22 07:18 Labs: Abnormal Lab Results - Last 24 Hours (Table) 11/22/22 11/22/22 11/22/22 Range/Units 11:42 16:32 19:57 POC Glucose (mg/dL) 269 H 279 H 249 H (70-110) mg/dL 11/23/22 Range/Units 06:03 POC Glucose (mg/dL) 204 H (70-110) mg/dL Microbiology - Last 24 Hours (Table) 11/19/22 15:40 Gram Stain - Preliminary Pleural Fluid Body Fluid Culture - Preliminary Assessment and Plan Plan: Diffuse pulmonary nodules, pleural effusions and mediastinal lymphadenopathy concerning for metastatic disease, possibilities may include metastasis to the lungs from melanoma or GI source of malignancy. Other possibilities could be lung cancer. Acute hypoxemic respiratory failure secondary to an acute exacerbation of suspected diastolic versus systolic congestive heart failure, and the patient's oxygenation was worse yesterday and he was placed on 100% nonrebreather facemask and currently is responding to diuretics and he is weaned down to 15 L nasal cannula. We will continue to diuretics as the patient is negative fluid balance for now. The pleural fluid that was aspirated with a transudate and the final cytology came back negative for malignancy. Hemoptysis secondary to supratherapeutic INR Pathologic fracture of T10 vertebral body with extension of the bilateral pedicles in a patient with lower extremity weakness. 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, status post AICD placement History of colon cancer status post colectomy with colostomy and subsequent reversal History of melanoma of the face and neck on the right, status post resection at the [facility] Atrial fibrillation anticoagulated with warfarin, supra therapeutic with initial INR of 8.5 currently down to 1.4 Obstructive sleep apnea History of 53 years chronic tobacco dependence Suspect some underlying COPD Hypertension Hyperlipidemia Peripheral vascular disease with previous stent placement Plan: Continue same treatment Continue the patient on Lasix 40 mg IV every 12 hours Continue IV Zosyn as the patient's chest x-ray from today shows perihilar opacities and cardiomegaly and pneumonia is obviously a concern. Noted the pulmonary infiltrates have increased significantly over the past 2 days. There are also multiple areas of pulmonary nodularity. Echocardiogram showed a preserved LV function, moderate aortic stenosis and moderate mitral regurgitation The pleural fluid cytology was negative for malignancy and the patient is not interested in bronchoscopy with endobronchial ultrasound guided biopsy of the lymph node. He wants only palliative radiation therapy to the spine for pain control. He is a DNR/DNI CODE STATUS.
[2022-11-23 11:43] LABS: Glucose,Whole Blood 252 mg/dL (70-110)
[2022-11-23 16:39] LABS: Glucose,Whole Blood 316 mg/dL (70-110)
--- NOTE | 2022-11-23 17:18 | P.PN ---
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 He had been having issues with low back pain and progressive weakness of the lower extremities. He presented here to the emergency room yesterday for the same. Computed tomography scan of the spine revealed multilevel disc degeneration changes with severe L3-L4 and moderate to severe L4-L5 spinal canal stenosis. There is new partially visualized lower lung masses/nodule and enlarged upper abdominal lymph node concerning for metastatic disease. ET scan of the chest abdomen and pelvis revealed diffuse pulmonary nodules and mediastinal lymphadenopathy with metastatic disease. There is pathologic fracture of T10 vertebral body with extension into the bilateral pedicles. There is approximately 25% height loss. Additional lucent lesion within T7 and L1 vertebral bodies which could also represent metastatic foci. There is slight leg appearance in the superior vena cava secondary to large mediastinal lymphadenopathy concerning for future SVC syndrome. No evidence of pulmonary embolism. No evidence of lymphadenopathy or mass in the abdomen or pelvis. White count 6.2. Hemoglobin 14.4. Initial INR 8.5 currently 7.5. Sodium 135. Potassium 5.8. BUN 22. Creatinine 0.78. Glucose 209. Calcium 9.0. Esparza virus and influenza screens negative. He is seen today in consultation on the selective care unit. He admits to having some shortness of breath cough and congestion. He has been coughing up blood-tinged sputum. He is a smoker of 53 years. He has no home oxygen. He has no pulmonary medications. He is currently requiring 5 L nasal cannula to maintain O2 saturations in the low 90s. He is afebrile. Hemodynamically stable. Chest x- ray reveals cardiomegaly, pulmonary vascular congestion and bilateral pleural effusions. ProBNP 2150. 24-hour interval change 11/19/2022 Patient is seen and evaluated in follow-up on the selective care unit. He is currently laying flat in bed. Awake and alert distress. O2 saturations in the 90s on 5 L/m per nasal cannula. He's been afebrile. Hemodynamically stable. -- Blood work review reveals White count 12.8. Hemoglobin 14.6. Platelets 285. INR 1.7. Sodium 132. Potassium 4.5. Bicarb 36. BUN 27. Creatinine 0.64. Glucose 143. He remains on Decadron 4 mg IVP every 6 hours. Utilizing Tylenol No. 3 and Dilaudid for pain control. We will plan to continue to titrate FiO2 as tolerated Ultrasound completed of bilateral chest which reveals significant effusions; prominent referring patient to interventional radiology to perform ultrasound- guided diagnostic thoracentesis with consultation with radiation oncology for treatment for the pathological fractures of T10 vertebral body 24-hour interval change 11/20/2022 Patient was having some shortness of breath and back pain. He does have an area of severe L3-L4 and moderate L4-L5 canal stenosis. As far as the the CAT scan of the chest, this is consistent with metastatic disease with extensive B cell lymphadenopathy, multiple bilateral pulmonary nodules and bilateral pleural effusion. The patient underwent a thoracentesis yesterday and the fluid LDH is low at 112 and fluid protein is at 1.9. This is more consistent of a chance ab ate. Blood work shows an INR of 1.4 with a PT of 14.4. WBC count of 15.4. The CAT scan findings are highly suspicious for malignancy. CEA level is at 1.0. ProBNP level was 2150. Patient's calcium level is at 8.9. LFTs are normal. -- Fluid cytology is still pending; if cytology fails to yield any results, pulmonary's recommending bronchoscopy with endobronchial ultrasound guided biopsy of the lymph nodes - So far family is not very keen on pursuing biopsy with want to wait for cytology results and make up a definite decision 24-hour interval change 11/22/2022 11/22/2022, the patient is less short of breath. After being on 100% on rebreather facemask, the patient was transitioned to high flow oxygen at 15 L and current pulse ox is around 95%. He is subjected to diuresis yesterday and the patient is on Lasix 40 mg every 12 hours. Overall fluid balance has been negative over the past 24 hours and the patient is feeling less short of breath. Was still awaiting the final pathology from the lower fluid was aspirated. Fluid balance is -1.6 L over the past 24 hours. Note that the pleural fluid analysis based on the chemistry was a transudate and the pathology may not give us a final diagnosis. I do suspect malignancy and the patient and assess the p atient and his family is willing, and endobronchial ultrasound with biopsy of the mediastinal lymph nodes were confirmed the diagnosis. In any rates, he is quite debilitated. Is 87 years of age. No final decision regarding any biopsies at this point in time. Awaiting the results of the fluid cytology, the chemistry shows a transudate There is a fluid cytology is negative for malignancy, the patient will need a bronchoscopy with endobronchial ultrasound guided biopsy of the lymph node. I gary tejada a discussion was done with the family yesterday and the family is not interested in pursuing any form of endoscopic procedures. I'm going to revisit this will situation after day results of the fluid cytology is available. In view of the recent oxygenation worsening, no procedures are recommended 11/23/2022, the patient is seen and evaluated with multiple family members at bedside; remains on 15 L of oxygen by nasal cannula. On 15 L O2, his pulse ox is 94%. Essentially the same as yesterday without any major improvement. He is in a negative fluid balance of 1.6 L for yesterday. Labs from today are still pending. He is still not interested in bronchoscopy and biopsies of the mediastinal lymph nodes. Meanwhile, the pro fluid cytology came back negative for malignancy. Continue the patient on Lasix 40 mg IV every 12 hours Continue IV Zosyn as the patient's chest x-ray from today shows perihilar opacities and cardiomegaly and pneumonia is obviously a concern. Noted the pulmonary infiltrates have increased significantly over the past 2 days. There are also multiple areas of pulmonary nodularity. Echocardiogram showed a preserved LV function, moderate aortic stenosis and moderate mitral regurgitation The pleural fluid cytology was negative for malignancy and the patient is not interested in bronchoscopy with endobronchial ultrasound guided biopsy of the lymph node. He wants only palliative radiation therapy to the spine for pain control. He is a DNR/DNI CODE STATUS. Objective - Vital Signs Vital signs: Vital Signs Temp 97.8 F 11/23/22 12:08 Pulse 79 11/23/22 12:08 Resp 18 11/23/22 12:08 BP 123/58 11/23/22 12:08 Pulse Ox 94 L 11/23/22 12:08 FiO2 Intake & Output 11/22/22 11/23/22 11/23/22 18:59 06:59 18:59 Intake Total 5 Output Total 800 1700 Balance -795 -1700 Weight 79.5 kg Intake: IV 5 Invasive Line 2 5 Output: Urine 800 1700 Other: Voiding Method External Catheter - Exam GENERAL: The patient is alert and oriented x3, not in any acute distress. Well developed, well nourished. HEENT: Pupils are round and equally reacting to light. EOMI. No scleral icterus. No conjunctival pallor. Normocephalic, atraumatic. No pharyngeal erythema. No thyromegaly. CARDIOVASCULAR: S1 and S2 present. No murmurs, rubs, or gallops. PULMONARY: Chest is clear to auscultation, no wheezing or crackles. ABDOMEN: Soft, nontender, nondistended, normoactive bowel sounds. No palpable organomegaly. -MUSCULOSKELETAL: No joint swelling or deformity. Back tenderness EXTREMITIES: No cyanosis, clubbing, or pedal edema. -NEUROLOGICAL: Fully awake and oriented, cranial nerves are grossly intact, upper extremity strength is at baseline,. Bilateral lower extremity weakness, There is more weakness on the right leg. SKIN: No rashes. no petechiae. - Labs CBC & Chem 7: 11/22/22 07:18 11/22/22 07:18 Labs: Abnormal Lab Results - Last 24 Hours (Table) 11/22/22 11/22/22 11/23/22 Range/Units 16:32 19:57 06:03 POC Glucose (mg/dL) 279 H 249 H 204 H (70-110) mg/dL 11/23/22 Range/Units 11:41 POC Glucose (mg/dL) 252 H (70-110) mg/dL Microbiology - Last 24 Hours (Table) 11/19/22 15:40 Gram Stain - Preliminary Pleural Fluid Body Fluid Culture - Preliminary Assessment and Plan Assessment: Multiple pulmonary nodules suspicious for primary lung cancer with mediastinal lymphadenopathy and metastatic to the bone. Pathological fractures of T10, with vertebral height loss. Right lower extremity weakness Multiple lucent lesions within T7 and L1 suspicious for metastatic disease Acute hypoxemic respiratory failure Hyperkalemia, could be secondary to medication while on losartan Chronic atrial fibrillation on Coumadin Coagulopathy secondary to Coumadin Hemoptysis Chronic heart failure Hyperlipidemia Hypertension History of osteoarthritis History of sleep apnea on CPAP at home. History of colon cancer status post radiotherapy History of melanoma Plan: hold Coumadin, monitor hemoglobin and vitals, monitor INR. If the patient insulin/dextrose and glaucoma for hyperkalemia, monitor potassium level. Also we will lower the dose of losartan 100 mg and 50 mg and add Norvasc for better blood pressure control with holding parameters Follow-up consultation from a orthopedic team, pulmonary team and hematology oncology team, Discontinue IV fluids Continue with dexamethasone, monitor sugar obtained TSLO Brace. Orthopedic team, Pain management discussed with patient and family at bedside, they requested Tylenol No. 3 as it is was working for him at home, also IV pain medication with Dilaudid as needed. Xanax when necessary for anxiety. Hold aspirin for patient's risk of bleeding and follow-up with cardiology's recommendation Labs and medication were reviewed.. Continue same treatment. Continue with symptomatic treatment. Resume home medication. Monitor lytes and vitals. DVT and GI prophylaxis. Further recommendations as per clinical course of the patient DVT prophylaxis: Patient already coagulopathic GI Prophylaxis: Pepcid Prognosis is guarded,
[2022-11-23 20:04] LABS: Glucose,Whole Blood 281 mg/dL (70-110)
[2022-11-23] MEDS: LOSARTAN 50 MG TAB PO SCH (20:29)
[2022-11-23] MEDS: allopurinoL 300 MG TAB PO SCH (20:29)
[2022-11-23] MEDS: ATORVASTATIN 10 MG TAB PO SCH (20:29)
[2022-11-24] MEDS: HYDROmorphone 0.5 MG/0.5 ML SYRINGE IVP PRN ×5 (03:59→20:53)
[2022-11-24 06:10] LABS: Glucose,Whole Blood 203 mg/dL (70-110)
[2022-11-24] MEDS: INSULIN ASPART (NovoLOG) 100 UNIT/ML VIAL SQ SCH ×4 (06:23→20:53)
[2022-11-24] MEDS: DEXAMETHASONE SOD PHOSPHATE 4 MG/ML 1 ML VIAL IVP SCH ×4 (06:23→23:26)
[2022-11-24] MEDS: IPRATROPIUM-ALBUTEROL 3 ML NEB INHALATION SCH ×4 (07:56→20:22)
[2022-11-24] MEDS: PIPERACILLIN-TAZOBACTAM 3.375 GM in SODIUM CHLORIDE 0.9% 100 ML IVPB SCH ×3 (08:49→23:26)
[2022-11-24] MEDS: AMIODARONE 100 MG TAB PO SCH (08:51)
[2022-11-24] MEDS: FAMOTIDINE 20 MG TAB PO SCH ×2 (08:51→20:52)
[2022-11-24] MEDS: ASPIRIN 81 MG PO SCH (08:51)
[2022-11-24] MEDS: FUROSEMIDE 10 MG/ML 4 ML VIAL IV SCH ×2 (08:51→20:52)
[2022-11-24] MEDS: amLODIPine 5 MG TAB PO SCH (08:51)
--- NOTE | 2022-11-24 09:41 | P.PN ---
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 He had been having issues with low back pain and progressive weakness of the lower extremities. He presented here to the emergency room yesterday for the same. Computed tomography scan of the spine revealed multilevel disc degeneration changes with severe L3-L4 and moderate to severe L4-L5 spinal canal stenosis. There is new partially visualized lower lung masses/nodule and enlarged upper abdominal lymph node concerning for metastatic disease. ET scan of the chest abdomen and pelvis revealed diffuse pulmonary nodules and mediastinal lymphadenopathy with metastatic disease. Th ere is pathologic fracture of T10 vertebral body with extension into the bilateral pedicles. There is approximately 25% height loss. Additional lucent lesion within T7 and L1 vertebral bodies which could also represent metastatic foci. There is slight leg appearance in the superior vena cava secondary to large mediastinal lymphadenopathy concerning for future SVC syndrome. No evidence of pulmonary embolism. No evidence of lymphadenopathy or mass in the abdomen or pelvis. White count 6.2. Hemoglobin 14.4. Initial INR 8.5 currently 7.5. Sodium 135. Potassium 5.8. BUN 22. Creatinine 0.78. Glucose 209. Calcium 9.0. Esparza virus and influenza screens negative. He is seen today in consultation on the selective care unit. He admits to having some shortness of breath cough and congestion. He has been coughing up blood-tinged sputum. He is a smoker of 53 years. He has no home oxygen. He has no pulmonary medications. He is currently requiring 5 L nasal cannula to maintain O2 saturations in the low 90s. He is afebrile. Hemodynamically stable. Chest x-ray reveals cardiomegaly, pulmonary vascular congestion and bilateral pleural effusions. ProBNP 2150. He's been initiated on Decadron 4 mg IV every 6 hours. Oral diuretics. Dilaudid for pain control. The patient is seen today 11/18/2022 in follow-up on the selective care unit. He is currently resting comfortably in bed. Awake and alert in no acute distress. Currently on 5 L high flow nasal cannula with O2 saturations in the mid 90s. Afebrile. Hemodynamically stable. White count 11.7. Hemoglobin 12.6. Platelets 266. INR 8.3. Sodium 134. Potassium 4.5. Bicarb 34. BUN 27. Creatinine 0.70. Glucose 165. He remains on Decadron 4 mg IVP every 6 hours. He was given vitamin K 2.5 mg by mouth today. The patient is seen today 11/19/2022 in follow-up on the selective care unit. He is currently laying flat in bed. Awake and alert distress. O2 saturations in the 90s on 5 L/m per nasal cannula. He's been afebrile. Hemodynamically stable. White count 12.8. Hemoglobin 14.6. Platelets 285. INR 1.7. Sodium 132. Potassium 4.5. Bicarb 36. BUN 27. Creatinine 0.64. Glucose 143. He remains on Decadron 4 mg IVP every 6 hours. Utilizing Tylenol No. 3 and Dilaudid for pain control. On 11/20/2022, the patient is being seen for a follow-up. Is a concern of metastatic carcinoma this patient. The patient has multiple comorbidities including previous history of cardiac sarcoidosis, previous CT ablations, AICD placement, his colon cancer with a previous colectomy, previous history of melanoma resected, chronic atrial fibrillation maintained on anticoagulation with warfarin, hyperlipidemia and hypertension and obstructive sleep apnea along with peripheral vascular disease and previous vascular stent insertion. Patient also has gout. Patient was having some shortness of breath and back pain. He does have an area of severe L3-L4 and moderate L4-L5 canal stenosis. As far as the the CAT scan of the chest, this is consistent with metastatic disease with extensive B cell lymphadenopathy, multiple bilateral pulmonary nodules and bilateral pleural effusion. The patient underwent a thoracentesis yesterday and the fluid LDH is low at 112 and fluid protein is at 1.9. This is more consistent of a chance areli. Blood work shows an INR of 1.4 with a PT of 14.4. WBC count of 15.4. The CAT scan findings are highly suspicious for malignancy. CEA level is at 1.0. ProBNP level was 2150. Patient's calcium level is at 8.9. LFTs are normal. On 11/21/2022, the patient's condition is worse. His occupation is obviously worse and the patient was on 5 L O2 nasal cannula and overnight and earlier this morning the patient became more short of breath and currently is on 15 L nonrebreather fullface mask. He has a congested cough. Unable to bring up much sputum. Afebrile. Hemodynamically stable. Based on my review of the CAT scan of the chest, there is evidence of diffuse metastatic disease. The family was quite hesitant to undergo further investigation and they are considering hospice care. Meanwhile, the patient has undergone thoracentesis for diagnostic purpo ses. The fluid came back a transudate and the fluid cytology is still pending. Noted based on the CAT scan of the chest, the patient has extensive mediastinal lymphadenopathy and extensive bilateral pulmonary nodules and bilateral pleural effusions. He is quite debilitated 87-year-old male patient. He is known to have previous colectomy for colon cancer, previous melanoma, history of AICD placement, history of cardiac Sarcoidosis. He Also Has Chronic Atrial Fibrillation Maintained on Anticoagulation with Warfarin, Hypertension Hyperlipidemia and Obstructive Sleep Apnea and Peripheral Vascular Disease. 11/22/2022, the patient is less short of breath. After being on 100% on rebreather facemask, the patient was transitioned to high flow oxygen at 15 L and current pulse ox is around 95%. He is subjected to diuresis yesterday and the patient is on Lasix 40 mg every 12 hours. Overall fluid balance has been negative over the past 24 hours and the patient is feeling less short of breath. Was still awaiting the final pathology from the lower fluid was aspirated. Fluid balance is -1.6 L over the past 24 hours. Note that the pleural fluid analysis based on the chemistry was a transudate and the pathology may not give us a final diagnosis. I do suspect malignancy and the patient and assess the patient and his family is willing, and endobronchial ultrasound with biopsy of the mediastinal lymph nodes were confirmed the diagnosis. In any rates, he is quite debilitated. Is 87 years of age. No final decision regarding any biopsies at this point in time. Oncology is on the case. On 11/23/2022, the patient remains on 15 L of oxygen by nasal cannula. On 15 L O2, his pulse ox is 94%. Essentially the same as yesterday without any major improvement. He is in a negative fluid balance of 1.6 L for yesterday. Labs from today are still pending. He is still not interested in bronchoscopy and biopsies of the mediastinal lymph nodes. Meanwhile, the pro fluid cytology came back negative for malignancy. 11/24/2022, no change in this patient's condition and the patient remains on high flow oxygen 15 L with a pulse ox of 92%. His resting comfortably in bed. I the next discussion with his daughter over the phone. She confirmed that they're not interested in establishing a final diagnosis and the elbow understand that there is a high suspicion for malignancy in this patient. The pleural fluid cytology came back negative for malignancy. Objective - Vital Signs Vital signs: Vital Signs Temp 98.0 F 11/24/22 08:48 Pulse 67 11/24/22 08:48 Resp 18 11/24/22 08:48 BP 122/61 11/24/22 08:48 Pulse Ox 92 L 11/24/22 08:48 FiO2 Intake & Output 11/23/22 11/24/22 11/24/22 18:59 06:59 18:59 Intake Total 618 Output Total 300 1600 Balance 318 -1600 Weight 76.5 kg Intake: Oral 618 Output: Urine 300 1600 Other: Voiding Method External Catheter External Catheter # Bowel Movements 1 - Exam GENERAL EXAM: Alert, 87-year-old male patient, on 15 L, fairly comfortable in no apparent distress. HEAD: Normocephalic. EYES: Normal reaction of pupils, equal size. NOSE: Clear with pink turbinates. THROAT: No erythema or exudates. NECK: No masses, no JVD. CHEST: No chest wall deformity. LUNGS: Equal air entry with bibasilar crackles. CVS: S1 and S2 normal with no audible murmur, regular rhythm. ABDOMEN: No hepatosplenomegaly, normal bowel sounds, no guarding or rigidity. SPINE: No scoliosis or deformity SKIN: No rashes CENTRAL NERVOUS SYSTEM: No focal deficits, tone is normal in all 4 extremities. EXTREMITIES: Generalized weakness of the bilateral lower extremities. There is no peripheral edema. No clubbing, no cyanosis. Peripheral pulses are intact. - Labs CBC & Chem 7: 11/22/22 07:18 11/22/22 07:18 Labs: Abnormal Lab Results - Last 24 Hours (Table) 11/23/22 11/23/22 11/23/22 Range/Units 11:41 16:38 20:03 POC Glucose (mg/dL) 252 H 316 H 281 H (70-110) mg/dL 11/24/22 Range/Units 06:08 POC Glucose (mg/dL) 203 H (70-110) mg/dL Microbiology - Last 24 Hours (Table) 11/19/22 15:40 Gram Stain - Final Pleural Fluid Body Fluid Culture - Final 11/19/22 15:40 Anaerobic Culture - Final Pleural Fluid Assessment and Plan Plan: Diffuse pulmonary nodules, pleural effusions and mediastinal lymphadenopathy concerning for metastatic disease, possibilities may include metastasis to the lungs from melanoma or GI source of malignancy. Other possibilities could be lung cancer. Acute hypoxemic respiratory failure secondary to an acute exacerbation of suspected diastolic versus systolic congestive heart failure, and the patient's oxygenation was worse yesterday and he was placed on 100% nonrebreather facemask and currently is responding to diuretics and he is weaned down to 15 L nasal cannula. We will continue to diuretics as the patient is negative fluid balance for now. The pleural fluid that was aspirated with a transudate and the final cytology came back negative for malignancy. Hemoptysis secondary to supratherapeutic INR Pathologic fracture of T10 vertebral body with extension of the bilateral pedicles in a patient with lower extremity weakness. 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, status post AICD placement History of colon cancer status post colectomy with colostomy and subsequent reversal History of melanoma of the face and neck on the right, status post resection at the [facility] Atrial fibrillation anticoagulated with warfarin, supra therapeutic with initial INR of 8.5 currently down to 1.4 Obstructive sleep apnea History of 53 years chronic tobacco dependence Suspect some underlying COPD Hypertension Hyperlipidemia Peripheral vascular disease with previous stent placement Plan: Very poor prognosis with a high likelihood of metastatic cancer/malignancy Patient and family declining bronchoscopy Continue same treatment Continue the patient on Lasix 40 mg IV every 12 hours Continue IV Zosyn as the patient's chest x-ray from today shows perihilar opacities and cardiomegaly and pneumonia is obviously a concern. Noted the pulmonary infiltrates have increased significantly over the past 2 days. There are also multiple areas of pulmonary nodularity. Echocardiogram showed a preserved LV function, moderate aortic stenosis and moderate mitral regurgitation The pleural fluid cytology was negative for malignancy He wants only palliative radiation therapy to the spine for pain control. He is a DNR/DNI CODE STATUS.
[2022-11-24 11:32] LABS: Glucose,Whole Blood 280 mg/dL (70-110)
--- NOTE | 2022-11-24 15:23 | P.PN ---
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 He had been having issues with low back pain and progressive weakness of the lower extremities. He presented here to the emergency room yesterday for the same. Computed tomography scan of the spine revealed multilevel disc degeneration changes with severe L3-L4 and moderate to severe L4-L5 spinal canal stenosis. There is new partially visualized lower lung masses/nodule and enlarged upper abdominal lymph node concerning for metastatic disease. ET scan of the chest abdomen and pelvis revealed diffuse pulmonary nodules and mediastinal lymphadenopathy with metastatic disease. There is pathologic fracture of T10 vertebral body with extension into the bilateral pedicles. There is approximately 25% height loss. Additional lucent lesion within T7 and L1 vertebral bodies which could also represent metastatic foci. There is slight leg appearance in the superior vena cava secondary to large mediastinal lymphadenopathy concerning for future SVC syndrome. No evidence of pulmonary embolism. No evidence of lymphadenopathy or mass in the abdomen or pelvis. White count 6.2. Hemoglobin 14.4. Initial INR 8.5 currently 7.5. Sodium 135. Potassium 5.8. BUN 22. Creatinine 0.78. Glucose 209. Calcium 9.0. Esparza virus and influenza screens negative. He is seen today in consultation on the selective care unit. He admits to having some shortness of breath cough and congestion. He has been coughing up blood-tinged sputum. He is a smoker of 53 years. He has no home oxygen. He has no pulmonary medications. He is currently requiring 5 L nasal cannula to maintain O2 saturations in the low 90s. He is afebrile. Hemodynamically stable. Chest x- ray reveals cardiomegaly, pulmonary vascular congestion and bilateral pleural effusions. ProBNP 2150. 24-hour interval change 11/19/2022 Patient is seen and evaluated in follow-up on the selective care unit. He is currently laying flat in bed. Awake and alert distress. O2 saturations in the 90s on 5 L/m per nasal cannula. He's been afebrile. Hemodynamically stable. -- Blood work review reveals White count 12.8. Hemoglobin 14.6. Platelets 285. INR 1.7. Sodium 132. Potassium 4.5. Bicarb 36. BUN 27. Creatinine 0.64. Glucose 143. He remains on Decadron 4 mg IVP every 6 hours. Utilizing Tylenol No. 3 and Dilaudid for pain control. We will plan to continue to titrate FiO2 as tolerated Ultrasound completed of bilateral chest which reveals significant effusions; prominent referring patient to interventional radiology to perform ultrasound- guided diagnostic thoracentesis with consultation with radiation oncology for treatment for the pathological fractures of T10 vertebral body 24-hour interval change 11/20/2022 Patient was having some shortness of breath and back pain. He does have an area of severe L3-L4 and moderate L4-L5 canal stenosis. As far as the the CAT scan of the chest, this is consistent with metastatic disease with extensive B cell lymphadenopathy, multiple bilateral pulmonary nodules and bilateral pleural effusion. The patient underwent a thoracentesis yesterday and the fluid LDH is low at 112 and fluid protein is at 1.9. This is more consistent of a chance ab ate. Blood work shows an INR of 1.4 with a PT of 14.4. WBC count of 15.4. The CAT scan findings are highly suspicious for malignancy. CEA level is at 1.0. ProBNP level was 2150. Patient's calcium level is at 8.9. LFTs are normal. -- Fluid cytology is still pending; if cytology fails to yield any results, pulmonary's recommending bronchoscopy with endobronchial ultrasound guided biopsy of the lymph nodes - So far family is not very keen on pursuing biopsy with want to wait for cytology results and make up a definite decision 24-hour interval change 11/22/2022 11/22/2022, the patient is less short of breath. After being on 100% on rebreather facemask, the patient was transitioned to high flow oxygen at 15 L and current pulse ox is around 95%. He is subjected to diuresis yesterday and the patient is on Lasix 40 mg every 12 hours. Overall fluid balance has been negative over the past 24 hours and the patient is feeling less short of breath. Was still awaiting the final pathology from the lower fluid was aspirated. Fluid balance is -1.6 L over the past 24 hours. Note that the pleural fluid analysis based on the chemistry was a transudate and the pathology may not give us a final diagnosis. I do suspect malignancy and the patient and assess the p atient and his family is willing, and endobronchial ultrasound with biopsy of the mediastinal lymph nodes were confirmed the diagnosis. In any rates, he is quite debilitated. Is 87 years of age. No final decision regarding any biopsies at this point in time. Awaiting the results of the fluid cytology, the chemistry shows a transudate There is a fluid cytology is negative for malignancy, the patient will need a bronchoscopy with endobronchial ultrasound guided biopsy of the lymph node. I gary tejada a discussion was done with the family yesterday and the family is not interested in pursuing any form of endoscopic procedures. I'm going to revisit this will situation after day results of the fluid cytology is available. In view of the recent oxygenation worsening, no procedures are recommended 11/23/2022, the patient is seen and evaluated with multiple family members at bedside; remains on 15 L of oxygen by nasal cannula. On 15 L O2, his pulse ox is 94%. Essentially the same as yesterday without any major improvement. He is in a negative fluid balance of 1.6 L for yesterday. Labs from today are still pending. He is still not interested in bronchoscopy and biopsies of the mediastinal lymph nodes. Meanwhile, the pro fluid cytology came back negative for malignancy. Continue the patient on Lasix 40 mg IV every 12 hours Continue IV Zosyn as the patient's chest x-ray from today shows perihilar opacities and cardiomegaly and pneumonia is obviously a concern. Noted the pulmonary infiltrates have increased significantly over the past 2 days. There are also multiple areas of pulmonary nodularity. Echocardiogram showed a preserved LV function, moderate aortic stenosis and moderate mitral regurgitation The pleural fluid cytology was negative for malignancy and the patient is not interested in bronchoscopy with endobronchial ultrasound guided biopsy of the lymph node. He wants only palliative radiation therapy to the spine for pain control. He is a DNR/DNI CODE STATUS. 24-hour interval change 11/24/2022 Patient is seen and evaluated in room at bedside; multiple family members are present in the room; no change in this patient's condition and the patient remains on high flow oxygen 15 L with a pulse ox of 92%. His resting comfortably in bed. Had detailed discussion with his daughter over the phone; negative pleural fluid cytology and need for biopsy for further diagnosis was discussed in josefina isidro. She confirmed that they're not interested in establishing a final diagnosis and understand that there is a high suspicion for malignancy in this patient. The pleural fluid cytology came back negative for malignancy. He wants only palliative radiation therapy to the spine for pain control. He is a DNR/DNI CODE STATUS. Objective - Vital Signs Vital signs: Vital Signs Temp 98.0 F 11/24/22 08:48 Pulse 67 11/24/22 08:48 Resp 18 11/24/22 08:48 BP 122/61 11/24/22 08:48 Pulse Ox 92 L 11/24/22 08:48 FiO2 Intake & Output 11/23/22 11/24/22 11/24/22 18:59 06:59 18:59 Intake Total 618 Output Total 300 1600 Balance 318 -1600 Weight 76.5 kg Intake: Oral 618 Output: Urine 300 1600 Other: Voiding Method External Catheter External Catheter # Bowel Movements 1 - Exam GENERAL: The patient is alert and oriented x3, not in any acute distress. Well developed, well nourished. HEENT: Pupils are round and equally reacting to light. EOMI. No scleral icterus. No conjunctival pallor. Normocephalic, atraumatic. No pharyngeal erythema. No thyromegaly. CARDIOVASCULAR: S1 and S2 present. No murmurs, rubs, or gallops. PULMONARY: Chest is clear to auscultation, no wheezing or crackles. ABDOMEN: Soft, nontender, nondistended, normoactive bowel sounds. No palpable organomegaly. -MUSCULOSKELETAL: No joint swelling or deformity. Back tenderness EXTREMITIES: No cyanosis, clubbing, or pedal edema. -NEUROLOGICAL: Fully awake and oriented, cranial nerves are grossly intact, upper extremity strength is at baseline,. Bilateral lower extremity weakness, There is more weakness on the right leg. SKIN: No rashes. no petechiae. - Labs CBC & Chem 7: 11/22/22 07:18 11/22/22 07:18 Labs: Abnormal Lab Results - Last 24 Hours (Table) 11/23/22 11/23/22 11/23/22 Range/Units 11:41 16:38 20:03 POC Glucose (mg/dL) 252 H 316 H 281 H (70-110) mg/dL 11/24/22 Range/Units 06:08 POC Glucose (mg/dL) 203 H (70-110) mg/dL Microbiology - Last 24 Hours (Table) 11/19/22 15:40 Gram Stain - Final Pleural Fluid Body Fluid Culture - Final 11/19/22 15:40 Anaerobic Culture - Final Pleural Fluid Assessment and Plan Assessment: Multiple pulmonary nodules suspicious for primary lung cancer with mediastinal lymphadenopathy and metastatic to the bone. Pathological fractures of T10, with vertebral height loss. Right lower extremity weakness Multiple lucent lesions within T7 and L1 suspicious for metastatic disease Acute hypoxemic respiratory failure Hyperkalemia, could be secondary to medication while on losartan Chronic atrial fibrillation on Coumadin Coagulopathy secondary to Coumadin Hemoptysis Chronic heart failure Hyperlipidemia Hypertension History of osteoarthritis History of sleep apnea on CPAP at home. History of colon cancer status post radiotherapy History of melanoma Plan: hold Coumadin, monitor hemoglobin and vitals, monitor INR. If the patient insulin/dextrose and glaucoma for hyperkalemia, monitor potassium level. Also we will lower the dose of losartan 100 mg and 50 mg and add Norvasc for better blood pressure control with holding parameters Follow-up consultation from a orthopedic team, pulmonary team and hematology oncology team, Discontinue IV fluids Continue with dexamethasone, monitor sugar obtained TSLO Brace. Orthopedic team, Pain management discussed with patient and family at bedside, they requested Tylenol No. 3 as it is was working for him at home, also IV pain medication with Dilaudid as needed. Xanax when necessary for anxiety. Hold aspirin for patient's risk of bleeding and follow-up with cardiology's recommendation Labs and medication were reviewed.. Continue same treatment. Continue with symptomatic treatment. Resume home medication. Monitor lytes and vitals. DVT and GI prophylaxis. Further recommendations as per clinical course of the patient DVT prophylaxis: Patient already coagulopathic GI Prophylaxis: Pepcid Prognosis is guarded,
[2022-11-24] MEDS: MAGNESIUM HYDROXIDE 2,400 MG/10 ML CUP PO PRN ×2 (16:34→20:54)
[2022-11-24 16:44] LABS: Glucose,Whole Blood 233 mg/dL (70-110)
[2022-11-24 20:19] LABS: Glucose,Whole Blood 363 mg/dL (70-110)
[2022-11-24] MEDS: ATORVASTATIN 10 MG TAB PO SCH (20:52)
[2022-11-24] MEDS: allopurinoL 300 MG TAB PO SCH (20:52)
[2022-11-24] MEDS: LOSARTAN 50 MG TAB PO SCH (20:53)
[2022-11-25] MEDS: DEXAMETHASONE SOD PHOSPHATE 4 MG/ML 1 ML VIAL IVP SCH ×4 (05:50→23:35)
[2022-11-25 06:06] LABS: Glucose,Whole Blood 214 mg/dL (70-110)
[2022-11-25] MEDS: INSULIN ASPART (NovoLOG) 100 UNIT/ML VIAL SQ SCH ×4 (06:34→20:33)
[2022-11-25] MEDS: IPRATROPIUM-ALBUTEROL 3 ML NEB INHALATION SCH ×4 (07:23→21:13)
[2022-11-25] MEDS: PIPERACILLIN-TAZOBACTAM 3.375 GM in SODIUM CHLORIDE 0.9% 100 ML IVPB SCH ×3 (08:39→23:35)
[2022-11-25] MEDS: amLODIPine 5 MG TAB PO SCH (08:41)
[2022-11-25] MEDS: FAMOTIDINE 20 MG TAB PO SCH ×2 (08:41→20:33)
[2022-11-25] MEDS: AMIODARONE 100 MG TAB PO SCH (08:41)
[2022-11-25] MEDS: FUROSEMIDE 10 MG/ML 4 ML VIAL IV SCH ×2 (08:41→20:33)
[2022-11-25] MEDS: ASPIRIN 81 MG PO SCH (08:41)
[2022-11-25] MEDS: HYDROmorphone 0.5 MG/0.5 ML SYRINGE IVP PRN ×3 (08:49→23:36)
--- NOTE | 2022-11-25 11:04 | P.PN ---
Subjective This is a pleasant 87 years old male with multiple medical problems as below. Patient PCP is Dr. España and his school bus technician is Dr. Rojas. Family were at bedside including the daughter and 2 sons. patient presents because feeling stuffiness in his abdomen as he is telling me, he says he cannot move by himself slight before, if he tries to stand up he feels unsteady. And associated with dizziness He says he has abdominal pain like 7/10 in severity he described it like a broad band across his upper half of the abdomen, starting from the back and radiating across the abdomen. He started having these symptoms since September 28. Patient states also he cannot feel when he pees, He denies chest pain, has little dyspnea, with total occasional cough with clear phlegm but also a coughing some of blood. He has some vomiting yesterday but he has low appetite and has been constipated. he has no perineal numbness. Most of the symptoms started on 09/28. Patient is afebrile, slightly bradycardic, blood pressure 164/74, saturating 94% on 5 L oxygen via nasal cannula CBC is unremarkable, hemoglobin within the reference range 14.0. INR elevated to 8.5, PTT 64. Sodium 134 Creatinine normal, liver enzymes not elevated. Bilirubin 1.5. Troponin 0.04. Which is a slightly elevated Viruses and detected including coronavirus and influenza virus EKG showed atrial fibrillation's with occasional ventricular paced complex CT of the chest abdomen and pelvis with contrast: Diffuse pulmonary nodules and mediastinal lymphadenopathy concerning for primary lung malignancies with metastatic disease. 3 pathologic fractures of T10 vertebral body with extension into bilateral pedicles. Surgical sensation AND recommended there is approximately 25% height loss.Significant retropulsion. Additional lucent lesions within the T7 and L1 vertebral bodies with and also represent metastatic foci As per my discussions with Dr. Cerna from the emergency room neurosurgery consultation is recommended given his pathological lesion of the spine. However after Dr. Cerna discussed with the family they are not interested in any neurosurgical intervention as per Dr. Cerna. This is confirmed when I saw the patient and family at bedside they confirmed to me that they are not interested in any surgery. Case also was discussed with orthopedic Dr. Fischer from ER team, no surgical is intended at this time per Sign out. Dexamethasone was started and emergency room Patient was admitted with consultation for Dr. Calix, from a pulmonary team and hematology oncology team 11/17/2022 A sitting up in bed not in distress, he is breathing quietly, not in severe pain. He denies any new complaint. He is saturating 96 on 5 L oxygen via nasal cannula, less tachypneic than yesterday. Labs reviewed today his INR came down to 7.5, hemoglobin remains normal at 14.4 with no signs of evidence of bleeding. No more hemoptysis. His potassium was elevated 5.8 today, we are going to give insulin/dextrose, calcium gluconate and glaucoma small dose and lowered losartan 100 down to 50 mg and start Norvasc 5 mg for better blood pressure control Patient remains on dexamethasone at 4 mg every 6 hours as needed. We will discontinue normal saline because of evidence of fluid overload Several consultants on the case including cardiology, pulmonary, hematology/onc ology and orthopedic team. This morning I discussed the case with orthopedic team, no surgical intervention and the recommended TSLO Brace and continue with IV dexamethasone I'm resuming the care of the patient on 11/21/2022 patient is lying in bed in mild to moderate respiratory distress, his oxygen requirement increased to 15 L/m overnight. He is able to talk and he denies chest pain or dyspnea. He was looking for his artificial teeth which dropped off the bed. He denies any other new complaints. Blood pressure is stable. No labs from today, we ordered a repeat hemoglobin and check labs tomorrow. Displaced on stronger antibiotic Zosyn today as well as IV Lasix 40 mg twice daily Fluid cytology results still pending Cardiology on the case and helped management of his A. fib including anticoagulation Resuming the care of the patient 11/25/2022 No chest pain, he is awake but he is very weak. Remains on 15 L oxygen. A nasal cannula Still has [id number] back pain, lidocaine patch added Leg weakness is stable, patient can bend both to some degree. 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 I will discussed with staff to check a bladder scan. Resume Coumadin as per ID team recommendation from 11/20. Objective - Vital Signs Vital signs: Vital Signs Temp 98.1 F 11/25/22 08:00 Pulse 69 11/25/22 08:00 Resp 20 11/25/22 08:00 BP 147/67 11/25/22 08:00 Pulse Ox 97 11/25/22 08:00 FiO2 Intake & Output 11/24/22 11/25/22 11/25/22 18:59 06:59 18:59 Intake Total 354 Output Total 400 1550 200 Balance -46 -1550 -200 Weight 77 kg Intake: Oral 354 Output: Urine 400 1550 200 Other: Voiding Method External Catheter External Catheter External Catheter # Bowel Movements 1 1 - Exam GENERAL: The patient is alert and oriented x3, not in any acute distress. Well developed, well nourished. HEENT: Pupils are round and equally reacting to light. EOMI. No scleral icterus. No conjunctival pallor. Normocephalic, atraumatic. No pharyngeal erythema. No thyromegaly. CARDIOVASCULAR: S1 and S2 present. No murmurs, rubs, or gallops. PULMONARY: Chest is clear to auscultation, no wheezing or crackles. ABDOMEN: Soft, nontender, nondistended, normoactive bowel sounds. No palpable organomegaly. -MUSCULOSKELETAL: No joint swelling or deformity. Back tenderness EXTREMITIES: No cyanosis, clubbing, or pedal edema. -NEUROLOGICAL: Fully awake and oriented, cranial nerves are grossly intact, upper extremity strength is at baseline,. Bilateral lower extremity weakness, T here is more weakness on the right leg. SKIN: No rashes. no petechiae. - Labs CBC & Chem 7: 11/22/22 07:18 11/22/22 07:18 Labs: Abnormal Lab Results - Last 24 Hours (Table) 11/24/22 11/24/22 11/24/22 Range/Units 11:29 16:41 20:18 POC Glucose (mg/dL) 280 H 233 H 363 H (70-110) mg/dL 11/25/22 Range/Units 06:05 POC Glucose (mg/dL) 214 H (70-110) mg/dL Assessment and Plan Assessment: Multiple pulmonary nodules suspicious for primary lung cancer with mediastinal lymphadenopathy and metastatic to the bone. Pathological fractures of T10, with vertebral height loss. Right lower extremity weakness Multiple lucent lesions within T7 and L1 suspicious for metastatic disease Acute hypoxemic respiratory failure Hyperkalemia, could be secondary to medication while on losartan Chronic atrial fibrillation on Coumadin Coagulopathy secondary to Coumadin Hemoptysis Chronic heart failure Hyperlipidemia Hypertension History of osteoarthritis History of sleep apnea on CPAP at home. History of colon cancer status post radiotherapy History of melanoma Plan: hold Coumadin, monitor hemoglobin and vitals, deferred to cardiology about management of A. fib and anticoagulation management Continue with IV Lasix Continue with IV Zosyn Continue with dexamethasone, monitor sugar obtained TSLO Brace per Orthopedic team Pain management discussed with patient and family at bedside, they requested Tylenol No. 3 as it is was working for him at home, also IV pain medication with Dilaudid as needed. Xanax when necessary for anxiety. Continue with aspirin Resume home medication. Monitor lytes and vitals. DVT and GI prophylaxis. Further recommendations as per clinical course of the patient DVT prophylaxis: on hold GI Prophylaxis: Pepcid Prognosis is guarded CODE STATUS: No code Discussed with staff Also discussed with the bedside nurse to contact cardiology for when to resume anticoagulation, repeat hemoglobin from today's ordered
[2022-11-25 11:34] LABS: Glucose,Whole Blood 204 mg/dL (70-110)
[2022-11-25] MEDS: LIDOCAINE 5% PATCH TOPICAL SCH (11:43)
--- NOTE | 2022-11-25 12:03 | P.PN ---
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 He had been having issues with low back pain and progressive weakness of the lower extremities. He presented here to the emergency room yesterday for the same. Computed tomography scan of the spine revealed multilevel disc degeneration changes with severe L3-L4 and moderate to severe L4-L5 spinal canal stenosis. There is new partially visualized lower lung masses/nodule and enlarged upper abdominal lymph node concerning for metastatic disease. ET scan of the chest abdomen and pelvis revealed diffuse pulmonary nodules and mediastinal lymphadenopathy with metastatic disease. The re is pathologic fracture of T10 vertebral body with extension into the bilateral pedicles. There is approximately 25% height loss. Additional lucent lesion within T7 and L1 vertebral bodies which could also represent metastatic foci. There is slight leg appearance in the superior vena cava secondary to large mediastinal lymphadenopathy concerning for future SVC syndrome. No evidence of pulmonary embolism. No evidence of lymphadenopathy or mass in the abdomen or pelvis. White count 6.2. Hemoglobin 14.4. Initial INR 8.5 currently 7.5. Sodium 135. Potassium 5.8. BUN 22. Creatinine 0.78. Glucose 209. Calcium 9.0. Esparza virus and influenza screens negative. He is seen today in consultation on the selective care unit. He admits to having some shortness of breath cough and congestion. He has been coughing up blood-tinged sputum. He is a smoker of 53 years. He has no home oxygen. He has no pulmonary medications. He is currently requiring 5 L nasal cannula to maintain O2 saturations in the low 90s. He is afebrile. Hemodynamically stable. Chest x-ray reveals cardiomegaly, pulmonary vascular congestion and bilateral pleural effusions. ProBNP 2150. He's been initiated on Decadron 4 mg IV every 6 hours. Oral diuretics. Dilaudid for pain control. The patient is seen today 11/18/2022 in follow-up on the selective care unit. He is currently resting comfortably in bed. Awake and alert in no acute distress. Currently on 5 L high flow nasal cannula with O2 saturations in the mid 90s. Afebrile. Hemodynamically stable. White count 11.7. Hemoglobin 12.6. Platelets 266. INR 8.3. Sodium 134. Potassium 4.5. Bicarb 34. BUN 27. Creatinine 0.70. Glucose 165. He remains on Decadron 4 mg IVP every 6 hours. He was given vitamin K 2.5 mg by mouth today. The patient is seen today 11/19/2022 in follow-up on the selective care unit. He is currently laying flat in bed. Awake and alert distress. O2 saturations in the 90s on 5 L/m per nasal cannula. He's been afebrile. Hemodynamically stable. White count 12.8. Hemoglobin 14.6. Platelets 285. INR 1.7. Sodium 132. Potassium 4.5. Bicarb 36. BUN 27. Creatinine 0.64. Glucose 143. He remains on Decadron 4 mg IVP every 6 hours. Utilizing Tylenol No. 3 and Dilaudid for pain control. On 11/20/2022, the patient is being seen for a follow-up. Is a concern of metastatic carcinoma this patient. The patient has multiple comorbidities including previous history of cardiac sarcoidosis, previous CT ablations, AICD placement, his colon cancer with a previous colectomy, previous history of m elanoma resected, chronic atrial fibrillation maintained on anticoagulation with warfarin, hyperlipidemia and hypertension and obstructive sleep apnea along with peripheral vascular disease and previous vascular stent insertion. Patient also has gout. Patient was having some shortness of breath and back pain. He does have an area of severe L3-L4 and moderate L4-L5 canal stenosis. As far as the the CAT scan of the chest, this is consistent with metastatic disease with extensive B cell lymphadenopathy, multiple bilateral pulmonary nodules and bilateral pleural effusion. The patient underwent a thoracentesis yesterday and the fluid LDH is low at 112 and fluid protein is at 1.9. This is more consistent of a chance areli. Blood work shows an INR of 1.4 with a PT of 14.4. WBC count of 15.4. The CAT scan findings are highly suspicious for malignancy. CEA level is at 1.0. ProBNP level was 2150. Patient's calcium level is at 8.9. LFTs are normal. On 11/21/2022, the patient's condition is worse. His occupation is obviously worse and the patient was on 5 L O2 nasal cannula and overnight and earlier this morning the patient became more short of breath and currently is on 15 L n onrebreather fullface mask. He has a congested cough. Unable to bring up much sputum. Afebrile. Hemodynamically stable. Based on my review of the CAT scan of the chest, there is evidence of diffuse metastatic disease. The family was quite hesitant to undergo further investigation and they are considering hospice care. Meanwhile, the patient has undergone thoracentesis for diagnostic purpose s. The fluid came back a transudate and the fluid cytology is still pending. Noted based on the CAT scan of the chest, the patient has extensive mediastinal lymphadenopathy and extensive bilateral pulmonary nodules and bilateral pleural effusions. He is quite debilitated 87-year-old male patient. He is known to have previous colectomy for colon cancer, previous melanoma, history of AICD placement, history of cardiac Sarcoidosis. He Also Has Chronic Atrial Fibrillation Maintained on Anticoagulation with Warfarin, Hypertension Hyperlipidemia and Obstructive Sleep Apnea and Peripheral Vascular Disease. 11/22/2022, the patient is less short of breath. After being on 100% on rebreather facemask, the patient was transitioned to high flow oxygen at 15 L and current pulse ox is around 95%. He is subjected to diuresis yesterday and the patient is on Lasix 40 mg every 12 hours. Overall fluid balance has been negative over the past 24 hours and the patient is feeling less short of breath. Was still awaiting the final pathology from the lower fluid was aspirated. Fluid balance is -1.6 L over the past 24 hours. Note that the pleural fluid analysis based on the chemistry was a transudate and the pathology may not give us a final diagnosis. I do suspect malignancy and the patient and assess the patient and his family is willing, and endobronchial ultrasound with biopsy of the mediastinal lymph nodes were confirmed the diagnosis. In any rates, he is quite debilitated. Is 87 years of age. No final decision regarding any biopsies at this point in time. Oncology is on the case. On 11/23/2022, the patient remains on 15 L of oxygen by nasal cannula. On 15 L O2, his pulse ox is 94%. Essentially the same as yesterday without any major improvement. He is in a negative fluid balance of 1.6 L for yesterday. Labs from today are still pending. He is still not interested in bronchoscopy and biopsies of the mediastinal lymph nodes. Meanwhile, the pro fluid cytology came back negative for malignancy. 11/24/2022, no change in this patient's condition and the patient remains on high flow oxygen 15 L with a pulse ox of 92%. His resting comfortably in bed. I the next discussion with his daughter over the phone. She confirmed that they're not interested in establishing a final diagnosis and the elbow understand that there is a high suspicion for malignancy in this patient. The pleural fluid cytology came back negative for malignancy. The patient is seen today 11/25/2022 in follow-up on the selective care unit. He is currently resting comfortably in bed. Awake and alert in no acute distress. He is still requiring 15 L high flow nasal cannula but maintaining good O2 saturations in the upper 90s. He is afebrile. Hemodynamically stable. Pleural fluid cultures revealed no growth. Urine for malignancy. Blood glucose 204. Continued on DuoNeb inhalations, IV Decadron, antibiotics in the form of Zosyn. Remains on IV diuretics. Anticoagulated with warfarin. Objective - Vital Signs Vital signs: Vital Signs Temp 97.5 F L 11/25/22 11:46 Pulse 70 11/25/22 11:54 Resp 18 11/25/22 11:46 BP 121/61 11/25/22 11:46 Pulse Ox 97 11/25/22 11:46 FiO2 Intake & Output 11/24/22 11/25/22 11/25/22 18:59 06:59 18:59 Intake Total 354 Output Total 400 1550 200 Balance -46 -1550 -200 Weight 77 kg Intake: Oral 354 Output: Urine 400 1550 200 Other: Voiding Method External Catheter External Catheter External Catheter # Bowel Movements 1 1 - Exam GENERAL EXAM: Alert, frail 87-year-old male patient, on 15 L high flow nasal cannula, fairly comfortable in no apparent distress. HEAD: Normocephalic. EYES: Normal reaction of pupils, equal size. NOSE: Clear with pink turbinates. THROAT: No erythema or exudates. NECK: No masses, no JVD. CHEST: No chest wall deformity. LUNGS: Equal air entry with bibasilar crackles. CVS: S1 and S2 normal with no audible murmur, regular rhythm. ABDOMEN: No hepatosplenomegaly, normal bowel sounds, no guarding or rigidity. SPINE: No scoliosis or deformity SKIN: No rashes CENTRAL NERVOUS SYSTEM: No focal deficits, tone is normal in all 4 extremities. EXTREMITIES: Generalized weakness of the bilateral lower extremities. There is no peripheral edema. No clubbing, no cyanosis. Peripheral pulses are intact. - Labs CBC & Chem 7: 11/22/22 07:18 11/22/22 07:18 Labs: Abnormal Lab Results - Last 24 Hours (Table) 11/24/22 11/24/22 11/25/22 Range/Units 16:41 20:18 06:05 POC Glucose (mg/dL) 233 H 363 H 214 H (70-110) mg/dL 11/25/22 Range/Units 11:33 POC Glucose (mg/dL) 204 H (70-110) mg/dL Assessment and Plan Assessment: Diffuse pulmonary nodules, pleural effusions and mediastinal lymphadenopathy concerning for metastatic disease, suspect metastatic disease from unknown primary to the lungs, suspect metastatic melanoma versus lung cancer Acute hypoxemic respiratory failure secondary to an acute exacerbation of suspected diastolic congestive heart failure with worsening oxygen requirements and currently on 15 L high flow nasal cannula. Remains on diuretics Hemoptysis secondary to supratherapeutic INR Pathologic fracture of T10 vertebral body with extension of the bilateral pedicles in a patient with lower extremity weakness. 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, status post AICD placement History of colon cancer status post colectomy with colostomy and subsequent reversal History of melanoma of the face and neck on the right, status post resection at the [facility] Atrial fibrillation anticoagulated with warfarin, supra therapeutic with initial INR of 8.5 currently down to 1.4 Obstructive sleep apnea History of 53 years chronic tobacco dependence Suspect some underlying COPD Hypertension Hyperlipidemia Peripheral vascular disease with previous stent placement Plan: The patient was seen and evaluated Labs and medications reviewed Titrate down the FiO2 as tolerated Patient and family are considering hospice We'll continue the current treatment plan for now The patient is DO NOT RESUSCITATE/DO NOT INTUBATE CODE STATUS We will continue to follow I have personally seen and examined the patient, performed the documentation and the assessment and plan as written. Number of minutes spent on the visit: 10.
--- NOTE | 2022-11-25 12:45 | XR ---
EXAMINATION TYPE: XR chest 1V portable DATE OF EXAM: 11/25/2022 COMPARISON: 11/21/2022 HISTORY: Shortness of breath TECHNIQUE: Single frontal view of the chest is obtained. FINDINGS: Bilateral numerous pulmonary masses compatible with metastasis. There is bilateral lower l obe infiltrate and small effusion which is improved. Left upper lobe infiltrate has almost completely resolved. Heart is enlarged and there is a cardiac device. Atherosclerotic change aorta with no evid ence of pneumothorax. IMPRESSION: 1. Near complete resolution of left upper lobe infiltrate 2. Improving bilateral lower lobe infiltrate and small effusion. 3. Numerous bilateral pulmonary metastases.
[2022-11-25 16:49] LABS: Glucose,Whole Blood 256 mg/dL (70-110)
[2022-11-25] MEDS ORDERED: WARFARIN 1 MG TAB PO ONE (18:00)
[2022-11-25 19:53] LABS: Glucose,Whole Blood 274 mg/dL (70-110)
[2022-11-25] MEDS: allopurinoL 300 MG TAB PO SCH (20:33)
[2022-11-25] MEDS: ATORVASTATIN 10 MG TAB PO SCH (20:33)
[2022-11-25] MEDS: LOSARTAN 50 MG TAB PO SCH (20:33)
[2022-11-25] MEDS: Acetaminophen-Codeine 300-30mg TAB PO PRN (20:39)
[2022-11-26 06:04] LABS: Glucose,Whole Blood 221 mg/dL (70-110)
[2022-11-26] MEDS: DEXAMETHASONE SOD PHOSPHATE 4 MG/ML 1 ML VIAL IVP SCH ×3 (06:57→17:26)
[2022-11-26] MEDS: INSULIN ASPART (NovoLOG) 100 UNIT/ML VIAL SQ SCH ×4 (06:57→21:38)
[2022-11-26] MEDS: HYDROmorphone 0.5 MG/0.5 ML SYRINGE IVP PRN ×2 (07:00→15:39)
[2022-11-26] MEDS: IPRATROPIUM-ALBUTEROL 3 ML NEB INHALATION SCH ×4 (07:56→19:45)
[2022-11-26 08:02] LABS: Basophils % (A) 0 %; Eosinophils % (A) 0 %; HCT 41.9 % (39.0-53.0); Lymphocytes # (A) 0.2 k/uL (1.0-4.8); Lymphocytes % (A) 1 %; MCH 32.4 pg (25.0-35.0); MCHC 33.5 g/dL (31.0-37.0); MCV 96.8 fL (80.0-100.0); Mean Platelet Volume 7.5; Monocytes # (A) 0.6 k/uL (0-1.0); Monocytes % (A) 4 %; Neutrophils # (A) 13.4 k/uL (1.3-7.7); Neutrophils % (A) 94 %; Platelet Count 288 k/uL (150-450); RBC 4.33 m/uL (4.30-5.90); RDW 12.5 % (11.5-15.5); WBC 14.3 k/uL (3.8-10.6)
[2022-11-26 08:10] LABS: INR 1.6 (<1.2)
[2022-11-26 08:19] LABS: Potassium 4.7 mmol/L (3.5-5.1)
[2022-11-26] MEDS: PIPERACILLIN-TAZOBACTAM 3.375 GM in SODIUM CHLORIDE 0.9% 100 ML IVPB SCH ×2 (08:26→15:39)
[2022-11-26] MEDS: FAMOTIDINE 20 MG TAB PO SCH ×2 (08:27→21:37)
[2022-11-26] MEDS: AMIODARONE 100 MG TAB PO SCH (08:27)
[2022-11-26] MEDS: MAGNESIUM HYDROXIDE 2,400 MG/10 ML CUP PO PRN ×2 (08:27→21:38)
[2022-11-26] MEDS: amLODIPine 5 MG TAB PO SCH (08:27)
[2022-11-26] MEDS: ASPIRIN 81 MG PO SCH (08:27)
[2022-11-26] MEDS: FUROSEMIDE 10 MG/ML 4 ML VIAL IV SCH ×2 (08:27→21:37)
[2022-11-26] MEDS: LIDOCAINE 5% PATCH TOPICAL SCH (08:28)
[2022-11-26] MEDS: DOCUSATE 100 MG CAP PO SCH ×2 (11:20→21:37)
[2022-11-26] MEDS: Acetaminophen-Codeine 300-30mg TAB PO PRN ×2 (11:26→18:51)
[2022-11-26 11:35] LABS: Glucose,Whole Blood 223 mg/dL (70-110)
--- NOTE | 2022-11-26 11:49 | P.PN ---
Subjective This is a pleasant 87 years old male with multiple medical problems as below. Patient PCP is Dr. España and his belting and webbing inspector is Dr. Rojas. Family were at bedside including the daughter and 2 sons. patient presents because feeling stuffiness in his abdomen as he is telling me, he says he cannot move by himself slight before, if he tries to stand up he feels unsteady. And associated with dizziness He says he has abdominal pain like 7/10 in severity he described it like a broad band across his upper half of the abdomen, starting from the back and radiating across the abdomen. He started having these symptoms since September 28. Patient states also he cannot feel when he pees, He denies chest pain, has little dyspnea, with total occasional cough with clear phlegm but also a coughing some of blood. He has some vomiting yesterday but he has low appetite and has been constipated. he has no perineal numbness. Most of the symptoms started on 09/28. Patient is afebrile, slightly bradycardic, blood pressure 164/74, saturating 94% on 5 L oxygen via nasal cannula CBC is unremarkable, hemoglobin within the reference range 14.0. INR elevated to 8.5, PTT 64. Sodium 134 Creatinine normal, liver enzymes not elevated. Bilirubin 1.5. Troponin 0.04. Which is a slightly elevated Viruses and detected including coronavirus and influenza virus EKG showed atrial fibrillation's with occasional ventricular paced complex CT of the chest abdomen and pelvis with contrast: Diffuse pulmonary nodules and mediastinal lymphadenopathy concerning for primary lung malignancies with metastatic disease. 3 pathologic fractures of T10 vertebral body with extension into bilateral pedicles. Surgical sensation AND recommended there is approximately 25% height loss.Significant retropulsion. Additional lucent lesions within the T7 and L1 vertebral bodies with and also represent metastatic foci As per my discussions with Dr. Cerna from the emergency room neurosurgery consultation is recommended given his pathological lesion of the spine. However after Dr. Cerna discussed with the family they are not interested in any neurosurgical intervention as per Dr. Cerna. This is confirmed when I saw the patient and family at bedside they confirmed to me that they are not interested in any surgery. Case also was discussed with orthopedic Dr. Fischer from ER team, no surgical is intended at this time per Sign out. Dexamethasone was started and emergency room Patient was admitted with consultation for Dr. Calix, from a pulmonary team and hematology oncology team 11/17/2022 A sitting up in bed not in distress, he is breathing quietly, not in severe pain. He denies any new complaint. He is saturating 96 on 5 L oxygen via nasal cannula, less tachypneic than yesterday. Labs reviewed today his INR came down to 7.5, hemoglobin remains normal at 14.4 with no signs of evidence of bleeding. No more hemoptysis. His potassium was elevated 5.8 today, we are going to give insulin/dextrose, calcium gluconate and glaucoma small dose and lowered losartan 100 down to 50 mg and start Norvasc 5 mg for better blood pressure control Patient remains on dexamethasone at 4 mg every 6 hours as needed. We will discontinue normal saline because of evidence of fluid overload Several consultants on the case including cardiology, pulmonary, hematology/onc ology and orthopedic team. This morning I discussed the case with orthopedic team, no surgical intervention and the recommended TSLO Brace and continue with IV dexamethasone I'm resuming the care of the patient on 11/21/2022 patient is lying in bed in mild to moderate respiratory distress, his oxygen requirement increased to 15 L/m overnight. He is able to talk and he denies chest pain or dyspnea. He was looking for his artificial teeth which dropped off the bed. He denies any other new complaints. Blood pressure is stable. No labs from today, we ordered a repeat hemoglobin and check labs tomorrow. Displaced on stronger antibiotic Zosyn today as well as IV Lasix 40 mg twice daily Fluid cytology results still pending Cardiology on the case and helped management of his A. fib including anticoagulation Resuming the care of the patient 11/25/2022 No chest pain, he is awake but he is very weak. Remains on 15 L oxygen. A nasal cannula Still has [id number] back pain, lidocaine patch added Leg weakness is stable, patient can bend both to some degree. Also his shot dropper from mild suprapubic pain and tenderness. I will discussed with staff to check a bladder scan. Resume Coumadin as per ID team recommendation from 11/20. 11/18/2022 Patient is awake and alert today, common bed, mildly tachypneic. His oxygen level still dependent on high flow nasal cannula/mass at 15 L/h via nonrebreather sometimes. Patient does not improve much despite multiple therapy. Pulmonary team as per pulmonary team yesterday, patient and family are considering hospice care today I talked to the patient today is willing to talk to hospice team if it's okay with family. Bedside nurse spoke to the daughter and a who came in later and she they are agreeable for hospice consult which is placed. Other than that patient looks comfortable, he denies any back pain, he has mild suprapubic pain which looks controlled, now worsening weakness of the lower extremity His Coumadin and INR 1.6, which may be stopped once patient agrees for hospice Objective - Vital Signs Vital signs: Vital Signs Temp 97.9 F 11/26/22 08:00 Pulse 70 11/26/22 08:09 Resp 18 11/26/22 08:00 BP 132/47 11/26/22 08:00 Pulse Ox 93 L 11/26/22 08:00 FiO2 Intake & Output 11/25/22 11/26/22 11/26/22 18:59 06:59 18:59 Intake Total 120 540 Output Total 1000 1050 650 Balance -880 -510 -650 Weight 77 kg Intake: Oral 120 540 Output: Urine 1000 1050 650 Other: Voiding Method External Catheter External Catheter # Bowel Movements 1 - Exam GENERAL: The patient is alert and oriented x3, not in any acute distress. Well developed, well nourished. HEENT: Pupils are round and equally reacting to light. EOMI. No scleral icterus. No conjunctival pallor. Normocephalic, atraumatic. No pharyngeal erythema. No thyromegaly. CARDIOVASCULAR: S1 and S2 present. No murmurs, rubs, or gallops. PULMONARY: Chest is clear to auscultation, no wheezing or crackles. ABDOMEN: Soft, nontender, nondistended, normoactive bowel sounds. No palpable organomegaly. -MUSCULOSKELETAL: No joint swelling or deformity. Back tenderness EXTREMITIES: No cyanosis, clubbing, or pedal edema. -NEUROLOGICAL: Fully awake and oriented, cranial nerves are grossly intact, upper extremity strength is at baseline,. Bilateral lower extremity weakness, There is more weakness on the right leg. SKIN: No rashes. no petechiae. - Labs CBC & Chem 7: 11/26/22 07:32 11/26/22 07:32 Labs: Abnormal Lab Results - Last 24 Hours (Table) 11/25/22 11/25/22 11/26/22 Range/Units 16:47 19:51 06:02 WBC (3.8-10.6) k/uL Neutrophils # (1.3-7.7) k/uL Lymphocytes # (1.0-4.8) k/uL PT (9.0-12.0) sec INR (<1.2) Sodium (137-145) mmol/L Chloride (98-107) mmol/L Carbon Dioxide (22-30) mmol/L BUN (9-20) mg/dL Glucose (74-99) mg/dL POC Glucose (mg/dL) 256 H 274 H 221 H (70-110) mg/dL 11/26/22 11/26/22 11/26/22 Range/Units 07:32 07:32 07:32 WBC 14.3 H (3.8-10.6) k/uL Neutrophils # 13.4 H (1.3-7.7) k/uL Lymphocytes # 0.2 L (1.0-4.8) k/uL PT 16.0 H (9.0-12.0) sec INR 1.6 H (<1.2) Sodium 131 L (137-145) mmol/L Chloride 88 L (98-107) mmol/L Carbon Dioxide 43 H* (22-30) mmol/L BUN 45 H (9-20) mg/dL Glucose 208 H (74-99) mg/dL POC Glucose (mg/dL) (70-110) mg/dL 11/26/22 Range/Units 11:31 WBC (3.8-10.6) k/uL Neutrophils # (1.3-7.7) k/uL Lymphocytes # (1.0-4.8) k/uL PT (9.0-12.0) sec INR (<1.2) Sodium (137-145) mmol/L Chloride (98-107) mmol/L Carbon Dioxide (22-30) mmol/L BUN (9-20) mg/dL Glucose (74-99) mg/dL POC Glucose (mg/dL) 223 H (70-110) mg/dL Assessment and Plan Assessment: Multiple pulmonary nodules suspicious for primary lung cancer with mediastinal lymphadenopathy and metastatic to the bone. Pathological fractures of T10, with vertebral height loss. Right lower extremity weakness Multiple lucent lesions within T7 and L1 suspicious for metastatic disease Acute hypoxemic respiratory failure Hyperkalemia, could be secondary to medication while on losartan Chronic atrial fibrillation on Coumadin Coagulopathy secondary to Coumadin Hemoptysis Chronic heart failure Hyperlipidemia Hypertension History of osteoarthritis History of sleep apnea on CPAP at home. History of colon cancer status post radiotherapy History of melanoma Plan: Hospice care consult, discussed with patient and he is agreeable (also patient and family are agreeable and daughter at bedside) Resume Coumadin, monitor hemoglobin and vitals, per cardiology about management of A. fib and anticoagulation management Continue with IV Lasix Continue with IV Zosyn Continue with dexamethasone, monitor sugar obtained TSLO Brace per Orthopedic team Pain management discussed with patient and family at bedside, they requested Tylenol No. 3 as it is was working for him at home, also IV pain medication with Dilaudid as needed. Xanax when necessary for anxiety. Continue with aspirin Resume home medication. Monitor lytes and vitals. DVT and GI prophylaxis. Further recommendations as per clinical course of the patient DVT prophylaxis: on hold GI Prophylaxis: Pepcid Prognosis is guarded CODE STATUS: No code Discussed with staff Also discussed with the bedside nurse to contact cardiology for when to resume anticoagulation, repeat hemoglobin from today's ordered
--- NOTE | 2022-11-26 12:19 | P.PN ---
Subjective Progress Note Date: 11/26/22 This is a very pleasant 87-year-old male patient who has a history of colon cancer status post colectomy, melanoma, status post resection at the [facility], atrial fibrillation anticoagulated with warfarin, hyperlipidemia, hypertension, obstructive sleep apnea, gout, peripheral vascular disease with previous stent placement, cardiac sarcoidosis with previous VT ablations and subsequent AICD placement. He had been having issues with low back pain and progressive weakness of the lower extremities. He presented here to the emergency room yesterday for the same. Computed tomography scan of the spine revealed multilevel disc degeneration changes with severe L3-L4 and moderate to severe L4-L5 spinal canal stenosis. There is new partially visualized lower lung masses/nodule and enlarged upper abdominal lymph node concerning for metastatic disease. ET scan of the chest abdomen and pelvis revealed diffuse pulmonary nodules and mediastinal lymphadenopathy with metastatic disease. The re is pathologic fracture of T10 vertebral body with extension into the bilateral pedicles. There is approximately 25% height loss. Additional lucent lesion within T7 and L1 vertebral bodies which could also represent metastatic foci. There is slight leg appearance in the superior vena cava secondary to large mediastinal lymphadenopathy concerning for future SVC syndrome. No evidence of pulmonary embolism. No evidence of lymphadenopathy or mass in the abdomen or pelvis. White count 6.2. Hemoglobin 14.4. Initial INR 8.5 currently 7.5. Sodium 135. Potassium 5.8. BUN 22. Creatinine 0.78. Glucose 209. Calcium 9.0. Esparza virus and influenza screens negative. He is seen today in consultation on the selective care unit. He admits to having some shortness of breath cough and congestion. He has been coughing up blood-tinged sputum. He is a smoker of 53 years. He has no home oxygen. He has no pulmonary medications. He is currently requiring 5 L nasal cannula to maintain O2 saturations in the low 90s. He is afebrile. Hemodynamically stable. Chest x-ray reveals cardiomegaly, pulmonary vascular congestion and bilateral pleural effusions. ProBNP 2150. He's been initiated on Decadron 4 mg IV every 6 hours. Oral diuretics. Dilaudid for pain control. The patient is seen today 11/18/2022 in follow-up on the selective care unit. He is currently resting comfortably in bed. Awake and alert in no acute distress. Currently on 5 L high flow nasal cannula with O2 saturations in the mid 90s. Afebrile. Hemodynamically stable. White count 11.7. Hemoglobin 12.6. Platelets 266. INR 8.3. Sodium 134. Potassium 4.5. Bicarb 34. BUN 27. Creatinine 0.70. Glucose 165. He remains on Decadron 4 mg IVP every 6 hours. He was given vitamin K 2.5 mg by mouth today. The patient is seen today 11/19/2022 in follow-up on the selective care unit. He is currently laying flat in bed. Awake and alert distress. O2 saturations in the 90s on 5 L/m per nasal cannula. He's been afebrile. Hemodynamically stable. White count 12.8. Hemoglobin 14.6. Platelets 285. INR 1.7. Sodium 132. Potassium 4.5. Bicarb 36. BUN 27. Creatinine 0.64. Glucose 143. He remains on Decadron 4 mg IVP every 6 hours. Utilizing Tylenol No. 3 and Dilaudid for pain control. On 11/20/2022, the patient is being seen for a follow-up. Is a concern of metastatic carcinoma this patient. The patient has multiple comorbidities including previous history of cardiac sarcoidosis, previous CT ablations, AICD placement, his colon cancer with a previous colectomy, previous history of m elanoma resected, chronic atrial fibrillation maintained on anticoagulation with warfarin, hyperlipidemia and hypertension and obstructive sleep apnea along with peripheral vascular disease and previous vascular stent insertion. Patient also has gout. Patient was having some shortness of breath and back pain. He does have an area of severe L3-L4 and moderate L4-L5 canal stenosis. As far as the the CAT scan of the chest, this is consistent with metastatic disease with extensive B cell lymphadenopathy, multiple bilateral pulmonary nodules and bilateral pleural effusion. The patient underwent a thoracentesis yesterday and the fluid LDH is low at 112 and fluid protein is at 1.9. This is more consistent of a chance areli. Blood work shows an INR of 1.4 with a PT of 14.4. WBC count of 15.4. The CAT scan findings are highly suspicious for malignancy. CEA level is at 1.0. ProBNP level was 2150. Patient's calcium level is at 8.9. LFTs are normal. On 11/21/2022, the patient's condition is worse. His occupation is obviously worse and the patient was on 5 L O2 nasal cannula and overnight and earlier this morning the patient became more short of breath and currently is on 15 L n onrebreather fullface mask. He has a congested cough. Unable to bring up much sputum. Afebrile. Hemodynamically stable. Based on my review of the CAT scan of the chest, there is evidence of diffuse metastatic disease. The family was quite hesitant to undergo further investigation and they are considering hospice care. Meanwhile, the patient has undergone thoracentesis for diagnostic purpose s. The fluid came back a transudate and the fluid cytology is still pending. Noted based on the CAT scan of the chest, the patient has extensive mediastinal lymphadenopathy and extensive bilateral pulmonary nodules and bilateral pleural effusions. He is quite debilitated 87-year-old male patient. He is known to have previous colectomy for colon cancer, previous melanoma, history of AICD placement, history of cardiac Sarcoidosis. He Also Has Chronic Atrial Fibrillation Maintained on Anticoagulation with Warfarin, Hypertension Hyperlipidemia and Obstructive Sleep Apnea and Peripheral Vascular Disease. 11/22/2022, the patient is less short of breath. After being on 100% on rebreather facemask, the patient was transitioned to high flow oxygen at 15 L and current pulse ox is around 95%. He is subjected to diuresis yesterday and the patient is on Lasix 40 mg every 12 hours. Overall fluid balance has been negative over the past 24 hours and the patient is feeling less short of breath. Was still awaiting the final pathology from the lower fluid was aspirated. Fluid balance is -1.6 L over the past 24 hours. Note that the pleural fluid analysis based on the chemistry was a transudate and the pathology may not give us a final diagnosis. I do suspect malignancy and the patient and assess the patient and his family is willing, and endobronchial ultrasound with biopsy of the mediastinal lymph nodes were confirmed the diagnosis. In any rates, he is quite debilitated. Is 87 years of age. No final decision regarding any biopsies at this point in time. Oncology is on the case. On 11/23/2022, the patient remains on 15 L of oxygen by nasal cannula. On 15 L O2, his pulse ox is 94%. Essentially the same as yesterday without any major improvement. He is in a negative fluid balance of 1.6 L for yesterday. Labs from today are still pending. He is still not interested in bronchoscopy and biopsies of the mediastinal lymph nodes. Meanwhile, the pro fluid cytology came back negative for malignancy. 11/24/2022, no change in this patient's condition and the patient remains on high flow oxygen 15 L with a pulse ox of 92%. His resting comfortably in bed. I the next discussion with his daughter over the phone. She confirmed that they're not interested in establishing a final diagnosis and the elbow understand that there is a high suspicion for malignancy in this patient. The pleural fluid cytology came back negative for malignancy. The patient is seen today 11/25/2022 in follow-up on the selective care unit. He is currently resting comfortably in bed. Awake and alert in no acute distress. He is still requiring 15 L high flow nasal cannula but maintaining good O2 saturations in the upper 90s. He is afebrile. Hemodynamically stable. Pleural fluid cultures revealed no growth. Urine for malignancy. Blood glucose 204. Continued on DuoNeb inhalations, IV Decadron, antibiotics in the form of Zosyn. Remains on IV diuretics. Anticoagulated with warfarin. The patient is seen today 11/26/2022 in follow-up on the selective care unit. Currently resting fairly comfortably in bed. Continued on 15 L high flow nasal cannula with O2 saturations in the 90s. He's been afebrile. Hemodynamically stable. Chest x-ray reveals near complete resolution of the left upper lobe infiltrate. Improving bilateral lobe infiltrate and small effusion. Numerous bilateral pulmonary metastatic lesions continue. Pleural fluid cultures revealed no growth. White count 14.3. Hemoglobin 14.0. Platelets 288. Creatinine 1.6. Sodium 131 potassium 4.7. Bicarb 43. BUN 45. Creatinine 0.96. Glucose 208. He remains on DuoNeb inhalations, IV Decadron, Zosyn. A nticoagulated with warfarin. Objective - Vital Signs Vital signs: Vital Signs Temp 97.9 F 11/26/22 08:00 Pulse 77 11/26/22 12:08 Resp 18 11/26/22 08:00 BP 132/47 11/26/22 08:00 Pulse Ox 93 L 11/26/22 08:00 FiO2 Intake & Output 11/25/22 11/26/22 11/26/22 18:59 06:59 18:59 Intake Total 120 540 Output Total 1000 1050 650 Balance -221 -708 -833 Weight 77 kg Intake: Oral 120 540 Output: Urine 1000 1050 650 Other: Voiding Method External Catheter External Catheter # Bowel Movements 1 - Exam GENERAL EXAM: Alert, frail 87-year-old male, on 15 L high flow nasal cannula, fairly comfortable resting in bed, in no apparent distress. HEAD: Normocephalic. EYES: Normal reaction of pupils, equal size. NOSE: Clear with pink turbinates. THROAT: No erythema or exudates. NECK: No masses, no JVD. CHEST: No chest wall deformity. LUNGS: Equal air entry with bibasilar crackles. CVS: S1 and S2 normal with no audible murmur, regular rhythm. ABDOMEN: No hepatosplenomegaly, normal bowel sounds, no guarding or rigidity. SPINE: No scoliosis or deformity SKIN: No rashes CENTRAL NERVOUS SYSTEM: No focal deficits, tone is normal in all 4 extremities. EXTREMITIES: Generalized weakness of the bilateral lower extremities. There is no peripheral edema. No clubbing, no cyanosis. Peripheral pulses are intact. - Labs CBC & Chem 7: 11/26/22 07:32 11/26/22 07:32 Labs: Abnormal Lab Results - Last 24 Hours (Table) 11/25/22 11/25/22 11/26/22 Range/Units 16:47 19:51 06:02 WBC (3.8-10.6) k/uL Neutrophils # (1.3-7.7) k/uL Lymphocytes # (1.0-4.8) k/uL PT (9.0-12.0) sec INR (<1.2) Sodium (137-145) mmol/L Chloride (98-107) mmol/L Carbon Dioxide (22-30) mmol/L BUN (9-20) mg/dL Glucose (74-99) mg/dL POC Glucose (mg/dL) 256 H 274 H 221 H (70-110) mg/dL 11/26/22 11/26/22 11/26/22 Range/Units 07:32 07:32 07:32 WBC 14.3 H (3.8-10.6) k/uL Neutrophils # 13.4 H (1.3-7.7) k/uL Lymphocytes # 0.2 L (1.0-4.8) k/uL PT 16.0 H (9.0-12.0) sec INR 1.6 H (<1.2) Sodium 131 L (137-145) mmol/L Chloride 88 L (98-107) mmol/L Carbon Dioxide 43 H* (22-30) mmol/L BUN 45 H (9-20) mg/dL Glucose 208 H (74-99) mg/dL POC Glucose (mg/dL) (70-110) mg/dL 11/26/22 Range/Units 11:31 WBC (3.8-10.6) k/uL Neutrophils # (1.3-7.7) k/uL Lymphocytes # (1.0-4.8) k/uL PT (9.0-12.0) sec INR (<1.2) Sodium (137-145) mmol/L Chloride (98-107) mmol/L Carbon Dioxide (22-30) mmol/L BUN (9-20) mg/dL Glucose (74-99) mg/dL POC Glucose (mg/dL) 223 H (70-110) mg/dL Assessment and Plan Assessment: Diffuse pulmonary nodules, pleural effusions and mediastinal lymphadenopathy concerning for metastatic disease, suspect metastatic disease from unknown primary to the lungs, suspect metastatic melanoma versus lung cancer Acute hypoxemic respiratory failure secondary to an acute exacerbation of suspected diastolic congestive heart failure with worsening oxygen requirements and currently on 15 L high flow nasal cannula. Remains on diuretics Hemoptysis secondary to supratherapeutic INR, improved and current INR 1.6 Pathologic fracture of T10 vertebral body with extension of the bilateral pedicles in a patient with lower extremity weakness. 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, status post AICD placement History of colon cancer status post colectomy with colostomy and subsequent reversal History of melanoma of the face and neck on the right, status post resection at the [facility] Atrial fibrillation anticoagulated with warfarin, supra therapeutic with initial INR of 8.5 currently down to 1.6 Obstructive sleep apnea History of 53 years chronic tobacco dependence Suspect some underlying COPD Hypertension Hyperlipidemia Peripheral vascular disease with previous stent placement Plan: The patient was seen and evaluated Labs and medications reviewed Titrate down the FiO2 as tolerated Patient and family are meeting with hospice today We'll continue the current treatment plan for now I have personally seen and examined the patient, performed the documentation and the assessment and plan as written. Number of minutes spent on the visit: 10.
[2022-11-26 16:34] LABS: Glucose,Whole Blood 313 mg/dL (70-110)
[2022-11-26] MEDS ORDERED: WARFARIN 1 MG TAB PO ONE (18:00)
[2022-11-26 20:01] LABS: Glucose,Whole Blood 258 mg/dL (70-110)
[2022-11-26] MEDS: LOSARTAN 50 MG TAB PO SCH (21:37)
[2022-11-26] MEDS: ATORVASTATIN 10 MG TAB PO SCH (21:38)
[2022-11-26] MEDS: allopurinoL 300 MG TAB PO SCH (21:38)
[2022-11-27] MEDS: PIPERACILLIN-TAZOBACTAM 3.375 GM in SODIUM CHLORIDE 0.9% 100 ML IVPB SCH ×4 (00:29→23:12)
[2022-11-27] MEDS: HYDROmorphone 0.5 MG/0.5 ML SYRINGE IVP PRN ×3 (00:29→20:26)
[2022-11-27] MEDS: DEXAMETHASONE SOD PHOSPHATE 4 MG/ML 1 ML VIAL IVP SCH ×5 (00:29→23:12)
[2022-11-27 06:18] LABS: Glucose,Whole Blood 252 mg/dL (70-110)
[2022-11-27] MEDS: INSULIN ASPART (NovoLOG) 100 UNIT/ML VIAL SQ SCH ×4 (06:31→20:26)
[2022-11-27 07:57] LABS: INR 1.9 (<1.2)
[2022-11-27] MEDS: FUROSEMIDE 10 MG/ML 4 ML VIAL IV SCH (08:42)
[2022-11-27] MEDS: AMIODARONE 100 MG TAB PO SCH (08:42)
[2022-11-27] MEDS: amLODIPine 5 MG TAB PO SCH (08:42)
[2022-11-27] MEDS: FAMOTIDINE 20 MG TAB PO SCH ×2 (08:42→20:26)
[2022-11-27] MEDS: DOCUSATE 100 MG CAP PO SCH ×2 (08:42→20:26)
[2022-11-27] MEDS: ASPIRIN 81 MG PO SCH (08:59)
[2022-11-27] MEDS: IPRATROPIUM-ALBUTEROL 3 ML NEB INHALATION SCH ×4 (09:12→19:43)
[2022-11-27] MEDS ORDERED: polyethylene glycoL 3350 17 GM POWD.PACK PO STA (09:15)
[2022-11-27] MEDS: SENNOSIDES 8.6 MG TAB PO SCH ×2 (11:41→20:26)
[2022-11-27 11:49] LABS: Glucose,Whole Blood 342 mg/dL (70-110)
--- NOTE | 2022-11-27 12:04 | P.PN ---
Subjective This is a pleasant 87 years old male with multiple medical problems as below. Patient PCP is Dr. España and his traffic incident management manager is Dr. Rojas. Family were at bedside including the daughter and 2 sons. patient presents because feeling stuffiness in his abdomen as he is telling me, he says he cannot move by himself slight before, if he tries to stand up he feels unsteady. And associated with dizziness He says he has abdominal pain like 7/10 in severity he described it like a broad band across his upper half of the abdomen, starting from the back and radiating across the abdomen. He started having these symptoms since September 28. Patient states also he cannot feel when he pees, He denies chest pain, has little dyspnea, with total occasional cough with clear phlegm but also a coughing some of blood. He has some vomiting yesterday but he has low appetite and has been constipated. he has no perineal numbness. Most of the symptoms started on 09/28. Patient is afebrile, slightly bradycardic, blood pressure 164/74, saturating 94% on 5 L oxygen via nasal cannula CBC is unremarkable, hemoglobin within the reference range 14.0. INR elevated to 8.5, PTT 64. Sodium 134 Creatinine normal, liver enzymes not elevated. Bilirubin 1.5. Troponin 0.04. Which is a slightly elevated Viruses and detected including coronavirus and influenza virus EKG showed atrial fibrillation's with occasional ventricular paced complex CT of the chest abdomen and pelvis with contrast: Diffuse pulmonary nodules and mediastinal lymphadenopathy concerning for primary lung malignancies with metastatic disease. 3 pathologic fractures of T10 vertebral body with extension into bilateral pedicles. Surgical sensation AND recommended there is approximately 25% height loss.Significant retropulsion. Additional lucent lesions within the T7 and L1 vertebral bodies with and also represent metastatic foci As per my discussions with Dr. Cerna from the emergency room neurosurgery consultation is recommended given his pathological lesion of the spine. However after Dr. Cerna discussed with the family they are not interested in any neurosurgical intervention as per Dr. Cerna. This is confirmed when I saw the patient and family at bedside they confirmed to me that they are not interested in any surgery. Case also was discussed with orthopedic Dr. Fischer from ER team, no surgical is intended at this time per Sign out. Dexamethasone was started and emergency room Patient was admitted with consultation for Dr. Calix, from a pulmonary team and hematology oncology team 11/17/2022 A sitting up in bed not in distress, he is breathing quietly, not in severe pain. He denies any new complaint. He is saturating 96 on 5 L oxygen via nasal cannula, less tachypneic than yesterday. Labs reviewed today his INR came down to 7.5, hemoglobin remains normal at 14.4 with no signs of evidence of bleeding. No more hemoptysis. His potassium was elevated 5.8 today, we are going to give insulin/dextrose, calcium gluconate and glaucoma small dose and lowered losartan 100 down to 50 mg and start Norvasc 5 mg for better blood pressure control Patient remains on dexamethasone at 4 mg every 6 hours as needed. We will discontinue normal saline because of evidence of fluid overload Several consultants on the case including cardiology, pulmonary, hematology/onc ology and orthopedic team. This morning I discussed the case with orthopedic team, no surgical intervention and the recommended TSLO Brace and continue with IV dexamethasone I'm resuming the care of the patient on 11/21/2022 patient is lying in bed in mild to moderate respiratory distress, his oxygen requirement increased to 15 L/m overnight. He is able to talk and he denies chest pain or dyspnea. He was looking for his artificial teeth which dropped off the bed. He denies any other new complaints. Blood pressure is stable. No labs from today, we ordered a repeat hemoglobin and check labs tomorrow. Displaced on stronger antibiotic Zosyn today as well as IV Lasix 40 mg twice daily Fluid cytology results still pending Cardiology on the case and helped management of his A. fib including anticoagulation Resuming the care of the patient 11/25/2022 No chest pain, he is awake but he is very weak. Remains on 15 L oxygen. A nasal cannula Still has [id number] back pain, lidocaine patch added Leg weakness is stable, patient can bend both to some degree. 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 I will discussed with staff to check a bladder scan. Resume Coumadin as per ID team recommendation from 11/20. 11/26/2022 Patient is awake and alert today, common bed, mildly tachypneic. His oxygen level still dependent on high flow nasal cannula/mass at 15 L/h via nonrebreather sometimes. Patient does not improve much despite multiple therapy. Pulmonary team as per pulmonary team yesterday, patient and family are considering hospice care today I talked to the patient today is willing to talk to hospice team if it's okay with family. Bedside nurse spoke to the daughter and a who came in later and she they are agreeable for hospice consult which is placed. Other than that patient looks comfortable, he denies any back pain, he has mild suprapubic pain which looks controlled, now worsening weakness of the lower extremity His Coumadin and INR 1.6, which may be stopped once patient agrees for hospice 11/27/2022 Patient is comfortable, he complains from some back pain about 5/10 and lower abdominal pain 7/10 but he does not look in distress, he is already on pain medication. His other complaint is constipation and we added senna and MiraLAX today, also will put enema as needed and possible Dulcolax if needed and discussed with staff. Already he is, Colace 100 mg twice a day. Family and patient is still discussing options with hospice team and they don't have another meeting today. Family were asking about radiation oncology treatment to his back however as per radiation oncology team patient is on high flow nasal cannula at 15 L/m, so it cannot be done per their Recommendation Also I talked about the patient will continue with Coumadin or so. He wasn't sure, therefore we'll continue with Coumadin for now unless patient and family decides otherwise. INR today is 1.9 Discussed with the staff Objective - Vital Signs Vital signs: Vital Signs Temp 98.1 F 11/27/22 08:00 Pulse 68 11/27/22 11:56 Resp 18 11/27/22 11:56 BP 128/65 11/27/22 08:00 Pulse Ox 93 L 11/27/22 09:12 FiO2 Intake & Output 11/26/22 11/27/22 11/27/22 18:59 06:59 18:59 Intake Total 236 Output Total 650 900 Balance -414 -900 Weight 80.5 kg Intake: Oral 236 Output: Urine 650 900 Other: Voiding Method External Catheter External Catheter External Catheter - Exam GENERAL: The patient is alert and oriented x3, not in any acute distress. Well developed, well nourished. HEENT: Pupils are round and equally reacting to light. EOMI. No scleral icterus. No conjunctival pallor. Normocephalic, atraumatic. No pharyngeal erythema. No thyromegaly. CARDIOVASCULAR: S1 and S2 present. No murmurs, rubs, or gallops. PULMONARY: Chest is clear to auscultation, no wheezing or crackles. ABDOMEN: Soft, nontender, nondistended, normoactive bowel sounds. No palpable organomegaly. -MUSCULOSKELETAL: No joint swelling or deformity. Back tenderness EXTREMITIES: No cyanosis, clubbing, or pedal edema. -NEUROLOGICAL: Fully awake and oriented, cranial nerves are grossly intact, upp er extremity strength is at baseline,. Bilateral lower extremity weakness, There is more weakness on the right leg. SKIN: No rashes. no petechiae. - Labs CBC & Chem 7: 11/26/22 07:32 11/26/22 07:32 Labs: Abnormal Lab Results - Last 24 Hours (Table) 11/26/22 11/26/22 11/27/22 Range/Units 16:33 19:59 06:16 PT (9.0-12.0) sec INR (<1.2) POC Glucose (mg/dL) 313 H 258 H 252 H (70-110) mg/dL 11/27/22 11/27/22 Range/Units 07:06 11:44 PT 19.0 H (9.0-12.0) sec INR 1.9 H (<1.2) POC Glucose (mg/dL) 342 H (70-110) mg/dL Assessment and Plan Assessment: Multiple pulmonary nodules suspicious for primary lung cancer with mediastinal lymphadenopathy and metastatic to the bone. Pathological fractures of T10, with vertebral height loss. Right lower extremity weakness Multiple lucent lesions within T7 and L1 suspicious for metastatic disease Acute hypoxemic respiratory failure Hyperkalemia, could be secondary to medication while on losartan Chronic atrial fibrillation on Coumadin Coagulopathy secondary to Coumadin Hemoptysis Chronic heart failure Hyperlipidemia Hypertension History of osteoarthritis History of sleep apnea on CPAP at home. History of colon cancer status post radiotherapy History of melanoma Plan: Hospice care consult, discussed with patient and he is agreeable (also patient and family are agreeable and daughter at bedside) Resume Coumadin, monitor hemoglobin and vitals, per cardiology about management of A. fib and anticoagulation management Continue with IV Lasix Continue with IV Zosyn Continue with dexamethasone, monitor sugar obtained TSLO Brace per Orthopedic team Pain management discussed with patient and family at bedside, they requested Tylenol No. 3 as it is was working for him at home, also IV pain medication with Dilaudid as needed. Xanax when necessary for anxiety. Continue with aspirin increased constipation medicine Resume home medication. Monitor lytes and vitals. DVT and GI prophylaxis. Further recommendations as per clinical course of the patient DVT prophylaxis: on hold GI Prophylaxis: Pepcid Prognosis is guarded CODE STATUS: No code Discussed with staff Also discussed with the bedside nurse to contact cardiology for when to resume anticoagulation, repeat hemoglobin from today's ordered
[2022-11-27] MEDS: LIDOCAINE 5% PATCH TOPICAL SCH (12:39)
[2022-11-27] MEDS ORDERED: NA PHOS,M-B/NA PHOS,DI-BA 133 ML ENEMA RECTAL ONE (12:59)
--- NOTE | 2022-11-27 14:19 | P.PN ---
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 He had been having issues with low back pain and progressive weakness of the lower extremities. He presented here to the emergency room yesterday for the same. Computed tomography scan of the spine revealed multilevel disc degeneration changes with severe L3-L4 and moderate to severe L4-L5 spinal canal stenosis. There is new partially visualized lower lung masses/nodule and enlarged upper abdominal lymph node concerning for metastatic disease. ET scan of the chest abdomen and pelvis revealed diffuse pulmonary nodules and mediastinal lymphadenopathy with metastatic disease. The re is pathologic fracture of T10 vertebral body with extension into the bilateral pedicles. There is approximately 25% height loss. Additional lucent lesion within T7 and L1 vertebral bodies which could also represent metastatic foci. There is slight leg appearance in the superior vena cava secondary to large mediastinal lymphadenopathy concerning for future SVC syndrome. No evidence of pulmonary embolism. No evidence of lymphadenopathy or mass in the abdomen or pelvis. White count 6.2. Hemoglobin 14.4. Initial INR 8.5 currently 7.5. Sodium 135. Potassium 5.8. BUN 22. Creatinine 0.78. Glucose 209. Calcium 9.0. Esparza virus and influenza screens negative. He is seen today in consultation on the selective care unit. He admits to having some shortness of breath cough and congestion. He has been coughing up blood-tinged sputum. He is a smoker of 53 years. He has no home oxygen. He has no pulmonary medications. He is currently requiring 5 L nasal cannula to maintain O2 saturations in the low 90s. He is afebrile. Hemodynamically stable. Chest x-ray reveals cardiomegaly, pulmonary vascular congestion and bilateral pleural effusions. ProBNP 2150. He's been initiated on Decadron 4 mg IV every 6 hours. Oral diuretics. Dilaudid for pain control. The patient is seen today 11/18/2022 in follow-up on the selective care unit. He is currently resting comfortably in bed. Awake and alert in no acute distress. Currently on 5 L high flow nasal cannula with O2 saturations in the mid 90s. Afebrile. Hemodynamically stable. White count 11.7. Hemoglobin 12.6. Platelets 266. INR 8.3. Sodium 134. Potassium 4.5. Bicarb 34. BUN 27. Creatinine 0.70. Glucose 165. He remains on Decadron 4 mg IVP every 6 hours. He was given vitamin K 2.5 mg by mouth today. The patient is seen today 11/19/2022 in follow-up on the selective care unit. He is currently laying flat in bed. Awake and alert distress. O2 saturations in the 90s on 5 L/m per nasal cannula. He's been afebrile. Hemodynamically stable. White count 12.8. Hemoglobin 14.6. Platelets 285. INR 1.7. Sodium 132. Potassium 4.5. Bicarb 36. BUN 27. Creatinine 0.64. Glucose 143. He remains on Decadron 4 mg IVP every 6 hours. Utilizing Tylenol No. 3 and Dilaudid for pain control. On 11/20/2022, the patient is being seen for a follow-up. Is a concern of metastatic carcinoma this patient. The patient has multiple comorbidities including previous history of cardiac sarcoidosis, previous CT ablations, AICD placement, his colon cancer with a previous colectomy, previous history of m elanoma resected, chronic atrial fibrillation maintained on anticoagulation with warfarin, hyperlipidemia and hypertension and obstructive sleep apnea along with peripheral vascular disease and previous vascular stent insertion. Patient also has gout. Patient was having some shortness of breath and back pain. He does have an area of severe L3-L4 and moderate L4-L5 canal stenosis. As far as the the CAT scan of the chest, this is consistent with metastatic disease with extensive B cell lymphadenopathy, multiple bilateral pulmonary nodules and bilateral pleural effusion. The patient underwent a thoracentesis yesterday and the fluid LDH is low at 112 and fluid protein is at 1.9. This is more consistent of a chance areli. Blood work shows an INR of 1.4 with a PT of 14.4. WBC count of 15.4. The CAT scan findings are highly suspicious for malignancy. CEA level is at 1.0. ProBNP level was 2150. Patient's calcium level is at 8.9. LFTs are normal. On 11/21/2022, the patient's condition is worse. His occupation is obviously worse and the patient was on 5 L O2 nasal cannula and overnight and earlier this morning the patient became more short of breath and currently is on 15 L n onrebreather fullface mask. He has a congested cough. Unable to bring up much sputum. Afebrile. Hemodynamically stable. Based on my review of the CAT scan of the chest, there is evidence of diffuse metastatic disease. The family was quite hesitant to undergo further investigation and they are considering hospice care. Meanwhile, the patient has undergone thoracentesis for diagnostic purpose s. The fluid came back a transudate and the fluid cytology is still pending. Noted based on the CAT scan of the chest, the patient has extensive mediastinal lymphadenopathy and extensive bilateral pulmonary nodules and bilateral pleural effusions. He is quite debilitated 87-year-old male patient. He is known to have previous colectomy for colon cancer, previous melanoma, history of AICD placement, history of cardiac Sarcoidosis. He Also Has Chronic Atrial Fibrillation Maintained on Anticoagulation with Warfarin, Hypertension Hyperlipidemia and Obstructive Sleep Apnea and Peripheral Vascular Disease. 11/22/2022, the patient is less short of breath. After being on 100% on rebreather facemask, the patient was transitioned to high flow oxygen at 15 L and current pulse ox is around 95%. He is subjected to diuresis yesterday and the patient is on Lasix 40 mg every 12 hours. Overall fluid balance has been negative over the past 24 hours and the patient is feeling less short of breath. Was still awaiting the final pathology from the lower fluid was aspirated. Fluid balance is -1.6 L over the past 24 hours. Note that the pleural fluid analysis based on the chemistry was a transudate and the pathology may not give us a final diagnosis. I do suspect malignancy and the patient and assess the patient and his family is willing, and endobronchial ultrasound with biopsy of the mediastinal lymph nodes were confirmed the diagnosis. In any rates, he is quite debilitated. Is 87 years of age. No final decision regarding any biopsies at this point in time. Oncology is on the case. On 11/23/2022, the patient remains on 15 L of oxygen by nasal cannula. On 15 L O2, his pulse ox is 94%. Essentially the same as yesterday without any major improvement. He is in a negative fluid balance of 1.6 L for yesterday. Labs from today are still pending. He is still not interested in bronchoscopy and biopsies of the mediastinal lymph nodes. Meanwhile, the pro fluid cytology came back negative for malignancy. 11/24/2022, no change in this patient's condition and the patient remains on high flow oxygen 15 L with a pulse ox of 92%. His resting comfortably in bed. I the next discussion with his daughter over the phone. She confirmed that they're not interested in establishing a final diagnosis and the elbow understand that there is a high suspicion for malignancy in this patient. The pleural fluid cytology came back negative for malignancy. The patient is seen today 11/25/2022 in follow-up on the selective care unit. He is currently resting comfortably in bed. Awake and alert in no acute distress. He is still requiring 15 L high flow nasal cannula but maintaining good O2 saturations in the upper 90s. He is afebrile. Hemodynamically stable. Pleural fluid cultures revealed no growth. Urine for malignancy. Blood glucose 204. Continued on DuoNeb inhalations, IV Decadron, antibiotics in the form of Zosyn. Remains on IV diuretics. Anticoagulated with warfarin. The patient is seen today 11/26/2022 in follow-up on the selective care unit. Currently resting fairly comfortably in bed. Continued on 15 L high flow nasal cannula with O2 saturations in the 90s. He's been afebrile. Hemodynamically stable. Chest x-ray reveals near complete resolution of the left upper lobe infiltrate. Improving bilateral lobe infiltrate and small effusion. Numerous bilateral pulmonary metastatic lesions continue. Pleural fluid cultures revealed no growth. White count 14.3. Hemoglobin 14.0. Platelets 288. Creatinine 1.6. Sodium 131 potassium 4.7. Bicarb 43. BUN 45. Creatinine 0.96. Glucose 208. He remains on DuoNeb inhalations, IV Decadron, Zosyn. A nticoagulated with warfarin. The patient is seen today in 11/27/2022 in follow-up on selective care unit. Currently resting in bed. Still remains on 15 L high flow nasal cannula with O2 saturation of 94%. He's been afebrile. Hemodynamically stable. Neuro fluid cultures revealed no growth. INR 1.9. Glucose 252. He remains on DuoNeb inhalations, Decadron, Zosyn. Warfarin for anticoagulation. Tylenol 3 and Dilaudid for pain control. Radiation therapy not an option due to the patient's requirement of high flow oxygen. Objective - Vital Signs Vital signs: Vital Signs Temp 98.4 F 11/27/22 12:00 Pulse 69 11/27/22 12:12 Resp 18 11/27/22 12:12 BP 124/77 11/27/22 12:00 Pulse Ox 94 L 11/27/22 12:00 FiO2 Intake & Output 11/26/22 11/27/22 11/27/22 18:59 06:59 18:59 Intake Total 236 118 Output Total 650 900 700 Balance -414 -900 -582 Weight 80.5 kg Intake: Oral 236 118 Output: Urine 650 900 700 Other: Voiding Method External Catheter External Catheter External Catheter - Exam GENERAL EXAM: Alert, frail 87-year-old male, on 15 L high flow nasal cannula, resting in bed, in no apparent distress. HEAD: Normocephalic. EYES: Normal reaction of pupils, equal size. NOSE: Clear with pink turbinates. THROAT: No erythema or exudates. NECK: No masses, no JVD. CHEST: No chest wall deformity. LUNGS: Equal air entry with bibasilar crackles. CVS: S1 and S2 normal with no audible murmur, regular rhythm. ABDOMEN: No hepatosplenomegaly, normal bowel sounds, no guarding or rigidity. SPINE: No scoliosis or deformity SKIN: No rashes CENTRAL NERVOUS SYSTEM: No focal deficits, tone is normal in all 4 extremities. EXTREMITIES: Generalized weakness of the bilateral lower extremities. There is no peripheral edema. No clubbing, no cyanosis. Peripheral pulses are intact. - Labs CBC & Chem 7: 11/26/22 07:32 11/26/22 07:32 Labs: Abnormal Lab Results - Last 24 Hours (Table) 11/26/22 11/26/22 11/27/22 Range/Units 16:33 19:59 06:16 PT (9.0-12.0) sec INR (<1.2) POC Glucose (mg/dL) 313 H 258 H 252 H (70-110) mg/dL 11/27/22 11/27/22 Range/Units 07:06 11:44 PT 19.0 H (9.0-12.0) sec INR 1.9 H (<1.2) POC Glucose (mg/dL) 342 H (70-110) mg/dL Assessment and Plan Assessment: Diffuse pulmonary nodules, pleural effusions and mediastinal lymphadenopathy concerning for metastatic disease, suspect metastatic disease from unknown primary to the lungs, suspect metastatic melanoma versus lung cancer Acute hypoxemic respiratory failure secondary to an acute exacerbation of suspected diastolic congestive heart failure with worsening oxygen requirements and currently on 15 L high flow nasal cannula. Remains on diuretics Hemoptysis secondary to supratherapeutic INR, improved and current INR 1.6 Pathologic fracture of T10 vertebral body with extension of the bilateral pedicles in a patient with lower extremity weakness. 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, status post AICD placement History of colon cancer status post colectomy with colostomy and subsequent reversal History of melanoma of the face and neck on the right, status post resection at the [facility] Atrial fibrillation anticoagulated with warfarin, supra therapeutic with initial INR of 8.5 currently down to 1.6 Obstructive sleep apnea History of 53 years chronic tobacco dependence Suspect some underlying COPD Hypertension Hyperlipidemia Peripheral vascular disease with previous stent placement Plan: The patient was seen and evaluated Labs and medications reviewed Transitioned from IV to oral Lasix Titrate down the FiO2 as tolerated Radiation not an option due to the patient's high flow oxygen requirement Family continues to discuss options and likely home with hospice/hospice house We will sign off the case I have personally seen and examined the patient, performed the documentation and the assessment and plan as written. Number of minutes spent on the visit: 10.
[2022-11-27 16:25] LABS: Glucose,Whole Blood 231 mg/dL (70-110)
[2022-11-27] MEDS ORDERED: WARFARIN 1 MG TAB PO ONE (18:00)
[2022-11-27 20:24] LABS: Glucose,Whole Blood 260 mg/dL (70-110)
[2022-11-27] MEDS: LOSARTAN 50 MG TAB PO SCH (20:26)
[2022-11-27] MEDS: ATORVASTATIN 10 MG TAB PO SCH (20:26)
[2022-11-27] MEDS: allopurinoL 300 MG TAB PO SCH (20:26)
[2022-11-27] MEDS: MAGNESIUM HYDROXIDE 2,400 MG/10 ML CUP PO PRN (20:26)
[2022-11-28 06:15] LABS: Glucose,Whole Blood 225 mg/dL (70-110)
[2022-11-28] MEDS: INSULIN ASPART (NovoLOG) 100 UNIT/ML VIAL SQ SCH ×4 (06:32→20:17)
[2022-11-28] MEDS: DEXAMETHASONE SOD PHOSPHATE 4 MG/ML 1 ML VIAL IVP SCH ×2 (06:32→16:41)
[2022-11-28] MEDS: IPRATROPIUM-ALBUTEROL 3 ML NEB INHALATION SCH ×4 (07:16→20:05)
[2022-11-28 09:21] LABS: INR 2.4 (<1.2); Prothrombin Time 23.1 sec (9.0-12.0)
[2022-11-28 11:31] LABS: Glucose,Whole Blood 235 mg/dL (70-110)
[2022-11-28] MEDS: HYDROmorphone 0.5 MG/0.5 ML SYRINGE IVP PRN ×3 (11:39→20:19)
--- NOTE | 2022-11-28 13:14 | P.PN ---
Subjective This is a pleasant 87 years old male with multiple medical problems as below. Patient PCP is Dr. España and his extension forester is Dr. Rojas. Family were at bedside including the daughter and 2 sons. patient presents because feeling stuffiness in his abdomen as he is telling me, he says he cannot move by himself slight before, if he tries to stand up he feels unsteady. And associated with dizziness He says he has abdominal pain like 7/10 in severity he described it like a broad band across his upper half of the abdomen, starting from the back and radiating across the abdomen. He started having these symptoms since September 28. Patient states also he cannot feel when he pees, He denies chest pain, has little dyspnea, with total occasional cough with clear phlegm but also a coughing some of blood. He has some vomiting yesterday but he has low appetite and has been constipated. he has no perineal numbness. Most of the symptoms started on 09/28. Patient is afebrile, slightly bradycardic, blood pressure 164/74, saturating 94% on 5 L oxygen via nasal cannula CBC is unremarkable, hemoglobin within the reference range 14.0. INR elevated to 8.5, PTT 64. Sodium 134 Creatinine normal, liver enzymes not elevated. Bilirubin 1.5. Troponin 0.04. Which is a slightly elevated Viruses and detected including coronavirus and influenza virus EKG showed atrial fibrillation's with occasional ventricular paced complex CT of the chest abdomen and pelvis with contrast: Diffuse pulmonary nodules and mediastinal lymphadenopathy concerning for primary lung malignancies with metastatic disease. 3 pathologic fractures of T10 vertebral body with extension into bilateral pedicles. Surgical sensation AND recommended there is approximately 25% height loss.Significant retropulsion. Additional lucent lesions within the T7 and L1 vertebral bodies with and also represent metastatic foci As per my discussions with Dr. Cerna from the emergency room neurosurgery consultation is recommended given his pathological lesion of the spine. However after Dr. Cerna discussed with the family they are not interested in any neurosurgical intervention as per Dr. Cerna. This is confirmed when I saw the patient and family at bedside they confirmed to me that they are not interested in any surgery. Case also was discussed with orthopedic Dr. Fischer from ER team, no surgical is intended at this time per Sign out. Dexamethasone was started and emergency room Patient was admitted with consultation for Dr. Calix, from a pulmonary team and hematology oncology team 11/17/2022 A sitting up in bed not in distress, he is breathing quietly, not in severe pain. He denies any new complaint. He is saturating 96 on 5 L oxygen via nasal cannula, less tachypneic than yesterday. Labs reviewed today his INR came down to 7.5, hemoglobin remains normal at 14.4 with no signs of evidence of bleeding. No more hemoptysis. His potassium was elevated 5.8 today, we are going to give insulin/dextrose, calcium gluconate and glaucoma small dose and lowered losartan 100 down to 50 mg and start Norvasc 5 mg for better blood pressure control Patient remains on dexamethasone at 4 mg every 6 hours as needed. We will discontinue normal saline because of evidence of fluid overload Several consultants on the case including cardiology, pulmonary, hematology/onc ology and orthopedic team. This morning I discussed the case with orthopedic team, no surgical intervention and the recommended TSLO Brace and continue with IV dexamethasone I'm resuming the care of the patient on 11/21/2022 patient is lying in bed in mild to moderate respiratory distress, his oxygen requirement increased to 15 L/m overnight. He is able to talk and he denies chest pain or dyspnea. He was looking for his artificial teeth which dropped off the bed. He denies any other new complaints. Blood pressure is stable. No labs from today, we ordered a repeat hemoglobin and check labs tomorrow. Displaced on stronger antibiotic Zosyn today as well as IV Lasix 40 mg twice daily Fluid cytology results still pending Cardiology on the case and helped management of his A. fib including anticoagulation Resuming the care of the patient 11/25/2022 No chest pain, he is awake but he is very weak. Remains on 15 L oxygen. A nasal cannula Still has [id number] back pain, lidocaine patch added Leg weakness is stable, patient can bend both to some degree. 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 I will discussed with staff to check a bladder scan. Resume Coumadin as per ID team recommendation from 11/20. 11/26/2022 Patient is awake and alert today, common bed, mildly tachypneic. His oxygen level still dependent on high flow nasal cannula/mass at 15 L/h via nonrebreather sometimes. Patient does not improve much despite multiple therapy. Pulmonary team as per pulmonary team yesterday, patient and family are considering hospice care today I talked to the patient today is willing to talk to hospice team if it's okay with family. Bedside nurse spoke to the daughter and a who came in later and she they are agreeable for hospice consult which is placed. Other than that patient looks comfortable, he denies any back pain, he has mild suprapubic pain which looks controlled, now worsening weakness of the lower extremity His Coumadin and INR 1.6, which may be stopped once patient agrees for hospice 11/27/2022 Patient is comfortable, he complains from some back pain about 5/10 and lower abdominal pain 7/10 but he does not look in distress, he is already on pain medication. His other complaint is constipation and we added senna and MiraLAX today, also will put enema as needed and possible Dulcolax if needed and discussed with staff. Already he is, Colace 100 mg twice a day. Family and patient is still discussing options with hospice team and they don't have another meeting today. Family were asking about radiation oncology treatment to his back however as per radiation oncology team patient is on high flow nasal cannula at 15 L/m, so it cannot be done per their Recommendation Also I talked about the patient will continue with Coumadin or so. He wasn't sure, therefore we'll continue with Coumadin for now unless patient and family decides otherwise. INR today is 1.9 Discussed with the staff 11/28/2022 Clinically the same Pain controlled No new complaint Still on high flow oxygen at 15 L/m Patient and family agreeable to Dr. de guzman Possible discharge home with hospice tomorrow, discussed with staff Objective - Vital Signs Vital signs: Vital Signs Temp 98.5 F 11/28/22 04:00 Pulse 76 11/28/22 11:01 Resp 19 11/28/22 04:00 BP 111/55 11/28/22 04:00 Pulse Ox 95 11/28/22 04:00 FiO2 Intake & Output 11/27/22 11/28/22 11/28/22 18:59 06:59 18:59 Intake Total 118 Output Total 2230 700 Balance -2111 Intake: Oral 118 Output: Urine 0 700 Other: Voiding Method External Catheter Indwelling Catheter - Exam GENERAL: The patient is alert and oriented x3, not in any acute distress. Well developed, well nourished. HEENT: Pupils are round and equally reacting to light. EOMI. No scleral icterus. No conjunctival pallor. Normocephalic, atraumatic. No pharyngeal erythema. No thyromegaly. CARDIOVASCULAR: S1 and S2 present. No murmurs, rubs, or gallops. PULMONARY: Chest is clear to auscultation, no wheezing or crackles. ABDOMEN: Soft, nontender, nondistended, normoactive bowel sounds. No palpable organomegaly. -MUSCULOSKELETAL: No joint swelling or deformity. Back tenderness EXTREMITIES: No cyanosis, clubbing, or pedal edema. -NEUROLOGICAL: Fully awake and oriented, cranial nerves are grossly intact, upper extremity strength is at baseline,. Bilateral lower extremity weakness, There is more weakness on the right leg. SKIN: No rashes. no petechiae. - Labs CBC & Chem 7: 11/26/22 07:32 11/26/22 07:32 Labs: Abnormal Lab Results - Last 24 Hours (Table) 11/27/22 11/27/22 11/28/22 Range/Units 16:23 20:23 06:13 PT (9.0-12.0) sec INR (<1.2) POC Glucose (mg/dL) 231 H 260 H 225 H (70-110) mg/dL 11/28/22 11/28/22 Range/Units 08:29 11:29 PT 23.1 H (9.0-12.0) sec INR 2.4 H (<1.2) POC Glucose (mg/dL) 235 H (70-110) mg/dL Assessment and Plan Assessment: Multiple pulmonary nodules suspicious for primary lung cancer with mediastinal lymphadenopathy and metastatic to the bone. Pathological fractures of T10, with vertebral height loss. Right lower extremity weakness Multiple lucent lesions within T7 and L1 suspicious for metastatic disease Acute hypoxemic respiratory failure Hyperkalemia, could be secondary to medication while on losartan Chronic atrial fibrillation on Coumadin Coagulopathy secondary to Coumadin Hemoptysis Chronic heart failure Hyperlipidemia Hypertension History of osteoarthritis History of sleep apnea on CPAP at home. History of colon cancer status post radiotherapy History of melanoma Plan: Hospice care consult, discussed with patient and he is agreeable (also patient and family are agreeable and daughter at bedside) Resume Coumadin, monitor hemoglobin and vitals, per cardiology about management of A. fib and anticoagulation management Continue with IV Lasix Continue with IV Zosyn Continue with dexamethasone, monitor sugar obtained TSLO Brace per Orthopedic team Pain management discussed with patient and family at bedside, they requested Tylenol No. 3 as it is was working for him at home, also IV pain medication with Dilaudid as needed. Xanax when necessary for anxiety. Continue with aspirin increased constipation medicine Resume home medication. Monitor lytes and vitals. DVT and GI prophylaxis. Further recommendations as per clinical course of the patient DVT prophylaxis: on hold GI Prophylaxis: Pepcid Prognosis is guarded CODE STATUS: No code Discussed with staff Also discussed with the bedside nurse to contact cardiology for when to resume anticoagulation, repeat hemoglobin from today's ordered
[2022-11-28 16:37] LABS: Glucose,Whole Blood 323 mg/dL (70-110)
[2022-11-28] MEDS: FAMOTIDINE 20 MG TAB PO SCH ×2 (16:40→20:17)
[2022-11-28] MEDS: DOCUSATE 100 MG CAP PO SCH ×2 (16:40→20:17)
[2022-11-28] MEDS: PIPERACILLIN-TAZOBACTAM 3.375 GM in SODIUM CHLORIDE 0.9% 100 ML IVPB SCH (16:40)
[2022-11-28] MEDS: amLODIPine 5 MG TAB PO SCH (16:40)
[2022-11-28] MEDS: ASPIRIN 81 MG PO SCH (16:40)
[2022-11-28] MEDS: AMIODARONE 100 MG TAB PO SCH (16:40)
[2022-11-28] MEDS: SENNOSIDES 8.6 MG TAB PO SCH ×2 (16:41→20:17)
[2022-11-28] MEDS: LIDOCAINE 5% PATCH TOPICAL SCH (16:41)
[2022-11-28] MEDS: FUROSEMIDE 40 MG TAB PO SCH (16:41)
[2022-11-28] MEDS ORDERED: WARFARIN 0.5 MG TAB PO ONE (18:00)
[2022-11-28 20:02] LABS: Glucose,Whole Blood 237 mg/dL (70-110)
[2022-11-28] MEDS: LOSARTAN 50 MG TAB PO SCH (20:08)
[2022-11-28] MEDS: allopurinoL 300 MG TAB PO SCH (20:17)
[2022-11-28] MEDS: ATORVASTATIN 10 MG TAB PO SCH (20:17)
[2022-11-29] MEDS: DEXAMETHASONE SOD PHOSPHATE 4 MG/ML 1 ML VIAL IVP SCH ×3 (00:12→11:46)
[2022-11-29] MEDS: HYDROmorphone 0.5 MG/0.5 ML SYRINGE IVP PRN ×2 (02:20→11:45)
[2022-11-29 06:03] LABS: Glucose,Whole Blood 186 mg/dL (70-110)
[2022-11-29] MEDS: INSULIN ASPART (NovoLOG) 100 UNIT/ML VIAL SQ SCH (06:34)
[2022-11-29 07:54] LABS: INR 2.4 (<1.2); Prothrombin Time 23.9 sec (9.0-12.0)
[2022-11-29] MEDS: IPRATROPIUM-ALBUTEROL 3 ML NEB INHALATION SCH ×2 (08:25→12:45)
[2022-11-29] MEDS: FAMOTIDINE 20 MG TAB PO SCH (10:06)
[2022-11-29] MEDS: DOCUSATE 100 MG CAP PO SCH (10:06)
[2022-11-29] MEDS: amLODIPine 5 MG TAB PO SCH (10:06)
[2022-11-29] MEDS: SENNOSIDES 8.6 MG TAB PO SCH (10:06)
[2022-11-29] MEDS: ASPIRIN 81 MG PO SCH (10:06)
[2022-11-29] MEDS: LIDOCAINE 5% PATCH TOPICAL SCH (10:07)
[2022-11-29] MEDS: FUROSEMIDE 40 MG TAB PO SCH (10:07)
[2022-11-29] MEDS: AMIODARONE 100 MG TAB PO SCH (10:07)
[2022-11-29 11:29] VITALS: BP 137/72; PULSE 68; RESP 14; TEMP 98.2
[2022-11-29 11:30] LABS: Glucose,Whole Blood 202 mg/dL (70-110)
[2022-11-29] MEDS: Acetaminophen-Codeine 300-30mg TAB PO PRN (11:45)
[2022-11-29] MEDS ORDERED: WARFARIN 0.5 MG TAB PO ONE (18:00)
--- NOTE | 2022-12-02 20:36 | CDI ---
Documentation Clarification Form Date: 12/02/2022 8:18:59 PM From: Sofya De Souza Phone: Admit Date: 11/16/2022 3:16:00 PM Patient Name: Earl Grant Visit Number: [id number] Discharge Date: 11/29/2022 12:58:00 PM ATTENTION: The Clinical Documentation Specialists (CDI) and [facility] Coding Staff appreciate your assistance in clarifying documentation. Please respond to the clarification below the line at the bottom and electronically sign. The CDI & [facility] Coding staff will review the response and follow-up if needed. Please note: Queries are made part of the Legal Health Record. If you have any questions, please contact the author of this message via ITS. Dr. Joseph Trinidad Your patient has acute exacerbation of her suspected diastolicversussystolic congestive heart failure per Cardiology Consult and throughout the Progress Notes. Additional information regarding the specific type of CHF is requested. History/Risk Factors: 87yo M, primary billung Cxwithmediastinal lymphadenopathyw bone mets, pathological Fx T10, with height loss, AHRF, Hyperkalemia d/t losartan, chronic A Fib, Rx Coagulopathy, CHF, HLD, HTN, OA, DORI, Hx colon and skin Cx s/pradiotherapy Clinical Indicators: VS/Pulse OX: 97 Echocardiogram Results: Low-normal LV systolic function was EF of around 50%. ModerateAS. Mean gradient of 25 mmHg. MildAR. Moderate MR. Chest X Ray: Cardiomegaly, pulmonary vascularcongestionandbilateral pleural effusions. Correlate with BNP forcongestive heart failure. Treatment: Continue with IV Lasix In your professional opinion, can you please clarify the type of CHF if known? [x ] Acute on Chronic Systolic Heart Failure (reduced EF) [ ] Acute on Chronic Diastolic Heart Failure (preserved EF) [ ] Acute on Chronic Heart Failure Systolic & Diastolic Heart Failure [ ] Other, please specify [ ] Unable to determine (Template Last Revised: December 2020) MTDD
--- NOTE | 2022-12-04 07:06 | P.DS ---
Providers Date of admission: 11/16/22 15:16 Attending physician: Darian Heath MD Consults: 11/16/22 15:16 Consult Physician Urgent Consulting Provider: [facility] Consult Reason/Comments: chf exacerbation Do you want consulting provider notified?: Yes Consult Physician Urgent Consulting Provider: Bill Fischer Consult Reason/Comments: b/l le weakness, t10 pathologic fracture Do you want consulting provider notified?: Already Contacted 11/16/22 15:19 Consult Physician Urgent Consulting Provider: Viral Burch Consult Reason/Comments: lung masses, possible metastatic cancer Do you want consulting provider notified?: Yes Consult Physician Urgent Consulting Provider: Rainer Wilkinson Consult Reason/Comments: lung masses, hx colon cancer, hx melanoma Do you want consulting provider notified?: Yes 11/19/22 11:14 Consult Physician Urgent Consulting Provider: Suman Benson Consult Reason/Comments: T10 lesion Do you want consulting provider notified?: Yes Primary care physician: [facility] Course: Diagnoses Multiple pulmonary nodules suspicious for primary lung cancer with mediastinal lymphadenopathy and metastatic to the bone. Pathological fractures of T10, with vertebral height loss. Right lower extremity weakness Multiple lucent lesions within T7 and L1 suspicious for metastatic disease Acute hypoxemic respiratory failure Hyperkalemia, could be secondary to medication while on losartan Chronic atrial fibrillation on Coumadin Coagulopathy secondary to Coumadin Hemoptysis Chronic heart failure Hyperlipidemia Hypertension History of osteoarthritis History of sleep apnea on CPAP at home. History of colon cancer status post radiotherapy History of melanoma Hospital course: This is a pleasant 87 years old male with multiple medical problems as below. patient presents because feeling stuffiness in his abdomen as he is telling me, he says he cannot move by himself slight before, if he tries to stand up he feels unsteady. Patient found to have pathological leg weakness and multiple lung nodules suspicious for metastasis versus primary lung cancer. Patient is been followed by several consultants including pulmonary, cardiology and orthopedic surgery. From the beginning patient and family opted for non- aggressive treatment and management plan. However patient received several treatment including IV Lasix, antibiotics with Zosyn and steroids with dexamethasone however patient did not improve much since admission and remains on acute hypoxic respiratory failure and he remains on 15 L/m of oxygen. Eventually patient and family decided to proceed with hospice care. Radiotherapy could not be provided to his back due to being on high dose oxygen via nasal cannula. I discussed the case with the patient and he is agreeable for hospice. Also discussed the case with the hospice nurse who cleared the patient for discharge and scheduled for discharge on the same day 11/29 with his regular medication he takes in the hospital. Problems and management plan were discussed with the patient and he verbalized understanding and acceptance Patient was found stable and can be discharged with hospice care in guarded prognosis however he needs follow-up as an outpatient. Patient was instructed to follow up with PCP within one week and patient agrees Patient has no code order Physical exam Gen: patient is a AAOx3, no distress. Generally weak CVS: S1-S2, RRR, no murmur -Lungs: B/L CTA, no wheezing. Scattered crepitation and wheezing. Tachypneic 15 oxygen via nasal cannula Abdomen: soft, no distention, no tenderness, positive bowel sounds Extremity: no leg edema or induration Neurology: Fully awake and oriented, mild to moderate bilateral Leg weakness on both sides. Generalized weakness. No sensory loss. Meningeal signs are absent Time spent more than 35 minutes Patient Condition at Discharge: Stable Plan - Discharge Summary Discharge Rx Participant: No New Discharge Prescriptions: New Docusate [Colace] 100 mg PO BID #20 cap Losartan [Cozaar] 50 mg PO HS #30 tab Famotidine [Pepcid] 20 mg PO BID #60 tab Sennosides [Senokot] 8.6 mg PO BID PRN #60 tab PRN Reason: Constipation Apixaban [Eliquis] 2.5 mg PO BID #60 tab dexAMETHasone [Decadron] 4 mg PO Q6H #100 tablet Furosemide [Lasix] 40 mg PO DAILY #30 tab Lidocaine 5% Patch [Lidoderm 5% Patch] 1 patch TOPICAL DAILY #10 patch amLODIPine [Norvasc] 5 mg PO DAILY #30 tab Continue Atorvastatin [Lipitor] 10 mg PO HS Amiodarone HCl [Pacerone] 100 mg PO DAILY Aspirin [Adult Low Dose Aspirin EC] 81 mg PO DAILY Magnesium Chloride [Slow-Mag] 64 mg PO HS Warfarin [Coumadin] 2.5 mg PO TH@1999 allopurinoL 300 mg PO HS Acetaminophen-Codeine 300-30mg [Tylenol w/codeine #3] 1 tab PO Q6H PRN PRN Reason: Pain Warfarin [Coumadin] 1.25 mg PO ROSETTEA@1999 Discontinued Losartan Potassium [Cozaar] 100 mg PO HS Furosemide [Lasix] 20 mg PO DAILY Vit C/E/Zn/Coppr/Lutein/Zeaxan [Preservision Areds 2 Chew Tab] 1 tab PO HS Discharge Medication List Atorvastatin [Lipitor] 10 mg PO HS 01/13/16 [History] Amiodarone HCl [Pacerone] 100 mg PO DAILY 10/26/20 [History] Aspirin [Adult Low Dose Aspirin EC] 81 mg PO DAILY 10/26/20 [History] Acetaminophen-Codeine 300-30mg [Tylenol w/codeine #3] 1 tab PO Q6H PRN 11/13/22 [History] Warfarin [Coumadin] 1.25 mg PO SUMOTUWEFRSA@199911/13/22 [History] Magnesium Chloride [Slow-Mag] 64 mg PO HS 11/16/22 [History] Warfarin [Coumadin] 2.5 mg PO TH@199911/16/22 [History] allopurinoL 300 mg PO HS 11/16/22 [History] Apixaban [Eliquis] 2.5 mg PO BID #60 tab 11/19/22 [Rx] Docusate [Colace] 100 mg PO BID #20 cap 11/29/22 [Rx] Famotidine [Pepcid] 20 mg PO BID #60 tab 11/29/22 [Rx] Furosemide [Lasix] 40 mg PO DAILY #30 tab 11/29/22 [Rx] Lidocaine 5% Patch [Lidoderm 5% Patch] 1 patch TOPICAL DAILY #10 patch 11/29/22 [Rx] Losartan [Cozaar] 50 mg PO HS #30 tab 11/29/22 [Rx] Sennosides [Senokot] 8.6 mg PO BID PRN #60 tab 11/29/22 [Rx] amLODIPine [Norvasc] 5 mg PO DAILY #30 tab 11/29/22 [Rx] dexAMETHasone [Decadron] 4 mg PO Q6H #100 tablet 11/29/22 [Rx] Follow up Appointment(s)/Referral(s): Ian España DO [Primary Care Provider] - 1-2 days Discharge Disposition: STILL PT- FOR INTERIM BILLING
== END 2022-11-29 12:58 | disposition still patient (30) | DRG 542 ==
LOC: EC 08:10 → 3SCARD 15:16
PROVIDERS: ADMIT Internal Medicine; ATTEND Internal Medicine
PROC: 5A0955A Assistance with Respiratory Ventilation, Greater than 96 Consecutive Hours, High Flow/Velocity Cannula (ICD-10-PCS; 2022-11-18)
PROC: 0W993ZZ Drainage of Right Pleural Cavity, Percutaneous Approach (ICD-10-PCS; principal; 2022-11-19)
DX: M84.48XA Pathological fracture, other site, initial encounter for fracture (principal); I50.23 Acute on chronic systolic (congestive) heart failure; J96.01 Acute respiratory failure with hypoxia; C79.51 Secondary malignant neoplasm of bone; I31.39 Other pericardial effusion (noninflammatory); D68.32 Hemorrhagic disorder due to extrinsic circulating anticoagulants; C78.02 Secondary malignant neoplasm of left lung; C78.01 Secondary malignant neoplasm of right lung; I47.20 Ventricular tachycardia, unspecified; J91.8 Pleural effusion in other conditions classified elsewhere; I48.21 Permanent atrial fibrillation; J44.1 Chronic obstructive pulmonary disease with (acute) exacerbation; I87.1 Compression of vein; Z51.5 Encounter for palliative care; Z66 Do not resuscitate; I27.20 Pulmonary hypertension, unspecified; I11.0 Hypertensive heart disease with heart failure; R54 Age-related physical debility; J44.9 Chronic obstructive pulmonary disease, unspecified; I73.9 Peripheral vascular disease, unspecified; Z95.820 Peripheral vascular angioplasty status with implants and grafts; I08.3 Combined rheumatic disorders of mitral, aortic and tricuspid valves; K59.00 Constipation, unspecified; E78.5 Hyperlipidemia, unspecified; R39.11 Hesitancy of micturition; D86.85 Sarcoid myocarditis; R59.0 Localized enlarged lymph nodes; R01.1 Cardiac murmur, unspecified; G47.33 Obstructive sleep apnea (adult) (pediatric); M51.36 Other intervertebral disc degeneration, lumbar region; M48.061 Spinal stenosis, lumbar region without neurogenic claudication; T45.515A Adverse effect of anticoagulants, initial encounter; E87.5 Hyperkalemia; T46.5X5A Adverse effect of other antihypertensive drugs, initial encounter; Z20.822 Contact with and (suspected) exposure to COVID-19; Z87.891 Personal history of nicotine dependence; Z85.820 Personal history of malignant melanoma of skin; Z95.810 Presence of automatic (implantable) cardiac defibrillator; Z79.01 Long term (current) use of anticoagulants; Z92.3 Personal history of irradiation; Z90.49 Acquired absence of other specified parts of digestive tract; Z85.038 Personal history of other malignant neoplasm of large intestine; Z79.899 Other long term (current) drug therapy; Z79.82 Long term (current) use of aspirin; Z88.5 Allergy status to narcotic agent; Z91.048 Other nonmedicinal substance allergy status
CPT/HCPCS: 32555; 36415; 71045; 71046; 71260; 72131; 74177; 76604; 80048; 80053; 80076; 82150; 82378; 82465; 82945; 83605; 83615; 83735; 83880; 84157; 84443; 84484; 85025; 85610; 85730; 87070; 87075; 87102; 87205; 87502; 87635; 88108; 88305; 88341; 88342; 89050; 93005; 93306; 94640; 94760; 96361; 96374; 96375; 99291

== ENCOUNTER → 2022-11-16 | Outpatient (CLI) | payer MEDICARE, BC ==
--- NOTE | 2022-11-16 09:37 | CT ---
"EXAMINATION TYPE: CT lumbar spine wo con CT DLP: 623.6 mGycm, Automated exposure control for dose reduction was used. DATE OF EXAM: 11/16/2022 8:12 AM COMPARISON: CT chest 01/13/2016. CLINICAL INDICATION:Male, 87 years old with history of M54.50 low back pain; PHH, Low back pain, trou ble ambulating TECHNIQUE: Multiple axial images were obtained from the midportion of T11 through the sacroiliac yvonne nts. Soft tissue and bone windows in coronal and sagittal planes were obtained and reviewed. Contrast used: none. Oral contrast used: none. FINDINGS: Alignment: There are 5 lumbar type vertebral bodies within straightening of the alignment. Bone: No evidence of fracture is identified. Multilevel degeneration changes with endplate sclerosis , Schmorl's nodes, thickness phenomenon, disc space narrowing, osteophyte formation. There is facet j oint arthropathy throughout the spine. Discs: T12-L1: No spinal canal or neural foraminal stenosis is identified. L1-L2: Facet joint arthropathy, osteophytes and disc bulging result in mild spinal canal stenosis and mild bilateral neural foraminal stenosis. L2-L3: Facet joint arthropathy, osteophytes and disc bulging result in mild spinal canal stenosis and mild bilateral neural foraminal stenosis. L3-L4: Facet joint arthropathy, osteophytes and disc bulging result in severe spinal canal stenosis a nd mild bilateral neural foraminal stenosis. L4-L5: Facet joint arthropathy, osteophytes and disc bulging result in moderate to severe spinal can al stenosis and mild bilateral neural foraminal stenosis. L5-S1: No spinal canal or neural foraminal stenosis is identified. Other: Bilateral pleural effusions. There is atherosclerosis of the arterial vasculature. The bilater al lower lung mass on the right and nodule in the left measuring up to 3.7 on the right and 1.7 cm on the left. Right subdiaphragmatic lymph node which is enlarged measuring up to 1.4 cm. there is sever e atherosclerosis of the arterial vasculature. IMPRESSION: 1. Multilevel disc degeneration changes with severe L3-L4 and moderate to severe L4-L5 spinal canal stenosis. 2. New from 2016. Partially visualized lower lung masses/nodule and enlarged upper abdominal lymph n ode concerning for metastatic disease. Further workup with PET/CTs recommended. A Yellow level critical message alert has been initiated for Ian España DO via the [employer] | Critical Results System on 11/16/2022 9:34 AM. This message alert has been sent to Ian carrizales DO via the preferences provided by the clinician for the receipt of Radiology Critical Findings . Message ID [id number]."
== END | disposition home or self-care (01) ==
LOC: RADCTMAIN 07:56
PROVIDERS: ATTEND Family Medicine
DX: M51.36 Other intervertebral disc degeneration, lumbar region (principal); M48.061 Spinal stenosis, lumbar region without neurogenic claudication; M99.73 Connective tissue and disc stenosis of intervertebral foramina of lumbar region; R91.1 Solitary pulmonary nodule; R59.0 Localized enlarged lymph nodes
CPT/HCPCS: 72131